=== PATIENT | female | born 1950 | race American Indian/Alaskan Native ===

== ENCOUNTER 2018-05-10 20:07 | Emergency (ER) | payer MEDICARE, OTHER ==
[2018-05-10 20:12] VITALS: BMI 19.8
[2018-05-10 20:28] VITALS: BP 157/81; RESP 18; TEMP 98.3
--- NOTE | 2018-05-10 20:48 | ED PDOC ---
Arrival/HPI - General Time Seen by Provider: 05/10/18 20:36 Historian: Patient - History of Present Illness Narrative History of Present Illness (Text): 05/10/18 20:38 68 year old female, whose past medical history includes COPD, presents to the emergency department with lower back and right hip pain. Patient states she's a regular at [facility] [place], but since they couldn't do anything for her pain, she came here. Patient states the pain in worsened when she tries to lift her leg. Patient informs of having an X-ray recently at [facility] [place] that showed nothing wrong. Patient denies any fevers, chills, headache, dizziness, chest pain, shortness of breath, cough, abdominal pain, nausea, vomiting, diarrhea, urinary/bowel changes, or any other complaint. Time/Duration: Prior to Arrival Symptom Onset: Gradual Symptom Course: Unchanged Quality: Aching Past Medical History - Provider Review Nursing Documentation Reviewed: Yes Family/Social History - Physician Review Nursing Documentation Reviewed: Yes Family/Social History: No Known Family HX Allergies/Home Meds Allergies/Adverse Reactions: Allergies No Known Allergies Allergy (Verified 05/10/18 20:12) Home Medications: Home Meds Medication Instructions Recorded Confirmed Albuterol HFA [Ventolin HFA 90 1 inh INH PRN PRN 05/10/18 05/10/18 mcg/actuation (8 g)] Gabapentin [Neurontin] 400 mg PO BID 05/10/18 05/10/18 amLODIPine [Norvasc] 5 mg PO DAILY 05/10/18 05/10/18 Review of Systems - Physician Review All systems were reviewed & negative as marked: Yes - Review of Systems Constitutional: absent: Fevers, Night Sweats Respiratory: absent: SOB, Cough Cardiovascular: absent: Chest Pain Gastrointestinal: absent: Abdominal Pain, Diarrhea, Nausea, Vomiting Genitourinary Female: absent: Urine Output Changes Neurological: absent: Headache, Dizziness Physical Exam - Physical Exam Narrative Physical Exam (Text): 05/10/18 20:49 Gen: VS reviewed, alert, well developed, well nourished, nontoxic, mild distress. ENT: normal pharynx. Eye: EOMI, PERRL. Neck: no JVD, supple, no adenopathy. CV: regular rate, regular rhythm, no rubs, no murmur, no gallops, S1, S2, pulses equal and strong. Pulm: no distress, clear to auscultation, no wheeze, no rhonchi, breath sounds equal, no rales. Abd: soft, nontender, no guarding, no rebound, no rigidity, normal bowel sounds. Ext: no edema. Skin: good color, no rash, no cyanosis. Psych: responds appropriately to questions, normal affect. Neuro: oriented x 3, CN2-12 intact grossly, motor intact, sensation intact. Vital Signs Reviewed: Yes Vital Signs Temp Pulse Resp BP Pulse Ox 05/10/18 20:20 98.3 F 88 18 157/81 H 99 Temperature: Afebrile Blood Pressure: Normal Pulse: Regular Respiratory Rate: Normal Appearance: Positive for: Well-Appearing, Non-Toxic, Comfortable Pain Distress: None Mental Status: Positive for: Alert and Oriented X 3 Medical Decision Making ED Course and Treatment: 05/10/18 20:45 Impression: 68 year old female presents to the emergency department with lower back and right hip pain. Plan: -- Reassess and disposition Prior Visits: Notes and results from previous visits were reviewed. Progress Notes: 05/10/18 20:48 Discussed case with PMD, Dr. Samuel, who knows the patient very well. He states patient "bounces from ER to ER looking for pain meds. All her issues are chronic." 05/10/18 20:54 patient is yelling profanities, being disruptive, rambling continuously, and being frankly,disrespectful. - Scribe Statement The provider has reviewed the documentation as recorded by the Yolande Mari Provider Scribe Attestation: All medical record entries made by the Scribisidra were at my direction and personally dictated by me. I have reviewed the chart and agree that the record accurately reflects my personal performance of the history, physical exam, medical decision making, and the department course for this patient. I have also personally directed, reviewed, and agree with the discharge instructions and disposition. Disposition/Present on Arrival - Present on Arrival Any Indicators Present on Arrival: No - Disposition Have Diagnosis and Disposition been Completed?: Yes Diagnosis: Chronic pain Disposition: HOME/ ROUTINE Disposition Time: 20:55 Patient Plan: Discharge Patient Problems: Current Active Problems Problem Status Onset Chronic pain Acute Condition: STABLE Discharge Instructions (ExitCare): Chronic Pain (DC) Additional Instructions: You must follow up with your orthopedic surgeon. Follow up with your primary care doctor for pain control. See your primary care doctor for better control of your high blood pressure. TREVON FOSS, thank you for letting us take care of you today. Your provider was Dr. Chapo Jim and you were treated for chronic pain. The emergency medical care you received today was directed at your acute symptoms. If you were prescribed any medication, please fill it and take as directed. It may take several days for your symptoms to resolve. Return to the Emergency Department if your symptoms worsen, do not improve, or if you have any other problems. Please contact your doctor or call one of the physicians/clinics you have been referred to that are listed on the Patient Visit Information form that is included in your discharge packet. Bring any paperwork you were given at discharge with you along with any medications you are taking to your follow up visit. Our treatment cannot replace ongoing medical care by a primary care provider outside of the emergency department. Thank you for allowing the [facility] team to be part of your care today. If you had an X-Ray or CT scan: A Radiologist will review the ED reading if any change in treatment is needed we will contact you. If you had a blood, urine, or wound culture: It will take several days for the results, if any change in treatment is needed we will contact you. If you had an STI test: It will take 48 hours for the results. Please call after 1 week if you have not heard back. Referrals: [facility] [Outside] - Follow up with primary Hernan Coyne III, MD [Medical Doctor] - Follow up with primary
[2018-05-10 21:03] VITALS: PULSE 79; O2SAT 98
== END 2018-05-10 21:03 | disposition home or self-care (01) ==
LOC: ED 20:07 → MERGE 20:07 → ED 21:02
DX: G89.29 Other chronic pain (principal)

== ENCOUNTER 2018-06-24 18:02 | Emergency (ER) | payer MEDICARE, OTHER ==
[2018-06-24 18:02] VITALS: BMI 19.8
[2018-06-24 18:32] VITALS: RESP 18; TEMP 98.3
[2018-06-24] MEDS ORDERED: Albuterol-Ipratrop 3 mg / 0.5 (3 ml) UD IH STA (18:52)
--- NOTE | 2018-06-24 18:56 | ED PDOC ---
Arrival/HPI - General Chief Complaint: Pain, Chronic Time Seen by Provider: 06/24/18 18:10 Historian: Patient - History of Present Illness Narrative History of Present Illness (Text): 06/24/18 18:53 68 year old female whose past medical history includes COPD and osteoarthritis, presents to the emergency department complaining of chronic, bilateral lower extremity pain, worsened in the past 24hrs. Patient states that her right leg feels heavy and there is a sharp pain in her upper left leg which radiates to her left hip and left lower back. She notes she has pain with ambulation and while sitting to the side her pain worsens. She reports associated shortness of breath and chest tightness. Patient denies any recent falls or traumas to the area, fevers, chills, headache, dizziness, abdominal pain, nausea, vomiting, diarrhea, neck pain, or any other complaint. Time/Duration: 24 hours Symptom Course: Worsening Activities at Onset: Light Context: Home Past Medical History - Provider Review Nursing Documentation Reviewed: Yes - Infectious Disease Hx of Infectious Diseases: None - Cardiac Hx Cardiac Disorders: Yes Hx Hypertension: Yes - Pulmonary Hx Respiratory Disorders: Yes Hx Chronic Obstructive Pulmonary Disease (COPD): Yes - Neurological Hx Neurological Disorder: No - HEENT Hx HEENT Disorder: No - Renal Hx Renal Disorder: No - Endocrine/Metabolic Hx Endocrine Disorders: Yes Hx Diabetes Mellitus Type 2: Yes - Hematological/Oncological Hx Blood Disorders: Yes Hx Hepatitis C: Yes - Integumentary Hx Dermatological Disorder: No - Musculoskeletal/Rheumatological Hx Musculoskeletal Disorders: Yes Hx Arthritis: Yes (B/L HIP) - Gastrointestinal Hx Gastrointestinal Disorders: No - Genitourinary/Gynecological Hx Genitourinary Disorders: Yes - Psychiatric Hx Psychophysiologic Disorder: Yes Hx Substance Use: No - Surgical History Hx Tonsillectomy: Yes - Anesthesia Hx Anesthesia: Yes Family/Social History - Physician Review Nursing Documentation Reviewed: Yes Family/Social History: No Known Family HX Smoking Status: Light Smoker < 10 Cigarettes Daily Hx Alcohol Use: Yes Hx Substance Use: No Substance used: completed methadone program Allergies/Home Meds Allergies/Adverse Reactions: Allergies No Known Allergies Allergy (Verified 06/24/18 18:28) Home Medications: Home Meds Medication Instructions Recorded Confirmed Gabapentin [Neurontin] 400 mg PO BID 05/10/18 06/24/18 Review of Systems - Physician Review All systems were reviewed & negative as marked: Yes - Review of Systems Constitutional: absent: Fevers Eyes: absent: Vision Changes Respiratory: SOB Cardiovascular: Chest Pain (tight chest), Edema (left leg swelling) Gastrointestinal: absent: Abdominal Pain, Diarrhea, Nausea, Vomiting Musculoskeletal: Back Pain (lower back pain), Other (bilateral lower extremity pain). absent: Neck Pain Skin: absent: Rash Neurological: absent: Headache, Dizziness Physical Exam Vital Signs Reviewed: Yes Vital Signs Temp Pulse Resp BP Pulse Ox 06/24/18 18:23 98.3 F 99 H 18 143/97 H 99 Temperature: Afebrile Blood Pressure: Hypertensive Pulse: Tachycardic Respiratory Rate: Normal Appearance: Positive for: Well-Appearing, Non-Toxic, Comfortable Pain Distress: None Mental Status: Positive for: Alert and Oriented X 3 - Systems Exam Head: Present: Atraumatic, Normocephalic Pupils: Present: PERRL Extroacular Muscles: Present: EOMI Conjunctiva: Present: Normal Mouth: Present: Moist Mucous Membranes Neck: Present: Normal Range of Motion Respiratory/Chest: Present: Clear to Auscultation, Good Air Exchange. No: Respiratory Distress, Accessory Muscle Use Cardiovascular: Present: Regular Rate and Rhythm, Normal S1, S2. No: Murmurs Abdomen: No: Tenderness, Distention, Peritoneal Signs Back: Present: Normal Inspection Upper Extremity: Present: Normal Inspection. No: Cyanosis, Edema Lower Extremity: Present: Edema (notable left leg swelling to thigh), NORMAL PULSES (distal pulses intact bilaterally), Other (positive straight leg test right). No: CALF TENDERNESS (no pain with calf squeeze) Neurological: Present: GCS=15, CN II-XII Intact, Speech Normal Skin: Present: Warm, Dry, Normal Color. No: Rashes Psychiatric: Present: Alert, Oriented x 3, Normal Insight, Normal Concentration Medical Decision Making ED Course and Treatment: 06/24/18 18:53 Impression: 68 year old female who presents to the emergency department with bilateral lower extremity pain. Differential Diagnosis included but are not limited to: Peripheral Neropathy DVT Sciatica Plan: -- Labs -- EKG -- Duoneb -- Urinalysis -- US of lower extremities -- Reassess and disposition Prior Visits: Notes and results from previous visits were reviewed. Progress Notes: 06/24/18 20:26 US negative for DVT in bilateral extremities. Labs reviewed with no outstanding findings. Patient reassessed and feels better. She is advised to continue supportive therapy at home. She is stable for discharge. - Lab Interpretations I have reviewed the lab results: Yes - RAD Interpretation Narrative RAD Interpretations (Text): 06/24/18 19:56 US of Lower Extremity: DVT negative Radiology Orders: 06/24/18 18:33 CHEST PORTABLE [RAD] Stat 06/24/18 18:52 DUPLEX LOWER EXTRM VEIN BILAT [US] Stat Social Service Liaison: Radiologist - Scribe Statement The provider has reviewed the documentation as recorded by the Scribe Ailyn Ferrerradhabud Provider Scribe Attestation: All medical record entries made by the Scribe were at my direction and personally dictated by me. I have reviewed the chart and agree that the record accurately reflects my personal performance of the history, physical exam, medical decision making, and the department course for this patient. I have also personally directed, reviewed, and agree with the discharge instructions and disposition. Disposition/Present on Arrival - Present on Arrival Any Indicators Present on Arrival: No History of DVT/PE: No History of Uncontrolled Diabetes: No Urinary Catheter: No History of Decub. Ulcer: No History Surgical Site Infection Following: None - Disposition Have Diagnosis and Disposition been Completed?: Yes Diagnosis: Myalgia Disposition: HOME/ ROUTINE Disposition Time: 20:33 Patient Plan: Discharge Condition: IMPROVED Discharge Instructions (ExitCare): Muscle and Bone Pain (DC) Print Language: AUSTRALIAN Additional Instructions: All medical record entries made by the Scribe were at my direction and personally dictated by me. I have reviewed the chart and agree that the record accurately reflects my personal performance of the history, physical exam, medical decision making, and the department course for this patient. I have also personally directed, reviewed, and agree with the discharge instructions and disposition. Referrals: Michelle Venegas MD [Medical Doctor] - Follow up with primary [facility] at [facility] [Outside] - Follow up with primary Forms: [employer] (Spanish)
[2018-06-24] MEDS ORDERED: Lidocaine 5% Patch TD STA (19:01)
[2018-06-24 19:38] LABS: BASO # 0.03 K/mm3 (0.0-2.0); BASO % 0.4 % (0.0-3.0); EOS # 0.1 (0.0-0.7); EOS % 1.3 % (1.5-5.0); GRAN # 3.92 (1.4-6.5); HEMOGLOBIN 12.1 g/dL (12.0-16.0); LYMPH # 2.8 (1.2-3.4); LYMPH % 38.7 % (22.0-35.0); MEAN CELL VOLUME 90.4 fl (80.0-105.0); MEAN CORPUSCULAR HEMOGLOBIN 29.7 pg (25.0-35.0); MEAN CORPUSCULAR HGB CONC 32.9 g/dl (31.0-37.0); MEAN PLATELET VOLUME 11.5 fl (7.0-11.0); MONO # 0.3 (0.1-0.6); MONO % 4.6 % (1.0-6.0); RBC 4.07 10^6/uL (3.5-6.1); RED CELL DISTRIBUTION WIDTH 14.5 % (11.5-14.5); WHITE BLOOD COUNT 7.1 10^3/uL (4.5-11.0)
[2018-06-24 19:42] LABS: ALT/SGPT 43 U/L (7-56); AST/SGOT 60 U/L (14-36); BLOOD UREA NITROGEN 15 mg/dL (7-21); CALCIUM 8.9 mg/dL (8.4-10.5); GFR NON-AFRICAN AMERICAN > 60
[2018-06-24 19:53] LABS: B-TYPE NATRIURETIC PEPTIDE 70.6 pg/mL (0-450); TROPONIN I < 0.01 ng/mL
[2018-06-24] MEDS ORDERED: Oxycodone/Acetaminophen 5/325 mg Tab PO STA (20:29)
[2018-06-24 23:13] VITALS: BP 144/79; PULSE 88; O2SAT 97
--- NOTE | 2018-06-25 18:32 | US ---
HISTORY: Leg pain and swelling. Evaluate for DVT PHYSICIAN(S): Eulogio Madrid MD. TECHNIQUE: Duplex sonography and color-flow Doppler with graded compression were used to evaluate the deep venous systems of both lower extremities. FINDINGS: The visualized deep venous systems of both lower extremities are sonographically normal and compressible. Normal wave forms and augmentation are seen. There is no sonographic evidence for deep venous thrombosis in the visualized segments of both lower extremities. IMPRESSION: No sonographic evidence for deep venous thrombosis in the visualized segments of both lower extremities.
== END 2018-06-24 23:13 | disposition home or self-care (01) ==
LOC: ED 18:02
DX: M79.10 Myalgia, unspecified site (principal); I10 Essential (primary) hypertension; J44.9 Chronic obstructive pulmonary disease, unspecified; M16.0 Bilateral primary osteoarthritis of hip; F17.210 Nicotine dependence, cigarettes, uncomplicated
CPT/HCPCS: 80053; 82948; 83880; 84484; 85025; 93970; 96372; 99284; J1885

== ENCOUNTER 2018-06-27 15:46 | Emergency (ER) | payer MEDICARE ==
[2018-06-27 15:47] VITALS: BMI 19.8
[2018-06-27 16:02] VITALS: O2SAT 100
--- NOTE | 2018-06-27 16:08 | ED PDOC ---
Arrival/HPI - History of Present Illness Narrative History of Present Illness (Text): 68 y/o female with PMH of HTN, COPD, Hepatitis C, Osteoarthritis presents to the ED c/o left hip and thigh pain s/p fall this afternoon. Patient was getting off the toilet when she slipped and landed on her left side. Denies head strike or LOC. States that she has chronic pain in her hips and legs but this pain is worse. Has not taken any medication for pain. Patient is able to move both hips and bear weight, although it causes her pain. Denies back pain, incontinence, numbness, paresthesias, chest pain, SOB, headache, dizziness, N/V. Past Medical History - Provider Review Nursing Documentation Reviewed: Yes - Infectious Disease Hx of Infectious Diseases: None - Cardiac Hx Cardiac Disorders: Yes Hx Hypertension: Yes - Pulmonary Hx Respiratory Disorders: Yes Hx Chronic Obstructive Pulmonary Disease (COPD): Yes - Neurological Hx Neurological Disorder: No - HEENT Hx HEENT Disorder: No - Renal Hx Renal Disorder: No - Endocrine/Metabolic Hx Endocrine Disorders: No - Hematological/Oncological Hx Blood Disorders: Yes Hx Hepatitis C: Yes - Integumentary Hx Dermatological Disorder: No - Musculoskeletal/Rheumatological Hx Musculoskeletal Disorders: Yes Hx Arthritis: Yes (B/L HIP) - Gastrointestinal Hx Gastrointestinal Disorders: No - Genitourinary/Gynecological Hx Genitourinary Disorders: Yes - Psychiatric Hx Psychophysiologic Disorder: Yes Hx Substance Use: No - Surgical History Hx Tonsillectomy: Yes - Anesthesia Hx Anesthesia: Yes Family/Social History - Physician Review Nursing Documentation Reviewed: Yes Family/Social History: No Known Family HX Smoking Status: Light Smoker < 10 Cigarettes Daily Hx Alcohol Use: Yes Hx Substance Use: No Substance used: completed methadone program Allergies/Home Meds Allergies/Adverse Reactions: Allergies No Known Allergies Allergy (Verified 06/28/18 12:57) Home Medications: Home Meds Medication Instructions Recorded Confirmed Gabapentin [Neurontin] 400 mg PO BID 05/10/18 06/24/18 Folic Acid 1 mg PO DAILY 06/27/18 06/27/18 Glyburide PO 06/27/18 Review of Systems - Physician Review All systems were reviewed & negative as marked: Yes - Review of Systems Constitutional: Normal Eyes: Normal. absent: Vision Changes ENT: Normal Respiratory: Normal. absent: SOB Cardiovascular: Normal. absent: Chest Pain Gastrointestinal: Normal Genitourinary Female: Normal Musculoskeletal: Arthralgias (left hip, anterior thigh). absent: Back Pain, Neck Pain, Joint Swelling Skin: Normal. absent: Other (bruising) Neurological: Normal. absent: Headache, Dizziness Endocrine: Normal Hemo/Lymphatic: Normal Psychiatric: Normal Physical Exam Vital Signs Reviewed: Yes Vital Signs Temp Pulse Resp BP Pulse Ox 06/27/18 16:01 98.0 F 100 H 18 141/86 100 Temperature: Afebrile Blood Pressure: Normal Pulse: Regular Respiratory Rate: Normal Appearance: Positive for: Well-Appearing, Non-Toxic, Comfortable Pain Distress: None Mental Status: Positive for: Alert and Oriented X 3 - Systems Exam Head: Present: Atraumatic, Normocephalic Pupils: Present: PERRL Extroacular Muscles: Present: EOMI Conjunctiva: Present: Normal Mouth: Present: Moist Mucous Membranes Neck: Present: Normal Range of Motion. No: MIDLINE TENDERNESS Respiratory/Chest: Present: Clear to Auscultation, Good Air Exchange. No: Respiratory Distress, Accessory Muscle Use, Decreased Breath Sounds, Retracting, Rhonchi Cardiovascular: Present: Regular Rate and Rhythm, Normal S1, S2, Peripheal Pulses Present. No: Murmurs Abdomen: No: Tenderness, Distention, Peritoneal Signs, Rebound, Guarding Back: Present: Normal Inspection. No: Midline Tenderness, Paraspinal Tenderness Upper Extremity: Present: Normal Inspection, Normal ROM, NORMAL PULSES, Neurovascularly Intact, Capillary Refill < 2s. No: Cyanosis, Edema, Tenderness, Deformity Lower Extremity: Present: Normal Inspection, NORMAL PULSES, Normal ROM, Tenderness (left anterior thigh and lateral hip ), Neurovascularly Intact, Capillary Refill < 2 s. No: Edema, Swelling, Erythema, Deformity, Temperature Abnormalties Neurological: Present: GCS=15, CN II-XII Intact, Speech Normal Skin: Present: Warm, Dry, Normal Color. No: Rashes Psychiatric: Present: Alert, Oriented x 3, Normal Insight, Normal Concentration, Normal Affect, Normal Mood Medical Decision Making ED Course and Treatment: 06/27/18 16:05 Initial Plan: * XR left hip * XR left femur * Toradol Patient reports decreased pain after medication. 18:00 XR left hip and femur read by Dr. Johnston as negative for acute fracture or di slocation. Plan of care discussed with patient, and strict instructions given regarding prescriptions, importance of follow up, and signs to return to Emergency Department, to include worsening pain, numbness, paresthesias, or any other new/worsening symptoms. Patient verbalizes understanding of discussion. Patient A&Ox3, ambulating with steady gait, stable for discharge home. Impression: Left hip pain Muscle strain 18:45 Attempting to arrange transport for patient 19:30 Patient will wait for logistic care to pick her up from the ED and take her home. Estimated wait time 4 hours. - RAD Interpretation Radiology Orders: 06/27/18 15:59 FEMUR MIN 2 VIEWS LT [RAD] Stat Hip Left [HIP MIN 4V W/ PELVIS LT] [RAD] Stat - Medication Orders Current Medication Orders: Discontinued Medications Ketorolac Tromethamine (Toradol) 60 mg IM STAT STA Stop: 06/27/18 16:02 Disposition/Present on Arrival - Present on Arrival Any Indicators Present on Arrival: No History of DVT/PE: No History of Uncontrolled Diabetes: No Urinary Catheter: No History Surgical Site Infection Following: None - Disposition Have Diagnosis and Disposition been Completed?: Yes Diagnosis: Fall, Hip pain, Muscle strain Disposition: HOME/ ROUTINE Disposition Time: 18:00 Condition: IMPROVED Discharge Instructions (ExitCare): Preventing Falls, Hip Pain Additional Instructions: Rest, no strenuous activity Heating pads over painful areas Tylenol for pain Followup with primary doctor within 2 days Followup with orthopedic doctor for persistent pain Return to ER for new/worsening symptoms Referrals: Yelitza Samuel MD [Primary Care Provider] - Follow up with primary Constantino Rodriguez MD [Staff Provider] - Follow up with primary Forms: [place] (Latvian)
[2018-06-27 16:21] VITALS: TEMP 98.9
[2018-06-27] MEDS ORDERED: Oxycodone/Acetaminophen 5/325 mg Tab PO STA (22:00)
[2018-06-27] MEDS ORDERED: Oxycodone/Acetaminophen 5/325 mg Tab ONE (22:07)
[2018-06-28 02:56] VITALS: BP 135/78; PULSE 85; RESP 16
--- NOTE | 2018-06-28 12:13 | RAD ---
Date of service: 06/27/2018 Indication: Trauma, rule out fracture Left femur radiographs Comparison: None available Findings: Severe degenerative changes of the left hip with high-riding femoral head and joint space narrowing. Subchondral sclerosis. Marked degenerative changes of the limited visualized knee. No acute displaced fracture. Soft tissues appear unremarkable. No evidence of radiopaque foreign body. Impression: Severe degenerative changes of the left hip as above. No acute displaced fracture identified. If symptoms persist or if there is continued clinical concern, x-ray follow-up in 7-10 days should be considered.
--- NOTE | 2018-06-28 12:53 | RAD ---
Date of service: 06/27/2018 PROCEDURE: Left hip with pelvis radiographs HISTORY: trauma, r/o fracture COMPARISON: None available FINDINGS: Severe degenerative changes bilateral hip joints. Subchondral sclerosis and joint space narrowing. Deformity of the proximal right femur may be related to remote injury. Correlate clinically. Osseous demineralization. Degenerative changes of the included lower lumbar spine. No acute displaced fracture appreciated. IMPRESSION: Severe degenerative changes bilaterally. Osseous demineralization. Deformity of the proximal right femur may be related to remote injury. Correlate clinically. No acute displaced fracture appreciated. If clinical suspicion is high, recommend cross-sectional imaging for further evaluation.
== END 2018-06-28 01:55 | disposition home or self-care (01) ==
LOC: ED 15:46
DX: S76.012A Strain of muscle, fascia and tendon of left hip, initial encounter (principal); W18.11XA Fall from or off toilet without subsequent striking against object, initial encounter; I10 Essential (primary) hypertension; F17.210 Nicotine dependence, cigarettes, uncomplicated; J44.9 Chronic obstructive pulmonary disease, unspecified
CPT/HCPCS: 73503; 73552; 96372; 99284; J1885

== ENCOUNTER 2018-06-28 12:32 | Emergency (ER) | payer MEDICARE ==
[2018-06-28 12:33] VITALS: BMI 19.8
[2018-06-28 12:57] VITALS: TEMP 98
--- NOTE | 2018-06-28 13:37 | ED PDOC ---
Arrival/HPI - General Chief Complaint: Female Genitourinary Time Seen by Provider: 06/28/18 12:40 Historian: Patient - History of Present Illness Narrative History of Present Illness (Text): 06/28/18 12:57 A 68 year old female, whose past medical history includes COPD, HTN, diabetes(does not take insulin as she's been told she doesn't need it, takes pills instead), presents to the emergency department complaining of frequent ur ination for the past 2 hours starting today. Patient reports she urinated on herself as a result of this issue. Notes she was diagnosed with a UTI 2 weeks ago and has been taking antibiotic pills twice a day (states she currently has two pills remaining). Patient denies any fever, dysuria, or any other complaints at this time. No PMD Past Medical History - Provider Review Nursing Documentation Reviewed: Yes - Infectious Disease Hx of Infectious Diseases: None - Reproductive Menopause: Yes - Cardiac Hx Cardiac Disorders: Yes Hx Hypertension: Yes - Pulmonary Hx Respiratory Disorders: Yes Hx Chronic Obstructive Pulmonary Disease (COPD): Yes - Neurological Hx Neurological Disorder: No - HEENT Hx HEENT Disorder: No - Renal Hx Renal Disorder: No - Endocrine/Metabolic Hx Endocrine Disorders: No - Hematological/Oncological Hx Blood Disorders: Yes Hx Hepatitis C: Yes - Integumentary Hx Dermatological Disorder: No - Musculoskeletal/Rheumatological Hx Musculoskeletal Disorders: Yes Hx Arthritis: Yes (B/L HIP) - Gastrointestinal Hx Gastrointestinal Disorders: No - Genitourinary/Gynecological Hx Genitourinary Disorders: Yes - Psychiatric Hx Psychophysiologic Disorder: Yes Hx Substance Use: No - Surgical History Hx Tonsillectomy: Yes - Anesthesia Hx Anesthesia: Yes Family/Social History - Physician Review Nursing Documentation Reviewed: Yes Family/Social History: No Known Family HX Smoking Status: Light Smoker < 10 Cigarettes Daily Hx Alcohol Use: Yes Hx Substance Use: No Substance used: completed methadone program Allergies/Home Meds Allergies/Adverse Reactions: Allergies No Known Allergies Allergy (Verified 06/28/18 12:57) Home Medications: Home Meds Medication Instructions Recorded Confirmed Gabapentin [Neurontin] 400 mg PO BID 05/10/18 06/24/18 Folic Acid 1 mg PO DAILY 06/27/18 06/27/18 Glyburide PO 06/27/18 Review of Systems - Physician Review All systems were reviewed & negative as marked: Yes - Review of Systems Constitutional: absent: Fevers Genitourinary Female: Frequency. absent: Dysuria Physical Exam - Physical Exam Narrative Physical Exam (Text): Gen: VS reviewed, alert, well developed, well nourished, nontoxic, mild distress Eye: EOMI, PERRL Neck: no JVD, supple, no adenopathy CV: regular rate, regular rhythm, no rubs,no murmur, S1, S2 Pulm: no distress, clear to auscultation, no wheeze, no rhonchi, breath sounds equal, no rales Abd: soft, nontender, no guarding, no rebound, no rigidity Ext: no edema Skin: good color, no rash, no cyanosis Psych: responds appropriately to questions, normal affect Neuro: oriented x3, CN2-12 intact grossly, motor intact, sensation intact Vital Signs Reviewed: Yes Vital Signs Temp Pulse Resp BP Pulse Ox 06/28/18 12:52 98 F 90 20 101/68 97 Temperature: Afebrile Blood Pressure: Normal Pulse: Regular Respiratory Rate: Normal Appearance: Positive for: Well-Appearing, Non-Toxic, Comfortable Pain Distress: None Mental Status: Positive for: Alert and Oriented X 3 Medical Decision Making ED Course and Treatment: 06/28/18 13:00 Impression: 68 year old female with frequent urination. No acute findings on physical exam. Plan: -- Reassess and disposition Progress Notes: 06/28/18 16:07 patient seen for urinary incontinence, there are no associated acute neuro deficits such as lower extremity weakness or numbness, no saddle anesthesia. patient does report a hx of low back pain but recent escalation of low back pain. there is no fever or hx ivda to suggest possible spinal epidural abscess. patient understands findings and plan to follow up with pcp. patient agreeable to referral to urologist for possible urodynamic testing. - Scribe Statement The provider has reviewed the documentation as recorded by the Yolande Bartlett Provider Scribe Attestation: All medical record entries made by the Yolande were at my direction and personally dictated by me. I have reviewed the chart and agree that the record accurately reflects my personal performance of the history, physical exam, medical decision making, and the department course for this patient. I have also personally directed, reviewed, and agree with the discharge instructions and disposition. Disposition/Present on Arrival - Present on Arrival Any Indicators Present on Arrival: No History of DVT/PE: No History of Uncontrolled Diabetes: No Urinary Catheter: No History of Decub. Ulcer: No History Surgical Site Infection Following: None - Disposition Have Diagnosis and Disposition been Completed?: Yes Diagnosis: Urinary incontinence in female Disposition: HOME/ ROUTINE Disposition Time: 16:09 Patient Plan: Discharge Condition: STABLE Discharge Instructions (ExitCare): Urinary Incontinence, Female (DC) Additional Instructions: Return for any new or worsening symptoms especially fever greater than 100.4, acute numbness or weakness in the legs, unable to feel sensation in the groin area, sever worsening low back pain. TREVON FOSS, thank you for letting us take care of you today. Your provider was Dr. Chapo Jim and you were treated for urinary incontinence. The emergency medical care you received today was directed at your acute symptoms. If you were prescribed any medication, please fill it and take as directed. It may take several days for your symptoms to resolve. Return to the Emergency Department if your symptoms worsen, do not improve, or if you have any other problems. Please contact your doctor or call one of the physicians/clinics you have been referred to that are listed on the Patient Visit Information form that is included in your discharge packet. Bring any paperwork you were given at discharge with you along with any medications you are taking to your follow up visit. Our treatment cannot replace ongoing medical care by a primary care provider outside of the emergency department. Thank you for allowing the [facility] team to be part of your care today. If you had an X-Ray or CT scan: A Radiologist will review the ED reading if any change in treatment is needed we will contact you. If you had a blood, urine, or wound culture: It will take several days for the results, if any change in treatment is needed we will contact you. If you had an STI test: It will take 48 hours for the results. Please call after 1 week if you have not heard back. Referrals: Sukh Laguna MD [Staff Provider] - Follow up with primary Forms: [employer] (Portuguese)
[2018-06-28 14:59] LABS: PH,URINE 6.5 (4.7-8.0); URINE BILIRUBIN NEGATIVE (NEGATIVE); URINE BLOOD NEGATIVE (NEGATIVE); URINE GLUCOSE (UA) NEGATIVE (NEGATIVE); URINE LEUKOCYTE ESTERASE SMALL Leu/uL (NEGATIVE); URINE PROTEIN NEGATIVE mg/dL (<30 mg/dL)
[2018-06-28 15:04] LABS: URINE APPEARANCE CLEAR (CLEAR); URINE COLOR YELLOW (YELLOW)
[2018-06-28 15:11] LABS: URINE BACTERIA NEG (NEG); URINE RBC 0 - 2 /hpf (0-2)
[2018-06-28 15:34] LABS: BASO # 0.01 K/mm3 (0.0-2.0); BASO % 0.1 % (0.0-3.0); EOS % 0.6 % (1.5-5.0); GRAN # 3.51 (1.4-6.5); GRAN % 52.1 % (50.0-68.0); HEMOGLOBIN 12.2 g/dL (12.0-16.0); LYMPH # 2.8 (1.2-3.4); LYMPH % 41.6 % (22.0-35.0); MEAN CELL VOLUME 89.7 fl (80.0-105.0); MEAN CORPUSCULAR HEMOGLOBIN 29.3 pg (25.0-35.0); MEAN CORPUSCULAR HGB CONC 32.7 g/dl (31.0-37.0); MEAN PLATELET VOLUME 11.8 fl (7.0-11.0); MONO # 0.4 (0.1-0.6); MONO % 5.6 % (1.0-6.0); RBC 4.16 10^6/uL (3.5-6.1); RED CELL DISTRIBUTION WIDTH 14.5 % (11.5-14.5); WHITE BLOOD COUNT 6.8 10^3/uL (4.5-11.0)
[2018-06-28 16:17] VITALS: RESP 18; O2SAT 98
[2018-06-28 21:11] VITALS: BP 136/78; PULSE 70
== END 2018-06-28 21:27 | disposition home or self-care (01) ==
LOC: ED 12:32
DX: R32 Unspecified urinary incontinence (principal); I10 Essential (primary) hypertension; E11.9 Type 2 diabetes mellitus without complications; J44.9 Chronic obstructive pulmonary disease, unspecified; F17.210 Nicotine dependence, cigarettes, uncomplicated

== ENCOUNTER 2018-07-02 13:31 | Emergency (ER) | payer MEDICARE, OTHER ==
[2018-07-02 13:32] VITALS: BMI 19.8
[2018-07-02 13:41] VITALS: RESP 18; TEMP 98.2
[2018-07-02] MEDS ORDERED: Lidocaine 5% Patch TD STA (14:11)
--- NOTE | 2018-07-02 14:37 | ED PDOC ---
Arrival/HPI - General Chief Complaint: Back Pain Time Seen by Provider: 07/02/18 13:40 Historian: Patient - History of Present Illness Narrative History of Present Illness (Text): 07/02/18 15:02 A 68 year old female, whose past medical history includes chronic back/hip pain, presents to the emergency department complaining of lower back pain s/p fall 1 hour [employer]ENT[employer]. Patient reports she was ambulating on the stairs when she slipped, fell down one stair, and landed on her back. After the fall, she stood up, changed her clothes, and called EMS. 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 Pt is well-known to the ED, last seen two days ago at [facility], and 4 days ago here. Pt ambulates with a walker at baseline. Patient denies any head trauma, LOC, dizziness, vision changes, leg numbness/paresthesias, hip pain, neck pain, incontinence, or any other complaints at this time. PMD: Dr. Layne Time/Duration: 1 hour Past Medical History - Provider Review Nursing Documentation Reviewed: Yes - Infectious Disease Hx of Infectious Diseases: None - Cardiac Hx Hypertension: Yes - Pulmonary Hx Chronic Obstructive Pulmonary Disease (COPD): Yes - Neurological Hx Neurological Disorder: No - HEENT Hx HEENT Disorder: No - Renal Hx Renal Disorder: No - Endocrine/Metabolic Hx Endocrine Disorders: No - Hematological/Oncological Hx Blood Disorders: Yes Hx Hepatitis C: Yes - Integumentary Hx Dermatological Disorder: No - Musculoskeletal/Rheumatological Hx Arthritis: Yes (B/L HIP) - Gastrointestinal Hx Gastrointestinal Disorders: No - Genitourinary/Gynecological Hx Genitourinary Disorders: Yes - Psychiatric Hx Psychophysiologic Disorder: Yes Hx Substance Use: No - Surgical History Hx Tonsillectomy: Yes - Anesthesia Hx Anesthesia: Yes Hx Anesthesia Reactions: No Hx Malignant Hyperthermia: No Family/Social History - Physician Review Nursing Documentation Reviewed: Yes Family/Social History: No Known Family HX Smoking Status: Heavy Smoker > 10 Cigarettes Daily Hx Alcohol Use: Yes Hx Substance Use: No Substance used: completed methadone program Allergies/Home Meds Allergies/Adverse Reactions: Allergies No Known Allergies Allergy (Verified 06/30/18 15:26) Home Medications: Home Meds Medication Instructions Recorded Confirmed Gabapentin [Neurontin] 400 mg PO BID 05/10/18 06/24/18 Folic Acid 1 mg PO DAILY 06/27/18 06/27/18 Glyburide PO 06/27/18 Review of Systems - Physician Review All systems were reviewed & negative as marked: Yes - Review of Systems Constitutional: absent: Other (no head trauma) Eyes: Normal. absent: Vision Changes ENT: Normal Respiratory: Normal. absent: SOB Cardiovascular: Normal. absent: Chest Pain Gastrointestinal: Normal. absent: Abdominal Pain, Nausea, Vomiting Musculoskeletal: Back Pain (lower region s/p fall). absent: Neck Pain, Other (no hip pain) Skin: Normal. absent: Skin Lesions, Laceration Neurological: Normal. absent: Headache, Dizziness, Focal Weakness, Gait Changes, Other (no LOC, no leg numbness/weakness/paresthesias) Physical Exam Vital Signs Reviewed: Yes Vital Signs Temp Pulse Resp BP Pulse Ox 07/02/18 13:41 98.2 F 76 18 146/92 H 98 Temperature: Afebrile Blood Pressure: Normal Pulse: Regular Respiratory Rate: Normal Appearance: Positive for: Well-Appearing, Non-Toxic, Comfortable Pain Distress: None Mental Status: Positive for: Alert and Oriented X 3 - Systems Exam Head: Present: Atraumatic, Normocephalic Pupils: Present: PERRL Extroacular Muscles: Present: EOMI Conjunctiva: Present: Normal Ears: Present: Normal Mouth: Present: Moist Mucous Membranes Pharnyx: Present: Normal Nose (External): Present: Atraumatic Neck: Present: Normal Range of Motion. No: MIDLINE TENDERNESS, Paraspinal Tenderness Respiratory/Chest: Present: Clear to Auscultation, Good Air Exchange. No: Respiratory Distress, Accessory Muscle Use Cardiovascular: Present: Regular Rate and Rhythm, Normal S1, S2. No: Murmurs Abdomen: No: Tenderness, Distention, Peritoneal Signs Back: Present: Normal Inspection, Paraspinal Tenderness (mild lumbar paraspinal muscle tenderness bilaterally). No: Midline Tenderness Upper Extremity: Present: Normal Inspection, Normal ROM, NORMAL PULSES, Neurovascularly Intact, Capillary Refill < 2s. No: Cyanosis, Edema, Tenderness, Swelling, Erythema, Deformity Lower Extremity: Present: Normal Inspection, NORMAL PULSES, Normal ROM (patient is able to ambulate at a steady gait), Tenderness, Neurovascularly Intact, Capillary Refill < 2 s. No: Edema, Swelling, Erythema, Deformity, Temperature Abnormalties Neurological: Present: GCS=15, CN II-XII Intact, Speech Normal, Motor Func Grossly Intact, Normal Sensory Function, Gait Normal (patient able to ambulate per baseline with walker), Memory Normal Skin: Present: Warm, Dry, Normal Color. No: Rashes, Laceration, Abrasion, Other (bruising) Psychiatric: Present: Alert, Oriented x 3, Normal Insight, Normal Concentration, Normal Affect, Normal Mood Medical Decision Making ED Course and Treatment: 07/02/18 15:06 Impression: 68 year old female with lower back pain s/p fall. Physical exam shows mild lumbar paraspinal muscle tenderness bilaterally. Plan: -- Lidoderm Patch -- Sacrum and Coccyx X-Ray -- Lumbar Spinal X-Ray -- Reassess and disposition Patient in no acute distress. Asking for a sandwich and TV remote. Denies any pain without movement. Prior Visits: Notes and results from previous visits were reviewed. Patient was last seen in the [facility] Emergency Department emergency department on 06/30/2018 for multiple complaints of chest pain, shortness of breath, chronic back pain, and vomiting. Patient was discharged home. Lumbar Spine XR shows compression fracture of L3 that appears chronic. On review of prior imaging, compression fracture noted in Lumbar Xrays from 06/20, 05/07, and pelvic CT from 04/03 Patient reports decreased pain after medications, resting comfortably in stretcher. Plan of care discussed with patient, and strict instructions given regarding prescriptions, importance of follow up, and signs to return to Emergency Department, to include incontinence, worsening pain, weakness, numbness, paresthesias, syncope, chest pain, or any other new/worsening symptoms. Patient verbalizes understanding of discussion. Patient A&Ox3, ambulating with steady gait with walker, stable for discharge home. Transport will be arranged for patient via [employer]. Impression: Chronic Low Back Pain Muscle Strain Fall - RAD Interpretation Narrative RAD Interpretations (Text): 07/02/2018 14:57 Lumbar Spinal X-Ray IMPRESSION: Compression deformity age indeterminate but likely chronic L3 vertebral body. Dictator: Anton Jenkins MD 07/02/2018 14:58 Sacrum and Coccyx X-Ray IMPRESSION: No acute findings related to/accounting for the clinical presentation. Dictator: Anton Jenkins MD Radiology Orders: 07/02/18 14:09 LS SPINE WITH OBL > 18 YRS OLD [RAD] Stat SACRUM &/or COCCYX (MIN 2VW) [RAD] Stat - Medication Orders Current Medication Orders: Discontinued Medications Lidocaine (Lidoderm) 1 ea TD STAT STA Stop: 07/02/18 14:12 - Scribe Statement The provider has reviewed the documentation as recorded by the Yolande Bartlett Provider Scribe Attestation: All medical record entries made by the Scribe were at my direction and personally dictated by me. I have reviewed the chart and agree that the record accurately reflects my personal performance of the history, physical exam, medical decision making, and the department course for this patient. I have also personally directed, reviewed, and agree with the discharge instructions and disposition. Disposition/Present on Arrival - Present on Arrival Any Indicators Present on Arrival: No History of DVT/PE: No History of Uncontrolled Diabetes: No Urinary Catheter: No History of Decub. Ulcer: No History Surgical Site Infection Following: None - Disposition Have Diagnosis and Disposition been Completed?: Yes Diagnosis: Fall, Back pain Disposition: HOME/ ROUTINE Disposition Time: 15:00 Condition: IMPROVED Discharge Instructions (ExitCare): Preventing Falls in the Older Adult Additional Instructions: Ibuprofen/tylenol for pain Followup with orthopedics within 2 days Followup with primary doctor within 2 days Return to ER for any new/worsening symptoms Referrals: Yelitza Samuel MD [Primary Care Provider] - Follow up with primary Constantino Rodriguez MD [Staff Provider] - Follow up with primary Forms: [employer] (Korean)
--- NOTE | 2018-07-02 15:01 | RAD ---
Date of service: 07/02/2018 PROCEDURE: Radiographs of the Lumbar Spine. HISTORY: fall r/o fracture COMPARISON: No prior. FINDINGS: BONES: Loss of height L3 vertebral body. Age indeterminate although likely old fracture. DISC SPACES: Multilevel degenerative changes throughout visualized thoracolumbar spine OTHER FINDINGS: None. IMPRESSION: Compression deformity age indeterminate but likely chronic L3 vertebral body.
--- NOTE | 2018-07-02 15:02 | RAD ---
Date of service: 07/02/2018 PROCEDURE: Radiographs of the Sacrum and Coccyx HISTORY: fall r/o fracture COMPARISON: None available. TECHNIQUE: Frontal and lateral views of the sacrum and coccyx FINDINGS: BONES: Sacrum and coccyx unremarkable. No fracture or focal lesion. SACROILIAC JOINTS: Unremarkable. OTHER FINDINGS: Severe degenerative changes both hips including profound joint space narrowing which is approximately symmetrical, subchondral cyst formation and sclerosis. IMPRESSION: No acute findings related to/accounting for the clinical presentation.
[2018-07-02 16:46] VITALS: BP 138/76; PULSE 71; O2SAT 100
== END 2018-07-02 17:32 | disposition home or self-care (01) ==
LOC: ED 13:31
DX: M54.5 Low back pain (principal); W10.9XXA Fall (on) (from) unspecified stairs and steps, initial encounter; Y92.9 Unspecified place or not applicable

== ENCOUNTER 2018-07-03 16:24 | Emergency (ER) | payer MEDICAID, MEDICARE, OTHER ==
[2018-07-03 16:24] VITALS: BMI 19.8
[2018-07-03] MEDS ORDERED: Albuterol-Ipratrop 3 mg / 0.5 (3 ml) UD IH STA (16:37)
[2018-07-03 16:55] VITALS: RESP 18; TEMP 98
--- NOTE | 2018-07-03 17:02 | ED PDOC ---
Arrival/HPI - General Chief Complaint: GI Problem Time Seen by Provider: 07/03/18 16:26 Historian: Patient - History of Present Illness Narrative History of Present Illness (Text): 07/03/18 16:55 68 year old female, whose past medical history includes COPD, presents to the emergency department with persistent nausea and vomiting, worsening over the past day. Patient states she has had these symptoms for a week. Patient states she also has reproducible chest pain from retching. She denies any blood streaks in sputum or vomit. Patient reports intermittent shortness of breath which she states albuterol does not ease. Patient was recently seen multiple times at [facility], as well [facility] for similar complaint. She admits to being given an antiemetic at [facility] which did not alleviate symptoms. Patient denies any fevers, chills, abd ominal pain, diarrhea, chest pain, cough, headache, dizziness, or any other complaints. Time/Duration: 24 hours (worsening in past 24 hours), 1 week Symptom Course: Unchanged Severity Level: Moderate Activities at Onset: Rest Context: Home Past Medical History - Provider Review Nursing Documentation Reviewed: Yes - Travel History Have you recently traveled outside [place] w/in the past 3 mons?: No - Infectious Disease Hx of Infectious Diseases: None - Cardiac Hx Hypertension: Yes - Pulmonary Hx Chronic Obstructive Pulmonary Disease (COPD): Yes - Neurological Hx Neurological Disorder: No - HEENT Hx HEENT Disorder: No - Renal Hx Renal Disorder: No - Endocrine/Metabolic Hx Endocrine Disorders: No - Hematological/Oncological Hx Blood Disorders: Yes Hx Hepatitis C: Yes - Integumentary Hx Dermatological Disorder: No - Musculoskeletal/Rheumatological Hx Arthritis: Yes (B/L HIP) - Gastrointestinal Hx Gastrointestinal Disorders: No - Genitourinary/Gynecological Hx Genitourinary Disorders: Yes - Psychiatric Hx Psychophysiologic Disorder: Yes Hx Substance Use: No - Surgical History Hx Tonsillectomy: Yes - Anesthesia Hx Anesthesia: Yes Hx Anesthesia Reactions: No Hx Malignant Hyperthermia: No Family/Social History - Physician Review Nursing Documentation Reviewed: Yes Family/Social History: No Known Family HX Smoking Status: Heavy Smoker > 10 Cigarettes Daily Hx Alcohol Use: Yes Hx Substance Use: No Substance used: completed methadone program Allergies/Home Meds Allergies/Adverse Reactions: Allergies No Known Allergies Allergy (Verified 07/05/18 16:02) Home Medications: Home Meds Medication Instructions Recorded Confirmed Gabapentin [Neurontin] 400 mg PO BID 05/10/18 07/05/18 Folic Acid 1 mg PO DAILY 06/27/18 07/05/18 RX: metFORMIN [glucOPHAGE] 1 tab PO BID 07/05/18 07/05/18 Review of Systems - Physician Review All systems were reviewed & negative as marked: Yes - Review of Systems Constitutional: absent: Fevers, Night Sweats Respiratory: absent: Cough Cardiovascular: absent: Chest Pain Gastrointestinal: Nausea, Vomiting. absent: Abdominal Pain, Diarrhea, Hematemesis Neurological: absent: Headache, Dizziness Physical Exam Vital Signs Reviewed: No Temperature: Afebrile Blood Pressure: Normal Pulse: Regular Respiratory Rate: Normal Appearance: Positive for: Well-Appearing, Non-Toxic, Comfortable Mental Status: Positive for: Alert and Oriented X 3 - Systems Exam Head: Present: Atraumatic, Normocephalic Pupils: Present: PERRL Extroacular Muscles: Present: EOMI Conjunctiva: Present: Normal Mouth: Present: Moist Mucous Membranes Neck: Present: Normal Range of Motion Respiratory/Chest: Present: Wheezes (mild wheezes noted to anterior lung garza), Other (reproduceable anterior chest wall pain). No: Rales, Rhonchi Cardiovascular: Present: Regular Rate and Rhythm, Normal S1, S2. No: Murmurs Abdomen: No: Tenderness, Distention, Peritoneal Signs Back: Present: Normal Inspection Upper Extremity: Present: Normal Inspection. No: Cyanosis, Edema Lower Extremity: Present: Normal Inspection. No: Edema Neurological: Present: GCS=15, CN II-XII Intact, Speech Normal Skin: Present: Warm, Dry, Normal Color. No: Rashes Psychiatric: Present: Alert, Oriented x 3, Normal Insight, Normal Concentration Medical Decision Making ED Course and Treatment: 07/03/18 17:06 Impression: 68 year old female presents with nausea and vomiting. Plan: -- EKG -- Toradol -- Zofran -- Prednisone -- Duonebs -- Reassess and disposition Prior Visits: Notes and results from previous visits were reviewed. Progress Notes: 07/03/18 17:51 EKG reviewed with no acute changes worrisome for ischemia. Patient noted to not be in bed. 07/03/18 18:15 Patient noted to be comfortably resting in bed. She eports improvement in pain. [facility] ambulatory services contacted and will come to hospital to transport patient home. - EKG Interpretation EKG Interpretation (Text): 07/03/18 17:08 EKG: Ordered, reviewed, and independently interpreted the EKG. Rate : 100 BPM Rhythm : NSR Interpretation : T-wave vlattening in V4 through V6, No QT prolongation, No ST elevation or depression Interpreted by ED Physician: Yes Type: 12 lead EKG - Medication Orders Current Medication Orders: Discontinued Medications Albuterol/Ipratropium (Duoneb 3 Mg/0.5 Mg (3 Ml) Ud) 3 ml IH STAT STA Stop: 07/03/18 16:38 Ketorolac Tromethamine (Toradol) 60 mg IM STAT STA Stop: 07/03/18 16:37 Ondansetron HCl (Zofran Odt) 4 mg PO STAT STA Stop: 07/03/18 16:37 Prednisone (Prednisone Tab) 60 mg PO STAT ONE Stop: 07/03/18 16:38 - Scribe Statement The provider has reviewed the documentation as recorded by the Yolande Mari Provider Scribe Attestation: All medical record entries made by the Scribe were at my direction and personally dictated by me. I have reviewed the chart and agree that the record accurately reflects my personal performance of the history, physical exam, medical decision making, and the department course for this patient. I have also personally directed, reviewed, and agree with the discharge instructions and disposition. Disposition/Present on Arrival - Present on Arrival Any Indicators Present on Arrival: No History of DVT/PE: No History of Uncontrolled Diabetes: No Urinary Catheter: No History of Decub. Ulcer: No History Surgical Site Infection Following: None - Disposition Have Diagnosis and Disposition been Completed?: Yes Diagnosis: Nausea & vomiting Disposition: HOME/ ROUTINE Disposition Time: 17:52 Patient Plan: Discharge Condition: IMPROVED Discharge Instructions (ExitCare): Nausea and Vomiting, Adult (DC) Print Language: ICELANDIC Additional Instructions: All medical record entries made by the Scribe were at my direction and personally dictated by me. I have reviewed the chart and agree that the record accurately reflects my personal performance of the history, physical exam, medical decision making, and the department course for this patient. I have also personally directed, reviewed, and agree with the discharge instructions and d isposition. Prescriptions: Ondansetron ODT [Zofran ODT] 4 mg PO Q6H #6 odt Referrals: Jean Claude Mo [Primary Care Provider] - Follow up with primary Shannan Swan [Registered Nurse] - Follow up with primary Carolina Urbano MD [Medical Doctor] - Follow up with primary Forms: [employer] (Bulgarian)
[2018-07-03 19:45] VITALS: BP 142/85; PULSE 88; O2SAT 98
--- NOTE | 2018-07-04 09:31 | CARD ---
APPROVED REPORT Date of service: 07/03/2018 EKG Measurement Heart [id number] <Conclusion> Normal sinus rhythm Possible Left atrial enlargement LVH NSSTW changes
== END 2018-07-03 19:47 | disposition home or self-care (01) ==
LOC: ED 16:24
DX: R11.2 Nausea with vomiting, unspecified (principal); I10 Essential (primary) hypertension; J44.9 Chronic obstructive pulmonary disease, unspecified; B19.20 Unspecified viral hepatitis C without hepatic coma; F17.210 Nicotine dependence, cigarettes, uncomplicated
CPT/HCPCS: 93005; 94640; 96372; 99284; J1885

== ENCOUNTER 2018-07-08 20:05 | Observation (INO) | payer OTHER, MEDICAID ==
[2018-07-08 20:05] VITALS: BMI 19.8
--- NOTE | 2018-07-08 20:59 | ED PDOC ---
Arrival/HPI - General Historian: Patient - History of Present Illness Narrative History of Present Illness (Text): 07/08/18 20:56 68 y o female, Past medical history hypertension, hyperlipidemia, COPD, DM2, b/l hip arthritis, chronic pain, Hep C (never treated), presents with chest pain that started this am. Pt states she was seated at home when the pain started, denies any inciting factors. States the pain was present for several minutes, went away on own, and then returned, now constant. Localized pain to L side of chest w/o radiation to axilla or carotids. Rates pain 8/10 currently. Did not take ASA or pain meds at home for symptoms. States chest pain is reproduced when she coughs, notes she has a chronic dry cough that is unchanged from baseline. Denies headache, lightheadedness/dizziness, fever, chills, sob, dyspnea on exertion, nausea, vomiting, d/c, abd pain, urinary complaints, or other symptoms. States she does not know how to check her fingersticks at home for her diabetes. States her bp was elevated at 170s systolic in the ambulance on the way to the Emergency department. Past medical history: hypertension, hyperlipidemia, COPD, DM2, b/l hip a rthritis, chronic pain, Hep C (never treated) PSurgHx: denies Allergies: NKDA Meds: Metformin bid, Albuterol inhaler, Spiriva 2.5 mcg 2 puffs daily, Gabapentin 350 mg tid, Tramadol, Tylenol Fam hx: denies Soc hx: smokes 3 cigarettes/day (reports 30+ pack yr hx), drinks 2 mini shot bottles of liquor/day; denies current illicit drug use. Pt states she was formerly on Methadone from 2006 to October 2017. PMD: Dr. Samuel <Tone Lambert - Last Filed: 07/08/18 23:07> - History of Present Illness Symptom Onset: Sudden Symptom Course: Unchanged Quality: Pressure, Tightness Severity Level: 8 <Beto Ellison - Last Filed: 07/08/18 23:11> - General Chief Complaint: Chest Pain Past Medical History - Infectious Disease Hx of Infectious Diseases: None - Cardiac Hx Cardiac Disorders: Yes Hx Hypertension: Yes - Pulmonary Hx Respiratory Disorders: Yes Hx Chronic Obstructive Pulmonary Disease (COPD): Yes - Neurological Hx Headaches: Yes - HEENT Hx HEENT Disorder: No - Renal Hx Renal Disorder: No - Endocrine/Metabolic Hx Endocrine Disorders: Yes Hx Diabetes Mellitus Type 2: Yes - Hematological/Oncological Hx Blood Disorders: Yes Hx Hepatitis C: Yes - Integumentary Hx Dermatological Disorder: No - Musculoskeletal/Rheumatological Hx Arthritis: Yes (B/L HIP) - Gastrointestinal Hx Gastrointestinal Disorders: No - Genitourinary/Gynecological Hx Genitourinary Disorders: Yes - Psychiatric Hx Psychophysiologic Disorder: Yes Hx Substance Use: No - Surgical History Hx Tonsillectomy: Yes - Anesthesia Hx Anesthesia: Yes Hx Anesthesia Reactions: No Hx Malignant Hyperthermia: No <Tone Lambert - Last Filed: 07/08/18 23:07> - Provider Review Nursing Documentation Reviewed: Yes <Beto Ellison - Last Filed: 07/08/18 23:11> Family/Social History Smoking Status: Heavy Smoker > 10 Cigarettes Daily Hx Alcohol Use: Yes Hx Substance Use: No Substance used: completed methadone program <Tone Lambert - Last Filed: 07/08/18 23:07> - Physician Review Nursing Documentation Reviewed: Yes Family/Social History: No Known Family HX <Beto Ellison - Last Filed: 07/08/18 23:11> Allergies/Home Meds <Tone Lambert - Last Filed: 07/08/18 23:07> <Beto Ellison - Last Filed: 07/08/18 23:11> Allergies/Adverse Reactions: Allergies No Known Allergies Allergy (Verified 07/05/18 16:02) Home Medications: Home Meds Medication Instructions Recorded Confirmed Gabapentin [Neurontin] 400 mg PO BID 05/10/18 07/05/18 Folic Acid 1 mg PO DAILY 06/27/18 07/05/18 metFORMIN [glucOPHAGE] 1 tab PO BID 07/05/18 07/05/18 Review of Systems - Review of Systems Constitutional: absent: Fatigue, Weight Change, Fevers, Night Sweats Eyes: absent: Vision Changes, Photophobia, Eye Pain ENT: absent: Hearing Changes, Tinnitus, Sore Throat Respiratory: Cough. absent: SOB, Wheezing Cardiovascular: Chest Pain. absent: Palpitations, Edema, Calf Pain, Orthopnea, Syncope Gastrointestinal: absent: Abdominal Pain, Stool Changes, Constipation, Diarrhea, Nausea, Vomiting Neurological: absent: Headache, Dizziness, Focal Weakness, Gait Changes Endocrine: absent: Polyuria, Polydipsia <Tone Lambert - Last Filed: 07/08/18 23:07> - Physician Review All systems were reviewed & negative as marked: Yes <Beto Ellison - Last Filed: 07/08/18 23:11> Physical Exam Temperature: Afebrile Blood Pressure: Hypertensive Pulse: Tachycardic Respiratory Rate: Normal Appearance: Positive for: Well-Appearing, Non-Toxic, Comfortable Mental Status: Positive for: Alert and Oriented X 3 - Systems Exam Head: Present: Atraumatic, Normocephalic Pupils: Present: PERRL Extroacular Muscles: Present: EOMI Conjunctiva: Present: Normal Mouth: Present: Moist Mucous Membranes Neck: Present: Normal Range of Motion. No: JVD Respiratory/Chest: Present: Wheezes (Minimal wheezing auscultated in all garza). No: Respiratory Distress, Accessory Muscle Use, Rales, Rhonchi Cardiovascular: Present: Normal S1, S2, Tachycardic. No: Murmurs, Rub, Gallop Abdomen: Present: Normal Bowel Sounds. No: Tenderness, Distention, Rebound, Mass/Organomegaly Upper Extremity: Present: Normal Inspection, NORMAL PULSES, Neurovascularly Intact, Capillary Refill < 2s. No: Cyanosis, Edema Lower Extremity: Present: Normal Inspection, NORMAL PULSES, Normal ROM. No: Edema, Cyanosis, Tenderness, Swelling Neurological: Present: GCS=15, CN II-XII Intact, Speech Normal, Motor Func Grossly Intact, Normal Sensory Function Skin: Present: Warm, Dry, Normal Color Psychiatric: Present: Alert, Oriented x 3, Normal Insight, Normal Concentration <Tone Lambert - Last Filed: 07/08/18 23:07> Vital Signs Reviewed: Yes Vital Signs Temp Pulse Resp BP Pulse Ox 07/08/18 20:34 98.0 F 111 H 18 148/103 H 99 <Beto Ellison - Last Filed: 07/08/18 23:11> Medical Decision Making ED Course and Treatment: 07/08/18 21:09 R/o ACS as etiology. Reviewed EKG: tachycardic at 111 bpm, otherwise unchanged from prior study. Pending CBC, CMP, troponin, Mg, P, POC glucose. Chest X-ray pending. 07/08/18 21:31 ASA and Nitro paste ordered. Cont to monitor. 07/08/18 23:07 Discussed case with hospitalist, Dr. Venegas and medical records coordinator. Plan to admit for chest pain. - RAD Interpretation Radiology Orders: 07/08/18 20:54 X-RAY [CHEST PORTABLE] [RAD] Stat <Tone Lambert - Last Filed: 07/08/18 23:07> ED Course and Treatment: Patient Seen with Provider In agreement with resident note which contains more details about the patient. Patient seen and evaluated with resident. Came up with plan and treatment together. 68 year old female presents complaining left-sided chest pain that began this morning associated with chronic dry cough. Plan: -- Labs -- CXR -- Aspirin, Magnesium Oxide, Nitro-Bid 2% -- Reassess and disposition - Lab Interpretations Lab Results: 07/08/18 21:15 07/08/18 21:15 Lab Results 07/08/18 21:15: Sodium 142, Potassium 3.8, Chloride 106, Carbon Dioxide 26, Anion Gap 14, BUN 18, Creatinine 0.6 L, Est GFR ( Amer) > 60, Est GFR (Non-Af Amer) > 60, Random Glucose 199 H, Calcium 9.4, Phosphorus 3.7, Magnesium 1.5 L, Total Bilirubin 0.4, AST 56 H, ALT 45, Alkaline Phosphatase 136 H D, Troponin I < 0.01, Total Protein 8.0, Albumin 4.0, Globulin 3.9, Albumin/Globulin Ratio 1.0 L 07/08/18 21:15: WBC 7.8, RBC 4.30, Hgb 12.9, Hct 38.7, MCV 90.0, MCH 30.0, MCHC 33.3, RDW 14.1, Plt Count 186, MPV 10.5, Gran % 57.5, Lymph % (Auto) 37.5 H, [place] % (Auto) 4.0, Eos % (Auto) 0.9 L, Baso % (Auto) 0.1, Gran # 4.50, Lymph # (Auto) 2.9, [place] # (Auto) 0.3, Eos # (Auto) 0.1, Baso # (Auto) 0.01 - RAD Interpretation Radiology Orders: 07/08/18 20:54 X-RAY [CHEST PORTABLE] [RAD] Stat - Medication Orders Current Medication Orders: Discontinued Medications Aspirin (Aspirin Chewable) 324 mg PO STAT STA Stop: 07/08/18 21:00 Last Admin: 07/08/18 21:22 Dose: 324 mg Magnesium Oxide (Mag-Ox) 400 mg PO STAT STA Stop: 07/08/18 21:46 Last Admin: 07/08/18 22:07 Dose: 400 mg Nitroglycerin (Nitro-Bid 2% Oint) 1 ea TOP STAT STA Stop: 07/08/18 21:29 Last Admin: 07/08/18 21:38 Dose: 1 ea <Beto Ellison - Last Filed: 07/08/18 23:11> - PA / MAINTENANCE WORKER / Resident Statement / has reviewed & agrees with the documentation as recorded. MD/ has examined the patient and agrees with the treatment plan. - Scribe Statement The provider has reviewed the documentation as recorded by the Yolande Joaquin Provider Scribe Attestation: All medical record entries made by the Antonioibisidra were at my direction and personally dictated by me. I have reviewed the chart and agree that the record accurately reflects my personal performance of the history, physical exam, medical decision making, and the department course for this patient. I have also personally directed, reviewed, and agree with the discharge instructions and disposition. <Beto Ellison - Last Filed: 07/08/18 23:11> Disposition/Present on Arrival - Present on Arrival Any Indicators Present on Arrival: No History of DVT/PE: No History of Uncontrolled Diabetes: No Urinary Catheter: No History of Decub. Ulcer: No History Surgical Site Infection Following: None - Disposition Have Diagnosis and Disposition been Completed?: Yes Disposition Time: 23:09 Patient Plan: Admission <Tone Lambert - Last Filed: 07/08/18 23:07> <Beto Ellison - Last Filed: 07/08/18 23:11> - Disposition Diagnosis: Chest pain Discharge Instructions (ExitCare): Chest Pain (ED) Referrals: Jean Claude Samuel [Primary Care Provider] - Follow up with primary Forms: [employer] (Setswana)
[2018-07-08 21:28] LABS: BASO # 0.01 K/mm3 (0.0-2.0); BASO % 0.1 % (0.0-3.0); EOS # 0.1 (0.0-0.7); EOS % 0.9 % (1.5-5.0); GRAN # 4.5 (1.4-6.5); GRAN % 57.5 % (50.0-68.0); HEMOGLOBIN 12.9 g/dL (12.0-16.0); LYMPH # 2.9 (1.2-3.4); LYMPH % 37.5 % (22.0-35.0); MEAN CORPUSCULAR HGB CONC 33.3 g/dl (31.0-37.0); MEAN PLATELET VOLUME 10.5 fl (7.0-11.0); MONO # 0.3 (0.1-0.6); RBC 4.3 10^6/uL (3.5-6.1); RED CELL DISTRIBUTION WIDTH 14.1 % (11.5-14.5); WHITE BLOOD COUNT 7.8 10^3/uL (4.5-11.0)
[2018-07-08] MEDS ORDERED: Nitroglycerin 2% Ointment Foilpak UD TOP STA (21:28)
[2018-07-08 21:42] LABS: ALT/SGPT 45 U/L (7-56); AST/SGOT 56 U/L (14-36); BLOOD UREA NITROGEN 18 mg/dL (7-21); CALCIUM 9.4 mg/dL (8.4-10.5); GFR NON-AFRICAN AMERICAN > 60
[2018-07-08] MEDS ORDERED: Magnesium Oxide 400 mg Tab UD PO STA (21:45)
[2018-07-08 21:53] LABS: TROPONIN I < 0.01 ng/mL
--- NOTE | 2018-07-08 23:18 | CP.PCM.HP ---
<Kati Hector - Last Filed: 07/09/18 00:47> History of Present Illness - History of Present Illness History of Present Illness: Kati Hector PGY1 H&P for Dr. Venegas Pt is a 68F with PMH HTN, DM2, COPD, R hip arthritis, untreated HepC, alcoholic neuropathy, substance abuse who presents to ED with chest tightness and shortness of breath. She reports the shortness of breath began last month, and has been intermittent since. She reports the chest tightness began yesterday, resolved, and returned today. She describes the tightness in the center of the chest, which is exacerbated by breathing and coughing. She rates the tightness a 7/10. She reports an associated dry cough and palpitations. She denies radiation of any chest pain, sweating, nausea, or vomiting. She ambulates at home with a walker, but has had more difficulty ambulating recently due to shortness of breath. Pt denies fever, chills, abdominal pain, diarrhea, constipation, dysuria. 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 Allergies: NKDA Meds: spiriva 2 puffs/daily, tramadol 50mg q8h PRN, metformin 1 tab BID, neurontin 350mg TID, folic acid 1 tab daily, norvasc 10mg daily PMD: [place] Present on Admission - Present on Admission Any Indicators Present on Admission: No Review of Systems - Review of Systems Review of Systems: as per HPI Past Patient History - Infectious Disease Hx of Infectious Diseases: None - Past Medical History & Family History Past Medical History?: Yes - Past Social History Smoking Status: Heavy Smoker > 10 Cigarettes Daily - CARDIAC Hx Cardiac Disorders: Yes Hx Hypertension: Yes - PULMONARY Hx Respiratory Disorders: Yes Hx Chronic Obstructive Pulmonary Disease (COPD): Yes - NEUROLOGICAL Hx Neurological Disorder: No - HEENT Hx HEENT Problems: No - RENAL Hx Chronic Kidney Disease: No - ENDOCRINE/METABOLIC Hx Endocrine Disorders: Yes Hx Diabetes Mellitus Type 2: Yes - HEMATOLOGICAL/ONCOLOGICAL Hx Blood Disorders: Yes Hx Hepatitis C: Yes - INTEGUMENTARY Hx Dermatological Problems: No - MUSCULOSKELETAL/RHEUMATOLOGICAL Hx Arthritis: Yes (B/L HIP) - GASTROINTESTINAL Hx Gastrointestinal Disorders: No - GENITOURINARY/GYNECOLOGICAL Hx Genitourinary Disorders: Yes - PSYCHIATRIC Hx Psychophysiologic Disorder: Yes Hx Substance Use: No - SURGICAL HISTORY Hx Tonsillectomy: Yes - ANESTHESIA Hx Anesthesia: Yes Hx Anesthesia Reactions: No Hx Malignant Hyperthermia: No Meds Allergies/Adverse Reactions: Allergies Allergy/AdvReac Type Severity Reaction Status Date / Time No Known Allergies Allergy Verified 07/05/18 16:02 Physical Exam - Constitutional Appears: Well, No Acute Distress - Head Exam Head Exam: ATRAUMATIC, NORMOCEPHALIC - Eye Exam Eye Exam: EOMI, Normal appearance, PERRL Pupil Exam: NORMAL ACCOMODATION - ENT Exam ENT Exam: Mucous Membranes Dry Additional comments: dental carries, poor dentition - Neck Exam Neck exam: Positive for: Full Rom, Normal Inspection. Negative for: Lymp hadenopathy - Respiratory Exam Respiratory Exam: Clear to Auscultation Bilateral, NORMAL BREATHING PATTERN. absent: Rales, Rhonchi, Wheezes, Respiratory Distress - Cardiovascular Exam Cardiovascular Exam: Tachycardia, REGULAR RHYTHM, +S1, +S2. absent: Gallop, Rubs, Systolic Murmur - GI/Abdominal Exam GI & Abdominal Exam: Normal Bowel Sounds, Soft. absent: Distended, Firm, Tende rness - Extremities Exam Additional comments: trace edema in RLE b/l LE: xerosis, dystrophic nail changes - Back Exam Back exam: paraspinal tenderness Additional comments: paraspinal tenderness T4-T7 b/l - Neurological Exam Neurological exam: Alert, CN II-XII Intact, Oriented x3 - Expanded Neurological Exam Expanded Neuro motor strength exam: Left Upper Extremity: 5, Right Upper Extremity: 5, Le ft Lower Extremity: 5, Right Lower Extremity: 4 (due to pain) - Psychiatric Exam Psychiatric exam: Normal Affect, Normal Mood - Skin Skin Exam: Dry - Additional Findings Additional findings: tenderness to palpation of L costochondral area Results - Vital Signs Recent Vital Signs: Last Vital Signs Temp 98.0 F 07/08/18 20:34 Pulse 111 H 07/08/18 20:34 Resp 18 07/08/18 20:34 BP 148/103 H 07/08/18 20:34 Pulse Ox 99 07/08/18 20:34 - Labs Result Diagrams: 07/08/18 21:15 07/08/18 21:15 Labs: Laboratory Results - last 24 hr 07/08/18 07/08/18 21:15 21:15 WBC 7.8 RBC 4.30 Hgb 12.9 Hct 38.7 MCV 90.0 MCH 30.0 MCHC 33.3 RDW 14.1 Plt Count 186 MPV 10.5 Gran % 57.5 Lymph % (Auto) 37.5 H [place] % (Auto) 4.0 Eos % (Auto) 0.9 L Baso % (Auto) 0.1 Gran # 4.50 Lymph # (Auto) 2.9 [place] # (Auto) 0.3 Eos # (Auto) 0.1 Baso # (Auto) 0.01 Sodium 142 Potassium 3.8 Chloride 106 Carbon Dioxide 26 Anion Gap 14 BUN 18 Creatinine 0.6 L Est GFR ( Amer) > 60 Est GFR (Non-Af Amer) > 60 Random Glucose 199 H Calcium 9.4 Phosphorus 3.7 Magnesium 1.5 L Total Bilirubin 0.4 AST 56 H ALT 45 Alkaline Phosphatase 136 H D Troponin I < 0.01 Total Protein 8.0 Albumin 4.0 Globulin 3.9 Albumin/Globulin Ratio 1.0 L Assessment & Plan - Assessment and Plan (Free Text) Assessment: 68F with PMH HTN, DM2, COPD, R hip arthritis, untreated HepC, substance abuse who presents to ED with chest tightness and shortness of breath admitted for ACS r/o. Plan: ACS r/o - reproducible chest pain upon examination, likely costochondritis - troponins negative x1, f/u remaining trops - EKG: tachycardia, NSR, possible inferolateral ischemia - CXR: no infiltrates, effusions - f/u repeat EKG - f/u TSH - f/u lipid panel - ECHO ordered - ASA 81mg po daily - lopressor 12.5mg po BID - motrin 600mg po q6h PRN - Cardiology consulted, Dr. Obrien HTN - pt reported systolic BP of 171 prior to ED - BP 148/103 - norvasc 10mg po daily - lopressor 12.5mg po BID COPD - duonebs 3ml INH q2h PRN - smoking cessation counseling Hypomagnesemia - Mg 1.5 - repleted in ED with MagOx 400mg DM - medium dose sliding scale - accuchecks ACHS - f/u HbA1c - diabetic education Alcoholic Neuropathy - neurontin 400mg TID - folic acid 1mg PO daily - fall precautions H/o Substance abuse - f/u UDS PPX GI: Pepcid 40mg PO HS DVT: SCDs HHD Pt seen and case reviewed with Dr. Venegas <Michelle Venegas - Last Filed: 07/09/18 01:10> Results - Vital Signs Recent Vital Signs: Last Vital Signs Temp 98.0 F 07/08/18 20:34 Pulse 93 H 07/09/18 00:48 Resp 14 07/09/18 00:48 BP 140/62 07/09/18 00:48 Pulse Ox 97 07/09/18 00:48 - Labs Result Diagrams: 07/08/18 21:15 07/08/18 21:15 Labs: Laboratory Results - last 24 hr 07/08/18 07/08/18 07/08/18 21:15 21:15 21:15 WBC 7.8 RBC 4.30 Hgb 12.9 Hct 38.7 MCV 90.0 MCH 30.0 MCHC 33.3 RDW 14.1 Plt Count 186 MPV 10.5 Gran % 57.5 Lymph % (Auto) 37.5 H [place] % (Auto) 4.0 Eos % (Auto) 0.9 L Baso % (Auto) 0.1 Gran # 4.50 Lymph # (Auto) 2.9 [place] # (Auto) 0.3 Eos # (Auto) 0.1 Baso # (Auto) 0.01 Sodium 142 Potassium 3.8 Chloride 106 Carbon Dioxide 26 Anion Gap 14 BUN 18 Creatinine 0.6 L Est GFR ( Amer) > 60 Est GFR (Non-Af Amer) > 60 Random Glucose 199 H Calcium 9.4 Phosphorus 3.7 Magnesium 1.5 L Total Bilirubin 0.4 AST 56 H ALT 45 Alkaline Phosphatase 136 H D Troponin I < 0.01 Total Protein 8.0 Albumin 4.0 Globulin 3.9 Albumin/Globulin Ratio 1.0 L TSH 3rd Generation 1.16 Attending/Attestation - Attestation I have personally seen and examined this patient.: Yes I have fully participated in the care of the patient.: Yes I have reviewed all pertinent clinical information: Yes Notes (Text): 07/09/18 01:08 Pt seen with the resident by the bedside Case discussed in detail Agree with documentation,assessment and plan of treatment.
[2018-07-09 03:42] LABS: ALB/GLOB RATIO 0.9 (1.1-1.8); ALBUMIN 3.4 g/dL (3.0-4.8); ALT/SGPT 43 U/L (7-56); AST/SGOT 64 U/L (14-36); BLOOD UREA NITROGEN 19 mg/dL (7-21); GFR NON-AFRICAN AMERICAN > 60; HDL CHOLESTEROL 89 mg/dL (29-60); HEMOGLOBIN 11.3 g/dL (12.0-16.0); MEAN CELL VOLUME 89.5 fl (80.0-105.0); MEAN CORPUSCULAR HEMOGLOBIN 28.8 pg (25.0-35.0); MEAN CORPUSCULAR HGB CONC 32.2 g/dl (31.0-37.0); MEAN PLATELET VOLUME 10.6 fl (7.0-11.0); RBC 3.92 10^6/uL (3.5-6.1); WHITE BLOOD COUNT 6.4 10^3/uL (4.5-11.0)
[2018-07-09 03:56] LABS: LDL CHOLESTEROL 62 mg/dL (0-129)
--- NOTE | 2018-07-09 07:29 | CP.PCM.PN ---
<Kolby Bird - Last Filed: 07/09/18 14:56> Subjective - Date & Time of Evaluation Date of Evaluation: 07/09/18 Time of Evaluation: 07:29 - Subjective Subjective: PGY1 Medicine Progress Note for Dr. Tamez Patient was seen at bedside this morning. Patient complains of chest tightness that is constant, radiating to her back, and which she quantifies as 7/10. Patient reports she was recently diagnosed with COPD, and admits to smoking 3 cigarettes per day. Patient admits to bilateral chronic hip pain, but ROS is otherwise unremarkable for shortness of breath, fever, chills, rash, headache, cough, diarrhea, constipation, dysuria, and/or abdominal pain. Objective - Vital Signs/Intake and Output Vital Signs (last 24 hours): Temp Pulse Resp BP Pulse Ox 98.0 F 88 20 140/62 97 07/08/18 20:34 07/09/18 06:00 07/09/18 01:00 07/09/18 00:48 07/09/18 00:48 Intake and Output: 07/09/18 07/09/18 06:59 18:59 Intake Total 480 Output Total 0 Balance 480 - Medications Medications: Current Medications Albuterol/Ipratropium (Duoneb 3 Mg/0.5 Mg (3 Ml) Ud) 3 ml IH Q2H PRN PRN Reason: Shortness of Breath Amlodipine Besylate (Norvasc) 10 mg PO DAILY [facility] Aspirin (Aspirin Chewable) 81 mg PO DAILY [facility] Famotidine (Pepcid) 40 mg PO HS [facility] Folic Acid (Folic Acid) 1 mg PO DAILY [facility] Gabapentin (Neurontin) 400 mg PO TID [facility]; Protocol Ibuprofen (Motrin Tab) 600 mg PO Q6H PRN PRN Reason: Pain, Mild (1-3) Insulin Human Lispro (Humalog Med) 0 units SC ACHS [facility]; Protocol Metoprolol Tartrate (Lopressor) 12.5 mg PO BRKDIN [facility] Last Admin: 07/09/18 00:05 Dose: 12.5 mg - Labs Labs: 07/09/18 03:15 07/09/18 03:15 - Additional Findings Additional findings: - Constitutional Appears: Well, No Acute Distress - Head Exam Head Exam: ATRAUMATIC, NORMOCEPHALIC - Eye Exam Eye Exam: EOMI, Normal appearance, PERRL Pupil Exam: NORMAL ACCOMODATION - ENT Exam ENT Exam: Mucous Membranes Dry Additional comments: dental carries, poor dentition - Neck Exam Neck exam: Positive for: Full Rom, Normal Inspection. Negative for: Lymphadenopathy - Respiratory Exam Respiratory Exam: Clear to Auscultation Bilateral, NORMAL BREATHING PATTERN. absent: Rales, Rhonchi, Wheezes, Respiratory Distress - Cardiovascular Exam Cardiovascular Exam: Tachycardia, REGULAR RHYTHM, +S1, +S2. absent: Gallop, Rubs, Systolic Murmur - GI/Abdominal Exam GI & Abdominal Exam: Normal Bowel Sounds, Soft. absent: Distended, Firm, Tenderness - Extremities Exam Additional comments: Bilateral LE: xerosis, dystrophic nail changes - Back Exam Back exam: paraspinal tenderness Additional comments: paraspinal tenderness T4-T7 b/l - Neurological Exam Neurological exam: Alert, CN II-XII Intact, Oriented x3 - Expanded Neurological Exam Expanded Neuro motor strength exam: Left Upper Extremity: 5, Right Upper Extremity: 5, Left Lower Extremity: 5, Right Lower Extremity: 4 (due to pain) - Psychiatric Exam Psychiatric exam: Normal Affect, Normal Mood - Skin Skin Exam: Dry Assessment and Plan - Assessment and Plan (Free Text) Assessment: 68F with PMH HTN, DM2, COPD, R hip arthritis, untreated HepC, substance abuse who presents to ED with chest tightness and shortness of breath admitted for ACS r/o. Plan: ACS ruled-out - Reproducible chest pain upon examination, likely costochondritis - Troponins negative x3, f/u remaining trops - EKG on admission: tachycardia, NSR, possible inferolateral ischemia - CXR: no infiltrates, effusions - TSH wnl - Lipid panel unremarkable - ECHO Pending official report - ASA 81mg po daily - motrin 600mg po q6h PRN - Cardiology consulted, Dr. Obrien Trichamoniasis - U/A with microscopy + - Treated with Flagyl 2000mg PO STAT - Recommended to patient that all sexual partners must be treated regardless of symptoms, as it can be asymptomatic HTN, Improved - BP 117/88 - Norvasc 10mg po daily COPD - Continue duonebs 3ml INH q2h PRN - Complete smoking cessation was recommended to patient Hypomagnesemia, resolved - Repleted in ED with MagOx 400mg - Replete as needed Type 2 Diabetes Mellitus, uncontrolled - Medium dose sliding scale - Sccuchecks ACHS - HgbA1C 6.6 - Diabetic education - Hypoglycemia protocol Alcoholic Neuropathy - Neurontin 400mg TID - Folic acid 1mg PO daily - Fall precautions History of Substance abuse - UDS positive for barbiturates PPX GI: Pepcid 40mg PO HS DVT: SCDs HHD Patient seen and case discussed in detail with Dr. Joi Bird PGY1 <David Tamez - Last Filed: 07/10/18 16:24> Objective - Vital Signs/Intake and Output Vital Signs (last 24 hours): Temp Pulse Resp BP Pulse Ox 97.7 F 88 18 113/79 98 07/10/18 08:31 07/10/18 10:00 07/10/18 06:00 07/10/18 09:47 07/10/18 06:00 Intake and Output: 07/10/18 07/10/18 06:59 18:59 Intake Total 880 Balance 880 - Labs Labs: 07/10/18 05:45 07/10/18 05:45 Attending/Attestation - Attestation I have personally seen and examined this patient.: Yes I have fully participated in the care of the patient.: Yes I have reviewed all pertinent clinical information, including history, physical exam and plan: Yes Notes (Text): 07/10/18 16:21 Attending note; Patient seen and examined with resident. Patient is a 68 year old female with PMH HTN, DM2, COPD, R hip arthritis, untreated HepC, substance abuse who presents to ED with chest tightness and shortness of breath. 1. chest pain; mostly secondary to COPD. Cardiac enzymes negative. EKG no acute changes. Echocardiogram ordered. Cardiology evaluation requested. 2.COPD exacerbation; continue DuoNeb treatment oxygen when necessary. Continue IV solumedrol. 3. Diabetes and alcohol neuropathy; continue Neurontin. 4. Active smoking; smoking cessation is strongly recommended. Alcohol abuse cessation is strongly recommended. 5. Trichomonas infection. Treated with Flagyl. Upon discharge the patient will follow-up with PMD Dr. Samuel.
[2018-07-09] MEDS: Albuterol-Ipratrop 3 mg / 0.5 (3 ml) UD IH PRN (07:54)
[2018-07-09 08:38] LABS: BARBITURATES, UR POSITIVE (NEGATIVE); BENZODIAZEPINES, UR NEGATIVE (NEGATIVE); OPIATES, UR NEGATIVE (NEGATIVE); PHENCYCLIDINE, UR NEGATIVE (NEGATIVE)
[2018-07-09] MEDS: Insulin Lispro (humaLOG) MEDIUM Coverage SC SCH ×4 (08:43→21:39)
[2018-07-09 09:12] LABS: PH,URINE 7.5 (4.7-8.0); URINE APPEARANCE SL CLOUDY (CLEAR); URINE BILIRUBIN NEGATIVE (NEGATIVE); URINE BLOOD NEGATIVE (NEGATIVE); URINE COLOR YELLOW (YELLOW); URINE GLUCOSE (UA) NEGATIVE (NEGATIVE); URINE LEUKOCYTE ESTERASE SMALL Leu/uL (NEGATIVE); URINE PROTEIN NEGATIVE mg/dL (<30 mg/dL)
[2018-07-09 09:21] LABS: URINE BACTERIA FEW (NEG)
--- NOTE | 2018-07-09 09:22 | RAD ---
Date of service: 07/08/2018 HISTORY: Chest pain COMPARISON: No prior. FINDINGS: LUNGS: No active pulmonary disease. PLEURA: No significant pleural effusion identified, no pneumothorax apparent. CARDIOVASCULAR: No aortic atherosclerotic calcification present. Normal cardiac size. No pulmonary vascular congestion. OSSEOUS STRUCTURES: No significant abnormalities. VISUALIZED UPPER ABDOMEN: Normal. OTHER FINDINGS: None. IMPRESSION: No active disease.
--- NOTE | 2018-07-09 10:47 | CARD ---
APPROVED REPORT Date of service: 07/08/2018 EKG Measurement Heart [id number] <Conclusion> Sinus tachycardia Possible Left atrial enlargement ST & T wave abnormality, consider lateral wall ischemia Abnormal ECG
[2018-07-09 14:31] LABS: ALBUMIN 3.5 g/dL (3.0-4.8); ALT/SGPT 41 U/L (7-56); AST/SGOT 52 U/L (14-36); BLOOD UREA NITROGEN 17 mg/dL (7-21); GFR NON-AFRICAN AMERICAN > 60
[2018-07-09 14:42] LABS: TROPONIN I < 0.01 ng/mL
--- NOTE | 2018-07-09 16:25 | CON ---
DATE: 07/09/2018 REQUESTING PHYSICIAN: Dr. Collazo. REASON FOR CONSULTATION: Chest pain. HISTORY: This is a 68-year-old woman with a history of hypertension, diabetes, tobacco, and substance abuse, who presents to emergency room complaining of chest discomfort and dyspnea. She has had multiple admissions to all the local hospitals multiple times over the past several years with a variety of complaints including chest pain. She reportedly underwent a stress test 2 months ago at [facility] and was told that this was unremarkable. She describes her pain as a tightness in the side of her chest. She has also had dry cough and palpitations. Initial electrocardiogram reportedly showed no evidence of significant abnormalities. PAST MEDICAL HISTORY: Her past history is notable for problems mentioned above. She has a history of peripheral neuropathy, chronic substance abuse, COPD, right hip arthritis, hepatitis C. MEDICATIONS: Her current medications include aspirin, DuoNeb inhaler, insulin coverage, metoprolol 12.5 mg b.i.d., Neurontin, Norvasc and Pepcid. ALLERGIES: NONE. SOCIAL HISTORY: She is a smoker of half pack per day for many years. She also drinks alcohol on a daily basis. 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 ALLERGIES: None. FAMILY HISTORY: Mother from a ruptured aneurysm. Father's health history is unknown. REVIEW OF SYSTEMS: A 10-point review of systems was unremarkable. PHYSICAL EXAMINATION: GENERAL: She is a middle-aged woman, who appears comfortable at rest. VITAL SIGNS: Blood pressure is 116/86 with a pulse of 86, respirations are 14. She is afebrile. HEENT: Normocephalic, atraumatic. NECK: Supple. No JVD noted. CHEST: Bilateral scattered rhonchi heard. HEART: PMI normal position. No pathological murmurs or gallops noted. ABDOMEN: Soft, nontender, normoactive bowel sounds. EXTREMITIES: No edema. SKIN: Warm and dry. PSYCHIATRIC: Normal mood and affect. NEUROLOGICAL: Alert and oriented x3. No gross motor or sensory is noted. DIAGNOSTIC DATA: Potassium 3.7, BUN and creatinine are 19 and 0.7. Two sets of troponins are negative. Hemoglobin and hematocrit are 11.3 and 35.1 with a white count of 6.4, platelet count 170,000. Chest x-ray reveals normal cardiac silhouette with clear lung garza. Electrocardiogram reveals sinus tachycardia with left atrial abnormality and borderline criteria for LVH. IMPRESSION: 1. Recurrent chest pain with recent negative stress test, doubt significant ischemic heart disease at this time. 2. No cardiac risk factors given hypertension, diabetes and tobacco abuse. 3. History of substance abuse. 4. Rest of problems as noted. RECOMMENDATIONS: At this time, continue medical therapy and conservative care appears most reasonable. If a final set of cardiac enzymes is negative, we will discharge her home with outpatient followup with her primary care physician as advised. Smoking abstinence was encouraged. We will be happy to follow along as needed. Norris Pang MD
[2018-07-09] MEDS: MethylPREDNISolone 40 mg Vial IVP SCH ×2 (18:06→21:39)
[2018-07-10 06:19] LABS: HEMOGLOBIN 11.4 g/dL (12.0-16.0); MEAN CELL VOLUME 88.5 fl (80.0-105.0); MEAN CORPUSCULAR HEMOGLOBIN 28.5 pg (25.0-35.0); MEAN CORPUSCULAR HGB CONC 32.2 g/dl (31.0-37.0); MEAN PLATELET VOLUME 11.1 fl (7.0-11.0); RED CELL DISTRIBUTION WIDTH 13.7 % (11.5-14.5); WHITE BLOOD COUNT 4.9 10^3/uL (4.5-11.0)
[2018-07-10 06:48] LABS: ALBUMIN 3.5 g/dL (3.0-4.8); ALT/SGPT 40 U/L (7-56); AST/SGOT 41 U/L (14-36); BLOOD UREA NITROGEN 15 mg/dL (7-21); CALCIUM 9.5 mg/dL (8.4-10.5); GFR NON-AFRICAN AMERICAN > 60
[2018-07-10] MEDS ORDERED: Magnesium Sulfate 2 GM in Sodium Chloride 0.9% 100 ML IVPB ONE (06:54)
[2018-07-10] MEDS: Albuterol-Ipratrop 3 mg / 0.5 (3 ml) UD IH PRN (07:43)
[2018-07-10 08:16] VITALS: BP 113/79; RESP 18; TEMP 97.7; O2SAT 98
[2018-07-10] MEDS: Insulin Lispro (humaLOG) MEDIUM Coverage SC SCH ×2 (08:21→12:33)
--- NOTE | 2018-07-10 08:23 | CARD ---
APPROVED REPORT Date of service: 07/09/2018 EXAM: Two-dimensional and M-mode echocardiogram with Doppler and color Doppler. Other Information Quality : AverageRhythm : INDICATION Chest Pain 2D DIMENSIONS Left Atrium (2D)3.5 (1.6-4.0cm)IVSd0.8 (0.7-1.1cm) LVDd3.7 (3.9-5.9cm)PWd1.0 (0.7-1.1cm) LVDs2.3 (2.5-4.0cm)FS (%) 38.5 % LVEF (%)69.0 (>50%) M-Mode DIMENSIONS Aortic Root3.10 (2.2-3.7cm)Aortic Cusp Exc.1.60 (1.5-2.0cm) Aortic Valve AoV Peak Xbxevvrc907.0cm/Mary Peak GR.12mmHg Mitral Valve MV E Kruyqedl69.9cm/sMV A Ptguekzo06.7cm/sE/A ratio0.8 TDI Lateral E' Peak V10.00cm/sMedial E' Peak V8.29cm/sE/Lateral E'6.8 E/Medial E'8.2 Pulmonary Valve PV Peak Mlvmyhbq29.5cm/sPV Peak Grad.3mmHg Tricuspid Valve TR Peak Ooukybmr660qj/sRAP OOXRZYLB74wqXbHF Peak Gr.32mmHg [id number] LEFT VENTRICLE The left ventricle is normal size. There is normal left ventricular wall thickness. The left ventricular function is normal. The left ventricular ejection fraction is within the normal range. There is normal LV segmental wall motion. RIGHT VENTRICLE The right ventricle is normal size. ATRIA The left atrium size is normal. The right atrium size is normal. The interatrial septum is intact with no evidence for an atrial septal defect. AORTIC VALVE The aortic valve is normal in structure. MITRAL VALVE The mitral valve is normal in structure. Mitral regurgitation is trace. TRICUSPID VALVE The tricuspid valve is normal in structure. There is mild to moderate tricuspid regurgitation. PULMONIC VALVE The pulmonary valve is normal in structure. PERICARDIAL EFFUSION There is no pericardial effusion. <Conclusion> The left ventricle is normal size. There is normal left ventricular wall thickness. The left ventricular function is normal. Mitral regurgitation is trace. There is mild to moderate tricuspid regurgitation.
[2018-07-10] MEDS ORDERED: MethylPREDNISolone 40 mg Vial IVP SCH (10:00)
[2018-07-10 14:18] VITALS: PULSE 88
--- NOTE | 2018-07-10 16:16 | CP.PCM.DIS ---
<Farshad Lawrence - Last Filed: 07/10/18 16:14> Provider - Provider Date of Admission: 07/08/18 23:05 Attending physician: Renato Collazo MD Primary care physician: Jean Claude Samuel MD Consults: 07/08/18 22:56 Cardiology Consult Routine Comment: Consulting Provider: Derick Obrien Consulting Physician: Derick Obrien Reason for Consult: chest pain Time Spent in preparation of Discharge (in minutes): 47 Diagnosis - Discharge Diagnosis (1) Trichomoniasis Status: Acute (2) COPD (chronic obstructive pulmonary disease) Status: Chronic (3) Chest pain Status: Acute Hospital Course - Lab Results Lab Results: Most Recent Lab Values WBC 4.9 10^3/uL (4.5-11.0) D 07/10/18 05:45 RBC 4.00 10^6/uL (3.5-6.1) 07/10/18 05:45 Hgb 11.4 g/dL (12.0-16.0) L 07/10/18 05:45 Hct 35.4 % (36.0-48.0) L 07/10/18 05:45 MCV 88.5 fl (80.0-105.0) 07/10/18 05:45 MCH 28.5 pg (25.0-35.0) 07/10/18 05:45 MCHC 32.2 g/dl (31.0-37.0) 07/10/18 05:45 RDW 13.7 % (11.5-14.5) 07/10/18 05:45 Plt Count 171 10^3/uL (120.0-450.0) 07/10/18 05:45 MPV 11.1 fl (7.0-11.0) H 07/10/18 05:45 Gran % 57.5 % (50.0-68.0) 07/08/18 21:15 Lymph % (Auto) 37.5 % (22.0-35.0) H 07/08/18 21:15 [place] % (Auto) 4.0 % (1.0-6.0) 07/08/18 21:15 Eos % (Auto) 0.9 % (1.5-5.0) L 07/08/18 21:15 Baso % (Auto) 0.1 % (0.0-3.0) 07/08/18 21:15 Gran # 4.50 (1.4-6.5) 07/08/18 21:15 Lymph # (Auto) 2.9 (1.2-3.4) 07/08/18 21:15 [place] # (Auto) 0.3 (0.1-0.6) 07/08/18 21:15 Eos # (Auto) 0.1 (0.0-0.7) 07/08/18 21:15 Baso # (Auto) 0.01 K/mm3 (0.0-2.0) 07/08/18 21:15 Sodium 135 mmol/L (132-148) 07/10/18 05:45 Potassium 4.3 mmol/L (3.6-5.0) 07/10/18 05:45 Chloride 104 mmol/L (98-107) 07/10/18 05:45 Carbon Dioxide 27 mmol/L (21-33) 07/10/18 05:45 Anion Gap 9 (10-20) L 07/10/18 05:45 BUN 15 mg/dL (7-21) 07/10/18 05:45 Creatinine 0.6 mg/dl (0.7-1.2) L 07/10/18 05:45 Est GFR ( Amer) > 60 07/10/18 05:45 Est GFR (Non-Af Amer) > 60 07/10/18 05:45 POC Glucose (mg/dL) 218 mg/dL (65-110) H 07/10/18 11:39 Random Glucose 274 mg/dL (70-110) H 07/10/18 05:45 Hemoglobin A1c 6.6 % (4.2-6.5) H 07/08/18 21:15 Calcium 9.5 mg/dL (8.4-10.5) 07/10/18 05:45 Phosphorus 3.8 mg/dL (2.5-4.5) 07/10/18 05:45 Magnesium 1.6 mg/dL (1.7-2.2) L 07/10/18 05:45 Total Bilirubin 0.3 mg/dL (0.2-1.3) 07/10/18 05:45 AST 41 U/L (14-36) H D 07/10/18 05:45 ALT 40 U/L (7-56) 07/10/18 05:45 Alkaline Phosphatase 105 U/L (38-126) 07/10/18 05:45 Troponin I < 0.01 ng/mL 07/09/18 14:00 Total Protein 7.2 g/dL (5.8-8.3) 07/10/18 05:45 Albumin 3.5 g/dL (3.0-4.8) 07/10/18 05:45 Globulin 3.6 gm/dL 07/10/18 05:45 Albumin/Globulin Ratio 1.0 (1.1-1.8) L 07/10/18 05:45 Triglycerides 70 mg/dL (35-160) 07/09/18 03:15 Cholesterol 151 mg/dL (130-200) 07/09/18 03:15 LDL Cholesterol Direct 62 mg/dL (0-129) 07/09/18 03:15 HDL Cholesterol 89 mg/dL (29-60) H 07/09/18 03:15 TSH 3rd Generation 1.16 mIU/mL (0.46-4.68) 07/08/18 21:15 Urine Color Yellow (YELLOW) 07/09/18 08:55 Urine Appearance Sl cloudy (CLEAR) 07/09/18 08:55 Urine pH 7.5 (4.7-8.0) 07/09/18 08:55 Ur Specific [place] 1.020 (1.005-1.035) 07/09/18 08:55 Urine Protein Negative mg/dL (<30 mg/dL) 07/09/18 08:55 Urine Glucose (UA) Negative mg/dL (NEGATIVE) 07/09/18 08:55 Urine Ketones Negative mg/dL (NEGATIVE) 07/09/18 08:55 Urine Blood Negative (NEGATIVE) 07/09/18 08:55 Urine Nitrate Negative (NEGATIVE) 07/09/18 08:55 Urine Bilirubin Negative (NEGATIVE) 07/09/18 08:55 Urine Urobilinogen 1.0 E.U./dL (<1 E.U./dL) H 07/09/18 08:55 Ur Leukocyte Esterase Small Supriya/uL (NEGATIVE) H 07/09/18 08:55 Urine RBC 2 - 5 /hpf (0-2) 07/09/18 08:55 Urine WBC 10 - 15 /hpf (0-6) 07/09/18 08:55 Ur Epithelial Cells 10 - 12 /hpf (0-5) 07/09/18 08:55 Urine Bacteria Few (NEG) 07/09/18 08:55 Urine Other Trichomonas 07/09/18 08:55 Urine Opiates Screen Negative (NEGATIVE) 07/09/18 07:30 Urine Methadone Screen Negative (NEGATIVE) 07/09/18 07:30 Ur Barbiturates Screen Positive (NEGATIVE) H 07/09/18 07:30 Ur Phencyclidine Scrn Negative (NEGATIVE) 07/09/18 07:30 Ur Amphetamines Screen Negative (NEGATIVE) 07/09/18 07:30 U Benzodiazepines Scrn Negative (NEGATIVE) 07/09/18 07:30 U Oth Cocaine Metabols Negative (NEGATIVE) 07/09/18 07:30 U Cannabinoids Screen Negative (NEGATIVE) 07/09/18 07:30 - Hospital Course Hospital Course: Upon Admission Ms. Jesusita Pascual is a 68 year old female, with a past medical history of hypertension, hyperlipidemia, COPD, Diabetes Mellidus type 2, bilateral hip arthritis, Hep C (never treated), and substance abuse (on methadone since 2006). She presented to the [facility]'s Emergency Department on 07/08/2018 for progressive chest pain. Patient rated the pain a 8/10. She denied any radiation to the axilla or carotids. Patient stated the pain was reproducible when she coughed. EKG showed sinus tachycardia with possible left atrial enlargement, and ST and T abnormality. Chest X-ray showed no active disease. Patient was admitted to rule out an acute coronary syndrome. Hospital Course During her stay, patient tested positive for barbiturates. She was put on fall precautions. Cardiology team was consulted. Patient was monitored on telemetry for 2 days.. Troponin levels were <0.1 times 3. Echocardiogram showed mild to moderate tricuspid regurgitation. Her chest pain was reproducible upon examination. Chest pain is likely secondary to costochondritis and not ACS. Patient was treated for trichamoniasis with Flagyl and instructed to have prev ious and current sexual partners treated as well. Patient's hypertension was well controlled on Norvasc. Patient's magnesium levels were low at a 1.6. Hypomagnesemia resolved with MagOx. Patient's COPD was treated with duonebs and was also counseled on smoking cessation. Patient was placed on an insulin sliding scale for DM2 and was well controlled. Upon Discharge Patient's vitals are stable. Patient's acute complaints resolved. Patient was discharged home. Patient was given a prescription for prednisone for 5 days. She is instructed to follow up with her primary care doctor and return to the hospital for any worsening symptoms. - Date & Time of H&P Date of H&P: 07/10/18 Time of H&P: 16:15 Discharge Exam - Head Exam Head Exam: ATRAUMATIC, NORMOCEPHALIC - Eye Exam Eye Exam: EOMI, Normal appearance, PERRL Pupil Exam: NORMAL ACCOMODATION - ENT Exam ENT Exam: Normal Exam - Neck Exam Neck exam: Full Rom, Normal Inspection - Respiratory Exam Respiratory Exam: Clear to PA & Lateral, NORMAL BREATHING PATTERN, UNREMARKABLE - Cardiovascular Exam Cardiovascular Exam: REGULAR RHYTHM - GI/Abdominal Exam GI & Abdominal Exam: Normal Bowel Sounds, Unremarkable - Extremities Exam Extremities exam: normal inspection - Neurological Exam Neurological exam: Alert, Normal Gait, Oriented x3 - Psychiatric Exam Psychiatric exam: Normal Affect, Normal Mood - Skin Skin Exam: Dry, Intact, Normal Color, Warm Discharge Plan - Discharge Medications Prescriptions: Albuterol HFA [Ventolin HFA 90 mcg/actuation (8 g)] 1 puff IH QID PRN #1 puff PRN Reason: Shortness Of Breath Gabapentin [Neurontin] 300 mg PO TID #15 cap predniSONE [predniSONE Tab] 10 mg PO DAILY #3 tab - Follow Up Plan Condition: FAIR Disposition: HOME/ ROUTINE Instructions: Carbohydrate Counting Diet, Chest Pain (DC), Trichomoniasis (DC), Diabetes and Diet Additional Instructions: Please follow-up with PMD (Dr. Samuel) within 3-5 days of discharge. Please continue to take your home meds as prescribed by your PMD. You were diagnosed with Trichomoniasis that was found on routine Urinalysis with microscopy. You were treated for this while hospitalized. Current recommendations are that any of your recent sexual partners should be treated as soon as possible regardless of symptoms, as it is contagious and can be asymptomatic. Should your symptoms return, please seek emergent medical attention at your nearest emergency department immediately. Referrals: Jean Claude Samuel [Primary Care Provider] - <David Tamez - Last Filed: 07/10/18 16:25> Provider - Provider Date of Admission: 07/08/18 23:05 Attending physician: Renato Collazo MD Primary care physician: Jean Claude Samuel MD Consults: 07/08/18 22:56 Cardiology Consult Routine Comment: Consulting Provider: Derick Obrien Consulting Physician: Derick Obrien Reason for Consult: chest pain Hospital Course - Lab Results Lab Results: Most Recent Lab Values WBC 4.9 10^3/uL (4.5-11.0) D 07/10/18 05:45 RBC 4.00 10^6/uL (3.5-6.1) 07/10/18 05:45 Hgb 11.4 g/dL (12.0-16.0) L 07/10/18 05:45 Hct 35.4 % (36.0-48.0) L 07/10/18 05:45 MCV 88.5 fl (80.0-105.0) 07/10/18 05:45 MCH 28.5 pg (25.0-35.0) 07/10/18 05:45 MCHC 32.2 g/dl (31.0-37.0) 07/10/18 05:45 RDW 13.7 % (11.5-14.5) 07/10/18 05:45 Plt Count 171 10^3/uL (120.0-450.0) 07/10/18 05:45 MPV 11.1 fl (7.0-11.0) H 07/10/18 05:45 Gran % 57.5 % (50.0-68.0) 07/08/18 21:15 Lymph % (Auto) 37.5 % (22.0-35.0) H 07/08/18 21:15 [place] % (Auto) 4.0 % (1.0-6.0) 07/08/18 21:15 Eos % (Auto) 0.9 % (1.5-5.0) L 07/08/18 21:15 Baso % (Auto) 0.1 % (0.0-3.0) 07/08/18 21:15 Gran # 4.50 (1.4-6.5) 07/08/18 21:15 Lymph # (Auto) 2.9 (1.2-3.4) 07/08/18 21:15 [place] # (Auto) 0.3 (0.1-0.6) 07/08/18 21:15 Eos # (Auto) 0.1 (0.0-0.7) 07/08/18 21:15 Baso # (Auto) 0.01 K/mm3 (0.0-2.0) 07/08/18 21:15 Sodium 135 mmol/L (132-148) 07/10/18 05:45 Potassium 4.3 mmol/L (3.6-5.0) 07/10/18 05:45 Chloride 104 mmol/L (98-107) 07/10/18 05:45 Carbon Dioxide 27 mmol/L (21-33) 07/10/18 05:45 Anion Gap 9 (10-20) L 07/10/18 05:45 BUN 15 mg/dL (7-21) 07/10/18 05:45 Creatinine 0.6 mg/dl (0.7-1.2) L 07/10/18 05:45 Est GFR ( Amer) > 60 07/10/18 05:45 Est GFR (Non-Af Amer) > 60 07/10/18 05:45 POC Glucose (mg/dL) 218 mg/dL (65-110) H 07/10/18 11:39 Random Glucose 274 mg/dL (70-110) H 07/10/18 05:45 Hemoglobin A1c 6.6 % (4.2-6.5) H 07/08/18 21:15 Calcium 9.5 mg/dL (8.4-10.5) 07/10/18 05:45 Phosphorus 3.8 mg/dL (2.5-4.5) 07/10/18 05:45 Magnesium 1.6 mg/dL (1.7-2.2) L 07/10/18 05:45 Total Bilirubin 0.3 mg/dL (0.2-1.3) 07/10/18 05:45 AST 41 U/L (14-36) H D 07/10/18 05:45 ALT 40 U/L (7-56) 07/10/18 05:45 Alkaline Phosphatase 105 U/L (38-126) 07/10/18 05:45 Troponin I < 0.01 ng/mL 07/09/18 14:00 Total Protein 7.2 g/dL (5.8-8.3) 07/10/18 05:45 Albumin 3.5 g/dL (3.0-4.8) 07/10/18 05:45 Globulin 3.6 gm/dL 07/10/18 05:45 Albumin/Globulin Ratio 1.0 (1.1-1.8) L 07/10/18 05:45 Triglycerides 70 mg/dL (35-160) 07/09/18 03:15 Cholesterol 151 mg/dL (130-200) 07/09/18 03:15 LDL Cholesterol Direct 62 mg/dL (0-129) 07/09/18 03:15 HDL Cholesterol 89 mg/dL (29-60) H 07/09/18 03:15 TSH 3rd Generation 1.16 mIU/mL (0.46-4.68) 07/08/18 21:15 Urine Color Yellow (YELLOW) 07/09/18 08:55 Urine Appearance Sl cloudy (CLEAR) 07/09/18 08:55 Urine pH 7.5 (4.7-8.0) 07/09/18 08:55 Ur Specific [place] 1.020 (1.005-1.035) 07/09/18 08:55 Urine Protein Negative mg/dL (<30 mg/dL) 07/09/18 08:55 Urine Glucose (UA) Negative mg/dL (NEGATIVE) 07/09/18 08:55 Urine Ketones Negative mg/dL (NEGATIVE) 07/09/18 08:55 Urine Blood Negative (NEGATIVE) 07/09/18 08:55 Urine Nitrate Negative (NEGATIVE) 07/09/18 08:55 Urine Bilirubin Negative (NEGATIVE) 07/09/18 08:55 Urine Urobilinogen 1.0 E.U./dL (<1 E.U./dL) H 07/09/18 08:55 Ur Leukocyte Esterase Small Supriya/uL (NEGATIVE) H 07/09/18 08:55 Urine RBC 2 - 5 /hpf (0-2) 07/09/18 08:55 Urine WBC 10 - 15 /hpf (0-6) 07/09/18 08:55 Ur Epithelial Cells 10 - 12 /hpf (0-5) 11/28/18 08:55 Urine Bacteria Few (NEG) 07/09/18 08:55 Urine Other Trichomonas 07/09/18 08:55 Urine Opiates Screen Negative (NEGATIVE) 07/09/18 07:30 Urine Methadone Screen Negative (NEGATIVE) 07/09/18 07:30 Ur Barbiturates Screen Positive (NEGATIVE) H 07/09/18 07:30 Ur Phencyclidine Scrn Negative (NEGATIVE) 07/09/18 07:30 Ur Amphetamines Screen Negative (NEGATIVE) 07/09/18 07:30 U Benzodiazepines Scrn Negative (NEGATIVE) 07/09/18 07:30 U Oth Cocaine Metabols Negative (NEGATIVE) 07/09/18 07:30 U Cannabinoids Screen Negative (NEGATIVE) 07/09/18 07:30 Attending/Attestation - Attestation I have personally seen and examined this patient.: Yes I have fully participated in the care of the patient.: Yes I have reviewed all pertinent clinical information, including history, physical exam and plan: Yes Notes (Text): 07/10/18 16:24 Attending note; Patient seen and examined with resident. Patient is a 68 year old female with PMH HTN, DM2, COPD, R hip arthritis, untreated HepC, substance abuse who presents to ED with chest tightness and andree rtness of breath. 1. chest pain; mostly secondary to COPD. Cardiac enzymes negative. EKG no acute changes. Echocardiogram showed ejection fraction of 69%. Recent stress test is negative as per patient. Cardiology evaluation appreciated. 2.COPD exacerbation; continue DuoNeb . Continue IV solumedrol. 3. Diabetes and alcohol neuropathy; continue Neurontin. 4. Active smoking; smoking cessation is strongly recommended. Alcohol abuse cessation is strongly recommended. 5. Trichomonas infection. Treated with Flagyl. Discharge home today. Upon discharge the patient will follow-up with PMD Dr. Samuel. 07/10/18 16:25
== END 2018-07-10 14:25 | disposition home health service (06) ==
LOC: ED 20:05 → ERH 23:05 → 3RNO 07-09 01:00
PROVIDERS: ADMIT Internal Medicine; ATTEND Internal Medicine
DX: M94.0 Chondrocostal junction syndrome [Tietze] (principal); E11.65 Type 2 diabetes mellitus with hyperglycemia; J44.1 Chronic obstructive pulmonary disease with (acute) exacerbation; A59.9 Trichomoniasis, unspecified; I10 Essential (primary) hypertension; G62.1 Alcoholic polyneuropathy; B19.20 Unspecified viral hepatitis C without hepatic coma; E78.5 Hyperlipidemia, unspecified; E83.42 Hypomagnesemia; M16.0 Bilateral primary osteoarthritis of hip; F17.210 Nicotine dependence, cigarettes, uncomplicated; Z79.84 Long term (current) use of oral hypoglycemic drugs
CPT/HCPCS: 36415; 71045; 80053; 80061; 80324; 80345; 80346; 80349; 80353; 80358; 80361; 81001; 82948; 83036; 83735; 83992; 84100; 84443; 84484; 85025; 85027; 87086; 93005; 93306; 94640; 96374; 96375; 96376; 97161; 97530; 99285; G0378; G8978; G8979; G8980; J2920; J3475

== ENCOUNTER 2018-07-13 14:29 | Emergency (ER) | payer MEDICARE, MEDICAID ==
[2018-07-13 14:30] VITALS: BMI 19.8
--- NOTE | 2018-07-13 14:48 | ED PDOC ---
Arrival/HPI - General Chief Complaint: High Blood Sugar Time Seen by Provider: 07/13/18 14:36 Historian: Patient, EMS - History of Present Illness Time/Duration: Prior to Arrival Symptom Course: Unchanged Associated Symptoms (Text): 07/13/18 14:46 Patient is complaining of elevated blood sugar. [facility] her blood sugar was greater than 200 and she was discharged. She is frequently seen and well-known to the emergency Department staff here. She was discharged from the hospital here 3 days ago after admission for chest pain. She is denying chest pain at this time. She reports she has been taking her metformin. Past Medical History - Infectious Disease Hx of Infectious Diseases: None - Cardiac Hx Hypertension: Yes - Pulmonary Hx Chronic Obstructive Pulmonary Disease (COPD): Yes - Neurological Hx Neurological Disorder: No - HEENT Hx HEENT Disorder: No - Renal Hx Renal Disorder: No - Endocrine/Metabolic Hx Endocrine Disorders: No - Hematological/Oncological Hx Blood Disorders: Yes Hx Hepatitis C: Yes - Integumentary Hx Dermatological Disorder: No - Musculoskeletal/Rheumatological Hx Arthritis: Yes (B/L HIP) - Gastrointestinal Hx Gastrointestinal Disorders: No - Genitourinary/Gynecological Hx Genitourinary Disorders: Yes - Psychiatric Hx Psychophysiologic Disorder: No Hx Substance Use: Yes (former heroin; finished methadone tx) - Surgical History Hx Tonsillectomy: Yes - Anesthesia Hx Anesthesia: Yes Hx Anesthesia Reactions: No Hx Malignant Hyperthermia: No Family/Social History - Physician Review Nursing Documentation Reviewed: Yes Family/Social History: Unknown Family HX Smoking Status: Light Smoker < 10 Cigarettes Daily Hx Alcohol Use: Yes (2 mini shots daily) Hx Substance Use: Yes (former heroin; finished methadone tx) Substance used: completed methadone program Allergies/Home Meds Allergies/Adverse Reactions: Allergies No Known Allergies Allergy (Verified 07/13/18 14:39) Home Medications: Home Meds Medication Instructions Recorded Confirmed metFORMIN [glucOPHAGE] 500 mg PO BID 07/05/18 07/10/18 Review of Systems - Physician Review All systems were reviewed & negative as marked: Yes - Review of Systems Respiratory: absent: SOB Cardiovascular: absent: Chest Pain Gastrointestinal: absent: Abdominal Pain, Vomiting Neurological: absent: Headache, Dizziness Physical Exam Vital Signs Temp Pulse Resp BP Pulse Ox 07/13/18 14:43 98.1 F 107 H 18 110/72 97 Temperature: Afebrile Blood Pressure: Normal Pulse: Tachycardic Respiratory Rate: Normal Appearance: Positive for: Well-Appearing, Non-Toxic, Comfortable Pain Distress: None Mental Status: Positive for: Alert and Oriented X 3 Finger Stick Blood Glucose: 197 - Systems Exam Head: Present: Atraumatic, Normocephalic Pupils: Present: PERRL Extroacular Muscles: Present: EOMI Conjunctiva: Present: Normal Mouth: Present: Moist Mucous Membranes Pharnyx: No: ERYTHEMA, EXUDATE, TONSILS ENLARGED Respiratory/Chest: Present: Clear to Auscultation, Good Air Exchange, Decreased Breath Sounds. No: Respiratory Distress, Accessory Muscle Use Cardiovascular: Present: Regular Rate and Rhythm, Normal S1, S2. No: Murmurs Abdomen: No: Tenderness, Distention, Peritoneal Signs, Rebound, Guarding Upper Extremity: Present: Normal Inspection. No: Cyanosis, Edema Lower Extremity: Present: Normal Inspection. No: Edema Neurological: Present: GCS=15, CN II-XII Intact, Speech Normal, Motor Func Grossly Intact Skin: Present: Warm, Dry, Normal Color. No: Rashes Medical Decision Making ED Course and Treatment: 07/13/18 14:59 Patient reports she has been taking her metformin. Her blood sugar is slightly elevated, but does not warrant hospital admission or change in current therapy. She will be discharged home. - Lab Interpretations Lab Results: Lab Results 07/13/18 14:38: POC Glucose (mg/dL) 197 H Disposition/Present on Arrival - Present on Arrival Any Indicators Present on Arrival: No History of DVT/PE: No History of Uncontrolled Diabetes: No Urinary Catheter: No History of Decub. Ulcer: No History Surgical Site Infection Following: None - Disposition Have Diagnosis and Disposition been Completed?: Yes Diagnosis: Hyperglycemia Disposition Time: 15:00 Patient Plan: Discharge Condition: FAIR Discharge Instructions (ExitCare): Hyperglycemia, Adult Forms: [employer] (Iranian)
[2018-07-13 15:28] VITALS: BP 124/83; PULSE 97; RESP 19; TEMP 98; O2SAT 100
== END 2018-07-13 15:25 | disposition home or self-care (01) ==
LOC: ED 14:29
DX: R73.9 Hyperglycemia, unspecified (principal); I10 Essential (primary) hypertension; F17.210 Nicotine dependence, cigarettes, uncomplicated

== ENCOUNTER 2018-07-16 14:08 | Emergency (ER) | payer MEDICARE, OTHER ==
[2018-07-16 14:10] VITALS: BMI 19.8
[2018-07-16 14:40] VITALS: RESP 14; TEMP 98; O2SAT 98
--- NOTE | 2018-07-16 14:52 | ED PDOC ---
Arrival/HPI - General Chief Complaint: Abnormal Labs Time Seen by Provider: 07/16/18 14:15 - History of Present Illness Narrative History of Present Illness (Text): 07/16/18 14:41 68 yr old F w/ hx of DM2, malingering, well known to this ED presents with high glucose. Pt notes that she had high glucose yesterday, was given 10U of insulin at [facility] and d/c home. She notes that she checked her glucose today and noted it was elevated prompting her visit to the emergency department. She notes it was 250 at that time but denies any chest pain, shortness of breath, abdominal pain, constipation, diarrhea, dysuria, urgency, frequency, nausea, vomiting, dark or bloody stool, cough, fever, chills or night sweats. No fall or trauma. No other complaints. Past Medical History - Provider Review Nursing Documentation Reviewed: Yes - Infectious Disease Hx of Infectious Diseases: None - Cardiac Hx Hypertension: Yes - Pulmonary Hx Chronic Obstructive Pulmonary Disease (COPD): Yes - Neurological Hx Neurological Disorder: No - HEENT Hx HEENT Disorder: No - Renal Hx Renal Disorder: No - Endocrine/Metabolic Hx Endocrine Disorders: No Hx Diabetes Mellitus Type 2: Yes - Hematological/Oncological Hx Blood Disorders: Yes Hx Hepatitis C: Yes - Integumentary Hx Dermatological Disorder: No - Musculoskeletal/Rheumatological Hx Arthritis: Yes (B/L HIP) - Gastrointestinal Hx Gastrointestinal Disorders: No - Genitourinary/Gynecological Hx Genitourinary Disorders: Yes - Psychiatric Hx Substance Use: Yes (former heroin; finished methadone tx) - Surgical History Hx Tonsillectomy: Yes - Anesthesia Hx Anesthesia: Yes Hx Anesthesia Reactions: No Hx Malignant Hyperthermia: No Family/Social History - Physician Review Nursing Documentation Reviewed: Yes Family/Social History: Unknown Family HX Smoking Status: Light Smoker < 10 Cigarettes Daily Hx Alcohol Use: Yes (2 mini shots daily) Hx Substance Use: Yes (former heroin; finished methadone tx) Substance used: completed methadone program Allergies/Home Meds Allergies/Adverse Reactions: Allergies No Known Allergies Allergy (Verified 07/13/18 19:42) Home Medications: Home Meds Medication Instructions Recorded Confirmed metFORMIN [glucOPHAGE] 500 mg PO BID 07/05/18 07/10/18 Review of Systems - Review of Systems Constitutional: absent: Fatigue, Weight Change, Fevers, Night Sweats Eyes: absent: Vision Changes, Photophobia, Eye Pain ENT: absent: Hearing Changes, Tinnitus, TMJ Pain Respiratory: absent: SOB, Cough, Sputum Cardiovascular: absent: Chest Pain, Palpitations, Edema, Calf Pain, Syncope Gastrointestinal: absent: Abdominal Pain, Stool Changes, Constipation, Diarrhea, Nausea, Vomiting, Appetite Changes, Hematochezia, Hematemesis Genitourinary Female: absent: Dysuria, Frequency, Hematuria, Vaginal Bleeding, Vaginal Discharge Musculoskeletal: absent: Arthralgias, Back Pain, Neck Pain Skin: absent: Rash, Pruritis, Skin Lesions, Laceration Neurological: absent: Headache, Dizziness, Focal Weakness, Gait Changes, Speech Changes, Facial Droop Endocrine: absent: Diaphoresis, Polyuria, Polydipsia Hemo/Lymphatic: absent: Adenopathy, Easy Bleeding Psychiatric: absent: Anxiety, Depression, Suicidal Ideation Physical Exam Vital Signs Reviewed: Yes Temperature: Afebrile Blood Pressure: Normal Pulse: Regular Respiratory Rate: Normal Appearance: Positive for: Well-Appearing Pain Distress: None Mental Status: Positive for: Alert and Oriented X 3 - Systems Exam Head: Present: Atraumatic, Normocephalic. No: Tenderness, Contusion Pupils: Present: PERRL Extroacular Muscles: Present: EOMI Conjunctiva: Present: Normal Ears: Present: Normal, NORMAL TM Mouth: Present: Moist Mucous Membranes Pharnyx: Present: Normal Nose (External): Present: Atraumatic Nose (Internal): Present: Normal Inspection Neck: Present: Normal Range of Motion. No: Meningeal Signs, MIDLINE TENDERNESS Respiratory/Chest: Present: Clear to Auscultation, Good Air Exchange Cardiovascular: Present: Regular Rate and Rhythm, Normal S1, S2 Abdomen: Present: Normal Bowel Sounds. No: Tenderness, Distention, Peritoneal Signs Back: Present: Normal Inspection. No: CVA Tenderness Upper Extremity: Present: Normal Inspection, NORMAL PULSES, Capillary Refill < 2s. No: Cyanosis, Edema Lower Extremity: Present: Normal Inspection, NORMAL PULSES, Capillary Refill < 2 s. No: Edema, CALF TENDERNESS Neurological: Present: GCS=15, CN II-XII Intact, Speech Normal Skin: Present: Warm, Dry Psychiatric: Present: Alert, Oriented x 3 Medical Decision Making ED Course and Treatment: 07/16/18 14:54 68 yr old female p/w high blood sugar. Well appearing on exam w/ moist mucous membranes, in NAD. Well known to this ED for recurrent visits of similiar here and at [facility] ED. Pt recently seen 07/13 at [facility] ED for similiar labs and complaint. Seen yesterday for same complaint at [facility] and d/c after insulin. No indication of DKA clinically. No polyuria, kussumual breathing, acetone breath, sickly appearing. Glucose not elevated enough for Hyperosmolar. She likely requires fine turning of her metformin dosage to change her basal glucose level. Endorsed to patient importance of followup and she is agreeable to plan. Disposition/Present on Arrival - Present on Arrival Any Indicators Present on Arrival: No History of DVT/PE: No History of Uncontrolled Diabetes: No Urinary Catheter: No History Surgical Site Infection Following: None - Disposition Have Diagnosis and Disposition been Completed?: Yes Diagnosis: Elevated glucose Disposition: HOME/ ROUTINE Disposition Time: 16:05 Condition: GOOD Discharge Instructions (ExitCare): Type 2 Diabetes, Hyperglycemia, Adult, Blood Glucose Monitoring Additional Instructions: SEE YOUR PRIMARY CARE DOCTOR TO ADJUST YOUR METFORMIN DOSAGE. TREVON FOSS, thank you for letting us take care of you today. Your provider was Randall Arguello and you were treated for HIGH BLOOD SUGAR. The emergency medical care you received today was directed at your acute symptoms. If you were prescribed any medication, please fill it and take as directed. It may take several days for your symptoms to resolve. Return to the Emergency Department if your symptoms worsen, do not improve, or if you have any other problems. Please contact your doctor or call one of the physicians/clinics you have been referred to that are listed on the Patient Visit Information form that is included in your discharge packet. Bring any paperwork you were given at discharge with you along with any medications you are taking to your follow up visit. Our treatment cannot replace ongoing medical care by a primary care provider outside of the emergency department. Thank you for allowing the [facility] team to be part of your care today. If you had an X-Ray or CT scan: A Radiologist will review the ED reading if any change in treatment is needed we will contact you. If you had a blood, urine, or wound culture: It will take several days for the results, if any change in treatment is needed we will contact you. If you had an STI test: It will take 48 hours for the results. Please call after 1 week if you have not heard back. Referrals: Yelitza Samuel MD [Staff Provider] - Follow up with primary Forms: [employer] (Macedonian)
[2018-07-16 17:00] VITALS: BP 130/62; PULSE 83
== END 2018-07-16 17:00 | disposition home or self-care (01) ==
LOC: ED 14:08
DX: E11.65 Type 2 diabetes mellitus with hyperglycemia (principal)

== ENCOUNTER 2018-07-27 15:47 | Emergency (ER) | payer OTHER, MEDICAID ==
--- NOTE | 2018-07-27 20:21 | ED PDOC ---
Arrival/HPI - General Chief Complaint: Back Pain Time Seen by Provider: 07/27/18 16:11 - History of Present Illness Narrative History of Present Illness (Text): 07/27/18 20:17 68 year old F w/ h/o kidney stones presenting to the Emergency Room with compla int of left sided flank pain. Patient reports being seen at [facility] on 07/18/18 where she was diagnosed with left kidney stones. She reports worsening of her pain today and requests analgesics. Of note, the patient is noted to present multiple times to multiple ERs for various complaints and was seen at [facility] earlier today and was discharged. She denies fevers, chills, abdominal pain, chest pain, syncopal episodes, back pain, hematuria, dysuria, or nausea/emesis at this time. Time/Duration: Prior to Arrival Symptom Onset: Sudden Symptom Course: Unchanged Quality: Aching Activities at Onset: Rest Context: Home Past Medical History - Provider Review Nursing Documentation Reviewed: Yes - Travel History Have you recently traveled outside [place] w/in the past 3 mons?: No - Infectious Disease Hx of Infectious Diseases: None - Reproductive Menopause: Yes - Cardiac Hx Hypertension: Yes - Pulmonary Hx Chronic Obstructive Pulmonary Disease (COPD): Yes - Neurological Hx Neurological Disorder: No - HEENT Hx HEENT Disorder: No - Renal Hx Renal Disorder: No - Endocrine/Metabolic Hx Endocrine Disorders: No Hx Diabetes Mellitus Type 2: Yes - Hematological/Oncological Hx Blood Disorders: Yes Hx Hepatitis C: Yes - Integumentary Hx Dermatological Disorder: No - Musculoskeletal/Rheumatological Hx Arthritis: Yes - Gastrointestinal Hx Gastrointestinal Disorders: No - Genitourinary/Gynecological Hx Genitourinary Disorders: Yes - Psychiatric Hx Psychophysiologic Disorder: No Hx Substance Use: Yes (former heroin; finished methadone tx) - Surgical History Hx Tonsillectomy: Yes - Anesthesia Hx Anesthesia: Yes Hx Anesthesia Reactions: No Hx Malignant Hyperthermia: No Family/Social History - Physician Review Nursing Documentation Reviewed: Yes Family/Social History: Unknown Family HX Smoking Status: Current Some Days Smoker Hx Alcohol Use: Yes (2 mini shots daily) Hx Substance Use: Yes (former heroin; finished methadone tx) Substance used: completed methadone program Allergies/Home Meds Allergies/Adverse Reactions: Allergies No Known Allergies Allergy (Verified 07/25/18 13:14) Review of Systems - Physician Review All systems were reviewed & negative as marked: Yes - Review of Systems Gastrointestinal: Other (L flank pain). absent: Abdominal Pain Genitourinary Female: absent: Dysuria, Frequency, Hematuria Physical Exam Vital Signs Reviewed: Yes Vital Signs Temp Pulse Resp BP Pulse Ox 07/27/18 15:48 98.2 F 111 H 22 119/77 96 Temperature: Afebrile Blood Pressure: Normal Pulse: Tachycardic Respiratory Rate: Normal Appearance: Positive for: Well-Appearing Pain Distress: None Mental Status: Positive for: Alert and Oriented X 3 Finger Stick Blood Glucose: 104 - Systems Exam Head: Present: Atraumatic, Normocephalic Pupils: Present: PERRL Extroacular Muscles: Present: EOMI Conjunctiva: Present: Normal Mouth: Present: Moist Mucous Membranes Respiratory/Chest: Present: Clear to Auscultation, Good Air Exchange. No: Respiratory Distress Cardiovascular: Present: Regular Rate and Rhythm, Tachycardic Abdomen: Present: Normal Bowel Sounds. No: Tenderness, Distention, Peritoneal Signs Back: Present: CVA Tenderness (no appreciative L sided flank pain) Upper Extremity: Present: Normal Inspection. No: Cyanosis, Edema Neurological: Present: GCS=15, CN II-XII Intact, Speech Normal Skin: Present: Warm, Dry, Normal Color. No: Rashes Psychiatric: Present: Alert, Oriented x 3, Normal Insight, Normal Concentration Medical Decision Making ED Course and Treatment: 07/27/18 20:22 Impression 68 year old F w/ L sided flank pain Differential Diagnoses Include But Are Not Limited To: --Renal Colic --Pylonephritis Plan --Labs --NSS --CT a/p --Urinalysis --Urine Culture --Toradol Progress Notes 07/27/18 20:[address] Zuniga who will resume the patient's care. - Medication Orders Current Medication Orders: Discontinued Medications Ketorolac Tromethamine (Toradol) 60 mg IM STAT STA Stop: 07/27/18 19:31 Disposition/Present on Arrival - Present on Arrival Any Indicators Present on Arrival: No History of DVT/PE: No History of Uncontrolled Diabetes: No Urinary Catheter: No History of Decub. Ulcer: No History Surgical Site Infection Following: None - Disposition Have Diagnosis and Disposition been Completed?: Yes Diagnosis: Back pain, Muscle strain Disposition: HOME/ ROUTINE Disposition Time: 21:00 Patient Plan: Discharge Condition: GOOD Additional Instructions: Continue your current medication/follow up with your doctor this week Referrals: Yelitza Samuel MD [Primary Care Provider] - Follow up with primary Forms: [employer] (Citizen Of [place])
[2018-07-27] MEDS ORDERED: Sodium Chloride 0.9% 1,000 ML IV STA (20:26)
[2018-07-27 20:39] LABS: URINE APPEARANCE CLEAR (CLEAR); URINE BILIRUBIN NEGATIVE (NEGATIVE); URINE BLOOD NEGATIVE (NEGATIVE); URINE COLOR YELLOW (YELLOW); URINE GLUCOSE (UA) NEGATIVE (NEGATIVE); URINE LEUKOCYTE ESTERASE NEGATIVE Leu/uL (NEGATIVE); URINE PROTEIN NEGATIVE mg/dL (<30 mg/dL); URINE UROBILINOGEN 0.2 E.U./dL (<1 E.U./dL)
--- NOTE | 2018-07-27 20:41 | ED PDOC ---
Physical Exam Vital Signs Reviewed: Yes Vital Signs Temp Pulse Resp BP Pulse Ox 07/27/18 20:38 74 18 134/76 99 07/27/18 15:48 98.2 F 111 H 22 119/77 96 Temperature: Afebrile Blood Pressure: Normal Pulse: Tachycardic Respiratory Rate: Normal Finger Stick Blood Glucose: 104 Medical Decision Making ED Course and Treatment: Progress notes: 07/27/18 20:27 Case endorsed to me from Dr. Celestin. Pt with apparent left-sided flank pain secondary to kidney stone pt was diagnosed with a week prior at [facility]. pt apparently has been to the Emergency department on different occasions for similar complaints. Recently seen at [facility] for the same complaint today and discharged. Evaluation currently in progress. 07/28/18 00:28 CT Abdomen and Pelvis reviewed, shows: The visualized lung bases are unremarkable. Normal unenhanced liver. Normal gallbladder and extrahepatic biliary system. Normal unenhanced spleen. Normal pancreas. Normal bilateral adrenal glands. Normal size of the right kidney. There is no right renal mass. There are no right renal calculi. There is no right hydronephrosis. Normal visualized right ureter. Normal size of the left kidney. There is no left renal mass. There are no left renal calculi. There is no left hydronephrosis. Normal visualized left ureter. Small sliding hiatal hernia of the stomach. Normal small intestine. Uncomplicated diverticulosis with moderate amount of fecal residue in the colon. The appendix is visualized and appears normal. There is no demonstrated peritoneal fluid. Normal abdominal aorta. Normal inferior vena cava. Normal retroperitoneum. Normal urinary bladder. There is no pelvic mass lesion or lymphadenopathy. There is no pelvic fluid. Normal abdominal wall. Moderate osteopenia. Mild chronic compression deformities of L3 and T12 vertebral bodies. Grade 1 anterolisthesis of L4 on L5. Grade 1 anterolisthesis of L3 on L4 IMPRESSION: No evidence of nephrolithiasis or hydronephrosis. Constipation. Electronically signed on Jul 28, 2018 12:20:53 AM EST by: Kt Iqbal M.D., Certified by GINA, MSK, Neuroradiology - Lab Interpretations Lab Results: Lab Results 07/27/18 20:00: Urine Color Yellow, Urine Appearance Clear, Urine pH 6.0, Ur Specific [place] >= 1.030, Urine Protein Negative, Urine Glucose (UA) Negative, Urine Ketones Negative, Urine Blood Negative, Urine Nitrate Negative, Urine Bilirubin Negative, Urine Urobilinogen 0.2, Ur Leukocyte Esterase Negative - RAD Interpretation Radiology Orders: 07/27/18 20:26 ABDOMEN & PELVIS [ABD & PELVIS W/O PO OR IV CONT] [CT] Stat Joint Supervisor: Radiologist - Medication Orders Current Medication Orders: Sodium Chloride (Sodium Chloride 0.9%) 1,000 mls @ 999 mls/hr IV .Q1H1M STA Stop: 07/27/18 21:26 Discontinued Medications Ketorolac Tromethamine (Toradol) 60 mg IM STAT STA Stop: 07/27/18 19:31 Last Admin: 07/27/18 20:17 Dose: 60 mg MAR Pain Assessment Document 07/27/18 20:17 KV (Rec: 07/27/18 20:18 [id number]) Pain Reassessment Is this a pain reassessment? No Sleep Is patient sleeping during reassessment? No Presence of Pain Presence of Pain Yes Location Left, Right or Bilateral Left Pain Location Body Site Back Description Description Constant Intensity of Pain at present 6 IM Administration Charges Document 07/27/18 20:17 KV (Rec: 07/27/18 20:18 [id number]) Injection Site MAR Injection Site Left Gluteus Medius Charges for Administration # of IM Administrations 1 - Scribe Statement The provider has reviewed the documentation as recorded by the Scribe Jimena Song All medical record entries made by the Scribe were at my direction and personally dictated by me. I have reviewed the chart and agree that the record accurately reflects my personal performance of the history, physical exam, medical decision making, and the department course for this patient. I have also personally directed, reviewed, and agree with the discharge instructions and disposition. Disposition/Present on Arrival - Present on Arrival Any Indicators Present on Arrival: No History of DVT/PE: No History of Uncontrolled Diabetes: No Urinary Catheter: No History of Decub. Ulcer: No History Surgical Site Infection Following: None - Disposition Have Diagnosis and Disposition been Completed?: Yes Diagnosis: Back pain, Muscle strain Disposition: HOME/ ROUTINE Disposition Time: 01:14 Patient Plan: Discharge Condition: GOOD Additional Instructions: Continue your current medication/follow up with your doctor this week Referrals: Yelitza Samuel MD [Primary Care Provider] - Follow up with primary Forms: [employer] (Albanian)
[2018-07-27 22:55] LABS: BASO # 0.02 K/mm3 (0.0-2.0); BASO % 0.3 % (0.0-3.0); EOS # 0.1 (0.0-0.7); EOS % 0.8 % (1.5-5.0); GRAN # 3.98 (1.4-6.5); GRAN % 50.3 % (50.0-68.0); HEMOGLOBIN 13.7 g/dL (12.0-16.0); LYMPH # 3.4 (1.2-3.4); LYMPH % 43.5 % (22.0-35.0); MEAN CELL VOLUME 88.9 fl (80.0-105.0); MEAN CORPUSCULAR HEMOGLOBIN 29.2 pg (25.0-35.0); MEAN CORPUSCULAR HGB CONC 32.9 g/dl (31.0-37.0); MEAN PLATELET VOLUME 11.7 fl (7.0-11.0); MONO # 0.4 (0.1-0.6); MONO % 5.1 % (1.0-6.0); RBC 4.69 10^6/uL (3.5-6.1); WHITE BLOOD COUNT 7.9 10^3/uL (4.5-11.0)
[2018-07-27 22:59] LABS: ALBUMIN 4.5 g/dL (3.0-4.8); ALT/SGPT 38 U/L (7-56); AST/SGOT 59 U/L (14-36); BLOOD UREA NITROGEN 23 mg/dL (7-21); CALCIUM 9.3 mg/dL (8.4-10.5); GFR NON-AFRICAN AMERICAN > 60
[2018-07-28 01:26] VITALS: TEMP 98
[2018-07-28 01:27] VITALS: BP 135/81; PULSE 80; RESP 18; O2SAT 98
--- NOTE | 2018-07-28 11:34 | CT ---
Date of service: 07/27/2018 PROCEDURE: CT Abdomen and Pelvis without intravenous contrast HISTORY: kidney stone COMPARISON: None. TECHNIQUE: Helical CT of the abdomen and pelvis was performed without oral or intravenous contrast as per referring physician request. Coronal and sagittal reformats were generated. Contrast dose: None Radiation dose: Total exam DLP = 213.47 mGy-cm. This CT exam was performed using one or more of the following dose reduction techniques: Automated exposure control, adjustment of the mA and/or kV according to patient size, and/or use of iterative reconstruction technique. FINDINGS: LOWER THORAX: Unremarkable. LIVER: Unremarkable. No gross lesion or ductal dilatation. GALLBLADDER AND BILE DUCTS: Unremarkable. PANCREAS: Unremarkable. No gross lesion or ductal dilatation. SPLEEN: Unremarkable. ADRENALS: Unremarkable. No mass. KIDNEYS AND URETERS: No definite obstructive uropathy bilaterally, although punctate solitary intrarenal calculi are questioned at the bilateral lower pole kidneys and at the midpole left kidney. Ureters appear normal in caliber throughout. A punctate calcification left urinary bladder wall added distal left uterus with junction is not excluded but is not favored either. Multiple phleboliths seen in the local inferior pelvic soft tissues bilaterally. No perinephric reaction bilaterally. Follow-up contrast CT can be utilized for added characterization. There is a questionable partially calcified urachal remnant at the anterior urinary bladder wall. VASCULATURE: Nonaneurysmal abdominal aortic calcific atherosclerotic changes are identified. BOWEL: Prominent fecal loading seen throughout the majority of large bowel which may indicate an element of constipation. No bowel obstruction or pericolic/perienteric reactive change. Evaluation of the gastrointestinal tract is limited due to the lack of oral contrast administration. APPENDIX: Not identified. No CT evidence of appendicitis. PERITONEUM: Unremarkable. No free fluid. No free air. LYMPH NODES: No significant lymphadenopathy identified. BLADDER: Urinary bladder is largely decompressed. Questionable partially calcified urachal remnant anteriorly at the midline. REPRODUCTIVE: Prior hysterectomy suggested. Clinically correlate further. BONES: Late stage osteoarthritis bilateral hip joints. Anterior wedge compression fractures are identified at T12 and L3 and are mild in severity but indeterminate in age. Is also grade 1 spondylolisthesis L3-4 with L3 anterior to L4, degenerative. No spondylolysis identified. OTHER FINDINGS: None. IMPRESSION: 1. No definite obstructive uropathy appreciable bilaterally. No perinephric reaction either. Punctate nonobstructing intrarenal calculi identified at the left greater than right kidney. Questionable urachal remnant at the midline anterior urinary bladder. 2. Potential constipation. 3. Prior hysterectomy. 4. Mild anterior wedge compression fractures L3 and T12 incidentally noted (age indeterminate) with grade 1 spondylolisthesis L3-4. Advanced osteoarthritis bilateral hip joints. Preliminary report provided by Nia, 07/28/2018 12:20 a.m..
== END 2018-07-28 01:43 | disposition home or self-care (01) ==
LOC: ED 15:47
DX: M54.9 Dorsalgia, unspecified (principal); T14.8XXA Other injury of unspecified body region, initial encounter; X58.XXXA Exposure to other specified factors, initial encounter; E11.9 Type 2 diabetes mellitus without complications; I10 Essential (primary) hypertension
CPT/HCPCS: 74176; 80053; 81003; 85025; 87086; 96372; 99283; J1885; J7030

== ENCOUNTER 2018-07-31 21:09 | Emergency (ER) | payer MEDICARE, MEDICAID ==
[2018-07-31 21:14] VITALS: BMI 19.8
[2018-07-31 23:19] LABS: URINE BILIRUBIN NEGATIVE (NEGATIVE); URINE BLOOD NEGATIVE (NEGATIVE); URINE GLUCOSE (UA) 100 mg/dL (NEGATIVE); URINE LEUKOCYTE ESTERASE NEGATIVE Leu/uL (NEGATIVE); URINE PROTEIN NEGATIVE mg/dL (<30 mg/dL)
--- NOTE | 2018-07-31 23:23 | ED PDOC ---
Arrival/HPI - General Chief Complaint: Abdominal Pain Historian: Patient - History of Present Illness Narrative History of Present Illness (Text): 07/31/18 23:19 68 year old female, whose past medical history includes kidney stones, presents to the Emergency department with left sided flank pain and blood in urine, for 2 weeks. Patient informs evaluation at another hospital, where renal US showed kidney stones. Patient was advised to hydrate and was discharged. Patient informs of worsening of left flank pain today and and hematuria this morning. Of note, the patient is noted to present multiple times to multiple ERs for various complaints. Patient denies any fevers, chills, headache, dizziness, chest pain, shortness of breath, cough, nausea, vomiting, diarrhea, neck pain, or any other complaint. Time/Duration: > week (2 weeks) Past Medical History - Provider Review Nursing Documentation Reviewed: Yes - Infectious Disease Hx of Infectious Diseases: None - Cardiac Hx Hypertension: Yes - Pulmonary Hx Chronic Obstructive Pulmonary Disease (COPD): Yes - Neurological Hx Neurological Disorder: No - HEENT Hx HEENT Disorder: No - Renal Hx Renal Disorder: No - Endocrine/Metabolic Hx Endocrine Disorders: No Hx Diabetes Mellitus Type 2: Yes - Hematological/Oncological Hx Blood Disorders: Yes Hx Hepatitis C: Yes - Integumentary Hx Dermatological Disorder: No - Musculoskeletal/Rheumatological Hx Arthritis: Yes - Gastrointestinal Hx Gastrointestinal Disorders: No - Genitourinary/Gynecological Hx Genitourinary Disorders: Yes - Psychiatric Hx Psychophysiologic Disorder: No Hx Substance Use: Yes (former heroin; finished methadone tx) - Surgical History Hx Tonsillectomy: Yes - Anesthesia Hx Anesthesia: Yes Hx Anesthesia Reactions: No Hx Malignant Hyperthermia: No Family/Social History - Physician Review Nursing Documentation Reviewed: Yes Family/Social History: No Known Family HX Smoking Status: Current Some Days Smoker Hx Alcohol Use: Yes (2 mini shots daily) Hx Substance Use: Yes (former heroin; finished methadone tx) Substance used: completed methadone program Allergies/Home Meds Allergies/Adverse Reactions: Allergies No Known Allergies Allergy (Verified 08/03/18 22:00) Review of Systems - Physician Review All systems were reviewed & negative as marked: Yes - Review of Systems Constitutional: absent: Fevers, Night Sweats Respiratory: absent: SOB, Cough Cardiovascular: absent: Chest Pain Gastrointestinal: Abdominal Pain (Left flank ). absent: Diarrhea, Nausea, Vomiting Genitourinary Female: Hematuria Musculoskeletal: absent: Neck Pain Neurological: absent: Headache, Dizziness Physical Exam Vital Signs Reviewed: Yes Vital Signs Temp Pulse Resp BP Pulse Ox 07/31/18 22:05 98.1 F 97 H 16 137/90 97 Temperature: Afebrile Blood Pressure: Normal Pulse: Tachycardic Respiratory Rate: Normal Appearance: Positive for: Well-Appearing, Non-Toxic, Comfortable Pain Distress: None Mental Status: Positive for: Alert and Oriented X 3 - Systems Exam Head: Present: Atraumatic, Normocephalic Pupils: Present: PERRL Extroacular Muscles: Present: EOMI Conjunctiva: Present: Normal Mouth: Present: Moist Mucous Membranes Neck: Present: Normal Range of Motion Respiratory/Chest: Present: Clear to Auscultation, Good Air Exchange. No: Respiratory Distress, Accessory Muscle Use Cardiovascular: Present: Regular Rate and Rhythm, Normal S1, S2. No: Murmurs Abdomen: No: Tenderness, Distention, Peritoneal Signs Back: Present: CVA Tenderness (mild left sided CVA tenderness) Upper Extremity: Present: Normal Inspection. No: Cyanosis, Edema Lower Extremity: Present: Normal Inspection. No: Edema Neurological: Present: GCS=15, CN II-XII Intact, Speech Normal Skin: Present: Warm, Dry, Normal Color. No: Rashes Psychiatric: Present: Alert, Oriented x 3, Normal Insight, Normal Concentration Medical Decision Making ED Course and Treatment: 07/31/18 23:25 Impression: 68 year old female presents with left flank pain and hematuria Plan: -- Toradol -- Urinalysis -- Reassess and disposition Prior Visits: Notes and results from previous visits were reviewed. Patient was last seen in the emergency department on 07/29/19 at [facility], for same chronic left flank pain. Patient was informed to follow up with her PMD. - Lab Interpretations Lab Results: Lab Results 07/31/18 22:50: Urine Color Yellow, Urine Appearance Clear, Urine pH 6.0, Ur Specific [place] >= 1.030, Urine Protein Negative, Urine Glucose (UA) 100 H, Urine Ketones Negative, Urine Blood Negative, Urine Nitrate Negative, Urine Bilirubin Negative, Urine Urobilinogen 1.0 H, Ur Leukocyte Esterase Negative I have reviewed the lab results: Yes - Medication Orders Current Medication Orders: Discontinued Medications Ketorolac Tromethamine (Toradol) 60 mg IM STAT STA Stop: 07/31/18 22:35 Last Admin: 07/31/18 23:09 Dose: 60 mg MAR Pain Assessment Document 07/31/18 23:09 IT (Rec: 07/31/18 23:09 IT [id number]) Pain Reassessment Is this a pain reassessment? No Sleep Is patient sleeping during reassessment? No Presence of Pain Presence of Pain Yes IM Administration Charges Document 07/31/18 23:09 IT (Rec: 07/31/18 23:09 IT [facility] [id number]) Injection Site MAR Injection Site Left Deltoid Charges for Administration # of IM Administrations 1 - Scribe Statement The provider has reviewed the documentation as recorded by the Scribe Eulogio Mari Provider Scribe Attestation: All medical record entries made by the Scribe were at my direction and personally dictated by me. I have reviewed the chart and agree that the record accurately reflects my personal performance of the history, physical exam, medical decision making, and the department course for this patient. I have also personally directed, reviewed, and agree with the discharge instructions and disposition. Disposition/Present on Arrival - Present on Arrival Any Indicators Present on Arrival: No History of DVT/PE: No History of Uncontrolled Diabetes: No Urinary Catheter: No History of Decub. Ulcer: No History Surgical Site Infection Following: None - Disposition Have Diagnosis and Disposition been Completed?: Yes Diagnosis: Flank pain Disposition: HOME/ ROUTINE Disposition Time: 23:31 Patient Plan: Discharge Condition: STABLE Discharge Instructions (ExitCare): Flank Pain (DC) Print Language: [place] IS[place] Additional Instructions: All medical record entries made by the Scribe were at my direction and personally dictated by me. I have reviewed the chart and agree that the record accurately reflects my personal performance of the history, physical exam, medical decision making, and the department course for this patient. I have also personally directed, reviewed, and agree with the discharge instructions and disposition. Referrals: Michelle Venegas MD [Medical Doctor] - Follow up with primary [facility] at [facility] [Outside] - Follow up with primary Forms: [employer] (Khmer)
[2018-07-31 23:28] LABS: URINE APPEARANCE CLEAR (CLEAR); URINE COLOR YELLOW (YELLOW)
[2018-08-01 01:48] VITALS: BP 142/78; PULSE 89; RESP 18; TEMP 98.2; O2SAT 98
== END 2018-08-01 00:10 | disposition home or self-care (01) ==
LOC: ED 21:09
DX: R10.9 Unspecified abdominal pain (principal)
CPT/HCPCS: 81003; 96372; 99283; J1885

== ENCOUNTER 2018-08-07 13:16 | Emergency (ER) | payer MEDICARE, MEDICAID ==
[2018-08-07 13:16] VITALS: BMI 19.8
[2018-08-07 13:35] VITALS: RESP 16
--- NOTE | 2018-08-07 14:22 | ED PDOC ---
Arrival/HPI - General Chief Complaint: Lower Extremity Problem/Injury Time Seen by Provider: 08/07/18 13:20 Historian: Patient - History of Present Illness Narrative History of Present Illness (Text): 08/07/18 14:19 68yo female with pmhx of Diabetes, LE edema, present with complaint of leg pain and edema x weeks. states she stopped taking her antidiuretics because it makes her urinate on her self. States taking Ibuprofen and Tylenol at home for her pain without relieve. Denies calf tenderness, redness, trauma, chest pain, SOB, diaphoresis, fever,chills, any other complaint. Past Medical History - Provider Review Nursing Documentation Reviewed: Yes - Infectious Disease Hx of Infectious Diseases: None - Reproductive Menopause: Yes - Cardiac Hx Hypertension: Yes - Pulmonary Hx Chronic Obstructive Pulmonary Disease (COPD): Yes - Neurological Hx Neurological Disorder: No - HEENT Hx HEENT Disorder: No - Renal Hx Renal Disorder: No - Endocrine/Metabolic Hx Endocrine Disorders: No Hx Diabetes Mellitus Type 2: Yes - Hematological/Oncological Hx Blood Disorders: Yes Hx Hepatitis C: Yes - Integumentary Hx Dermatological Disorder: No - Musculoskeletal/Rheumatological Hx Arthritis: Yes - Gastrointestinal Hx Gastrointestinal Disorders: No - Genitourinary/Gynecological Hx Genitourinary Disorders: Yes - Psychiatric Hx Psychophysiologic Disorder: No Hx Substance Use: Yes (former heroin; finished methadone tx) - Surgical History Hx Tonsillectomy: Yes - Anesthesia Hx Anesthesia: Yes Hx Anesthesia Reactions: No Hx Malignant Hyperthermia: No Family/Social History - Physician Review Nursing Documentation Reviewed: Yes Family/Social History: Unknown Family HX Smoking Status: Current Some Days Smoker Hx Alcohol Use: Yes (2 mini shots daily) Hx Substance Use: Yes (former heroin; finished methadone tx) Substance used: completed methadone program Allergies/Home Meds Allergies/Adverse Reactions: Allergies No Known Allergies Allergy (Verified 08/07/18 13:48) Home Medications: Home Meds Medication Instructions Recorded Confirmed amLODIPine [Norvasc] 10 mg PO DAILY 08/07/18 08/07/18 Review of Systems - Physician Review All systems were reviewed & negative as marked: Yes - Review of Systems Constitutional: Normal Eyes: Normal ENT: Normal Respiratory: Normal Cardiovascular: Normal Gastrointestinal: Normal Genitourinary Female: Normal Musculoskeletal: Arthralgias (B/L leg pain) Skin: Normal Neurological: Normal Endocrine: Normal Hemo/Lymphatic: Normal Psychiatric: Normal Physical Exam Vital Signs Reviewed: Yes Vital Signs Temp Pulse Resp BP Pulse Ox 08/07/18 13:34 98.2 F 108 H 16 130/86 98 Temperature: Afebrile Blood Pressure: Normal Pulse: Regular Respiratory Rate: Normal Appearance: Positive for: Well-Appearing, Non-Toxic, Comfortable Pain Distress: None Mental Status: Positive for: Alert and Oriented X 3 - Systems Exam Head: Present: Atraumatic, Normocephalic Pupils: Present: PERRL Extroacular Muscles: Present: EOMI Conjunctiva: Present: Normal Mouth: Present: Moist Mucous Membranes Neck: Present: Normal Range of Motion Respiratory/Chest: Present: Clear to Auscultation, Good Air Exchange. No: Respiratory Distress, Accessory Muscle Use Cardiovascular: Present: Regular Rate and Rhythm, Normal S1, S2. No: Murmurs Abdomen: No: Tenderness, Distention, Peritoneal Signs Back: Present: Normal Inspection Upper Extremity: Present: Normal Inspection. No: Cyanosis, Edema Lower Extremity: Present: Normal Inspection, Edema (2+ pitting edema b/l), NORMAL PULSES, Normal ROM, Neurovascularly Intact. No: CALF TENDERNESS, Osmar's Sign, Tenderness, Temperature Abnormalties Neurological: Present: GCS=15, CN II-XII Intact, Speech Normal Skin: Present: Warm, Dry, Normal Color. No: Rashes Psychiatric: Present: Alert, Oriented x 3, Normal Insight, Normal Concentration Medical Decision Making ED Course and Treatment: 08/07/18 19:19 Pt presnt to ED for chronic LE edema and leg pain. Pt was already placed on Gabapentin and Lasix. she is not complaint with her lasix. Doppler US preliminary reading was negative for DVT PT was treated and with Toradol and DC with Ibuprofen - RAD Interpretation Radiology Orders: 08/07/18 13:51 DUPLEX LOWER EXTRM VEIN BILAT [US] Stat - Medication Orders Current Medication Orders: Discontinued Medications Ketorolac Tromethamine (Toradol) 60 mg IM STAT STA Stop: 08/07/18 14:12 Disposition/Present on Arrival - Present on Arrival Any Indicators Present on Arrival: No History of DVT/PE: No History of Uncontrolled Diabetes: No Urinary Catheter: No History of Decub. Ulcer: No History Surgical Site Infection Following: None - Disposition Have Diagnosis and Disposition been Completed?: Yes Diagnosis: Leg pain Disposition: HOME/ ROUTINE Disposition Time: 16:00 Patient Plan: Discharge Condition: STABLE Discharge Instructions (ExitCare): Muscle and Bone Pain (DC) Additional Instructions: Follow up with your doctor Return to ED for any new symptoms Prescriptions: RX: Ibuprofen [Motrin Tab] 600 mg PO Q6 #15 tab Referrals: Michelle Venegas MD [Medical Doctor] - Follow up with primary Forms: [employer] (Icelandic)
[2018-08-07 16:22] VITALS: BP 136/98; PULSE 92; TEMP 97.9; O2SAT 99
== END 2018-08-07 16:40 | disposition home or self-care (01) ==
LOC: ED 13:16
DX: M79.605 Pain in left leg (principal); M79.604 Pain in right leg; E11.9 Type 2 diabetes mellitus without complications; I10 Essential (primary) hypertension; J44.9 Chronic obstructive pulmonary disease, unspecified
CPT/HCPCS: 82948; 93970; 96372; 99283; J1885

== ENCOUNTER 2018-08-13 20:41 | Emergency (ER) | payer MEDICARE, MEDICAID ==
[2018-08-13 20:41] VITALS: BMI 19.8
[2018-08-13 22:11] VITALS: RESP 18; TEMP 97.8; O2SAT 100
[2018-08-14 03:26] VITALS: BP 131/84; PULSE 84
--- NOTE | 2018-08-14 23:24 | ED PDOC ---
Arrival/HPI - General Chief Complaint: Lower Extremity Problem/Injury Time Seen by Provider: 08/13/18 20:58 Historian: Patient - History of Present Illness Narrative History of Present Illness (Text): 08/13/18 23:20 68yo female with past medical history of diabetes, Neuropathy and Le edema bib EMS for complaint leg pain and swelling x weeks. Patient was seen here in emergency department last week for same complaint and was DC home after a negative Doppler. Pt states she saw her PMD, but came to emergency department because she wants to know why her she have edema. States her PMD changes her diuretics and she was placed on Lasix. She denies calf pain, trauma redness, chest pain, SOB, diaphoresis, any other complaint. Past Medical History - Provider Review Nursing Documentation Reviewed: Yes - Infectious Disease Hx of Infectious Diseases: None - Cardiac Hx Hypertension: Yes - Pulmonary Hx Chronic Obstructive Pulmonary Disease (COPD): Yes - Neurological Hx Neurological Disorder: No - HEENT Hx HEENT Disorder: No - Renal Hx Renal Disorder: No - Endocrine/Metabolic Hx Endocrine Disorders: No Hx Diabetes Mellitus Type 2: Yes - Hematological/Oncological Hx Blood Disorders: Yes Hx Hepatitis C: Yes - Integumentary Hx Dermatological Disorder: No - Musculoskeletal/Rheumatological Hx Arthritis: Yes - Gastrointestinal Hx Gastrointestinal Disorders: No - Genitourinary/Gynecological Hx Genitourinary Disorders: Yes - Psychiatric Hx Psychophysiologic Disorder: No Hx Substance Use: Yes (former heroin; finished methadone tx) - Surgical History Hx Tonsillectomy: Yes - Anesthesia Hx Anesthesia: Yes Hx Anesthesia Reactions: No Hx Malignant Hyperthermia: No Family/Social History - Physician Review Nursing Documentation Reviewed: Yes Family/Social History: Unknown Family HX Smoking Status: Current Some Days Smoker Hx Alcohol Use: Yes (2 mini shots daily) Hx Substance Use: Yes (former heroin; finished methadone tx) Substance used: completed methadone program Allergies/Home Meds Allergies/Adverse Reactions: Allergies No Known Allergies Allergy (Verified 08/10/18 19:03) Home Medications: Home Meds Medication Instructions Recorded Confirmed amLODIPine [Norvasc] 10 mg PO DAILY 08/07/18 08/07/18 Review of Systems - Physician Review All systems were reviewed & negative as marked: Yes - Review of Systems Constitutional: Normal Eyes: Normal ENT: Normal Respiratory: Normal Cardiovascular: Edema. absent: Chest Pain, Palpitations Gastrointestinal: Normal Genitourinary Female: Normal Musculoskeletal: Normal Skin: Normal Neurological: Normal Endocrine: Normal Hemo/Lymphatic: Normal Psychiatric: Normal Physical Exam Vital Signs Reviewed: Yes Vital Signs Temp Pulse Resp BP Pulse Ox 08/14/18 03:15 84 18 131/84 100 08/13/18 21:09 97.8 F 99 H 18 136/98 H 100 Temperature: Afebrile Blood Pressure: Normal Pulse: Regular Respiratory Rate: Normal Appearance: Positive for: Well-Appearing, Non-Toxic, Comfortable Pain Distress: None Mental Status: Positive for: Alert and Oriented X 3 - Systems Exam Head: Present: Atraumatic, Normocephalic Pupils: Present: PERRL Extroacular Muscles: Present: EOMI Conjunctiva: Present: Normal Mouth: Present: Moist Mucous Membranes Neck: Present: Normal Range of Motion Respiratory/Chest: Present: Clear to Auscultation, Good Air Exchange. No: Respiratory Distress, Accessory Muscle Use Cardiovascular: Present: Regular Rate and Rhythm, Normal S1, S2. No: Murmurs Abdomen: No: Tenderness, Distention, Peritoneal Signs Back: Present: Normal Inspection Upper Extremity: Present: Normal Inspection. No: Cyanosis, Edema Lower Extremity: Present: Normal Inspection, Edema (2+ pitting edema b/l), NORMAL PULSES, Normal ROM, Neurovascularly Intact. No: CALF TENDERNESS, Osmar's Sign, Tenderness, Erythema Neurological: Present: GCS=15, CN II-XII Intact, Speech Normal Skin: Present: Warm, Dry, Normal Color. No: Rashes Psychiatric: Present: Alert, Oriented x 3, Normal Insight, Normal Concentration Medical Decision Making ED Course and Treatment: 08/14/18 23:23 PT was seen in emergency department last week for same complaint. She was advised to use compression stocking, elevate her legs, take her diuretic and follow up with her PMD. - Lab Interpretations Lab Results: Lab Results 08/13/18 22:11: POC Glucose (mg/dL) 100 - Medication Orders Current Medication Orders: Discontinued Medications Ketorolac Tromethamine (Toradol) 30 mg IM STAT STA Stop: 08/14/18 01:32 Last Admin: 08/14/18 01:48 Dose: 30 mg GENEVIEVE Pain Assessment Document 08/14/18 01:48 AD (Rec: 08/14/18 03:27 [place] [id number] Pain Reassessment Is this a pain reassessment? No Presence of Pain Presence of Pain Yes Description Intensity of Pain at present 5 Pain Behavior Facial Grimacing IM Administration Charges Document 08/14/18 01:48 AD (Rec: 08/14/18 03:27 AD [facility] [id number] Injection Site MAR Injection Site Right Deltoid Charges for Administration # of IM Administrations 1 Disposition/Present on Arrival - Present on Arrival Any Indicators Present on Arrival: No History of DVT/PE: No History of Uncontrolled Diabetes: No Urinary Catheter: No History of Decub. Ulcer: No History Surgical Site Infection Following: None - Disposition Have Diagnosis and Disposition been Completed?: Yes Diagnosis: Chronic pain disorder, Edema Disposition: HOME/ ROUTINE Disposition Time: 01:10 Patient Plan: Discharge Condition: STABLE Discharge Instructions (ExitCare): Dependent Edema (DC) Referrals: Yelitza Samuel MD [Primary Care Provider] - Follow up with primary Forms: [employer] (Persian)
== END 2018-08-14 03:15 | disposition home or self-care (01) ==
LOC: ED 20:41
DX: G89.29 Other chronic pain (principal); R60.0 Localized edema; E11.40 Type 2 diabetes mellitus with diabetic neuropathy, unspecified; I10 Essential (primary) hypertension; J44.9 Chronic obstructive pulmonary disease, unspecified
CPT/HCPCS: 82948; 96372; 99284; J1885

== ENCOUNTER 2018-09-03 23:55 | Emergency (ER) | payer MEDICARE, MEDICAID ==
[2018-09-03 23:55] VITALS: BMI 19.8
[2018-09-04 00:19] VITALS: TEMP 98.7
--- NOTE | 2018-09-04 00:55 | ED PDOC ---
Arrival/HPI - General Chief Complaint: Lower Extremity Problem/Injury Time Seen by Provider: 09/04/18 00:06 Historian: Patient - History of Present Illness Narrative History of Present Illness (Text): Patient reports week long history of bilateral lower extremity pain and swelling. She has multiple visits for the same complaint, this is her 6th visit this month. She denies dyspnea or chest pain. She states that she takes her l asix as prescribed, and has seen her PMD but "they are not doing anything". She underwent venous duplex less than a month ago which was negative for DVT. Past Medical History - Provider Review Nursing Documentation Reviewed: Yes SILVINO Report Viewed: Yes - Travel History Have you recently traveled outside [place] w/in the past 3 mons?: No - Infectious Disease Hx of Infectious Diseases: None - Cardiac Hx Cardiac Disorders: Yes Hx Hypertension: Yes - Pulmonary Hx Respiratory Disorders: Yes Hx Chronic Obstructive Pulmonary Disease (COPD): Yes - Neurological Hx Neurological Disorder: No - HEENT Hx HEENT Disorder: No - Renal Hx Renal Disorder: No - Endocrine/Metabolic Hx Endocrine Disorders: Yes Hx Diabetes Mellitus Type 2: Yes - Hematological/Oncological Hx Blood Disorders: Yes Hx Hepatitis C: Yes - Integumentary Hx Dermatological Disorder: No - Musculoskeletal/Rheumatological Hx Musculoskeletal Disorders: Yes Hx Arthritis: Yes - Gastrointestinal Hx Gastrointestinal Disorders: No - Genitourinary/Gynecological Hx Genitourinary Disorders: Yes - Psychiatric Hx Psychophysiologic Disorder: No Hx Substance Use: Yes (former heroin; finished methadone tx) - Surgical History Hx Tonsillectomy: Yes - Anesthesia Hx Anesthesia: Yes Hx Anesthesia Reactions: No Hx Malignant Hyperthermia: No Family/Social History Family/Social History: Unknown Family HX Smoking Status: Heavy Smoker > 10 Cigarettes Daily Hx Alcohol Use: Yes (2 mini shots daily) Hx Substance Use: Yes (former heroin; finished methadone tx) Substance used: completed methadone program Allergies/Home Meds Allergies/Adverse Reactions: Allergies No Known Allergies Allergy (Verified 08/30/18 13:57) Home Medications: Home Meds Medication Instructions Recorded Confirmed amLODIPine [Norvasc] 10 mg PO DAILY 08/07/18 08/30/18 Review of Systems - Physician Review All systems were reviewed & negative as marked: Yes - Review of Systems Constitutional: Normal ENT: Normal Respiratory: absent: SOB, Cough Cardiovascular: absent: Chest Pain Gastrointestinal: absent: Abdominal Pain Skin: absent: Rash Neurological: absent: Headache Physical Exam Vital Signs Reviewed: Yes Vital Signs Temp Pulse Resp BP Pulse Ox 09/04/18 00:17 98.7 F 98 H 19 139/108 H 99 Temperature: Afebrile Blood Pressure: Normal Pulse: Regular Respiratory Rate: Normal Appearance: Positive for: Well-Appearing Mental Status: Positive for: Alert and Oriented X 3 - Systems Exam Head: Present: Atraumatic Extroacular Muscles: Present: EOMI Mouth: Present: Moist Mucous Membranes Respiratory/Chest: Present: Clear to Auscultation Cardiovascular: Present: Regular Rate and Rhythm Abdomen: No: Tenderness Upper Extremity: Present: Normal Inspection Lower Extremity: Present: Edema (2+), Neurovascularly Intact, Other (dry skin) Skin: Present: Warm, Dry Psychiatric: Present: Alert, Oriented x 3 Medical Decision Making ED Course and Treatment: Patient advised to follow up as outpatient and continue taking lasix at home, elevating legs when sleeping, and wearing compression stockings. She has had multiple visits for the same complaint. Disposition/Present on Arrival - Present on Arrival Any Indicators Present on Arrival: No History of DVT/PE: No History of Uncontrolled Diabetes: No Urinary Catheter: No History of Decub. Ulcer: No History Surgical Site Infection Following: None - Disposition Have Diagnosis and Disposition been Completed?: Yes Diagnosis: Leg edema Disposition: HOME/ ROUTINE Disposition Time: 00:51 Condition: STABLE Discharge Instructions (ExitCare): Dependent Edema (DC) Additional Instructions: TREVON FOSS, thank you for letting us take care of you today. Your provider was Love Small MD and you were treated for LEG PAIN. The emergency medical care you received today was directed at your acute symptoms. If you were prescribed any medication, please fill it and take as directed. It may take several days for your symptoms to resolve. Return to the Emergency Department if your symptoms worsen, do not improve, or if you have any other problems. Please contact your doctor or call one of the physicians/clinics you have been referred to that are listed on the Patient Visit Information form that is included in your discharge packet. Bring any paperwork you were given at discharge with you along with any medications you are taking to your follow up visit. Our treatment cannot replace ongoing medical care by a primary care provider outside of the emergency department. Thank you for allowing the [facility] team to be part of your care today. If you had an X-Ray or CT scan: A Radiologist will review the ED reading if any change in treatment is needed we will contact you. If you had a blood, urine, or wound culture: It will take several days for the results, if any change in treatment is needed we will contact you. If you had an STI test: It will take 48 hours for the results. Please call after 1 week if you have not heard back. Referrals: Yelitza Samuel MD [Primary Care Provider] - Follow up with primary Forms: [employer] (Tajik)
[2018-09-04 02:52] VITALS: BP 145/90; PULSE 90; RESP 15; O2SAT 100
== END 2018-09-04 02:50 | disposition home or self-care (01) ==
LOC: ED 23:55
DX: R60.9 Edema, unspecified (principal); I10 Essential (primary) hypertension; E11.9 Type 2 diabetes mellitus without complications; F17.210 Nicotine dependence, cigarettes, uncomplicated

== ENCOUNTER 2018-09-28 18:28 | Inpatient (IN) | payer MEDICARE, MEDICAID ==
[2018-09-28 18:29] VITALS: BMI 19.8
[2018-09-28] MEDS ORDERED: Oxycodone/Acetaminophen 5/325 mg Tab PO STA (19:01)
--- NOTE | 2018-09-28 19:01 | ED PDOC ---
Arrival/HPI - General Chief Complaint: Back Pain Historian: Patient - History of Present Illness Narrative History of Present Illness (Text): 09/28/18 18:57 68 y/o female, pmh including htn/asthma/chronic L3 compression fracture, nkda, c/o lower back pain and rt. shoulder pain x 2 weeks s/p slipped and fall. Aching pain, stated that due to her low back pain that she's been falling a lot, tried to take tylenol and motrin at home with limited relief, uses the walker but lives alone, aggravated by movement, no numbness or tingling, not on any antiplatete or anticoagulant, no chest pain or shortness of breath, no urinary or bowel incontinence/retention, no rash, no night sweat, no dizziness, no change in vision, no other medical or psychological complaints. Past Medical History - Provider Review Nursing Documentation Reviewed: Yes - Infectious Disease Hx of Infectious Diseases: None - Reproductive Menopause: Yes - Cardiac Hx Hypertension: Yes - Pulmonary Hx Chronic Obstructive Pulmonary Disease (COPD): Yes - Neurological Hx Neurological Disorder: No - HEENT Hx HEENT Disorder: No - Renal Hx Renal Disorder: No - Endocrine/Metabolic Hx Endocrine Disorders: Yes Hx Diabetes Mellitus Type 2: Yes - Hematological/Oncological Hx Blood Disorders: Yes Hx Hepatitis C: Yes - Integumentary Hx Dermatological Disorder: No - Musculoskeletal/Rheumatological Hx Arthritis: Yes - Gastrointestinal Hx Gastrointestinal Disorders: No - Genitourinary/Gynecological Hx Genitourinary Disorders: Yes - Psychiatric Hx Psychophysiologic Disorder: No Hx Substance Use: Yes (former heroin; finished methadone tx) - Surgical History Hx Tonsillectomy: Yes - Anesthesia Hx Anesthesia: Yes Hx Anesthesia Reactions: No Hx Malignant Hyperthermia: No Family/Social History - Physician Review Nursing Documentation Reviewed: Yes Family/Social History: Unknown Family HX Smoking Status: Current Some Days Smoker Hx Alcohol Use: Yes (2 mini shots daily) Frequency of alcohol use: Daily Hx Substance Use: Yes (former heroin; finished methadone tx) Substance used: completed methadone program Allergies/Home Meds Allergies/Adverse Reactions: Allergies No Known Allergies Allergy (Verified 09/28/18 18:42) Home Medications: Home Meds Medication Instructions Recorded Confirmed amLODIPine [Norvasc] 10 mg PO DAILY 08/07/18 09/07/18 Furosemide [Lasix] 40 mg PO BID 09/07/18 09/07/18 Review of Systems - Review of Systems Constitutional: absent: Fatigue, Fevers Eyes: absent: Vision Changes ENT: absent: Hearing Changes Respiratory: absent: SOB, Cough Cardiovascular: absent: Chest Pain Gastrointestinal: absent: Abdominal Pain, Nausea, Vomiting Musculoskeletal: Arthralgias, Back Pain. absent: Neck Pain, Joint Swelling, Myalgias Skin: absent: Rash, Pruritis, Skin Lesions Neurological: absent: Headache, Dizziness Psychiatric: absent: Anxiety, Depression, Suicidal Ideation Physical Exam Vital Signs Reviewed: Yes Vital Signs Temp Pulse Resp BP Pulse Ox 09/28/18 18:33 98.1 F 110 H 18 157/91 H 100 Temperature: Afebrile Blood Pressure: Hypertensive Pulse: Tachycardic Respiratory Rate: Normal Appearance: Positive for: Well-Appearing, Non-Toxic, Comfortable Pain Distress: Moderate Mental Status: Positive for: Alert and Oriented X 3 - Systems Exam Head: Present: Atraumatic, Normocephalic, Other (no facial bony tenderness). No: Tenderness, Contusion, Swelling, Ecchymosis, Abrasion, Laceration Pupils: Present: PERRL Extroacular Muscles: Present: EOMI Conjunctiva: Present: Normal Ears: Present: NORMAL TM, Normal Canal Mouth: Present: Moist Mucous Membranes Pharnyx: No: ERYTHEMA, EXUDATE, TONSILS ENLARGED Nose (External): Present: Atraumatic. No: Abrasion, Contusion, Laceration, Lesions Nose (Internal): Present: Normal Inspection, No Active Bleeding. No: Rhin orrhea, Septal Hematoma, Epistaxis Neck: Present: Normal Range of Motion, Trachea Midline. No: Meningeal Signs, MIDLINE TENDERNESS, Paraspinal Tenderness, Lymphadenopathy Respiratory/Chest: Present: Clear to Auscultation, Good Air Exchange. No: Respiratory Distress, Accessory Muscle Use, Wheezes, Decreased Breath Sounds, Rales, Retracting, Rhonchi, Tachypneic, Tender to Palpation Cardiovascular: Present: Regular Rate and Rhythm, Normal S1, S2. No: Murmurs Abdomen: No: Tenderness, Distention, Peritoneal Signs, Rebound, Guarding Back: Present: Normal Inspection, Other (Thoracic to LS spine: no midline tenderness or step off, FROM without limitations, sensation intact, motor 5/5, no saddling gait. ). No: CVA Tenderness, Midline Tenderness, Paraspinal Tenderness, Pain with Leg Raise, Decubitus Ulcer Upper Extremity: Present: Normal Inspection, Normal ROM, NORMAL PULSES, Neurovascularly Intact, Capillary Refill < 2s, Other (Rt. shoulder: no tenderness or swelling, no deformity, FROM without limitation, sensation intact, motor 5/5, +radial pulse, capillary refill< 2 seconds, neurovascular intact. ). No: Cyanosis, Edema, Tenderness, Swelling, Deformity Lower Extremity: Present: Normal Inspection, NORMAL PULSES, Normal ROM, Capillary Refill < 2 s. No: Edema, Deformity Neurological: Present: GCS=15, CN II-XII Intact, Speech Normal, Motor Func Grossly Intact, Gait Normal, Memory Normal Skin: Present: Warm, Dry, Normal Color. No: Rashes Psychiatric: Present: Alert, Oriented x 3, Normal Insight, Normal Concentration Medical Decision Making ED Course and Treatment: 09/28/18 19:06 -Xrays -Percocet -observe and reassess 09/28/18 22:13 -Rt. shoulder xray fracture or dislocation. Degenerative changes as above. -LS spine xray: ER wet read: chronic L3 compression deformity but there is new T12 compression deformity, no subluxation -Pt. has pain walking and standing, intractable, lives alone, will need physical therapy with gait training and analgesic. -Labs -EKG: ST @ 103 BPM, non specific ST changes, no T wave inversion. -Chest xray show no active disease -I spoke to Dr. Montanez, discussed about the case/lab/radiology result, agreed to admit to her service with dr. Shearer and dr. huntley for routine consult which I ordered. - RAD Interpretation Radiology Orders: -Rt. shoulder xray CLINICALHISTORY: Shoulder pain. COMMENTS: Mild to moderate degenerative changes are present at the acromioclavicular and glenohumeral joints. No evidence for acute fracture or dislocation. No evidence for osteolytic or osteoblastic change. The soft tissues are unremarkable. IMPRESSION: 1. No fracture or dislocation. 2. Degenerative changes as above. Thank you for your kind referral of this patient. Electronically signed on Sep 28, 2018 9:18:05 PM EST by: Ran Villeda M.D., YARELY Certified By ABR & CBC[employer] Fellowship Trained MRI and CT Specialist -------- -LS spine xray EXAM: CR Lumbar Spine, 4 View. CLINICAL HISTORY: FALL/PAIN COMPARISON: None provided. FINDINGS: BONES: Some wedge compression fracture deformity is seen to involve the anterior superior endplate of T12 andL3. Estimated loss of vertebral body height is approximately 15-25% and 25-35% respectively. No aggressive appearing osseous lesion. Marginal osteophytic spurring is noted throughout the lumbar vertebrae. ALIGNMENT: Bony alignment is normal. DISCS / DEGENERATIVE CHANGES: There is disc interspace narrowing at L4-5 and L5-S1 compatible with degenerative disc disease. The remaining disc spaces are preserved. Oblique views demonstrate bilateral apophyseal facet arthropathy at the L3-4, L4-5, L5- S1 levels. No spondylolysis or spondylolisthesis is detected. SOFT TISSUES: The soft tissues are unremarkable. IMPRESSION: 1. Wedge compression deformities of the T12 and L3 vertebrae as described above. 2. Evidence of degenerative disc disease at L4-5 and L5-S1. 3. Bilateral apophyseal facet arthropathy at L3-4, L4-5, L5-S1. Electronically signed on Sep 28, 2018 9:26:59 PM EST by: Ran Villeda M.D., MBA Certified By ABR & CBC[employer] Fellowship Trained MRI and CT Specialist Chest xray: no active disease [place]imer: Radiologist - EKG Interpretation EKG Interpretation (Text): 09/28/18 23:19 -EKG: ST @ 103 BPM, non specific ST changes, no T wave inversion. Interpreted by ED Physician: Yes Type: 12 lead EKG - PA / BAR TACKER / Resident Statement MD/DO has reviewed & agrees with the documentation as recorded. Disposition/Present on Arrival - Present on Arrival Any Indicators Present on Arrival: No History of DVT/PE: No History of Uncontrolled Diabetes: No Urinary Catheter: No History of Decub. Ulcer: No History Surgical Site Infection Following: None - Disposition Have Diagnosis and Disposition been Completed?: Yes Diagnosis: Compression deformity of vertebra, Fall, Failure of outpatient treatment, Intractable back pain Disposition: HOSPITALIZED Disposition Time: 22:13 Patient Plan: Observation Patient Problems: Current Active Problems Problem Status Onset Fall Acute Compression deformity of vertebra Acute Failure of outpatient treatment Acute Intractable back pain Acute Condition: GUARDED
[2018-09-28] MEDS ORDERED: Sodium Chloride 0.9% 1,000 ML IV STA (21:53)
[2018-09-28] MEDS ORDERED: Morphine 4 mg/ml ISec IVP STA (21:53)
[2018-09-28 23:18] LABS: BASO # 0.02 K/mm3 (0.0-2.0); BASO % 0.2 % (0.0-3.0); EOS # 0.1 (0.0-0.7); HEMOGLOBIN 12.4 g/dL (12.0-16.0); LYMPH # 3.5 (1.2-3.4); LYMPH % 43.3 % (22.0-35.0); MEAN CELL VOLUME 88.1 fl (80.0-105.0); MEAN CORPUSCULAR HEMOGLOBIN 28.4 pg (25.0-35.0); MEAN CORPUSCULAR HGB CONC 32.2 g/dl (31.0-37.0); MONO # 0.5 (0.1-0.6); MONO % 5.6 % (1.0-6.0); RBC 4.37 10^6/uL (3.5-6.1); RED CELL DISTRIBUTION WIDTH 15.6 % (11.5-14.5); WHITE BLOOD COUNT 8.1 10^3/uL (4.5-11.0)
[2018-09-28 23:22] LABS: ALB/GLOB RATIO 0.9 (1.1-1.8); ALBUMIN 4.2 g/dL (3.0-4.8); ALT/SGPT 30 U/L (7-56); AST/SGOT 61 U/L (14-36); BLOOD UREA NITROGEN 16 mg/dL (7-21); CALCIUM 9.5 mg/dL (8.4-10.5); GFR NON-AFRICAN AMERICAN > 60
[2018-09-29] MEDS ORDERED: Morphine 2 mg/ml ISec IVP ONE (04:16)
--- NOTE | 2018-09-29 05:58 | CP.PCM.PN ---
Subjective - Date & Time of Evaluation Date of Evaluation: 09/29/18 Time of Evaluation: 05:57 - Subjective Subjective: TBD co-sign morphine order. pt seen has low back pain. ?L3 compression Fx. VSS Objective - Vital Signs/Intake and Output Vital Signs (last 24 hours): Temp Pulse Resp BP Pulse Ox 97.7 F 98 H 18 152/89 H 100 09/29/18 00:21 09/29/18 00:21 09/29/18 02:30 09/29/18 00:21 09/29/18 00:21 - Labs Labs: 09/28/18 22:57 09/28/18 22:57
--- NOTE | 2018-09-29 09:21 | CARD ---
APPROVED REPORT Date of service: 09/28/2018 EKG Measurement Heart [id number] IA [id number] <Conclusion> Sinus tachycardia Possible Left atrial enlargement ST & T wave abnormality, consider inferolateral ischemia Abnormal ECG
--- NOTE | 2018-09-29 10:02 | RAD ---
Date of service: 09/28/2018 HISTORY: medical clearance COMPARISON: 07/08/2018 FINDINGS: LUNGS: No active pulmonary disease. PLEURA: No significant pleural effusion identified, no pneumothorax apparent. CARDIOVASCULAR: No aortic atherosclerotic calcification present. Normal cardiac size. No pulmonary vascular congestion. OSSEOUS STRUCTURES: No significant abnormalities. VISUALIZED UPPER ABDOMEN: Normal. OTHER FINDINGS: None. IMPRESSION: No active disease.
[2018-09-29] MEDS: Potassium Chloride 10 mEq ER Tab PO SCH (11:32)
[2018-09-29] MEDS: Tiotropium 18 mcg Cap For Inhalation IH SCH (11:32)
[2018-09-29] MEDS: Insulin Reg-LOW-Coverage SC SCH ×2 (11:33→22:29)
--- NOTE | 2018-09-29 14:42 | RAD ---
Date of service: 09/28/2018 PROCEDURE: Radiographs of the Right Shoulder HISTORY: fall 2 weeks ago, pain COMPARISON: No prior. FINDINGS: BONES: Normal. No fracture. JOINTS: Normal. Glenohumeral and acromioclavicular joints preserved. No osteoarthritis. SOFT TISSUES: Normal. OTHER FINDINGS: None. IMPRESSION: Normal radiographs of the right shoulder.
--- NOTE | 2018-09-29 14:44 | RAD ---
Date of service: 09/28/2018 PROCEDURE: Radiographs of the Lumbar Spine. HISTORY: fall, pain, chronic L3 compression fx COMPARISON: No prior. FINDINGS: BONES: There is a moderate compression fracture of T12 and L3. Age uncertain DISC SPACES: Unremarkable. OTHER FINDINGS: Facet arthropathy at multiple levels. IMPRESSION: Compression fractures of T12 and L3. Age uncertain.
--- NOTE | 2018-09-29 15:06 | CARD ---
APPROVED REPORT Date of service: 09/29/2018 EXAM: Two-dimensional and M-mode echocardiogram with Doppler and color Doppler. INDICATION Congestive Heart Failure 2D DIMENSIONS Left Atrium (2D)3.8 (1.6-4.0cm)IVSd1.1 (0.7-1.1cm) LVDd3.5 (3.9-5.9cm)PWd1.2 (0.7-1.1cm) LVDs2.2 (2.5-4.0cm)FS (%) 36.4 % LVEF (%)67.1 (>50%) M-Mode DIMENSIONS Aortic Root2.60 (2.2-3.7cm)Aortic Cusp Exc.1.50 (1.5-2.0cm) Aortic Valve AoV Peak Dhxhkzgh880.0cm/Mary Peak GR.10mmHg Mitral Valve MV E Hiykcxit68.8cm/sMV A Fkvfiptg00.8cm/sE/A ratio0.9 TDI E/Lateral E'0.0E/Medial E'0.0 Tricuspid Valve TR Peak Qrpotthn039fs/sRAP [id number] Peak Gr.23mmHg [id number] LEFT VENTRICLE The left ventricle is normal size. There is normal left ventricular wall thickness. The left ventricular function is normal. The left ventricular ejection fraction is within the normal range. There is normal LV segmental wall motion. Transmitral Doppler flow pattern is Grade I-abnormal relaxation pattern. RIGHT VENTRICLE The right ventricle is normal size. There is normal right ventricular wall thickness. The right ventricular systolic function is normal. ATRIA The left atrium size is normal. The right atrium size is normal. AORTIC VALVE The aortic valve is mildly thickened. No aortic regurgitation is present. There is no aortic valvular stenosis. MITRAL VALVE The mitral valve is mildly thickened. There is no mitral valve regurgitation noted. There is no mitral valve stenosis. TRICUSPID VALVE The tricuspid valve is normal in structure. There is mild tricuspid regurgitation. PULMONIC VALVE The pulmonary valve is normal in structure. There is no pulmonic valvular regurgitation. GREAT VESSELS The aortic root is normal in size. The IVC is normal in size and collapses >50% with inspiration. PERICARDIAL EFFUSION There is no pericardial effusion. <Conclusion> There is normal left ventricular wall thickness. The left ventricular function is normal. The left ventricular ejection fraction is within the normal range. There is normal LV segmental wall motion. Transmitral Doppler flow pattern is Grade I-abnormal relaxation pattern. There is mild tricuspid regurgitation.
--- NOTE | 2018-09-29 18:33 | CT ---
Date of service: 09/29/2018 PROCEDURE: CT Chest without contrast HISTORY: COPD COMPARISON: Comparison made with prior chest radiograph 09/28/2017. comparison also made with CT scan abdomen pelvis dated 07/27/2018 which imaged both lung bases. TECHNIQUE: Contiguous axial images were obtained through the chest without intravenous contrast enhancement. Sagittal and coronal reconstructions were performed. Radiation dose: Total exam DLP = 185.46 mGy-cm. This CT exam was performed using one or more of the following dose reduction techniques: Automated exposure control, adjustment of the mA and/or kV according to patient size, and/or use of iterative reconstruction technique. FINDINGS: LUNGS: Moderate lobular appearing right apical pleural thickening with associated peripheral cystic changes.. Minor ground-glass somewhat translucent opacity seen along the inferior margin of the aforementioned chronic lobular colonic pleural thickening focus which could represent localized pneumonia. Opacity note that the findings may be postinflammatory however the possibility of a neoplasm in this location cannot be excluded. Follow-up biopsy could be performed if carcinoma suspected clinically. Alternatively, PET-CT scan could be obtained.. Minor posterior pleural thickening in the left upper lung field/apex junction also associated with peripheral cystic changes. Minor passive/dependent type atelectasis both posterior lower lung garza MEDIASTINUM: Unremarkable thoracic aorta. No aneurysm. Normal sized heart. Main pulmonary artery unremarkable. No vascular congestion. No lymphadenopathy. Minor aortic atherosclerotic calcification. PLEURA: No pleural fluid. No pneumothorax. BONES: Redemonstrated is mild chronic endplate deformity superior L1 vertebral body segment. Minimal localized retropulsion of the right posterior superior cortex. Mild multilevel degenerative spondylosis. UPPER ABDOMEN: Grossly unremarkable. OTHER FINDINGS: None. IMPRESSION: Moderate lobular appearing right apical pleural thickening with associated peripheral cystic changes.. Minor ground-glass somewhat translucent opacity seen along the inferior margin of the aforementioned chronic lobular colonic pleural thickening focus which could represent localized pneumonia. Opacity note that the findings may be postinflammatory however the possibility of a neoplasm in this location cannot be excluded. Follow-up biopsy could be performed if carcinoma suspected clinically. Alternatively, PET-CT scan could be obtained.. Minor posterior pleural thickening in the left upper lung field/apex junction also associated with peripheral cystic changes. Minor passive/dependent type atelectasis both posterior lower lung garza
[2018-09-29] MEDS: Budesonide 0.5 mg/2 ml Inhal Susp UD IH SCH (20:11)
[2018-09-29] MEDS: Arformoterol 15 mcg/2 ml Inh Sol IH SCH (20:11)
--- NOTE | 2018-09-29 20:14 | CON ---
PULMONARY CONSULTATION DATE OF CONSULTATION: 09/28/2018 REFERRING PHYSICIAN: Gino Song MD REASON FOR CONSULTATION: Chronic obstructive lung disease. HISTORY OF PRESENT ILLNESS: This is a 68-year-old female known to have a chronic obstructive lung disease, active smoker, hypertension, history of L3 compression fracture, multiple joint pains, history of falls, lately has lower extremity swelling requiring diuretics, also has tenderness, has some cough, shortness of breath. No hemoptysis, no hematemesis, no hematuria, no diarrhea reported. PAST MEDICAL HISTORY: Hypertension, chronic obstructive lung disease, chronic L3 compression fracture, diabetes, history of hepatitis C, degenerative joint disease, history of substance abuse in the past and use of methadone, which she finished the treatment. FAMILY HISTORY: No significant cardiopulmonary disease reported. SOCIAL HISTORY: Active smoker, history of heroin use, been on methadone at one point, still uses alcohol 2 shots a day. MEDICATIONS: She is on Brovana inhaled twice a day, DuoNeb every 6 hours p.r.n., metformin 500 mg twice a day, insulin coverage, potassium 10 mEq daily, Lasix 40 mg IV daily, Motrin p.r.n. basis, Neurontin 300 mg three times a day, Norvasc 10 mg daily, budesonide inhaled twice a day, Spiriva inhaled daily. ALLERGIES: NONE KNOWN. REVIEW OF SYSTEMS: No headache, no rhinitis. Has a cough, sputum production, shortness of breath. No chest pain, no nausea, no vomiting, no diarrhea. Has chronic back pain. Also has leg discomfort and swelling. PHYSICAL EXAMINATION: GENERAL: Mild distress secondary to cough and shortness of breath. VITAL SINGS: Temperature is 98, heart rate is 88, respiratory rate is 18, blood pressure 133/89, pulse of 97% on room air. HEENT: Moist mucous membranes. Crowded airway. NECK: Supple. No JVD. LUNGS: Has a prolonged expiratory phase with wheezing and rhonchi. HEART: S1 and S2. ABDOMEN: Soft, nontender. No organomegaly. EXTREMITIES: Does have edema and tenderness of the lower extremities. NEUROLOGIC: Awake and alert. Follows simple commands. LABORATORY DATA: Hemoglobin 12.4, hematocrit 38.5, WBC 8.1, platelet count is 185,000. Sodium 140, potassium 3.8, chloride 107, bicarbonate 27, BUN 16, creatinine 0.6, glucose 141, calcium 9.5. Total bili 0.4, AST 61, ALT 30, alk phos is 136. Troponin less than 0.01. Albumin is 4.2. EKG done yesterday in ER shows sinus tachycardia, possible left atrial enlargement. Chest x-ray done yesterday showed no active pulmonary disease reported. She has a CAT scan of the abdomen and pelvis done in 2018, which shows no definite obstructive uropathy appreciated bilaterally. Punctate nonobstructive intrarenal calculi identified at the left atrium of the right kidney. There is a wedge fracture of the L3 and T12, also spondylolisthesis. This CAT scan of the chest done last year 05/2018, which is unremarkable for PE. IMPRESSION AND PLAN: Chronic obstructive lung disease, lumbar radiculopathy, hypertension, chronic obstructive lung disease, history of alcohol abuse, history of substance abuse in the past, has a lower extremity swelling and edema. We will get venous Doppler. Continue deep vein thrombosis prophylaxis. Also get echocardiogram to assess LV and LV function and rule out pulmonary hypertension. Gastric prophylaxis, IV and inhaled bronchodilator, antibiotics. We will get CT scan of the chest without contrast to evaluate the lung parenchyma. The patient is urged to stop smoking. We will place her on Nicoderm patch. We will recommend PFT as outpatient, sleep study as outpatient. Thank you and we will follow with you. Renato Epperson MD
[2018-09-29] MEDS: MethylPREDNISolone 40 mg Vial IVP SCH (22:29)
[2018-09-30 07:02] LABS: IRON 54 ug/dL (45-180)
[2018-09-30 07:12] LABS: % IRON SATURATION 15 % (20-55); TOTAL IRON BINDING CAPACITY 370 ug/dL (265-497)
[2018-09-30] MEDS: Arformoterol 15 mcg/2 ml Inh Sol IH SCH ×2 (08:00→19:27)
[2018-09-30] MEDS: Budesonide 0.5 mg/2 ml Inhal Susp UD IH SCH ×2 (08:00→19:27)
[2018-09-30] MEDS: Albuterol-Ipratrop 3 mg / 0.5 (3 ml) UD IH PRN (08:00)
[2018-09-30] MEDS: Insulin Reg-LOW-Coverage SC SCH ×4 (08:28→22:25)
[2018-09-30] MEDS: Potassium Chloride 10 mEq ER Tab PO SCH (08:29)
[2018-09-30] MEDS: Tiotropium 18 mcg Cap For Inhalation IH SCH (11:21)
[2018-09-30] MEDS: MethylPREDNISolone 40 mg Vial IVP SCH ×2 (11:23→21:56)
--- NOTE | 2018-09-30 13:04 | MRI ---
Date of service: 09/30/2018 PROCEDURE: MR LUMBAR SPINE WITHOUT CONTRAST HISTORY: R/O fracture COMPARISON: None available. TECHNIQUE: Multiecho multiplanar sequences were performed through the lumbar spine without the use of intravenous contrast. FINDINGS: Normal lumbar lordosis. Moderate chronic compression fractures are seen at T12 and L3. There is no marrow edema to suggest acute fracture. Marrow signal unremarkable. Conus medullaris unremarkable at the level of Paraspinal soft tissues are unremarkable. T12-L1: No disc herniation, spinal canal stenosis or neural foraminal narrowing. L1-2: No disc herniation, spinal canal stenosis or neural foraminal narrowing. L2-3: Disc bulge and severe facet arthropathy with ligamentum flavum hypertrophy. Severe stenosis L3-4: Severe facet arthropathy. No stenosis L4-5: Disc degeneration with loss of disc height and asymmetric disc bulge to the right. Mild foraminal stenosis on the right. L5-S1: Right paracentral disc protrusion which indents the thecal sac. OTHER FINDINGS: None. IMPRESSION: Moderate chronic compression fractures are seen at T12 and L3. There is no marrow edema to suggest acute fracture. Multilevel disc degeneration. Severe spinal stenosis at L2-3. See comments for details
--- NOTE | 2018-09-30 13:15 | PN ---
DATE: 09/30/2018 PULMONARY PROGRESS NOTE REFERRING PHYSICIAN: Denice Montanez MD SUBJECTIVE: The patient is lying in bed, reports that she still has dry cough, complaining of bilateral lower extremity pain. No headache, rhinitis, shortness of breath, chest pain, abdominal pain, nausea, vomiting or diarrhea reported. OBJECTIVE: GENERAL: No acute distress. VITAL SIGNS: Blood pressure 121/78, pulse 82, temperature 98.2 and oxygen saturation 99% room air. HEENT: Moist mucous membranes. Crowded airway. NECK: Supple. No JVD. LUNGS: Scattered rhonchi bilaterally. CARDIOVASCULAR: S1 and S2. ABDOMEN: Soft and tender. No distention. No organomegaly. EXTREMITIES: Bilateral lower extremity edema. Tenderness to bilateral lower extremity. Also discoloration to bilateral lower extremities. NEUROLOGIC: Awake, alert, and follows commands. MEDICATIONS: Reviewed. DuoNeb 3 mL inhalation every 6 hours p.r.n., Norvasc 10 mg daily, Brovana 15 mcg every 12 hours, Pulmicort 1 mg every 12 hours, doxycycline 100 mg every 12 hours, Lasix 40 mg IV push daily, Neurontin 300 mg three times a day, Motrin 600 mg every 6 hours p.r.n., Humulin R sliding scale a.c. and at bedtime, metformin 500 mg twice a day, Solu-Medrol 40 mg every 12 hours, nicotine patch transdermally daily, potassium chloride 10 mEq at breakfast, and Spiriva 18 mcg inhalation daily. LABORATORY DATA: Reviewed. POC glucose 196, iron 54, TIBC 370, percent saturation 15. Triglyceride 37, cholesterol 180, LDL cholesterol 61, HDL cholesterol 107. Echocardiogram shows left ventricular ejection fraction within normal range, mild tricuspid regurgitation, RVSP 33. Chest CT shows moderate lobular appearing right apical pleural thickening with associated peripheral cystic changes, minor ground glass somewhat translucent opacities seen along the inferior margin of the aforementioned chronic lobular colonic pleural thickening focus, which could represent look like pneumonia. note the findings maybe post inflammatory, minor posterior pleural thickening in the left upper lobe field/apex junction also associated with peripheral cystic changes. Minor passes/dependent type atelectasis both posterior and lower lung field. Extremity ultra sound shows no evidence of DVT in both lower extremities. IMPRESSION AND PLAN: Chronic obstructive lung disease, lumbar radiculopathy, hypertension, chronic obstructive lung disease, history of alcohol abuse, history of substance abuse in the past. The patient has lower extremity pain and edema. Venous Doppler negative. We will get arterial Doppler to rule out peripheral vascular disease. We will get procalcitonin levels. CT scan shows chronic changes. Urge the patient to stop smoking. The patient verbalized understanding. We will need followup CT scan in 3 months. Gastric prophylaxis. Continue inhaled and IV bronchodilators and antibiotic therapy. We will recommend full pulmonary function test and sleep study as outpatient. This patient was seen and examined with Dr. Epperson. Discussed assessment and plan as described above. This patient was seen and examined with Zach Weathers, nurse practitioner. Discussed assessment and plan as described above. Thank you for this consult. We will follow with you. Zach Weathers APN Renato Epperson MD JENNIFER
[2018-09-30 13:57] LABS: FOLATE 11.1 ng/mL
--- NOTE | 2018-09-30 14:07 | HP ---
DATE OF EXAM: 09/29/2018 The patient was seen and examined at the bedside on 09/29/2018.this noters are for 09/29/18 CHIEF COMPLAINT: Back pain, shortness of breath, and coughing. HISTORY OF PRESENT ILLNESS: Ms. Jesusita Pascual is a 68-year-old female with past medical history of hypertension, asthma, chronic; L3 compression fracture, came with lower back pain, right shoulder pain, as she slipped and had fall, has shortness of breath with coughing, aching pain started that due to lower back pain that she has been falling a lot, tried to take Tylenol and Motrin at home with limited relief. She uses walker, but lives alone, aggravated by movements. No numbness or tingling. Not anticipating on anticoagulation. Sometime coughing and shortness of breath. She also has a history of asthma. We admitted the patient. X-ray and CAT scan done. MRI ordered. Consult called with Dr. Eulogio Madrid, may be need kyphoplasty. 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 FAMILY HISTORY: Father and mother, noncontributory. HABITS: Smoking currently, yes. Alcohol 2 mini shot daily. Substance abuse, former heroin abuse, and completed methadone program. ALLERGIES: PATIENT IS NOT ALLERGIC WITH ANY MEDICATIONS. HOME MEDICATIONS: Amlodipine and furosemide. REVIEW OF SYSTEMS: The patient was seen and examined at the bedside in her room, complaining about back pain, both thoracic and lumbar region, coughing, and shortness of breath. No vision changes. No hearing problem. No abdominal pain, nausea, or vomiting. Complaining about back pain, joint pain or myalgia. Skin, no rash. No lesions. No headache or dizziness. No depression or anxiety. PHYSICAL EXAMINATION: VITAL SIGNS: Temperature 98.1, pulse 110, respiratory rate 18, blood pressure 157/90, and pulse oximetry 100. HEENT: Head is normocephalic and atraumatic. Eyes; PERRLA. Extraocular muscles intact. Conjunctivae clear. Nose patent. NECK: Supple. No carotid bruit, JVD, or thyromegaly. CHEST: Bilaterally symmetrical. HEART: S1 and S2 positive. LUNGS: Clear to auscultation. ABDOMEN: Soft. Bowel sounds positive. No organomegaly. EXTREMITIES: No edema. No cyanosis. NEUROLOGIC: The patient is awake, alert, and moving all four extremities. No focal deficit. LABORATORY DATA: White blood cell 8.1, hemoglobin 12.4, hematocrit 38.5, and platelets 185,000. Sodium 140, potassium 3.8, BUN 15, creatinine 0.6. Glucose 141. AST 61 and ALT 136. ASSESSMENT AND PLAN: Ms. Jesusita Pascual is a 68-year-old female with hyperglycemia, abnormal liver function test, came with intractable back pain, history of hypertension, chronic obstructive lung disease, chronic L3 compression fracture, diabetes mellitus, history of hepatitis C, degenerative joint disease, history of substance abuse in the past and use of methadone, which she finished the treatment, still active smoker, has lumbosacral radiculopathy, history of alcohol abuse, swelling of the lower extremities. We will get venous Doppler. Continue deep vein thrombosis prophylaxis. We will get echocardiogram to assess the left ventricular function, rule out pulmonary hypertension. Gastric prophylaxis, getting IV inhaled bronchodilators, and antibiotics. Dr. Epperson ordered CT scan of the chest. Urged to quit smoking. Dr. Epperson gave nicotine patch. Ultrasound is done read by Dr. Eulogio Madrid. According to him, no sonographic evidence of deep vein thrombosis in the visible segment of both lower extremities. CAT scan of the chest done, with noted lobular appearing right apical pleural thickening with associated peripheral cystic changes. radiologist can get PET/CT scan could be obtained. Seen by Dr. Hartman. X-ray of the shoulder was done reviewed by me. Lumbosacral spine x-ray done. According to that, compression fracture T12 and L1, age uncertain. Waiting for Dr. Eulogio Madrid's input. Repeat labs. We will follow up. Denice Montanez MD MTDKam
--- NOTE | 2018-09-30 16:14 | US ---
PROCEDURE: Lower extremity EZEQUIEL exam HISTORY: Peripheral vascular disease with pain and claudication. Diabetes. Smoker P PHYSICIAN(S): Eulogio Madrid MD. FINDINGS: The resting EZEQUIEL's are normal: right, 1.07and left, 1.08. The brachial systolic pressures are symmetric. The high thigh pressures and waveforms are relatively normal. The calf PVR waveforms augment normally. No significant gradients are noted across the thighs. The ankle and metatarsal waveforms are relatively normal and symmetric. No significant pressure gradients are noted across the lower legs. IMPRESSION: 1. Normal EZEQUIEL and PVR examination at rest.
--- NOTE | 2018-10-01 01:49 | PN ---
DATE: 09/30/2018 SUBJECTIVE: The patient is 68-year-old female. Patient was seen and examined on the bedside on 09/30/2018, looking comfortable. Still complaining about pain in the left back pain. Cough is better. Shortness of breath is better. No abdominal pain. No nausea or vomiting. No diarrhea. No hematuria. No hematochezia. PHYSICAL EXAMINATION: VITAL SIGNS: Blood pressure 120/70, pulse 62, temperature 98.2, oxygen saturation 99% on room air. HEENT: Head is normocephalic, atraumatic. Eyes PERRLA. Extraocular muscles intact. Conjunctivae clear. Nose patent. Mucous membranes moist. NECK: Supple. No carotid bruit. No JVD or thyromegaly. CHEST: Bilateral symmetrical. HEART: S1 and S2 positive. LUNGS: Scattered rhonchi bilaterally. ABDOMEN: Soft, nontender. No organomegaly. EXTREMITIES: Bilateral trace edema, tenderness to touch bilaterally. Also discoloration to bilateral lower extremities. NEUROLOGIC: Awake and alert. Follows simple commands. MEDICATIONS: DuoNeb, Norvasc, Brovana, Pulmicort, doxycycline, Neurontin, Humulin, metformin, Solu-Medrol, Spiriva. LABORATORY DATA: Glucose 196, iron 54, iron saturation 15, triglycerides noted , cholesterol 180, LDL 61, cholesterol 107. ASSESSMENT AND PLAN: Mrs. Jesusita Pascual is a 68-year-old lady with chronic obstructive pulmonary disease, lumbosacral radiculopathy, hypertension, history of alcohol abuse, history of substance abuse in the past, lower extremity pain and edema, osteoarthritis. Venous Doppler is negative. Need arterial Doppler to rule out peripheral vascular disease. CT scan shows chronic changes. Education done to quit smoking. According to manager [employer], we will followup CT scan in 3 months. Gastrointestinal and deep venous thrombosis prophylaxis. I reviewed the ultrasound. Reviewed lumbar spine MRI, showed moderate chronic compression fracture seen at T12 and L1. There is no marrow edema to suggest the acute fracture, multilevel disk djd , severe spinal stenosis. We will try to get physical therapy. CT of chest is reviewed. Shoulder x-ray, lumbar spine x-ray, and chest x-ray reviewed. We will followup. Denice Montanez MD [facility] # [id number] MTDD
[2018-10-01 06:12] LABS: HEMOGLOBIN 11.2 g/dL (12.0-16.0); MEAN CELL VOLUME 87.7 fl (80.0-105.0); MEAN CORPUSCULAR HEMOGLOBIN 28.2 pg (25.0-35.0); MEAN CORPUSCULAR HGB CONC 32.2 g/dl (31.0-37.0); MEAN PLATELET VOLUME 11.2 fl (7.0-11.0); RBC 3.97 10^6/uL (3.5-6.1); RED CELL DISTRIBUTION WIDTH 15.2 % (11.5-14.5); WHITE BLOOD COUNT 8.9 10^3/uL (4.5-11.0)
[2018-10-01 06:32] LABS: BLOOD UREA NITROGEN 18 mg/dL (7-21); CALCIUM 9.2 mg/dL (8.4-10.5); GFR NON-AFRICAN AMERICAN > 60
[2018-10-01] MEDS: Arformoterol 15 mcg/2 ml Inh Sol IH SCH ×2 (07:48→19:22)
[2018-10-01] MEDS: Budesonide 0.5 mg/2 ml Inhal Susp UD IH SCH ×2 (07:48→19:22)
[2018-10-01] MEDS: Insulin Reg-LOW-Coverage SC SCH ×4 (08:00→22:05)
[2018-10-01] MEDS: Tiotropium 18 mcg Cap For Inhalation IH SCH (11:30)
[2018-10-01] MEDS: MethylPREDNISolone 40 mg Vial IVP SCH ×2 (12:06→22:04)
[2018-10-01] MEDS: Ammonium Lactate 12% Lotion (225 g) EXT SCH (12:07)
[2018-10-01] MEDS: Potassium Chloride 10 mEq ER Tab PO SCH (12:07)
--- NOTE | 2018-10-01 16:55 | PN ---
DATE: 10/01/2018 PULMONARY PROGRESS NOTE REFERRING PHYSICIAN: Denice Montanez MD SUBJECTIVE: The patient is lying in bed, no acute distress, and no overnight events reported. No headache, rhinitis, cough, shortness of breath, chest pain, abdominal pain, leg pain or leg swelling reported. The patient does report having some nausea and vomiting onetime after breakfast. PHYSICAL EXAMINATION: GENERAL: No acute distress. VITAL SIGNS: Blood pressure 137/91, pulse 85, temperature 98.2 and oxygen saturation 100% room air. HEENT: Moist mucous membranes. Crowded airway. NECK: Supple. No JVD. LUNGS: Scattered rhonchi bilaterally. CARDIOVASCULAR: S1 and S2. ABDOMEN: Soft and nontender. No distention. No organomegaly. EXTREMITIES: Trace bilateral lower extremity edema. NEUROLOGIC: Awake, alert, verbal, and follows commands. MEDICATIONS: Reviewed. DuoNeb 3 mL inhalation every 6 hours p.r.n., Norvasc 10 mg daily, Brovana 15 mcg every 12 hours, Pulmicort 1 mg every 12 hours, doxycycline 100 mg every 12 hours, Lasix 40 mg IV push daily, Neurontin 300 mg two times a day, Motrin 600 mg every 6 hours p.r.n., Humulin R sliding scale a.c. and at bedtime, Lac-Hydrin daily to extremities, metformin 500 mg twice a day, Solu-Medrol 40 mg every 12 hours, nicotine patch transdermally daily, Zofran 4 mg IV push every 6 hours p.r.n, potassium chloride 10 mEq at breakfast, and Spiriva 18 mcg inhalation daily. LABORATORY DATA: WBC 8.9, RBC 3.97, hemoglobin 11. 2, hematocrit 32.8, and platelets 156. Sodium 138, potassium 4.2, chloride 102, carbon dioxide 30, anion gap 11, BUN 18, creatinine 0.7, GFR greater than 60, POC glucose 209, and random glucose 281. Calcium 9.2, ____ 0.14 and TSH 0.22. Lumbar spine MRI showed [id number] compression fracture in T12 and L3. No marrow edema to suspect acute fracture. Multilevel disc degeneration, severe spinal stenosis. Extremity arterial bilateral lower extremity ultrasound shows normal EZEQUIEL and PVR. Examination at rest. IMPRESSION AND PLAN: Chronic obstructive lung disease, lumbar radiculopathy, chronic compression fractures thoracic 12, lumbar 3, spinal stenosis lumbar 2 to lumbar 3, hypertension, history of alcohol abuse, history of substance abuse in the past, procalcitonin level negative. Continue to urge smoking cessation. Continue inhaled bronchodilators and antibiotic therapy. We will place the patient on Protonix for gastric prophylaxis. We will place the patient on Lovenox for deep vinous thrombosis prophylaxis. We will decrease Solu-Medrol today. We recommend full pulmonary function test and sleep study as outpatient. This patient was seen and examined with Dr. Epperson. Discussed assessment and plan as described above. This patient was seen and examined by Sarahy Serrano, nurse practitioner. Discussed assessment and plan as described above. Thank you for this consult. We will follow with you. Zach Weathers APN Renato Epperson MD
--- NOTE | 2018-10-01 19:22 | PN ---
DATE: 10/01/2018 SUBJECTIVE: The patient is a 68-year-old female. The patient was seen early in the morning on her bed, complaining about nauseousness. No fever. No chills. No hematuria. No hematochezia. No headache or dizziness. No chest pain. No palpitation. Legs are very dry, I ordered Lac-Hydrin lotion and discussion done with the patient's nurse, Christine and dose of Zofran given. PHYSICAL EXAMINATION: VITAL SIGNS: Temperature 98.2, pulse 85, blood pressure 137/91, and respiratory rate 20. HEENT: Head is normocephalic and atraumatic. Eyes; PERRLA. Extraocular muscles are intact. Conjunctivae clear. Nose patent. Mucous membranes are moist. NECK: Supple. No carotid bruit. No JVD or thyromegaly. CHEST: Bilaterally symmetrical. HEART: S1 and S2 positive. LUNGS: Clear to auscultation. ABDOMEN: Soft. Bowel sounds present. No organomegaly. EXTREMITIES: No edema. No cyanosis. NEUROLOGIC: The patient is awake, alert, and moving all four extremities. No focal deficits. MEDICATIONS: Brovana, doxycycline, DuoNeb, Glucophage, insulin, potassium, Lac-Hydrin lotion started today, Lasix, Lovenox, Motrin, Neurontin, Nicoderm patch, Norvasc, Protonix, Pulmicort, Solu-Medrol, Spiriva, and Zofran. LABORATORY DATA: White blood cell 8.5, hemoglobin 11.2, hematocrit 34.8, and platelets 156. Sodium 138, potassium 4.2, BUN 18, creatinine 0.7, and glucose 176. TSH 0.22. ASSESSMENT AND PLAN: Ms. Carlos Pascual is a 68-year-old lady with anemia, diabetes mellitus, hyperthyroidism, has chronic obstructive lung disease, lumbar radiculopathy, hypertension, history of ethanol abuse, history of substance abuse in the past, and came with lower extremity pain and edema, now edema is better. Venous Doppler negative, Arterial Doppler ordered. Urged to quit smoking. Need followup CT scan in three months. Gastrointestinal and deep vein thrombosis prophylaxis. Continue inhaled bronchodilators. The patient was nauseous, gave dose of Zofran. We will repeat labs. We will get physical therapy, chronic back pain. We will follow up. Denice Montanez MD
[2018-10-01] MEDS: Pantoprazole 40 mg EC Tab PO SCH (22:04)
[2018-10-02] MEDS: Arformoterol 15 mcg/2 ml Inh Sol IH SCH ×2 (07:18→19:11)
[2018-10-02] MEDS: Budesonide 0.5 mg/2 ml Inhal Susp UD IH SCH ×2 (07:19→19:11)
[2018-10-02 07:41] LABS: MEAN CELL VOLUME 87.4 fl (80.0-105.0); MEAN CORPUSCULAR HEMOGLOBIN 28.7 pg (25.0-35.0); MEAN CORPUSCULAR HGB CONC 32.8 g/dl (31.0-37.0); MEAN PLATELET VOLUME 11.7 fl (7.0-11.0); RBC 4.78 10^6/uL (3.5-6.1); RED CELL DISTRIBUTION WIDTH 15.6 % (11.5-14.5); WHITE BLOOD COUNT 9.5 10^3/uL (4.5-11.0)
[2018-10-02 07:42] LABS: BLOOD UREA NITROGEN 16 mg/dL (7-21); CALCIUM 9.1 mg/dL (8.4-10.5); GFR NON-AFRICAN AMERICAN > 60; HEMOGLOBIN 13.7 g/dL (12.0-16.0)
[2018-10-02] MEDS: MethylPREDNISolone 40 mg Vial IVP SCH ×2 (09:55→21:49)
[2018-10-02] MEDS: Insulin Reg-LOW-Coverage SC SCH ×4 (09:57→22:00)
[2018-10-02] MEDS: Potassium Chloride 10 mEq ER Tab PO SCH (09:57)
[2018-10-02] MEDS ORDERED: Enoxaparin 40 mg Syringe SC SCH (10:00)
[2018-10-02] MEDS: Tiotropium 18 mcg Cap For Inhalation IH SCH (10:18)
--- NOTE | 2018-10-02 12:37 | CP.PCM.CON ---
<Yan Jacobo - Last Filed: 10/02/18 12:43> History of Present Illness - History of Present Illness History of Present Illness: PGY5 GI Initial Consult Note Jesusita Pascual is a 68F w/ hx of htn/asthma/chronic L3 compression fracture, nkda, c/o lower back pain and rt. shoulder pain. GI was consulted for intractable nausea and vomiting. Pt states that the onset was yesterday. Pt has not been able to take PO intake since arriving to [facility]. she notes her symptoms of nausea and vomiting started after consuming breakfast in the hospital. Denies any abd pain, nausea or vomiting. Pt has not had an additional since overnight. Denies any blood in the emesis PMH: COPD, +Hep C, chronic back pain PSH: glaucoma Social hx: smoker, +daily ETOH use Family hx: denies nay GI ca ROS: 12 point ROS conducted neg other than above Past Patient History - Infectious Disease Hx of Infectious Diseases: None - Past Medical History & Family History Past Medical History?: Yes - Past Social History Smoking Status: Current Some Days Smoker - CARDIAC Hx Hypertension: Yes - PULMONARY Hx Chronic Obstructive Pulmonary Disease (COPD): Yes - NEUROLOGICAL Hx Neurological Disorder: No - HEENT Hx HEENT Problems: No - RENAL Hx Chronic Kidney Disease: No - ENDOCRINE/METABOLIC Hx Endocrine Disorders: Yes Hx Diabetes Mellitus Type 2: Yes - HEMATOLOGICAL/ONCOLOGICAL Hx Blood Disorders: Yes Hx Hepatitis C: Yes - INTEGUMENTARY Hx Dermatological Problems: No - MUSCULOSKELETAL/RHEUMATOLOGICAL Hx Arthritis: Yes - GASTROINTESTINAL Hx Gastrointestinal Disorders: No - GENITOURINARY/GYNECOLOGICAL Hx Genitourinary Disorders: Yes - PSYCHIATRIC Hx Psychophysiologic Disorder: No Hx Substance Use: Yes (former heroin; finished methadone tx) - SURGICAL HISTORY Hx Tonsillectomy: Yes - ANESTHESIA Hx Anesthesia: Yes Hx Anesthesia Reactions: No Hx Malignant Hyperthermia: No Meds Allergies/Adverse Reactions: Allergies Allergy/AdvReac Type Severity Reaction Status Date / Time No Known Allergies Allergy Verified 09/28/18 18:42 - Medications Medications: Current Medications Albuterol/Ipratropium (Duoneb 3 Mg/0.5 Mg (3 Ml) Ud) 3 ml IH [id number] PRN PRN Reason: Shortness of Breath Last Admin: 09/30/18 08:00 Dose: 3 ml Amlodipine Besylate (Norvasc) 10 mg PO DAILY [facility] Last Admin: 10/02/18 09:56 Dose: 10 mg Arformoterol Tartrate (Brovana) 15 mcg IH [id number] [facility] Last Admin: 10/02/18 07:18 Dose: 15 mcg Budesonide (Pulmicort Respules) 1 mg IH [id number] [facility] Last Admin: 10/02/18 07:19 Dose: 1 mg Doxycycline Hyclate (Doryx) 100 mg PO Q12 [facility]; Protocol Last Admin: 10/02/18 09:54 Dose: 100 mg Furosemide (Lasix) 40 mg IVP DAILY [facility] Last Admin: 10/02/18 09:55 Dose: 40 mg Gabapentin (Neurontin) 300 mg PO TID [facility]; Protocol Last Admin: 10/02/18 09:56 Dose: 300 mg Ibuprofen (Motrin Tab) 600 mg PO Q6H PRN PRN Reason: Pain, moderate (4-7) Last Admin: 10/02/18 09:54 Dose: 600 mg Insulin Human Regular (Humulin R Low) 0 units SC ACHS [facility]; Protocol Last Admin: 10/02/18 09:57 Dose: Not Given Lactic Acid (Lac-Hydrin 12% Lotion (225 G)) 0 gm EXT DAILY [facility] Last Admin: 10/01/18 12:07 Dose: 1 applic Metformin HCl (Glucophage) 500 mg PO BID [facility] Last Admin: 10/02/18 09:56 Dose: 500 mg Methylprednisolone (Solu-Medrol) 20 mg IVP Q12 [facility] Last Admin: 10/02/18 09:55 Dose: 20 mg Nicotine (Nicoderm Cq) 1 patch TD DAILY [facility] Last Admin: 10/02/18 09:55 Dose: 1 patch Ondansetron HCl (Zofran Inj) 4 mg IVP Q6H PRN PRN Reason: Nausea/Vomiting Last Admin: 10/01/18 18:01 Dose: 4 mg Pantoprazole Sodium (Protonix Ec Tab) 40 mg PO HS [facility] Last Admin: 10/01/18 22:04 Dose: 40 mg Potassium Chloride (Klor-Con 10) 10 meq PO BRK [facility] Last Admin: 10/02/18 09:57 Dose: 10 meq Tiotropium [place] (Spiriva) 18 mcg IH DAILY [facility] Last Admin: 10/02/18 10:18 Dose: 18 mcg Physical Exam - Constitutional Appears: No Acute Distress - Head Exam Head Exam: ATRAUMATIC, NORMOCEPHALIC - Eye Exam Eye Exam: Normal appearance - ENT Exam ENT Exam: Mucous Membranes Moist, Normal Exam Additional comments: missing molars on the mandible and maxillae - Neck Exam Neck exam: Positive for: Normal Inspection - Respiratory Exam Respiratory Exam: Clear to Auscultation Bilateral, NORMAL BREATHING PATTERN. absent: Rales, Rhonchi, Wheezes, Respiratory Distress - Cardiovascular Exam Cardiovascular Exam: REGULAR RHYTHM, +S1, +S2 - GI/Abdominal Exam GI & Abdominal Exam: Normal Bowel Sounds, Soft. absent: Diminished Bowel Sounds, Distended, Guarding, Hernia, Organomegaly, Rebound - Extremities Exam Extremities exam: Negative for: joint swelling, pedal edema - Neurological Exam Neurological exam: Alert, Oriented x3 - Psychiatric Exam Psychiatric exam: Normal Affect, Normal Mood - Skin Skin Exam: Dry, Intact, Normal Color, Warm Results - Vital Signs Recent Vital Signs: Last Vital Signs Temp 98.3 F 10/02/18 06:00 Pulse 92 H 10/02/18 06:00 Resp 18 10/02/18 06:00 BP 123/73 10/02/18 09:56 Pulse Ox 97 10/02/18 06:00 - Labs Result Diagrams: 10/02/18 07:00 10/02/18 07:00 Labs: Laboratory Results - last 24 hr 10/01/18 10/01/18 10/01/18 05:45 16:14 20:58 WBC RBC Hgb Hct MCV MCH MCHC RDW Plt Count MPV Sodium Potassium Chloride Carbon Dioxide Anion Gap BUN Creatinine Est GFR ( Amer) Est GFR (Non-Af Amer) POC Glucose (mg/dL) 176 H 117 H Random Glucose Calcium Procalcitonin 0.14 L 10/02/18 10/02/18 10/02/18 07:00 07:00 07:05 WBC 9.5 RBC 4.78 Hgb 13.7 D Hct 41.8 MCV 87.4 MCH 28.7 MCHC 32.8 RDW 15.6 H Plt Count 181 MPV 11.7 H Sodium 136 Potassium 4.3 Chloride 102 Carbon Dioxide 26 Anion Gap 13 BUN 16 Creatinine 0.7 Est GFR ( Amer) > 60 Est GFR (Non-Af Amer) > 60 POC Glucose (mg/dL) 172 H Random Glucose 201 H Calcium 9.1 Procalcitonin 10/02/18 11:01 WBC RBC Hgb Hct MCV MCH MCHC RDW Plt Count MPV Sodium Potassium Chloride Carbon Dioxide Anion Gap BUN Creatinine Est GFR ( Amer) Est GFR (Non-Af Amer) POC Glucose (mg/dL) 136 H Random Glucose Calcium Procalcitonin Assessment & Plan - Assessment and Plan (Free Text) Assessment: Jesusita Pascual is a 68F w/ hx of Hep C?, L3 compression who presents to the ER for back pain and shoulder pain post fall Intractable nausea and vomiting (resolved) Chronic Hep C? chronic back pain Plan: -continue zofran PRn -advised to chew slowly and have smaller meals -will send for LFts , INR -will also send for hep viral profile, and Hep C quant D/w Dr. urbano <Carolina Urbano V - Last Filed: 10/02/18 23:40> Meds - Medications Medications: Current Medications Albuterol/Ipratropium (Duoneb 3 Mg/0.5 Mg (3 Ml) Ud) 3 ml IH [id number] PRN PRN Reason: Shortness of Breath Last Admin: 10/02/18 19:11 Dose: 3 ml Amlodipine Besylate (Norvasc) 10 mg PO DAILY [facility] Last Admin: 10/02/18 09:56 Dose: 10 mg Arformoterol Tartrate (Brovana) 15 mcg IH [id number] [facility] Last Admin: 10/02/18 19:11 Dose: 15 mcg Budesonide (Pulmicort Respules) 1 mg IH [id number] [facility] Last Admin: 10/02/18 19:11 Dose: 1 mg Doxycycline Hyclate (Doryx) 100 mg PO Q12 [facility]; Protocol Last Admin: 10/02/18 21:50 Dose: 100 mg Furosemide (Lasix) 40 mg IVP DAILY [facility] Last Admin: 10/02/18 09:55 Dose: 40 mg Gabapentin (Neurontin) 300 mg PO TID [facility]; Protocol Last Admin: 10/02/18 17:38 Dose: 300 mg Ibuprofen (Motrin Tab) 600 mg PO Q6H PRN PRN Reason: Pain, moderate (4-7) Last Admin: 10/02/18 09:54 Dose: 600 mg Insulin Human Regular (Humulin R Low) 0 units SC ACHS [facility]; Protocol Last Admin: 10/02/18 22:00 Dose: Not Given Lactic Acid (Lac-Hydrin 12% Lotion (225 G)) 0 gm EXT DAILY [facility] Last Admin: 10/02/18 16:34 Dose: 1 applic Lidocaine (Lidoderm) 1 ea TD DAILY [facility] Metformin HCl (Glucophage) 500 mg PO BID [facility] Last Admin: 10/02/18 17:38 Dose: 500 mg Methylprednisolone (Solu-Medrol) 20 mg IVP Q12 [facility] Last Admin: 10/02/18 21:49 Dose: 20 mg Nicotine (Nicoderm Cq) 1 patch TD DAILY [facility] Last Admin: 10/02/18 09:55 Dose: 1 patch Ondansetron HCl (Zofran Inj) 4 mg IVP Q6H PRN PRN Reason: Nausea/Vomiting Last Admin: 10/01/18 18:01 Dose: 4 mg Pantoprazole Sodium (Protonix Ec Tab) 40 mg PO HS [facility] Last Admin: 10/02/18 21:50 Dose: 40 mg Potassium Chloride (Klor-Con 10) 10 meq PO BRK [facility] Last Admin: 10/02/18 09:57 Dose: 10 meq Tiotropium [place] (Spiriva) 18 mcg IH DAILY [facility] Last Admin: 10/02/18 10:18 Dose: 18 mcg Results - Vital Signs Recent Vital Signs: Last Vital Signs Temp 98.8 F 10/02/18 21:46 Pulse 86 10/02/18 21:46 Resp 18 10/02/18 21:46 BP 107/72 10/02/18 21:46 Pulse Ox 98 10/02/18 21:46 - Labs Result Diagrams: 10/02/18 07:00 10/02/18 07:00 Labs: Laboratory Results - last 24 hr 10/02/18 10/02/18 10/02/18 07:00 07:00 07:05 WBC 9.5 RBC 4.78 Hgb 13.7 D Hct 41.8 MCV 87.4 MCH 28.7 MCHC 32.8 RDW 15.6 H Plt Count 181 MPV 11.7 H PT INR Sodium 136 Potassium 4.3 Chloride 102 Carbon Dioxide 26 Anion Gap 13 BUN 16 Creatinine 0.7 Est GFR ( Amer) > 60 Est GFR (Non-Af Amer) > 60 POC Glucose (mg/dL) 172 H Random Glucose 201 H Calcium 9.1 Total Bilirubin Direct Bilirubin AST ALT Alkaline Phosphatase Total Protein Albumin Globulin Albumin/Globulin Ratio Hepatitis A IgM Ab Hepatitis A Ab Total Hep Bs Antigen Hep B Core IgM Ab Hepatitis C Antibody 10/02/18 10/02/18 10/02/18 11:01 13:55 13:55 WBC RBC Hgb Hct MCV MCH MCHC RDW Plt Count MPV PT INR Sodium Potassium Chloride Carbon Dioxide Anion Gap BUN Creatinine Est GFR ( Amer) Est GFR (Non-Af Amer) POC Glucose (mg/dL) 136 H Random Glucose Calcium Total Bilirubin 0.4 Direct Bilirubin 0.2 AST 41 H D ALT 18 Alkaline Phosphatase 116 Total Protein 8.4 H Albumin 4.1 Globulin 4.3 Albumin/Globulin Ratio 1.0 L Hepatitis A IgM Ab Negative Hepatitis A Ab Total Antibody pos Hep Bs Antigen Negative Hep B Core IgM Ab Negative Hepatitis C Antibody Reactive 10/02/18 10/02/18 10/02/18 13:55 15:49 21:51 WBC RBC Hgb Hct MCV MCH MCHC RDW Plt Count MPV PT 12.0 INR 1.06 Sodium Potassium Chloride Carbon Dioxide Anion Gap BUN Creatinine Est GFR ( Amer) Est GFR (Non-Af Amer) POC Glucose (mg/dL) 292 H 146 H Random Glucose Calcium Total Bilirubin Direct Bilirubin AST ALT Alkaline Phosphatase Total Protein Albumin Globulin Albumin/Globulin Ratio Hepatitis A IgM Ab Hepatitis A Ab Total Hep Bs Antigen Hep B Core IgM Ab Hepatitis C Antibody Attending/Attestation - Attestation I have personally seen and examined this patient.: Yes I have fully participated in the care of the patient.: Yes I have reviewed all pertinent clinical information: Yes Notes (Text): This is an addendum to GI progress report dictated by the GI Fellow. The patient was seen and examined earlier. Medical records, lab studies, imagings were reviewed. Last 24 hours events reviewed. Agreed with the above treatment plan as outlined in GI Fellow 's notes with the addition of the following 10/02/18 23:39
--- NOTE | 2018-10-02 13:51 | PN ---
DATE: 10/02/2018 PULMONARY PROGRESS NOTE REFERRING PHYSICIAN: Denice Montanez MD SUBJECTIVE: The patient is sitting up at the bedside, reports feeling better this morning. No nausea or vomiting. Today, the patient ate breakfast this morning. He is complaining of some back pain today. No headache, rhinitis, cough, shortness of breath, chest pain, abdominal pain, nausea, vomiting, diarrhea, leg pain or leg swelling reported. OBJECTIVE: GENERAL: No acute distress. VITAL SIGNS: Blood pressure 123/84, pulse 92, temperature 98.3 and oxygen saturation 97% on room air. HEENT: Moist mucous membranes. Crowded airway. NECK: Supple. No JVD. LUNGS: Few scattered rhonchi bilaterally. CARDIOVASCULAR: S1 and S2. ABDOMEN: Soft, and nontender. No distention. No organomegaly. EXTREMITIES: No bilateral lower extremity edema. NEUROLOGIC: Awake, alert, verbal, and follows commands. MEDICATIONS: Reviewed. DuoNeb 3 mL inhalation every 6 hours p.r.n,, Norvasc 10 mg daily, Brovana 15 mg every 12 hours, Pulmicort 1 mg every 12 hours, doxycycline 100 mg every 12 hours, Lasix 40 mg IV push daily, Neurontin 300 mg three times a day, Motrin 600 mg every 6 hours p.r.n., Humalog sliding scale a.c. and at bedtime, Lac-Hydrin bilaterally to extremities daily, metformin 500 mg twice a day, Solu-Medrol 20 every 12 hours, nicotine patch transdermally daily, Zofran 4 mg IV push every 6 hours p.r.n., Protonix 40 mg at bedtime, potassium chloride 10 mEq at breakfast and Spiriva 18 mcg inhalation daily. LABORATORY DATA: Reviewed. WBC 9.5, RBC 4.78, hemoglobin 13.7, hematocrit 41.8 and platelets 181. Sodium 136, potassium 4.3, chloride 102, carbon dioxide 26, anion gap 13, BUN 16, creatinine 0.7, GFR greater than 60, POC glucose 172, random glucose 201 and calcium 9.1. IMPRESSION AND PLAN: Chronic obstructive lung disease, lumbar radiculopathy, chronic compression fractures T12-L3, spinal stenosis L2-L3, hypertension, history of alcohol abuse, history of substance abuse in the past. Pulmonary point of view, continue inhaled bronchodilators, antibiotic therapy, continue smoking cessation, gastri prophylaxis, deep venous thrombosis prophylaxis. We will add lidocaine patch to the patient's back for complain of pain. Recommend physical therapy. We will also order TRCU evaluation. We recommend this patient has full pulmonary function test and sleep study as outpatient. This patient was seen and examined with Dr. Epperson. Discussed assessment and plan as described above. This patient was seen and examined with Zach Weathers, nurse practitioner. Discussed assessment and plan as described above. Thank you for this consult. We will follow with you. Zach Weathers APN Renato Epperson MD
[2018-10-02 14:11] LABS: INR 1.06
[2018-10-02 14:18] LABS: ALBUMIN 4.1 g/dL (3.0-4.8); ALT/SGPT 18 U/L (7-56); AST/SGOT 41 U/L (14-36); BILIRUBIN,DIRECT 0.2 mg/dL (0.0-0.4)
[2018-10-02] MEDS: Ammonium Lactate 12% Lotion (225 g) EXT SCH (16:34)
[2018-10-02] MEDS: Albuterol-Ipratrop 3 mg / 0.5 (3 ml) UD IH PRN (19:11)
[2018-10-02 20:48] LABS: HEPATITIS B SURFACE AG Negative (NEGATIVE)
[2018-10-02 20:53] LABS: HEPATITIS A IGM NEGATIVE (NEGATIVE)
[2018-10-02 21:37] LABS: HEPATITIS B CORE AB NEGATIVE (NEGATIVE)
[2018-10-02 21:49] LABS: HEPATITIS C ANTIBODY REACTIVE (NEGATIVE)
[2018-10-02] MEDS: Pantoprazole 40 mg EC Tab PO SCH (21:50)
[2018-10-03] MEDS: Arformoterol 15 mcg/2 ml Inh Sol IH SCH ×2 (07:21→20:27)
[2018-10-03] MEDS: Budesonide 0.5 mg/2 ml Inhal Susp UD IH SCH ×2 (07:21→20:28)
--- NOTE | 2018-10-03 09:02 | CP.PCM.PN ---
<Ran Grigsby - Last Filed: 10/03/18 09:04> Subjective - Date & Time of Evaluation Date of Evaluation: 10/03/18 Time of Evaluation: 09:00 - Subjective Subjective: GI: Dr. Urbano Pt seen and examined. Back pain persists. N/V significantly improved. Tolerating diet. Objective - Vital Signs/Intake and Output Vital Signs (last 24 hours): Temp Pulse Resp BP Pulse Ox 98.4 F 98 H 18 126/87 96 10/03/18 06:00 10/03/18 06:00 10/03/18 06:00 10/03/18 06:00 10/03/18 06:00 Intake and Output: 10/03/18 10/03/18 06:59 18:59 Intake Total 540 Balance 540 - Medications Medications: Current Medications Albuterol/Ipratropium (Duoneb 3 Mg/0.5 Mg (3 Ml) Ud) 3 ml IH [id number] PRN PRN Reason: Shortness of Breath Last Admin: 10/02/18 19:11 Dose: 3 ml Amlodipine Besylate (Norvasc) 10 mg PO DAILY [facility] Last Admin: 10/02/18 09:56 Dose: 10 mg Arformoterol Tartrate (Brovana) 15 mcg IH [id number] [facility] Last Admin: 10/03/18 07:21 Dose: 15 mcg Budesonide (Pulmicort Respules) 1 mg IH [id number] [facility] Last Admin: 10/03/18 07:21 Dose: 0.5 mg Doxycycline Hyclate (Doryx) 100 mg PO Q12 [facility]; Protocol Last Admin: 10/02/18 21:50 Dose: 100 mg Furosemide (Lasix) 40 mg IVP DAILY [facility] Last Admin: 10/02/18 09:55 Dose: 40 mg Gabapentin (Neurontin) 300 mg PO TID [facility]; Protocol Last Admin: 10/02/18 17:38 Dose: 300 mg Ibuprofen (Motrin Tab) 600 mg PO Q6H PRN PRN Reason: Pain, moderate (4-7) Last Admin: 10/02/18 09:54 Dose: 600 mg Insulin Human Regular (Humulin R Low) 0 units SC ACHS [facility]; Protocol Last Admin: 10/02/18 22:00 Dose: Not Given Lactic Acid (Lac-Hydrin 12% Lotion (225 G)) 0 gm EXT DAILY [facility] Last Admin: 10/02/18 16:34 Dose: 1 applic Lidocaine (Lidoderm) 1 ea TD DAILY [facility] Metformin HCl (Glucophage) 500 mg PO BID [facility] Last Admin: 10/02/18 17:38 Dose: 500 mg Methylprednisolone (Solu-Medrol) 20 mg IVP Q12 [facility] Last Admin: 10/02/18 21:49 Dose: 20 mg Nicotine (Nicoderm Cq) 1 patch TD DAILY [facility] Last Admin: 10/02/18 09:55 Dose: 1 patch Ondansetron HCl (Zofran Inj) 4 mg IVP Q6H PRN PRN Reason: Nausea/Vomiting Last Admin: 10/01/18 18:01 Dose: 4 mg Pantoprazole Sodium (Protonix Ec Tab) 40 mg PO HS [facility] Last Admin: 10/02/18 21:50 Dose: 40 mg Potassium Chloride (Klor-Con 10) 10 meq PO BRK [facility] Last Admin: 10/02/18 09:57 Dose: 10 meq Tiotropium [place] (Spiriva) 18 mcg IH DAILY [facility] Last Admin: 10/02/18 10:18 Dose: 18 mcg - Labs Labs: 10/02/18 07:00 10/02/18 07:00 PT 12.0 SECONDS (9.4-12.5) 10/02/18 13:55 INR 1.06 10/02/18 13:55 - Constitutional Appears: Non-toxic, No Acute Distress - Head Exam Head Exam: ATRAUMATIC, NORMOCEPHALIC - Eye Exam Eye Exam: EOMI - ENT Exam ENT Exam: Mucous Membranes Moist - Neck Exam Neck Exam: Full ROM - Respiratory Exam Respiratory Exam: NORMAL BREATHING PATTERN. absent: Accessory Muscle Use, Respiratory Distress - GI/Abdominal Exam GI & Abdominal Exam: Soft. absent: Distended, Firm, Guarding, Rigid, Tenderness, Rebound - Extremities Exam Extremities Exam: absent: Calf Tenderness, Pedal Edema - Neurological Exam Neurological Exam: Alert, Awake, Oriented x3 Assessment and Plan - Assessment and Plan (Free Text) Assessment: 68F w. hx of hep C, GI consulted for intractable N/V, now resolved -c/w zofran -diet as tolerated -c/w small portion meals, chew slowly -will follow -d/w attending Palitis PGY4 <Carolina Urbano V - Last Filed: 10/03/18 23:50> Objective - Vital Signs/Intake and Output Vital Signs (last 24 hours): Temp Pulse Resp BP Pulse Ox 98.6 F 80 18 115/78 100 10/03/18 22:00 10/03/18 22:00 10/03/18 22:00 10/03/18 22:00 10/03/18 22:00 Intake and Output: 10/03/18 10/04/18 18:59 06:59 Intake Total 300 520 Balance 300 520 - Medications Medications: Current Medications Albuterol/Ipratropium (Duoneb 3 Mg/0.5 Mg (3 Ml) Ud) 3 ml IH [id number] PRN PRN Reason: Shortness of Breath Last Admin: 10/02/18 19:11 Dose: 3 ml Amlodipine Besylate (Norvasc) 10 mg PO DAILY [facility] Last Admin: 10/03/18 09:22 Dose: 10 mg Arformoterol Tartrate (Brovana) 15 mcg IH [id number] [facility] Last Admin: 10/03/18 20:27 Dose: 15 mcg Budesonide (Pulmicort Respules) 1 mg IH [id number] [facility] Last Admin: 10/03/18 20:28 Dose: 1 mg Doxycycline Hyclate (Doryx) 100 mg PO Q12 [facility]; Protocol Last Admin: 10/03/18 21:12 Dose: 100 mg Furosemide (Lasix) 40 mg IVP DAILY [facility] Last Admin: 10/03/18 09:19 Dose: 40 mg Gabapentin (Neurontin) 300 mg PO TID [facility]; Protocol Last Admin: 10/03/18 18:50 Dose: 300 mg Ibuprofen (Motrin Tab) 600 mg PO Q6H PRN PRN Reason: Pain, moderate (4-7) Last Admin: 10/03/18 09:18 Dose: 600 mg Insulin Human Regular (Humulin R Low) 0 units SC ACHS [facility]; Protocol Last Admin: 10/03/18 17:16 Dose: 3 unit Lactic Acid (Lac-Hydrin 12% Lotion (225 G)) 0 gm EXT DAILY [facility] Last Admin: 10/03/18 15:15 Dose: 1 applic Lidocaine (Lidoderm) 1 ea TD DAILY [facility] Last Admin: 10/03/18 09:19 Dose: 1 ea Metformin HCl (Glucophage) 500 mg PO BID [facility] Last Admin: 10/03/18 17:16 Dose: 500 mg Methylprednisolone (Solu-Medrol) 20 mg IVP Q12 [facility] Last Admin: 10/03/18 21:12 Dose: 20 mg Nicotine (Nicoderm Cq) 1 patch TD DAILY [facility] Last Admin: 10/03/18 09:18 Dose: 1 patch Ondansetron HCl (Zofran Inj) 4 mg IVP Q6H PRN PRN Reason: Nausea/Vomiting Last Admin: 10/01/18 18:01 Dose: 4 mg Pantoprazole Sodium (Protonix Ec Tab) 40 mg PO HS [facility] Last Admin: 10/03/18 21:12 Dose: 40 mg Potassium Chloride (Klor-Con 10) 10 meq PO BRK [facility] Last Admin: 10/03/18 09:18 Dose: 10 meq Tiotropium [place] (Spiriva) 18 mcg IH DAILY [facility] Last Admin: 10/03/18 09:20 Dose: 18 mcg - Labs Labs: 10/02/18 07:00 10/02/18 07:00 PT 12.0 SECONDS (9.4-12.5) 10/02/18 13:55 INR 1.06 10/02/18 13:55 Attending/Attestation - Attestation I have personally seen and examined this patient.: Yes I have fully participated in the care of the patient.: Yes I have reviewed all pertinent clinical information, including history, physical exam and plan: Yes Notes (Text): This is an addendum to GI progress report dictated by the GI Fellow. The patient was seen and examined earlier. Medical records, lab studies, imagings were reviewed. Last 24 hours events reviewed. Agreed with the above treatment plan as outlined in GI Fellow 's notes with the addition of the following 10/03/18 23:50
[2018-10-03] MEDS: MethylPREDNISolone 40 mg Vial IVP SCH ×2 (09:17→21:12)
[2018-10-03] MEDS: Potassium Chloride 10 mEq ER Tab PO SCH (09:18)
[2018-10-03] MEDS: Insulin Reg-LOW-Coverage SC SCH ×4 (09:19→22:05)
[2018-10-03] MEDS: Ammonium Lactate 12% Lotion (225 g) EXT SCH ×2 (09:19→15:15)
[2018-10-03] MEDS: Lidocaine 5% Patch TD SCH (09:19)
[2018-10-03] MEDS: Tiotropium 18 mcg Cap For Inhalation IH SCH (09:20)
--- NOTE | 2018-10-03 13:27 | PN ---
DATE: 10/03/2018 PULMONARY PROGRESS NOTE REFERRING PHYSICIAN: Dr. Denice Montanez. SUBJECTIVE: The patient is seen sitting up in bed, reports having some back pain this morning. No headache, rhinitis, cough, shortness of breath, chest pain, abdominal pain, nausea, vomiting, diarrhea, leg pain, or leg swelling reported. The patient reports having bowel movements. The patient did not get pain medication yet this morning. Nursing staff aware and will medicate the patient. OBJECTIVE: GENERAL: No acute distress. VITAL SIGNS: Blood pressure 126/87, pulse 98, temperature 98.4, and oxygen saturation 96% on room air. HEENT: Moist mucous membranes. Crowded airway. NECK: Supple. No JVD. LUNGS: Fair airflow bilaterally. CARDIOVASCULAR: S1 and S2. ABDOMEN: Soft and nontender. No distention. No organomegaly. EXTREMITIES: No bilateral lower extremity edema. NEUROLOGIC: Awake, alert, and verbal. Follows commands. MEDICATIONS: Reviewed. DuoNeb 3 mL inhalation every 6 hours p.r.n,, Norvasc 10 mg daily, Brovana 15 mcg every 12 hours, Pulmicort 1 mg every 12 hours, doxycycline 100 mg every 12 hours, Lasix 40 mg daily, Neurontin 300 mg three times a day, Motrin 600 mg every 6 hours p.r.n., Humalog R sliding scale before meals and at bedtime, Lac-Hydrin bilaterally to lower extremities, lidocaine patch transdermally daily, metformin 500 mg twice a day, Solu-Medrol 20 mg every 12 hours, nicotine patch transdermally daily, Zofran 4 mg every 6 hours p.r.n., Protonix 40 mg at bedtime, potassium chloride 10 mEq at breakfast, and Spiriva 18 mcg daily. LABORATORY DATA: Reviewed. POC glucose 169. IMPRESSION AND PLAN: Chronic obstructive lung disease, lumbar radiculopathy, chronic compression fractures T12-L3, spinal stenosis L2-L3, hypertension, history of alcohol abuse, and history of substance abuse in the past. From pulmonary point of view, continue inhaled bronchodilators, antibiotic therapy, smoking cessation, gastri prophylaxis, deep venous thrombosis prophylaxis and pain management. Recommend physical therapy. We recommend this patient to have full pulmonary function test and sleep study as outpatient. This patient was seen and examined with Dr. Epperson. Discussed assessment and plan as described above. This patient was seen and examined with Zach Weathers, nurse practitioner. Discussed assessment and plan as described above. Thank you for this consult. We will follow with you. Zach Weathers APN Renato Epperson MD
[2018-10-03] MEDS: Pantoprazole 40 mg EC Tab PO SCH (21:12)
--- NOTE | 2018-10-04 03:17 | PN ---
DATE: 10/03/2018 SUBJECTIVE: The patient is a 68-year-old female. The patient was seen and examined at the bedside on 10/03/2018. Still complaining about coughing, shortness of breath, but better. No headache or dizziness. No chest pain. No palpitation. PHYSICAL EXAMINATION: VITAL SIGNS: Blood pressure 127/87, pulse 98, temperature 99.4, and oxygen saturation 96% on room air. HEENT: Head, normocephalic and atraumatic. Eyes; PERRLA, extraocular muscles intact, conjunctivae clear. Nose patent. Mucous membrane moist. NECK: Supple. No carotid bruit. No JVD or thyromegaly. CHEST: Bilaterally symmetrical. HEART: S1 and S2 positive. LUNGS: Clear to auscultation. ABDOMEN: Soft. Bowel sounds present. No organomegaly. EXTREMITIES: No edema. No cyanosis. NEUROLOGIC: The patient is awake, alert. Moving all four extremities. No focal deficit. MEDICATIONS: DuoNeb, Norvasc, Brovana, doxycycline, Motrin, insulin, Lac-Hydrin, Lidoderm, metformin, Solu-Medrol, nicotine, and Protonix. LABORATORY DATA: We do not have recent labs today, but I reviewed old labs. ASSESSMENT AND PLAN: Ms. Jesusita Pascual is a 68-year-old lady with multiple medical problems, chronic obstructive lung disease, back pain, lumbosacral radiculopathy, chronic compression fractures at T12 and L3, spinal stenosis L2-L3, hypertension, history of ethanol abuse, history of substance abuse. Getting physical therapy. Urged to quit smoking. Gastrointestinal and deep veins thrombosis prophylaxes. Repeat laboratories. Discussion done with social media marketing analyst. Tried to transfer the patient to subacute rehab. , but according to Physical Therapy, the patient is okay to go home with home service. We will take care of that. We will follow up. Denice Montanez MD MTDD
[2018-10-04] MEDS: Insulin Reg-LOW-Coverage SC SCH ×4 (08:15→16:34)
[2018-10-04] MEDS: Potassium Chloride 10 mEq ER Tab PO SCH (08:15)
[2018-10-04] MEDS: Arformoterol 15 mcg/2 ml Inh Sol IH SCH (08:24)
[2018-10-04] MEDS: Budesonide 0.5 mg/2 ml Inhal Susp UD IH SCH (08:25)
[2018-10-04] MEDS: Lidocaine 5% Patch TD SCH (09:37)
[2018-10-04] MEDS: Ammonium Lactate 12% Lotion (225 g) EXT SCH (09:37)
[2018-10-04] MEDS: MethylPREDNISolone 40 mg Vial IVP SCH (09:39)
[2018-10-04] MEDS: Tiotropium 18 mcg Cap For Inhalation IH SCH (09:40)
--- NOTE | 2018-10-04 10:30 | PN ---
DATE: 10/04/2018 PULMONARY PROGRESS NOTE REFERRING PHYSICIAN: Denice Montanez MD SUBJECTIVE: The patient is seen sitting up at bedside, reports having episode of nausea in the middle of the night. This morning feeling better. No headache, rhinitis, cough, shortness of breath, chest pain, abdominal pain, nausea, vomiting, diarrhea, leg pain, or leg swelling reported. OBJECTIVE: VITAL SIGNS: Blood pressure 138/92, pulse 88, temperature 97.6 and oxygen saturation 99% on room air. GENERAL: No acute distress. HEENT: Moist mucous membranes. Crowded airway. NECK: Supple. No JVD. LUNGS: Fair airflow bilaterally. CARDIOVASCULAR: S1 and S2. ABDOMEN: Soft and nontender. No distention. No organomegaly. EXTREMITIES: No bilateral lower extremity edema. NEUROLOGIC: Awake, alert, and verbal. Follows commands. MEDICATIONS: Reviewed. DuoNeb 3 mL inhalation every 6 hours p.r.n,, Norvasc 10 mg daily, Brovana 15 mcg every 12 hours, Pulmicort 1 mg every 12 hours, doxycycline 100 mg every 12 hours, Lasix 40 mg daily, Neurontin 300 mg three times a day, Motrin 600 mg every 6 hours p.r.n., Humulin R sliding scale before meals and at bedtime, Lac-Hydrin bilaterally to lower extremities daily, lidocaine patch transdermal daily, metformin 500 mg twice a day, Solu-Medrol 20 mg every 12 hours, nicotine patch transdermal daily, Zofran 4 mg every 6 hours p.r.n., Protonix 40 mg at bedtime, potassium chloride 10 mEq at breakfast, and Spiriva 18 mcg inhalation daily. LABORATORY DATA: Reviewed. POC glucose 189. IMPRESSION AND PLAN: Chronic obstructive lung disease, lumbar radiculopathy, chronic compression fractures T12-L3, spinal stenosis L2-L3, hypertension, history of alcohol abuse, and history of substance abuse in the past. From pulmonary point of view, continue inhaled bronchodilators, smoking cessation, gastric prophylaxis, deep venous thrombosis prophylaxis and pain management. We will discontinue doxycycline at this time. We will order followup labs for the morning. The patient will need to be discharged on tapering dose of steroids. We recommend this patient to have full pulmonary function test and sleep study as outpatient. This patient was seen and examined with Dr. Epperson. Discussed assessment and plan as described above. This patient was seen and examined with Zachjim Taylore, nurse practitioner. Discussed assessment and plan as described above. Thank you for this consult. We will follow with you. Zach Weathers APN Renato Epperson MD
[2018-10-04 14:26] VITALS: BP 110/71; PULSE 84; RESP 19; TEMP 98.7; O2SAT 96
== END 2018-10-04 18:48 | disposition home health service (06) | DRG 544 ==
LOC: ED 18:28 → ERH 23:41 → 5RNO 09-29 01:11 → OBSVTOIN 09-29 18:00 → 5RNO 09-30 20:46
PROVIDERS: ADMIT Internal Medicine; ATTEND Internal Medicine
DX: M48.55XA Collapsed vertebra, not elsewhere classified, thoracolumbar region, initial encounter for fracture (principal); M51.36 Other intervertebral disc degeneration, lumbar region; M48.061 Spinal stenosis, lumbar region without neurogenic claudication; M54.16 Radiculopathy, lumbar region; M46.96 Unspecified inflammatory spondylopathy, lumbar region; J44.9 Chronic obstructive pulmonary disease, unspecified; I10 Essential (primary) hypertension; B19.20 Unspecified viral hepatitis C without hepatic coma; E11.65 Type 2 diabetes mellitus with hyperglycemia; F17.200 Nicotine dependence, unspecified, uncomplicated; F11.10 Opioid abuse, uncomplicated; M25.511 Pain in right shoulder; Z79.84 Long term (current) use of oral hypoglycemic drugs; Z91.81 History of falling

== ENCOUNTER 2018-10-12 16:03 | Emergency (ER) | payer MEDICAID, MEDICARE ==
[2018-10-12 16:10] VITALS: BMI 21.1
[2018-10-12] MEDS ORDERED: Albuterol-Ipratrop 3 mg / 0.5 (3 ml) UD IH STA (16:20)
--- NOTE | 2018-10-12 16:22 | ED PDOC ---
Arrival/HPI - General Chief Complaint: Cough, Cold, Congestion Time Seen by Provider: 10/12/18 16:06 Historian: Patient - History of Present Illness Time/Duration: Other (two days) Symptom Onset: Gradual Symptom Course: Unchanged Severity Level: Moderate Activities at Onset: Rest Associated Symptoms (Text): 10/12/18 16:21 Patient complains of a 2-day history of a dry nonproductive cough. No dyspnea. She continues to smoke. No chest pain. No fever or chills. No injury or trauma. Patient was recently discharged from the hospital after admission for generalized weakness and physical therapy. There is no sputum production. Past Medical History - Infectious Disease Hx of Infectious Diseases: None - Cardiac Hx Hypertension: Yes - Pulmonary Hx Chronic Obstructive Pulmonary Disease (COPD): Yes - Neurological Hx Neurological Disorder: No - HEENT Hx HEENT Disorder: No - Renal Hx Renal Disorder: No - Endocrine/Metabolic Hx Endocrine Disorders: Yes Hx Diabetes Mellitus Type 2: Yes - Hematological/Oncological Hx Blood Disorders: Yes Hx Hepatitis C: Yes - Integumentary Hx Dermatological Disorder: No - Musculoskeletal/Rheumatological Hx Arthritis: Yes - Gastrointestinal Hx Gastrointestinal Disorders: No - Genitourinary/Gynecological Hx Genitourinary Disorders: Yes - Psychiatric Hx Psychophysiologic Disorder: No Hx Substance Use: Yes (former heroin; finished methadone tx) - Surgical History Hx Tonsillectomy: Yes - Anesthesia Hx Anesthesia: Yes Hx Anesthesia Reactions: No Hx Malignant Hyperthermia: No Family/Social History - Physician Review Nursing Documentation Reviewed: Yes Family/Social History: Unknown Family HX Smoking Status: Light Smoker < 10 Cigarettes Daily Hx Alcohol Use: Yes (2 mini shots daily) Hx Substance Use: Yes (former heroin; finished methadone tx) Substance used: completed methadone program Allergies/Home Meds Allergies/Adverse Reactions: Allergies No Known Allergies Allergy (Verified 10/12/18 16:10) Home Medications: Home Meds Medication Instructions Recorded Confirmed amLODIPine [Norvasc] 10 mg PO DAILY 08/07/18 10/03/18 Furosemide [Lasix] 40 mg PO BID 09/07/18 10/03/18 Review of Systems - Physician Review All systems were reviewed & negative as marked: Yes - Review of Systems Constitutional: absent: Fatigue, Fevers Respiratory: SOB, Cough. absent: Sputum, Wheezing Cardiovascular: absent: Chest Pain, Palpitations, Syncope Gastrointestinal: absent: Abdominal Pain, Nausea, Vomiting Neurological: absent: Headache, Dizziness, Focal Weakness Physical Exam Temperature: Afebrile Blood Pressure: Normal Pulse: Regular Respiratory Rate: Normal Appearance: Positive for: Well-Appearing, Non-Toxic, Comfortable Pain Distress: None Mental Status: Positive for: Alert and Oriented X 3 - Systems Exam Head: Present: Atraumatic, Normocephalic Pupils: Present: PERRL Extroacular Muscles: Present: EOMI Conjunctiva: Present: Normal Ears: Present: NORMAL TM, Normal Canal. No: Erythema, TM Bulging Mouth: Present: Moist Mucous Membranes Pharnyx: No: ERYTHEMA, EXUDATE, TONSILS ENLARGED Neck: Present: Normal Range of Motion Respiratory/Chest: Present: Decreased Breath Sounds. No: Respiratory Distress, Accessory Muscle Use, Wheezes, Rales, Retracting, Rhonchi, Tachypneic, Tender to Palpation Cardiovascular: Present: Regular Rate and Rhythm, Normal S1, S2. No: Murmurs Abdomen: No: Tenderness, Distention, Peritoneal Signs Upper Extremity: Present: Normal Inspection. No: Cyanosis, Edema Lower Extremity: Present: Normal Inspection. No: Edema Neurological: Present: GCS=15, CN II-XII Intact, Speech Normal, Motor Func Grossly Intact Skin: Present: Warm, Dry, Normal Color. No: Rashes Psychiatric: Present: Alert, Oriented x 3, Normal Insight, Normal Concentration Medical Decision Making ED Course and Treatment: 10/12/18 17:46 Influenza is negative. Chest x-ray shows no acute findings. Patient will be discharged home with albuterol and Tessalon to follow-up with PMD. Follow-up in ER as needed. - RAD Interpretation Radiology Orders: 10/12/18 16:20 CHEST TWO VIEWS (PA/LAT) [RAD] Stat Chest 2 view shows no infiltrate effusion or cardiomegaly. Taxation Accountant: ED Physician Disposition/Present on Arrival - Present on Arrival Any Indicators Present on Arrival: No History of DVT/PE: No History of Uncontrolled Diabetes: No Urinary Catheter: No History of Decub. Ulcer: No History Surgical Site Infection Following: None - Disposition Have Diagnosis and Disposition been Completed?: Yes Diagnosis: COPD (chronic obstructive pulmonary disease), Cough Disposition: HOME/ ROUTINE Disposition Time: 17:47 Patient Plan: Discharge Condition: GOOD Discharge Instructions (ExitCare): Chronic Obstructive Pulmonary Disease (COPD), Including Emphysema, Cough in Adults Additional Instructions: Symptomatic treatment. Follow-up with PMD. Follow-up in ER as needed. Prescriptions: Benzonatate [Tessalon Perles] 100 mg PO Q8 #30 sgl Albuterol HFA [Ventolin HFA 90 mcg/actuation (8 g)] 2 puff IH [id number] #1 puff Forms: [employer] (Chinese)
[2018-10-12] MEDS ORDERED: Albuterol-Ipratrop 3 mg / 0.5 (3 ml) UD ONE (16:26)
[2018-10-12 16:32] VITALS: BP 135/70; PULSE 100; RESP 20; TEMP 98.8; O2SAT 96
--- NOTE | 2018-10-12 17:37 | RAD ---
HISTORY: cough COMPARISON: Chest x-ray performed 09/28/18, CT chest without IV contrast performed 09/29/18 TECHNIQUE: Chest PA and lateral FINDINGS: LUNGS: Re-identified right apical pleural parenchymal opacity with associated cystic changes. Please note that chest x-ray has limited sensitivity for the detection of pulmonary masses. PLEURA: No significant pleural effusion identified. No definite pneumothorax . CARDIOVASCULAR: Heart size appears within normal limits. Ectatic aorta. OSSEOUS STRUCTURES: Degenerative changes. VISUALIZED UPPER ABDOMEN: Unremarkable. OTHER FINDINGS: None. IMPRESSION: Re-identified right apical pleural parenchymal opacity with associated cystic changes. Recommend clinical correlation and close interval follow-up as indicated.
== END 2018-10-12 19:04 | disposition home or self-care (01) ==
LOC: ED 16:03
DX: J44.9 Chronic obstructive pulmonary disease, unspecified (principal); F17.210 Nicotine dependence, cigarettes, uncomplicated

== ENCOUNTER 2018-10-21 20:59 | Inpatient (IN) | payer MEDICAID, MEDICARE, OTHER ==
--- NOTE | 2018-10-21 21:21 | ED PDOC ---
Arrival/HPI - General Chief Complaint: Cough, Cold, Congestion Historian: Patient - History of Present Illness Narrative History of Present Illness (Text): 10/21/18 21:21 Jesusita Pascual is a 68 year old female, whose past medical history includes hypertension, COPD, diabetes, hepatitis C, and substance abuse, who presents to the Emergency department complaining of cough. Patient states she has been experiencing a persistent cough since she was last admitted to the hospital on 09/29/2018. Patient reports associated chest pain after coughing. Patient states she was placed on antibiotics and oral steroids but denies any significant relief. Patient denies any fever, chills, nausea, vomiting, diarrhea, urinary symptoms, back pain, neck pain, headache, dizziness, or any other complaints. Symptom Onset: Gradual Symptom Course: Unchanged Activities at Onset: Light Context: Home Past Medical History - Provider Review Nursing Documentation Reviewed: Yes - Infectious Disease Hx of Infectious Diseases: None - Cardiac Hx Hypertension: Yes - Pulmonary Hx Chronic Obstructive Pulmonary Disease (COPD): Yes - Neurological Hx Neurological Disorder: No - HEENT Hx HEENT Disorder: No - Renal Hx Renal Disorder: No - Endocrine/Metabolic Hx Endocrine Disorders: Yes Hx Diabetes Mellitus Type 2: Yes - Hematological/Oncological Hx Blood Disorders: Yes Hx Hepatitis C: Yes - Integumentary Hx Dermatological Disorder: No - Musculoskeletal/Rheumatological Hx Arthritis: Yes - Gastrointestinal Hx Gastrointestinal Disorders: No - Genitourinary/Gynecological Hx Genitourinary Disorders: Yes - Psychiatric Hx Psychophysiologic Disorder: No Hx Substance Use: Yes (former heroin; finished methadone tx) - Surgical History Hx Tonsillectomy: Yes - Anesthesia Hx Anesthesia: Yes Hx Anesthesia Reactions: No Hx Malignant Hyperthermia: No Family/Social History - Physician Review Nursing Documentation Reviewed: Yes Family/Social History: Unknown Family HX Smoking Status: Light Smoker < 10 Cigarettes Daily Hx Alcohol Use: Yes (2 mini shots daily) Hx Substance Use: Yes (former heroin; finished methadone tx) Substance used: completed methadone program Allergies/Home Meds Allergies/Adverse Reactions: Allergies No Known Allergies Allergy (Verified 10/15/18 14:53) Home Medications: Home Meds Medication Instructions Recorded Confirmed amLODIPine [Norvasc] 10 mg PO DAILY 08/07/18 10/22/18 Albuterol HFA [Ventolin HFA 90 2 puff IH QID PRN 10/22/18 10/22/18 mcg/actuation (8 g)] Review of Systems - Physician Review All systems were reviewed & negative as marked: Yes - Review of Systems Constitutional: Normal. absent: Fevers Eyes: Normal ENT: Normal Respiratory: Cough Cardiovascular: Chest Pain Gastrointestinal: Normal. absent: Abdominal Pain, Diarrhea, Nausea, Vomiting Genitourinary Female: Normal Musculoskeletal: Normal Skin: Normal Neurological: Normal Endocrine: Normal Hemo/Lymphatic: Normal Psychiatric: Normal Physical Exam Vital Signs Reviewed: Yes Vital Signs Temp Pulse Resp BP Pulse Ox 10/21/18 21:17 99.2 F 91 H 18 148/88 100 Temperature: Afebrile Blood Pressure: Normal Pulse: Regular Respiratory Rate: Normal Appearance: Positive for: Well-Appearing, Non-Toxic, Comfortable Pain Distress: None Mental Status: Positive for: Alert and Oriented X 3 - Systems Exam Head: Present: Atraumatic, Normocephalic Pupils: Present: PERRL Extroacular Muscles: Present: EOMI Conjunctiva: Present: Normal Mouth: Present: Moist Mucous Membranes Neck: Present: Normal Range of Motion Respiratory/Chest: Present: Decreased Breath Sounds (Poor air entry bilaterally). No: Respiratory Distress, Accessory Muscle Use Cardiovascular: Present: Regular Rate and Rhythm, Normal S1, S2. No: Murmurs Abdomen: No: Tenderness, Distention, Peritoneal Signs Back: Present: Normal Inspection Upper Extremity: Present: Normal Inspection. No: Cyanosis, Edema Lower Extremity: Present: Normal Inspection. No: Edema Neurological: Present: GCS=15, CN II-XII Intact, Speech Normal Skin: Present: Warm, Dry, Normal Color. No: Rashes Psychiatric: Present: Alert, Oriented x 3, Normal Insight, Normal Concentration Medical Decision Making ED Course and Treatment: 10/21/18 21:21 Impression: 68 year old female complaining of persistent cough and chest pain after coughing. Plan: -- EKG -- Chest X-Ray -- Labs, cardiac enzymes, BNP, blood cultures -- Duoneb -- Solu-medrol -- Reassess and disposition Prior Visits: Notes and results from previous visits were reviewed. Progress Notes: Reviewed EKG, NSR at 95 bpm. Prolonged QT. Non-specific ST/T wave changes. 10/21/18 23:05 CXR reviewed, shows no acute processes. 10/21/18 23:[address] waddell , who is aware and agrees with plan. admit for copd 10/22/18 05:08 - Lab Interpretations I have reviewed the lab results: Yes - RAD Interpretation Signals Intelligence Superintendent: ED Physician - EKG Interpretation Interpreted by ED Physician: Yes Type: 12 lead EKG - Scribe Statement The provider has reviewed the documentation as recorded by the Scribe Bernadette Saldana Provider Scribe Attestation: All medical record entries made by the Scribe were at my direction and personally dictated by me. I have reviewed the chart and agree that the record accurately reflects my personal performance of the history, physical exam, medical decision making, and the department course for this patient. I have also personally directed, reviewed, and agree with the discharge instructions and disposition. Disposition/Present on Arrival - Present on Arrival Any Indicators Present on Arrival: No History of DVT/PE: No History of Uncontrolled Diabetes: No Urinary Catheter: No History of Decub. Ulcer: No History Surgical Site Infection Following: None - Disposition Have Diagnosis and Disposition been Completed?: Yes Diagnosis: Chronic obstructive lung disease Disposition: HOSPITALIZED Disposition Time: 23:45 Condition: FAIR
[2018-10-21] MEDS: Albuterol-Ipratrop 3 mg / 0.5 (3 ml) UD IH SCH ×2 (23:00→23:11)
[2018-10-21 23:06] LABS: BASO # 0.01 K/mm3 (0.0-2.0); BASO % 0.1 % (0.0-3.0); EOS # 0.1 (0.0-0.7); EOS % 0.8 % (1.5-5.0); HEMOGLOBIN 11.5 g/dL (12.0-16.0); LYMPH % 32.9 % (22.0-35.0); MEAN CELL VOLUME 86.8 fl (80.0-105.0); MEAN CORPUSCULAR HEMOGLOBIN 27.6 pg (25.0-35.0); MEAN CORPUSCULAR HGB CONC 31.9 g/dl (31.0-37.0); MEAN PLATELET VOLUME 11.7 fl (7.0-11.0); MONO # 0.5 (0.1-0.6); MONO % 5.3 % (1.0-6.0); RBC 4.16 10^6/uL (3.5-6.1); RED CELL DISTRIBUTION WIDTH 15.7 % (11.5-14.5); WHITE BLOOD COUNT 9.1 10^3/uL (4.5-11.0)
[2018-10-22] MEDS ORDERED: cefTRIAXone 1 gm 1 GM/100 ML BAG IVPB STA (01:27)
[2018-10-22] MEDS ORDERED: Albuterol-Ipratrop 3 mg / 0.5 (3 ml) UD IH PRN (01:31)
[2018-10-22 01:33] LABS: ALB/GLOB RATIO 0.9 (1.1-1.8); ALBUMIN 3.2 g/dL (3.0-4.8); ALT/SGPT 24 U/L (7-56); AST/SGOT 26 U/L (14-36); BLOOD UREA NITROGEN 9 mg/dL (7-21); CALCIUM 8.8 mg/dL (8.4-10.5); GFR NON-AFRICAN AMERICAN > 60
[2018-10-22] MEDS ORDERED: Potassium Chloride 20 mEq ER Tab PO STA (01:34)
[2018-10-22 01:35] LABS: B-TYPE NATRIURETIC PEPTIDE 102 pg/mL (0-450); TROPONIN I < 0.01 ng/mL
[2018-10-22] MEDS ORDERED: Magnesium Oxide 400 mg Tab UD PO ONE (02:20)
[2018-10-22 03:16] VITALS: BMI 21.2
[2018-10-22] MEDS ORDERED: Albuterol HFA 90 mcg/actuation (8 g) IH PRN (06:48)
[2018-10-22] MEDS: Albuterol-Ipratrop 3 mg / 0.5 (3 ml) UD IH SCH ×3 (08:07→19:50)
--- NOTE | 2018-10-22 09:29 | CARD ---
APPROVED REPORT Date of service: 10/21/2018 EKG Measurement Heart [id number] <Conclusion> Normal sinus rhythm Possible Left atrial enlargement Prolonged QT Abnormal ECG
--- NOTE | 2018-10-22 10:41 | RAD ---
Date of service: 10/21/2018 HISTORY: Shortness of breath. COMPARISON: 07/08/2018 and 10/12/2018. FINDINGS: LUNGS: Stable fibronodular changes right apex. PLEURA: No significant pleural effusion identified, no pneumothorax apparent. CARDIOVASCULAR: No atherosclerotic calcification present Normal. OSSEOUS STRUCTURES: No significant abnormalities. VISUALIZED UPPER ABDOMEN: Normal. OTHER FINDINGS: None. IMPRESSION: No active disease. No significant interval change compared to the prior examination(s).
[2018-10-22] MEDS: Insulin Reg-LOW-Coverage SC SCH ×3 (11:19→21:22)
[2018-10-22] MEDS: MethylPREDNISolone 40 mg Vial IVP SCH ×2 (11:19→21:03)
[2018-10-22] MEDS: Tiotropium 18 mcg Cap For Inhalation IH SCH (11:21)
--- NOTE | 2018-10-22 17:47 | CON ---
DATE: 10/22/2018 PULMONARY CONSULT NOTE REFERRING PHYSICIAN: Denice Montanez MD. REASON FOR CONSULT: Cough and chronic lung disease. HISTORY OF PRESENT ILLNESS: This is a 68-year-old female with past medical history significant for chronic obstructive lung disease, active smoker, hypertension, history of L3 compression fracture, joint pain, history of fall, diabetes mellitus, hepatitis C and substance abuse. The patient presented to the emergency room complaining of cough. States that she has been experiencing persistent dry cough, also reported that she had associated chest pain after coughing. The patient reported completing antibiotics and oral steroid as outpatient, but found no relief. PAST MEDICAL HISTORY: As per history of present illness. FAMILY HISTORY: No significant cardiopulmonary disease reported. SOCIAL HISTORY: Active smoker, history of heroin use in the past, was on methadone at one point completed treatment. Previously about 3 shots of alcohol a day. MEDICATIONS: Reviewed. Tylenol 650 every 4 hours p.r.n., Tylenol 650 every 4 hours p.r.n. for pain and fever, DuoNeb 3 mL inhalation every 2 hours p.r.n., DuoNeb 3 mL inhalation every 6 hours, Norvasc 10 mg daily, Tessalon-Perles 100 mg three times a day p.r.n., Pepcid 40 mg at bedtime, gabapentin 300 mg three times a day, Humulin R sliding scale a.c. and at bedtime, Claritin 10 mg daily, Glucophage 500 mg twice a day, Solu-Medrol 40 mg every 12 hours, Singulair 10 mg at bedtime and Spiriva 18 mcg inhalation daily. ALLERGIES: NO KNOWN ALLERGIES. REVIEW OF SYSTEMS: No headache, chest pain, abdominal pain, nausea, vomiting, diarrhea, leg pain and leg swelling reported. The patient reported she does have some nasal congestion and does have dry cough. PHYSICAL EXAMINATION: GENERAL: No acute distress. VITAL SIGNS: Blood pressure 153/97, pulse 83, temperature 97.7 and oxygen saturation 97% on room air. HEENT: Moist mucous membranes. Crowded airway. Tender bilateral sinuses. NECK: Supple. No JVD. LUNGS: Fair airflow bilaterally. CARDIOVASCULAR: S1 and S2. ABDOMEN: Soft and nontender. No distention. No organomegaly. EXTREMITIES: No bilateral lower extremity edema. NEUROLOGIC: Awake, alert and verbal. Following commands. LABORATORY DATA: Reviewed. WBC 9.1, RBC 4.16, hemoglobin 11.5, hematocrit 36.1 and platelets 196. Sodium 138, potassium 3.3, chloride 106, carbon dioxide 29, anion gap 6, BUN 9, creatinine 0.5, GFR is greater than 60, random glucose 129, calcium 8.8, magnesium 1.5, total bilirubin 0.6, AST 26, ALT 24, alkaline phosphatase 112, lactate dehydrogenase 624, creatine kinase 59, troponin less than 0.01, proBNP 102, total protein 6.9, albumin 3.2, globulin 3.7 and albumin-globulin ratio 0.9. Chest x-ray shows no active release. EKG showed normal sinus rhythm. ASSESSMENT: Chronic obstructive lung disease, exacerbation; degenerative joint disease, hypertension, lumbar radiculopathy, diabetes mellitus. Continue present treatment. Continue inhaled bronchodilators. Gastric prophylaxis and antihistamine. Continue IV steroids. We will start the patient on doxycycline for sinusitis. We will place the patient on Lovenox for deep venous thrombosis prophylaxis. We will add Nicoderm patch. Discussed with the patient smoking cessation. The patient states that she is wanting to quit smoking and would like to continue to Nicotine patch as outpatient. We will recommend this patient to have full pulmonary function test and sleep study as outpatient. This patient was seen and examined with Dr. Epperson. Discussed assessment and plan as described above. This patient was seen and examined with Zach Weathers, nurse practitioner. Discussed assessment and plan as described above. Thank you for this consult. We will follow with you. Zach Weathers APN Renato Epperson MD JENNIFER
--- NOTE | 2018-10-22 23:22 | HP ---
DATE OF EXAM: 10/22/2018 The patient was seen and examined at the bedside, 10/22/2018. CHIEF COMPLAINT: Coughing and shortness of breath. HISTORY OF PRESENT ILLNESS: Ms. Jesusita Pascual is a 68-year-old female with past medical history of hypertension, COPD, diabetes mellitus, hepatitis C, substance abuse, and came to the emergency department complaining of coughing. The patient states that she has been experiencing persistent cough since she was last admitted to the hospital on 09/29/2018. The patient reports associated chest pain after coughing. The patient states that she was placed on antibiotic and steroids, but denies any significant relief. The patient denies any fever or chills. No hematuria. No hematochezia. No headache. No dizziness. PAST MEDICAL HISTORY: Hypertension, COPD, diabetes mellitus, hepatitis C, arthritis, former heroin abuse finished methadone treatment, and history of tonsillectomy. FAMILY HISTORY: Father and mother noncontributory. HABITS: Smoking less than 10 cigarettes a day. Alcohol; 2 mini shots daily. SUBSTANCE ABUSE: Former heroin, finished methadone treatment, now not actually using any substance. ALLERGIES: THE PATIENT IS NOT ALLERGIC WITH ANY MEDICATIONS. HOME MEDICATIONS: Amlodipine and albuterol. REVIEW OF SYSTEMS: The patient was seen and examined at the bedside, looking comfortable. Still coughing and shortness of breath and chest pain with coughing. No fever. No chills. No hematuria. No hematochezia. No headache. No dizziness. PHYSICAL EXAMINATION: VITAL SIGNS: Temperature 99.2, pulse 91, respiratory rate 18, blood pressure 148/88, and pulse oximetry 100. HEENT: Head is normocephalic and atraumatic. Eyes; PERRLA. Extraocular muscles intact. Conjunctivae clear. Nose patent. Mucous membranes moist. NECK: Supple. No carotid bruits, JVD,or thyromegaly. CHEST: Bilaterally symmetrical. HEART: S1 and S2 positive. LUNGS: Positive wheezing bilaterally. ABDOMEN: Soft. Bowel sounds present. No organomegaly. EXTREMITIES: No edema. No cyanosis. NEUROLOGIC: The patient is awake and alert. Moving all four extremities. No focal deficits. MEDICATIONS: Tylenol, DuoNeb, Norvasc, Tessalon Perles, Pepcid, gabapentin, insulin, Claritin, Glucophage, Solu-Medrol, Singulair, and Spiriva. ASSESSMENT AND PLAN: Ms. Carlos Pascual is a 68-year-old lady with history of smoking, substance abuse, chronic obstructive pulmonary disease, came with exacerbation of chronic obstructive pulmonary disease, hypertension, lumbar radiculopathy, and diabetes mellitus. The patient admitted and steroids given. Pulmonary consult called. Continue inhaled bronchodilators. Gastric and deep venous thrombosis prophylaxes. Continue steroids and doxycycline for sinusitis. Lovenox for deep venous thrombosis prophylaxis. Dr. Epperson's nurse practitioner ordered Nicoderm patch for smoking, urged to quit smoking. Discussion done. We will follow up. Denice Montanez MD MTDD
[2018-10-23] MEDS: Albuterol-Ipratrop 3 mg / 0.5 (3 ml) UD IH SCH ×4 (01:41→20:27)
[2018-10-23 07:17] LABS: HEMOGLOBIN 11.8 g/dL (12.0-16.0); MEAN CELL VOLUME 85.7 fl (80.0-105.0); MEAN CORPUSCULAR HEMOGLOBIN 27.3 pg (25.0-35.0); MEAN CORPUSCULAR HGB CONC 31.8 g/dl (31.0-37.0); RBC 4.33 10^6/uL (3.5-6.1); RED CELL DISTRIBUTION WIDTH 15.2 % (11.5-14.5)
[2018-10-23 07:32] LABS: IRON 38 ug/dL (45-180)
[2018-10-23 07:35] LABS: BLOOD UREA NITROGEN 12 mg/dL (7-21); CALCIUM 8.9 mg/dL (8.4-10.5); GFR NON-AFRICAN AMERICAN > 60; HDL CHOLESTEROL 64 mg/dL (29-60)
[2018-10-23 07:40] LABS: LDL CHOLESTEROL 55 mg/dL (0-129)
[2018-10-23 07:41] LABS: % IRON SATURATION 10 % (20-55); TOTAL IRON BINDING CAPACITY 385 ug/dL (265-497)
[2018-10-23] MEDS: Insulin Reg-LOW-Coverage SC SCH ×4 (08:41→21:28)
[2018-10-23] MEDS: MethylPREDNISolone 40 mg Vial IVP SCH ×2 (09:32→21:32)
[2018-10-23] MEDS: Tiotropium 18 mcg Cap For Inhalation IH SCH (09:33)
[2018-10-23] MEDS: Enoxaparin 40 mg Syringe SC SCH (09:34)
--- NOTE | 2018-10-23 11:31 | PN ---
DATE: 10/23/2018 PULMONARY PROGRESS NOTE REFERRING PHYSICIAN: Denice Montanez MD SUBJECTIVE: The patient is seen, sitting up in bed. No acute distress. No overnight events reported. The patient reports that she feels better this morning. Still having coughing. Reports shortness of breath is better. No headache, rhinitis, chest pain, abdominal pain, nausea, vomiting, diarrhea, leg pain or leg swelling reported. OBJECTIVE: GENERAL: No acute distress. VITAL SIGNS: Blood pressure 125/87, pulse 80, temperature 98.2 and oxygen saturation 99% on room air. HEENT: Moist mucous membranes. Crowded airway. NECK: Supple. No JVD. LUNGS: Fair airflow bilaterally. CARDIOVASCULAR: S1 and S2. ABDOMEN: Soft and nontender. No distention. No organomegaly. EXTREMITIES: No bilateral lower extremity edema. NEUROLOGIC: Awake, alert and verbal. Following commands. MEDICATIONS: Reviewed. Tylenol 650 mg every 4 hours p.r.n. for mild pain, Tylenol 650 mg every 4 hours p.r.n. for fever, DuoNeb 3 mL inhalation every 4 hours p.r.n., DuoNeb 3 mL inhalation every 6 hours, Norvasc 10 mg daily, Tessalon-Perles 100 mg 3 times a day p.r.n., doxycycline 100 mg every 12 hours, Lovenox 40 mg daily, Pepcid 40 mg at bedtime, Neurontin 300 mg 3 times a day, Humulin R sliding scale a.c. and at bedtime, Claritin 10 mg p.o. daily, metformin 500 mg twice a day, Solu-Medrol 40 mg every 12 hours, Singulair 10 mg at bedtime, nicotine patch transdermal daily and Spiriva 18 mcg inhalation daily. LABORATORY DATA: Reviewed. WBC 11, RBC 4.33, hemoglobin 11.8, hematocrit 37.1 and platelets 189. Sodium 138, potassium 4.0, chloride 105, carbon dioxide 26, anion gap 11, BUN 12, creatinine 0.6, GFR is greater than 60, random glucose 299 and calcium 8.9. Iron 38, TIBC 385 and percent saturation 10. Triglyceride 47, cholesterol 158, LDL cholesterol direct 55 and HDL cholesterol 64. TSH 0.21. Blood cultures preliminary no growth up to 24-hours. IMPRESSION AND PLAN: Chronic obstructive lung disease exacerbation, degenerative joint disease, hypertension, lumbar radiculopathy, diabetes mellitus, history of smoking and substance abuse. Continue inhaled bronchodilators, gastric prophylaxis, deep venous thrombosis prophylaxis and smoking cessation. Continue current dosing of steroids, we will reevaluate in the morning. Fall precaution. Continue antibiotic therapy, sinusitis. We recommend this patient have full pulmonary function test and sleep study as outpatient. This patient was seen and examined with Dr. Epperson. Discussed assessment and plan as described above. This patient was seen and examined with Zach Weathers, nurse practitioner. Discussed assessment and plan as described above. Thank you for this consult and we will follow with you. Zach Weathers APN Renato Epperson MD
[2018-10-23 14:17] LABS: FOLATE 8.4 ng/mL
--- NOTE | 2018-10-23 20:16 | PN ---
DATE: 10/23/2018 SUBJECTIVE: The patient was seen and examined in her room. The patient looking comfortable. No fever. No chills. Still coughing, having shortness of breath. No hematuria or hematochezia. No headache or dizziness. No chest pain. No palpitations. Asking cough medication. Control Specialist is on the case. PHYSICAL EXAMINATION: VITAL SIGNS: Temperature 99.1, pulse 88, blood pressure 135/85, respiratory rate 20. HEENT: Head is normocephalic and atraumatic. Eyes; PERRLA. Extraocular muscles are intact. Conjunctivae clear. Nose patent. Mucous membranes are moist. NECK: Supple. No carotid bruit. No JVD or thyromegaly. CHEST: Bilaterally symmetrical. HEART: S1 and S2 positive. LUNGS: Positive wheezing bilaterally. ABDOMEN: Soft. Bowel sounds positive. No organomegaly. EXTREMITIES: No edema. No cyanosis. NEUROLOGIC: The patient is awake, alert. Follows simple commands. MEDICATIONS: Claritin, doxycycline, albuterol, DuoNeb, Glucophage, insulin on sliding scale with new algorithm and Lovenox for DVT prophylaxis, Neurontin, Nicoderm patch, Norvasc, Pepcid, Singulair, tapering dose of steroids, Spiriva, Tessalon Perles, Tylenol. LABORATORY DATA: White blood cell is 11, hemoglobin 11.8, hematocrit 37.1, platelets 189. Sodium 138, potassium 4, BUN 12, creatinine 0.2, glucose 299, hemoglobin A1c 7.7, magnesium 1.4, iron 38. ASSESSMENT AND PLAN: Ms. Jesusita Pascual is a 68-year-old lady with anemia, history of hypokalemia replaced, hyperglycemia, uncontrolled diabetes mellitus, hemoglobin A1c 7.7, hypomagnesemia, iron deficiency, rule out hyperthyroidism. Came with exacerbation of chronic obstructive pulmonary disease and asthma, getting tapering dose of steroids, degenerative joint disease, hypertension, lumbar radiculopathy, history of smoking, urging to quit, put on Nicoderm patch, history of substance abuse. We will continue inhaled bronchodilators. Gastrointestinal and deep venous thrombosis prophylaxis given. Control Specialist is on the case. Fall precautions. Promised we will give her some cough medication. We will repeat labs. We will follow up. Denice Montanez MD [facility] # [id number]
[2018-10-24] MEDS: Albuterol-Ipratrop 3 mg / 0.5 (3 ml) UD IH SCH ×4 (04:28→19:23)
[2018-10-24] MEDS: Insulin Reg-LOW-Coverage SC SCH ×5 (08:05→23:31)
[2018-10-24] MEDS: Enoxaparin 40 mg Syringe SC SCH (10:13)
[2018-10-24] MEDS: MethylPREDNISolone 40 mg Vial IVP SCH ×2 (10:14→21:03)
[2018-10-24] MEDS: Tiotropium 18 mcg Cap For Inhalation IH SCH (10:14)
--- NOTE | 2018-10-24 12:43 | PN ---
DATE: 10/24/2018 PULMONARY PROGRESS NOTE REFERRING PHYSICIAN: Denice Montanez MD SUBJECTIVE: The patient is seen sitting up at bedside. No acute distress. No overnight events reported. The patient reports that shortness of breath is better. She is still has nonproductive cough, but that has improved as well. No headache, rhinitis, chest pain, abdominal pain, nausea, vomiting, diarrhea, leg pain, or leg swelling reported. OBJECTIVE: GENERAL: No acute distress. VITAL SIGNS: Blood pressure 129/80, pulse 87, temperature 98.3, and oxygen saturation 98% on nasal cannula. HEENT: Moist mucous membranes. Crowded airway. NECK: Supple. No JVD. LUNGS: Fair airflow bilaterally. Few rhonchi. CARDIOVASCULAR: S1 and S2. ABDOMEN: Soft and nontender. No distention. No organomegaly. EXTREMITIES: No bilateral lower extremity edema. NEUROLOGIC: Awake, alert, and verbal. Follows commands. MEDICATIONS: Reviewed. Tylenol 650 mg every 4 hours p.r.n. for mild pain, Tylenol 650 mg every 4 hours p.r.n., DuoNeb 3 mL inhalation every 4 hours p.r.n., DuoNeb 3 mL inhalation every 6 hours, Norvasc 10 mg daily, Tessalon-Perles 100 mg 3 times a day p.r.n., doxycycline 100 mg every 12 hours, Lovenox 40 mg subcutaneously daily, Pepcid 40 mg at bedtime, Neurontin 300 mg 3 times a day, Humulin R sliding scale a.c. and at bedtime, Claritin 10 mg daily, metformin 500 mg twice a day, Solu-Medrol 40 mg every 12 hours, Singulair 10 mg at bedtime, nicotine patch transdermal daily and Spiriva 18 mcg inhalation daily. LABORATORY DATA: Reviewed. Iron 38, TIBC 385 and percent saturation 10. Vitamin B12 of 627 and folate 8.4. Blood cultures preliminary no growth after 48-hours. IMPRESSION AND PLAN: Chronic obstructive lung disease exacerbation, degenerative joint disease, hypertension, lumbar radiculopathy, diabetes mellitus, history of smoking and substance abuse. Continue inhaled bronchodilators, gastric prophylaxis, deep venous thrombosis prophylaxis, continue smoking cessation. We will decrease Solu-Medrol to 20 mg every 12 hours, if the patient is discharged home she may go home on Medrol dosepak. The patient should continue 3 more days of doxycycline antibiotics. We will order ferritin levels to be done in the morning. Fall precautions. We recommended the patient has full pulmonary function test and sleep study as outpatient. We will change Tessalon Perles from as needed to routine for cough. This patient was seen and examined with Dr. Epperosn. Discussed assessment and plan as described above. This patient was seen and examined with Zach Weathers, nurse practitioner. Discussed assessment and plan as described above. Thank you for this consult and we will follow with you. Zach Weathers APN Renato Epperson MD JENNIFER
--- NOTE | 2018-10-25 01:09 | PN ---
DATE: 10/24/2018 SUBJECTIVE: The patient was seen and examined at the bedside on 10/24/2018. The patient was seen in her room, looking comfortable. No fever. No chills. No hematuria or hematochezia. No headache. No dizziness. No chest pain. No palpitation. No rhinitis. No swelling of the leg. Still coughing. PHYSICAL EXAMINATION: VITAL SIGNS: Blood pressure 129/80, pulse 87, temperature 98.3, oxygen saturation 98% on nasal cannula. HEENT: Head; normocephalic and atraumatic. Eyes; PERRLA. Extraocular muscles are intact. Conjunctivae are clear. Nose patent. Mucous membranes moist. NECK: Supple. No carotid bruits. No JVD or thyromegaly. LUNGS: Fair airflow bilaterally. Few rhonchi. HEART: S1, S2 positive. ABDOMEN: Soft. Bowel sounds present. No organomegaly. EXTREMITIES: No edema. No cyanosis. NEUROLOGIC: The patient is awake and alert. Moving all four extremities. No focal deficit. MEDICATIONS: Tylenol, DuoNeb, Tessalon Perles, doxycycline, Lovenox, Pepcid, Neurontin, insulin, Claritin, metformin, Solu-Medrol, nicotine patch transdermal, Spiriva. LABORATORY DATA: Iron 38, TIBC 385, saturation of iron 10%, B12 of 627. Blood culture, preliminary, no growth. ASSESSMENT AND PLAN: Ms. Jesusita Pascual is a 68-year-old lady with chronic obstructive lung disease, came with chronic obstructive pulmonary disease exacerbation, degenerative joint disease, hypertension, lumbar radiculopathy, obstructive sleep apnea, insomnia, diabetes mellitus, history of smoking and substance abuse. Continue inhaled bronchodilators. Gastric prophylaxis. Deep venous thrombosis prophylaxis. Urged to quit smoking. Getting Solu-Medrol tapering dose. Continue three more days of doxycycline. Gastrointestinal and deep venous thrombosis prophylaxis. Repeat labs. We will follow up. Denice Montanez MD
[2018-10-25] MEDS: Albuterol-Ipratrop 3 mg / 0.5 (3 ml) UD IH SCH ×4 (01:22→21:00)
[2018-10-25] MEDS: Insulin Reg-LOW-Coverage SC SCH ×4 (08:01→21:44)
[2018-10-25] MEDS: Tiotropium 18 mcg Cap For Inhalation IH SCH (10:23)
[2018-10-25] MEDS: Enoxaparin 40 mg Syringe SC SCH (10:24)
[2018-10-25] MEDS: MethylPREDNISolone 40 mg Vial IVP SCH ×2 (10:29→21:01)
--- NOTE | 2018-10-25 11:13 | PN ---
DATE: 10/25/2018 The patient was seen and examined at the bedside on 10/25/2018. SUBJECTIVE: Still coughing, having shortness of breath, but little bit better, looks like fatigue and tired. I want to do some physical therapy. I put TCU evaluation. No fever. No chills. No hematuria. No hematochezia. No headache or dizziness. PHYSICAL EXAMINATION: VITAL SIGNS: Temperature 97.8, pulse 91, blood pressure 149/91, and respiratory rate 19. HEENT: Head is normocephalic and atraumatic. Eyes; PERRLA. Extraocular muscles are intact. Conjunctivae clear. Nose patent. Mucous membranes are moist. NECK: Supple. No carotid bruit. No JVD or thyromegaly. CHEST: Bilaterally symmetrical. HEART: S1 and S2 positive. LUNGS: Clear to auscultation. ABDOMEN: Soft. Bowel sounds present. No organomegaly. EXTREMITIES: No edema. No cyanosis. NEUROLOGIC: The patient is awake, alert, and moving all four extremities. No focal deficits. MEDICATIONS: Claritin, doxycycline, DuoNeb, metformin, insulin, Lovenox, Neurontin, Nicoderm patch, Norvasc, Pepcid, Singulair, Solu-Medrol, Spiriva, Tessalon Perles, and Tylenol. LABORATORY DATA: White blood cells 11.0, hemoglobin 11.8, hematocrit 37.1, and platelets 189. Sodium 138, potassium 4.0, BUN 12, creatinine 0.6, glucose 212, and hemoglobin A1c 7.7. ASSESSMENT AND PLAN: Ms. Jesusita Pascual is 68-year-old lady with history of hypokalemia, improved; hyperglycemia; uncontrolled diabetes mellitus; hemoglobin A1c 7.7; hypomagnesemia, replaced; iron deficiency; anemia; came with exacerbation of chronic obstructive pulmonary disease; asthma; deconditioned, got Solu-Medrol tapering dose; degenerative joint disease; hypertension; lumbar radiculopathy; obstructive sleep apnea syndrome; insomnia; history of smoking and substance abuse, urged to quit smoking. Continue bronchodilators, gastric and deep venous thrombosis prophylaxis, getting tapering dose of Solu-Medrol, waiting for TCU evaluation. Repeat labs. We will follow up. Denice Montanez MD [facility] # [id number]
[2018-10-25] MEDS ORDERED: Iron Sucrose 100 mg/5 ml Inj IVP SCH (16:00)
--- NOTE | 2018-10-25 20:04 | PN ---
DATE: 10/25/2018 PULMONARY PROGRESS NOTE REFERRING PHYSICIAN: Denice Montanez MD SUBJECTIVE: She is lying in the bed, sleepy, arousable. Night was unremarkable. Feels better, still has a cough, shortness of breath, sputum production. No nausea, no diarrhea, leg pain or leg swelling. PHYSICAL EXAMINATION: GENERAL: No acute distress. VITAL SIGNS: Temperature is 98, heart rate is 94, respiratory rate is 18, blood pressure 125/85, pulse ox 99% room air. HEENT: Moist mucous membrane. No ulcer or thrush. NECK: Supple. No JVD. LUNGS: Have a prolonged expiratory phase with few rhonchi and wheezing. HEART: S1 and S2. ABDOMEN: Soft, nontender. No organomegaly. EXTREMITIES: No edema. NEUROLOGIC: Awake, alert, follows simple command. LABORATORY DATA: Shows ferritin level being 21. Iron was 38. Microbiology, blood culture is negative. MEDICATIONS: She is on Claritin 10 mg daily, doxycycline 100 mg twice a day, DuoNeb every 4 hours p.r.n., also getting metformin 500 mg twice a day, insulin coverage, Lovenox 40 mg daily, gabapentin 300 mg three times a day, Nicoderm patch daily, Norvasc 10 mg daily, Pepcid 40 mg daily, Singulair 10 mg daily, Solu-Medrol 20 mg every 12 hours, Spiriva inhaler twice a day, Tessalon Perles 100 mg three times a day, Tylenol p.r.n. basis. IMPRESSION AND PLAN: Chronic obstructive lung disease, hypertension, lumbar radiculopathy, diabetes, history of smoking, degenerative joint disease, iron-deficiency anemia. We will send stool for clot blood. The patient was asked to stop smoking. Will need GI workup as outpatient upon discharge. We will give her one or two doses of intravenous iron for now, outpatient PFT. Thank you and we will follow with you. Renato Epperson MD
[2018-10-26] MEDS: Albuterol-Ipratrop 3 mg / 0.5 (3 ml) UD IH SCH ×4 (02:50→19:26)
[2018-10-26] MEDS: Insulin Reg-LOW-Coverage SC SCH ×4 (08:23→22:04)
--- NOTE | 2018-10-26 08:23 | PN ---
DATE: 10/26/2018 PULMONARY PROGRESS NOTE REFERRING PHYSICIAN: Denice Montanez MD SUBJECTIVE: The patient is seen sitting up at bedside. No acute distress. No overnight events reported. Still has some coughing. No shortness of breath. No headache, rhinitis, chest pain, abdominal pain, nausea, vomiting, diarrhea, leg pain, or leg swelling reported. OBJECTIVE: VITAL SIGNS: Blood pressure 137/89, pulse 100, temperature 97.6, and oxygen saturation 98% on room air. GENERAL: No acute distress. HEENT: Moist mucous membranes. NECK: Supple. No JVD. LUNGS: Few scattered rhonchi. CARDIOVASCULAR: S1 and S2. ABDOMEN: Soft and nontender. No distention. No organomegaly. EXTREMITIES: No bilateral lower extremity edema. NEUROLOGIC: Awake, alert, and verbal. Follows commands. MEDICATIONS: Reviewed. Tylenol 650 mg every 4 hours p.r.n. for mild pain, Tylenol 650 mg every 4 hours p.r.n. fever, DuoNeb 3 mL every 4 hours p.r.n., DuoNeb 3 mL inhalation every 6 hours, Norvasc 10 mg daily, Tessalon-Perles 100 mg 3 times a day, doxycycline 100 mg every 12 hours, Lovenox 40 mg subcutaneously daily, Pepcid 40 mg at bedtime, Neurontin 300 mg 3 times a day, Humulin R sliding scale before meals and at bedtime, iron sucrose 200 mg daily, Claritin 10 mg daily, metformin 500 mg twice a day, Solu-Medrol 20 mg IV push every 12 hours, Singulair 10 mg at bedtime, nicotine patch transdermal daily, and Spiriva 18 mcg daily. LABORATORY DATA: Reviewed. Ferritin 21.4. Blood cultures, no growth after 4 days. IMPRESSION AND PLAN: Chronic obstructive lung disease, hypertension, lumbar radiculopathy, history of smoking, diabetes mellitus, degenerative joint disease, iron deficiency anemia. Stool for occult blood still pending to be collected. Smoking cessation. We will need gastrointestinal workup as outpatient upon discharge. Continue inhaled bronchodilators, gastric prophylaxis, deep venous thrombosis prophylaxis. We recommend the patient have full pulmonary function test as outpatient. Fall precautions. This patient was seen and examined with Dr. Epperson. Discussed assessment and plan as described above. This patient was seen and examined with Zach Weathers APN, nurse practitioner. Discussed assessment and plan as described above. Thank you for this consult, and we will follow with you. Zach Weathers APN Renato Epperson MD
[2018-10-26] MEDS: MethylPREDNISolone 40 mg Vial IVP SCH ×2 (10:43→22:04)
[2018-10-26] MEDS: Tiotropium 18 mcg Cap For Inhalation IH SCH (10:43)
[2018-10-26] MEDS: Enoxaparin 40 mg Syringe SC SCH (10:45)
[2018-10-27] MEDS: Albuterol-Ipratrop 3 mg / 0.5 (3 ml) UD IH SCH ×4 (01:41→19:07)
[2018-10-27 06:22] VITALS: O2SAT 95
[2018-10-27] MEDS: Insulin Reg-LOW-Coverage SC SCH ×3 (07:57→17:29)
[2018-10-27] MEDS: Tiotropium 18 mcg Cap For Inhalation IH SCH (09:23)
[2018-10-27] MEDS: Enoxaparin 40 mg Syringe SC SCH (09:24)
[2018-10-27] MEDS: MethylPREDNISolone 40 mg Vial IVP SCH (09:25)
--- NOTE | 2018-10-27 09:32 | PN ---
DATE: 10/26/2018 SUBJECTIVE: The patient is seen and examined at the bedside on 10/26/2018. Still coughing, but is better. Shortness of breath is better. As per her, her glucose is going up. No fever, no chills, no hematuria, no hematochezia, no headache or dizziness, no chest pain or palpitations. PHYSICAL EXAMINATION: VITAL SIGNS: Blood pressure 137/89, pulse 100, temperature 97.7, oxygen saturation 98%. HEENT: Head: Normocephalic, atraumatic. Eyes: PERRLA. Extraocular muscles intact. Conjunctivae clear. Nose patent. NECK: Supple. No carotid bruit. No JVD or thyromegaly. CHEST: Bilaterally symmetrical. HEART: S1 and S2, positive. LUNGS: Clear to auscultation. ABDOMEN: Soft. Bowel sounds present. No organomegaly. EXTREMITIES: No edema. No cyanosis. NEUROLOGICAL: The patient is awake and alert, moving all four extremities. No focal deficits. MEDICATIONS: Tylenol, DuoNeb, Norvasc, Tessalon Perles, doxycycline, Lovenox, Pepcid, Neurontin, insulin, Claritin, metformin, Solu-Medrol, Singulair, nicotine patch. LABORATORY DATA: We do not have recent labs today but I reviewed old labs. ASSESSMENT AND PLAN: The patient is a 58-year-old lady with history of chronic obstructive pulmonary disease, hypertension, lumbar radiculopathy, history of smoking, diabetes mellitus, degenerative joint disease, iron deficiency anemia, came in with exacerbation of chronic obstructive pulmonary disease. Urged her to quit smoking. Continue bronchodilators. Carton Wrapper is on the case. Gastrointestinal and deep venous thrombosis prophylaxis, out of bed, physical therapy, getting a tapering dose of steroids. Will follow up. Denice Montanez MD MTDD
--- NOTE | 2018-10-27 14:48 | PN ---
DATE: 10/27/2018 PULMONARY PROGRESS NOTE REFERRING PHYSICIAN: Denice Montanez MD SUBJECTIVE: The patient is seen sitting up in bed. No acute distress. No overnight events reported. Reports that cough and shortness of breath are better. No headache, rhinitis, chest pain, abdominal pain, nausea, vomiting, diarrhea, leg pain or leg swelling reported. OBJECTIVE: VITAL SIGNS: Blood pressure 132/88, pulse 103, temperature 97.7 and oxygen saturation 95% on room air. GENERAL: No acute distress. HEENT: Moist mucous membranes. Crowded airway. Mallampati score of 4. NECK: Supple. No JVD. LUNGS: Fair airflow bilaterally. CARDIOVASCULAR: S1 and S2. ABDOMEN: Soft and nontender. No distention. No organomegaly. EXTREMITIES: No bilateral lower extremity edema. NEUROLOGIC: Awake, alert and verbal. Follows commands. MEDICATIONS: Reviewed. Tylenol 650 mg every 4 hours p.r.n., Tylenol 650 mg every 4 hours p.r.n. fever, DuoNeb 3 mL inhalation every 4 hours p.r.n., DuoNeb 3 mL inhalation every 6 hours, Norvasc 10 mg daily, Tessalon-Perles 100 mg 3 times a day, Lovenox 40 mg subcutaneous daily, Pepcid 40 mg at bedtime, Neurontin 300 mg 3 times a day, Humulin R sliding scale a.c. and at bedtime, iron sucrose 200 mg daily, IV Claritin 10 mg daily, metformin 500 mg twice a day, Solu-Medrol 20 mg every 12 hours, Singulair 10 mg at bedtime, nicotine patch transdermal daily and Spiriva 18 mcg inhalation daily. LABORATORY DATA: Reviewed. Blood cultures, final no growth after 5 days. IMPRESSION AND PLAN: Chronic obstructive lung disease, hypertension, lumbar radiculopathy, history of smoking, diabetes mellitus, degenerative joint disease and iron deficiency anemia. We recommend gastrointestinal workup as outpatient. Recommend continue smoking cessation. Discussed with patient. We will discontinue doxycycline. We recommend the patient go home on Medrol Dosepak. We recommend this patient have full pulmonary function test and sleep study as outpatient. Fall precautions. This patient was seen and examined with Dr. Epperson. Discussed assessment and plan as described above. This patient was seen and examined with Zach Weathers, nurse practitioner. Discussed assessment and plan as described above. Thank you for this consult, and we will follow with you. Zach Weathers APN Renato Epperson MD
[2018-10-27 19:08] VITALS: BP 137/94; PULSE 101; RESP 18; TEMP 98.8
--- NOTE | 2018-10-27 21:58 | DS ---
The patient was seen and examined at bedside on 10/27/2018. CHIEF COMPLAINT: Coughing with shortness of breath. HISTORY OF PRESENT ILLNESS: Ms. Jesusita Pascual is a 68-year-old female with past medical history of COPD, asthma, came with hypertension, COPD, diabetes mellitus, hepatitis C, substance abuse, came to the emergency department complaining of coughing. The patient states that she has been persistent cough. She has last admission couple of days ago, now we admitted the patient. Chest x-ray done, seen by safety engineer critical care, tapering dose of steroid given, antibiotics given, and the patient improved. Discharged home 10/27/2018. Meds provided at the bedside. We will follow up with safety engineer and primary care physician. PAST MEDICAL HISTORY: Hypertension, COPD, diabetes mellitus, hepatitis C, arthritis, former heroin abuse, finished methadone treatment, and history of tonsillectomy. FAMILY HISTORY: Father and mother noncontributory. HABITS: Smoking less than 10 cigarettes per day. Alcohol, 2 mini shots daily. Substance abuse, refusing now. ALLERGIES: THE PATIENT IS NOT ALLERGIC WITH ANY MEDICATIONS. HOME MEDICATIONS: Reviewed by me. REVIEW OF SYSTEMS: The patient was seen and examined at the bedside, looking comfortable. No fever. No chills. No hematuria. No hematochezia. No headache. No dizziness. No chest pain. No palpitations. PHYSICAL EXAMINATION: VITAL SIGNS: Blood pressure 130/88, pulse 103, temperature 97.7, and oxygen saturation 95% on room air. HEENT: Head is normocephalic and atraumatic. Eyes; PERRLA. Extraocular muscles intact. Conjunctivae clear. Nose patent. Mucous membranes moist. NECK: Supple. No carotid bruits. No JVD. No thyromegaly. CHEST: Bilaterally symmetrical. HEART: S1 and S2 positive. LUNGS: Clear to auscultation. ABDOMEN: Soft and nontender. No organomegaly. EXTREMITIES: No edema. No cyanosis. NEUROLOGIC: The patient is awake, alert, and follow simple commands. MEDICATIONS: Tylenol, Norvasc, Tessalon Perles, Pepcid, Neurontin, iron, Claritin, metformin she was taking 500 twice a day, Medrol Dosepak, and Singulair. LABORATORY DATA: We do not have recent labs today, but I reviewed old labs. ASSESSMENT AND PLAN: Ms. Jesusita Pascual is a 68-year-old lady with chronic obstructive lung disease, hypertension, lumbar radiculopathy, history of smoking, diabetes mellitus, substance abuse, now quit, degenerative joint disease, and iron deficiency anemia. Responded to gastrointestinal workup as outpatient. Urged to quit smoking. Urged to quit drinking. Discussion done with the patient. Meds provided on the bedside. The patient discharged home with follow primary care physician and safety engineer. Denice Montanez MD MTDD
== END 2018-10-27 20:00 | disposition home health service (06) | DRG 88 ==
LOC: ED 20:59 → ERH 23:47 → 2RNO 10-22 02:14 → OBSVTOIN 10-23 12:31 → 2RNO 10-24 13:11
PROVIDERS: ADMIT Internal Medicine; ATTEND Internal Medicine
DX: J44.1 Chronic obstructive pulmonary disease with (acute) exacerbation (principal); J45.901 Unspecified asthma with (acute) exacerbation; E11.65 Type 2 diabetes mellitus with hyperglycemia; E87.6 Hypokalemia; E83.42 Hypomagnesemia; D50.9 Iron deficiency anemia, unspecified; I10 Essential (primary) hypertension; F17.210 Nicotine dependence, cigarettes, uncomplicated; M54.16 Radiculopathy, lumbar region; G47.33 Obstructive sleep apnea (adult) (pediatric); M19.90 Unspecified osteoarthritis, unspecified site; G47.00 Insomnia, unspecified; Z79.84 Long term (current) use of oral hypoglycemic drugs; Z86.19 Personal history of other infectious and parasitic diseases

== ENCOUNTER 2018-11-07 15:51 | Inpatient (IN) | payer MEDICARE, OTHER ==
[2018-11-07 15:52] VITALS: BMI 21.2
--- NOTE | 2018-11-07 16:39 | ED PDOC ---
Arrival/HPI - General Chief Complaint: GI Problem Time Seen by Provider: 11/07/18 15:56 Historian: Patient - History of Present Illness Narrative History of Present Illness (Text): 11/07/18 16:25 68 y/o female, pmh including htn/dm/copd/chf/compression fracture of T12L3/avascular necrosis on bilateral hip, nkda, c/o chronic lower back pain and nausea/vomiting x 3 days. Pt. stated that she has chronic lower back pain for months, been having nausea/vomiting x 3 days, no abdominal pain, no night sweat, no rash, no night sweat, no chest pain or palpitation, no night sweat, no dizziness, no change in vision, no flank pain, no other medical or psychological complaints. Past Medical History - Provider Review Nursing Documentation Reviewed: Yes - Infectious Disease Hx of Infectious Diseases: None - Cardiac Hx Cardiac Disorders: Yes Hx Hypertension: Yes - Pulmonary Hx Chronic Obstructive Pulmonary Disease (COPD): Yes - Neurological Hx Neurological Disorder: No - HEENT Hx HEENT Disorder: No - Renal Hx Renal Disorder: No - Endocrine/Metabolic Hx Diabetes Mellitus Type 2: Yes - Hematological/Oncological Hx Blood Disorders: Yes Hx Hepatitis C: Yes - Integumentary Hx Dermatological Disorder: No - Musculoskeletal/Rheumatological Hx Arthritis: Yes - Gastrointestinal Hx Gastrointestinal Disorders: No - Genitourinary/Gynecological Hx Genitourinary Disorders: Yes - Psychiatric Hx Psychophysiologic Disorder: No Hx Substance Use: Yes (former heroin; finished methadone tx) - Surgical History Hx Tonsillectomy: Yes - Anesthesia Hx Anesthesia: Yes Hx Anesthesia Reactions: No Hx Malignant Hyperthermia: No Family/Social History - Physician Review Nursing Documentation Reviewed: Yes Family/Social History: Unknown Family HX Smoking Status: Light Smoker < 10 Cigarettes Daily Hx Alcohol Use: Yes (2 mini shots daily) Hx Substance Use: Yes (former heroin; finished methadone tx) Substance used: completed methadone program Allergies/Home Meds Allergies/Adverse Reactions: Allergies No Known Allergies Allergy (Verified 10/15/18 14:53) Home Medications: Home Meds Medication Instructions Recorded Confirmed amLODIPine [Norvasc] 10 mg PO DAILY 08/07/18 10/22/18 Albuterol HFA [Ventolin HFA 90 2 puff IH QID PRN 10/22/18 10/22/18 mcg/actuation (8 g)] Review of Systems - Review of Systems Constitutional: absent: Fatigue, Fevers Eyes: absent: Vision Changes ENT: absent: Hearing Changes Respiratory: absent: SOB, Cough Cardiovascular: absent: Chest Pain Gastrointestinal: Nausea, Vomiting. absent: Abdominal Pain, Diarrhea Genitourinary Female: absent: Dysuria Musculoskeletal: Back Pain. absent: Arthralgias, Neck Pain, Joint Swelling, Myalgias Skin: absent: Rash, Pruritis Neurological: absent: Headache, Dizziness Psychiatric: absent: Anxiety, Depression, Suicidal Ideation Physical Exam Vital Signs Reviewed: Yes Vital Signs Temp Pulse Resp BP Pulse Ox 11/07/18 16:06 98.5 F 105 H 18 120/70 100 Temperature: Afebrile Blood Pressure: Normal Pulse: Tachycardic Respiratory Rate: Normal Appearance: Positive for: Well-Appearing, Non-Toxic, Comfortable Pain Distress: Moderate Mental Status: Positive for: Alert and Oriented X 3 - Systems Exam Head: Present: Atraumatic, Normocephalic Pupils: Present: PERRL Extroacular Muscles: Present: EOMI Conjunctiva: Present: Normal Mouth: Present: Moist Mucous Membranes Nose (External): Present: Atraumatic. No: Abrasion, Contusion, Laceration Nose (Internal): Present: Normal Inspection, No Active Bleeding. No: Rhinorrhea, Septal Hematoma, Epistaxis Neck: Present: Normal Range of Motion, Trachea Midline. No: Meningeal Signs, MIDLINE TENDERNESS, Paraspinal Tenderness, Lymphadenopathy Respiratory/Chest: Present: Clear to Auscultation, Good Air Exchange. No: Respiratory Distress, Accessory Muscle Use Cardiovascular: Present: Regular Rate and Rhythm, Normal S1, S2. No: Murmurs Abdomen: No: Tenderness, Distention, Peritoneal Signs, Rebound, Guarding Back: Present: Normal Inspection. No: CVA Tenderness, Midline Tenderness, Paraspinal Tenderness, Pain with Leg Raise, Decubitus Ulcer Upper Extremity: Present: Normal Inspection, Normal ROM, NORMAL PULSES, Neurovascularly Intact, Capillary Refill < 2s. No: Cyanosis, Edema, Deformity Lower Extremity: Present: Normal Inspection, NORMAL PULSES, Normal ROM, Neurovascularly Intact, Capillary Refill < 2 s. No: Edema, Deformity Neurological: Present: GCS=15, CN II-XII Intact, Speech Normal, Motor Func Grossly Intact, Normal Cerebellar Funct, Gait Normal, Memory Normal Skin: Present: Warm, Dry, Normal Color. No: Rashes Psychiatric: Present: Alert, Oriented x 3, Normal Insight, Normal Concentration Medical Decision Making ED Course and Treatment: 11/07/18 16:44 -Labs -CT abdomen and pelvis -Chest xray -IV morphine/zofran -Observe and reassess 11/07/18 19:28 -Chest xray ER wet read: no active disease -CT abdomen and pelvis No acute abnormality. Severe osteoarthritis of both hips with small bilateral joint effusions. Mild dilatation of common bile duct without associated intrahepatic biliary dilatation. Additional minor findings as above -Labs are nonsignificant except K+ 3.5 (mildly low, potassium chloride 20meq po ordered), Mg 1.5 (MgSul 2gm IV ordered) -Trop is negative -UA show mild ketone, fluid ordered, no UTI -Pt. still having nausea/vomiting, stated that she doesn't feel well to go home, ativan and zofran ordered for her. I discussed the case with dr. waddell, discussed about the case/labs/radiology result, agreed to observe the patient over night. 11/07/18 19:46 Sinus Tachycardia @ 103 BPM, no St elevation or depression, no T wave inversion. - RAD Interpretation Radiology Orders: Chest xray: Date of service: 11/07/2018 HISTORY: nausea/vomiting COMPARISON: 10/21/2018 TECHNIQUE: 1 view obtained. FINDINGS: LUNGS: No active pulmonary disease. PLEURA: No significant pleural effusion identified, no pneumothorax apparent. CARDIOVASCULAR: Aortic calcification Normal cardiac size. No pulmonary vascular congestion. OSSEOUS STRUCTURES: No significant abnormalities. VISUALIZED UPPER ABDOMEN: Normal. OTHER FINDINGS: None. IMPRESSION: No active disease. CT abdomen and pelvis: Date of service: 11/07/2018 PROCEDURE: CT Abdomen and Pelvis with contrast HISTORY: nausea/vomiting COMPARISON: 07/27/2018 TECHNIQUE: Contrast dose: 100 mL Omnipaque 350 Radiation dose: Total exam DLP = 343.88 mGy-cm. This CT exam was performed using one or more of the following dose reduction techniques: Automated exposure control, adjustment of the mA and/or kV according to patient size, and/or use of iterative reconstruction technique. FINDINGS: LOWER THORAX: Unremarkable. LIVER: Normal size, contour and attenuation. No mass. No biliary ductal dilatation. GALLBLADDER AND BILE DUCTS: No calcified stones. No mural thickening or pericholecystic fluid mild dilatation of the common bile duct to a diameter of approximately 8 mm. In the absence of associated intrahepatic biliary ductal dilatation, this is unlikely to represent biliary obstruction PANCREAS: Unremarkable. No gross lesion or ductal dilatation. SPLEEN: Unremarkable. ADRENALS: Unremarkable. No mass. KIDNEYS AND URETERS: 7 mm low-density left lower pole renal mass. Not appreciable on prior noncontrast CT. Too small to characterize. No calculus or hydronephrosis peer. VASCULATURE: Unremarkable. No aortic aneurysm. There is atherosclerotic calcification of the abdominal aorta. BOWEL: No bowel obstruction. No abnormal bowel loops are identified. APPENDIX: Not appreciated. No secondary findings. PERITONEUM: Unremarkable. No free fluid. No free air. LYMPH NODES: Unremarkable. No enlarged lymph nodes. BLADDER: Nondistended REPRODUCTIVE: Hysterectomy BONES: Severe osteoarthritis of both hips. There is a small joint effusion in both hips with distention of the capsule most prominently medially. OTHER FINDINGS: None. IMPRESSION: No acute abnormality. Severe osteoarthritis of both hips with small bilateral joint effusions. Mild dilatation of common bile duct without associated intrahepatic biliary dilatation. Additional minor findings as above Social Work Assistant: Radiologist - EKG Interpretation EKG Interpretation (Text): 11/07/18 19:44 Sinus Tachycardia @ 103 BPM, no St elevation or depression, no T wave inversion. Interpreted by ED Physician: Yes Type: 12 lead EKG Comparison: Com.w/previous EKG - PA / FIRING PIN GAUGER / Resident Statement MD/DO has reviewed & agrees with the documentation as recorded. Disposition/Present on Arrival - Present on Arrival Any Indicators Present on Arrival: No History of DVT/PE: No History of Uncontrolled Diabetes: No Urinary Catheter: No History of Decub. Ulcer: No History Surgical Site Infection Following: None - Disposition Have Diagnosis and Disposition been Completed?: Yes Diagnosis: Hypokalemia, Hypomagnesemia, Intractable vomiting with nausea, Chronic low back pain Disposition: HOSPITALIZED Disposition Time: 19:28 Patient Plan: Admission, Observation, Telemetry Patient Problems: Current Active Problems Problem Status Onset Chronic lower back pain Acute Hypomagnesemia Acute Hypokalemia Acute Intractable vomiting with nausea Acute Condition: GUARDED
[2018-11-07] MEDS ORDERED: Morphine 4 mg/ml ISec IVP STA (16:43)
[2018-11-07 17:49] LABS: BASO # 0.01 K/mm3 (0.0-2.0); BASO % 0.1 % (0.0-3.0); EOS # 0.1 (0.0-0.7); HEMOGLOBIN 12.2 g/dL (12.0-16.0); LYMPH # 2.7 (1.2-3.4); LYMPH % 34.4 % (22.0-35.0); MEAN CELL VOLUME 87.6 fl (80.0-105.0); MEAN CORPUSCULAR HEMOGLOBIN 27.9 pg (25.0-35.0); MEAN CORPUSCULAR HGB CONC 31.9 g/dl (31.0-37.0); MEAN PLATELET VOLUME 10.9 fl (7.0-11.0); MONO # 0.5 (0.1-0.6); MONO % 6.6 % (1.0-6.0); RBC 4.37 10^6/uL (3.5-6.1); RED CELL DISTRIBUTION WIDTH 15.9 % (11.5-14.5); WHITE BLOOD COUNT 7.8 10^3/uL (4.5-11.0)
[2018-11-07 17:56] LABS: URINE BILIRUBIN NEGATIVE (NEGATIVE); URINE BLOOD NEGATIVE (NEGATIVE); URINE GLUCOSE (UA) 250 mg/dL (NEGATIVE); URINE LEUKOCYTE ESTERASE NEGATIVE Leu/uL (NEGATIVE); URINE PROTEIN TRACE mg/dL (<30 mg/dL)
[2018-11-07 17:59] LABS: ALB/GLOB RATIO 0.9 (1.1-1.8); ALBUMIN 3.4 g/dL (3.0-4.8); ALT/SGPT 32 U/L (7-56); AST/SGOT 39 U/L (14-36); BLOOD UREA NITROGEN 13 mg/dL (7-21); GFR NON-AFRICAN AMERICAN > 60; LIPASE 229 U/L (23-300)
[2018-11-07 18:05] LABS: TROPONIN I < 0.01 ng/mL
[2018-11-07 18:15] LABS: URINE APPEARANCE CLEAR (CLEAR); URINE COLOR YELLOW (YELLOW)
[2018-11-07] MEDS ORDERED: Potassium Chloride 20 mEq ER Tab PO STA (18:17)
[2018-11-07] MEDS ORDERED: Magnesium Sulfate 2 gm/50 ml 2 GM/50 ML BAG IVPB ONE (18:17)
[2018-11-07] MEDS ORDERED: Iohexol 350 MG/100 ML VIAL ONE (18:21)
[2018-11-07 18:24] LABS: URINE CALCIUM OXALATE CRYSTALS TRACE /hpf; URINE RBC 0 - 2 /hpf (0-2)
--- NOTE | 2018-11-07 18:56 | CT ---
Date of service: 11/07/2018 PROCEDURE: CT Abdomen and Pelvis with contrast HISTORY: nausea/vomiting COMPARISON: 07/27/2018 TECHNIQUE: Contrast dose: 100 mL Omnipaque 350 Radiation dose: Total exam DLP = 343.88 mGy-cm. This CT exam was performed using one or more of the following dose reduction techniques: Automated exposure control, adjustment of the mA and/or kV according to patient size, and/or use of iterative reconstruction technique. FINDINGS: LOWER THORAX: Unremarkable. LIVER: Normal size, contour and attenuation. No mass. No biliary ductal dilatation. GALLBLADDER AND BILE DUCTS: No calcified stones. No mural thickening or pericholecystic fluid mild dilatation of the common bile duct to a diameter of approximately 8 mm. In the absence of associated intrahepatic biliary ductal dilatation, this is unlikely to represent biliary obstruction PANCREAS: Unremarkable. No gross lesion or ductal dilatation. SPLEEN: Unremarkable. ADRENALS: Unremarkable. No mass. KIDNEYS AND URETERS: 7 mm low-density left lower pole renal mass. Not appreciable on prior noncontrast CT. Too small to characterize. No calculus or hydronephrosis peer. VASCULATURE: Unremarkable. No aortic aneurysm. There is atherosclerotic calcification of the abdominal aorta. BOWEL: No bowel obstruction. No abnormal bowel loops are identified. APPENDIX: Not appreciated. No secondary findings. PERITONEUM: Unremarkable. No free fluid. No free air. LYMPH NODES: Unremarkable. No enlarged lymph nodes. BLADDER: Nondistended REPRODUCTIVE: Hysterectomy BONES: Severe osteoarthritis of both hips. There is a small joint effusion in both hips with distention of the capsule most prominently medially. OTHER FINDINGS: None. IMPRESSION: No acute abnormality. Severe osteoarthritis of both hips with small bilateral joint effusions. Mild dilatation of common bile duct without associated intrahepatic biliary dilatation. Additional minor findings as above
[2018-11-07] MEDS: Sodium Chloride 0.9% 1,000 ML IV SCH (21:08)
[2018-11-08] MEDS: Albuterol-Ipratrop 3 mg / 0.5 (3 ml) UD IH SCH ×4 (01:28→20:00)
--- NOTE | 2018-11-08 08:22 | RAD ---
Date of service: 11/07/2018 HISTORY: nausea/vomiting COMPARISON: 10/21/2018 TECHNIQUE: 1 view obtained. FINDINGS: LUNGS: No active pulmonary disease. PLEURA: No significant pleural effusion identified, no pneumothorax apparent. CARDIOVASCULAR: Aortic calcification Normal cardiac size. No pulmonary vascular congestion. OSSEOUS STRUCTURES: No significant abnormalities. VISUALIZED UPPER ABDOMEN: Normal. OTHER FINDINGS: None. IMPRESSION: No active disease.
[2018-11-08] MEDS: Tiotropium 18 mcg Cap For Inhalation IH SCH (09:10)
[2018-11-08] MEDS: Insulin Reg-LOW-Coverage SC SCH ×4 (09:10→22:16)
[2018-11-08] MEDS: Sodium Chloride 0.9% 1,000 ML IV SCH ×3 (09:13→17:45)
--- NOTE | 2018-11-08 18:15 | CON ---
DATE OF CONSULTATION: 11/08/2018 REFERRING PHYSICIAN: Denice Montanez MD REASON FOR CONSULTATION: Chronic lung disease, admitted with nausea, vomiting, abdominal discomfort. HISTORY OF PRESENT ILLNESS: This is a 68-year-old female known to our service from the last admission. She is active smoker with COPD, heart failure, compression fracture of T12 and also L3, avascular necrosis of bilateral hips, chronic low back pain, comes in with nausea and vomiting for the last 3 days. No hemoptysis, no hematemesis, no hematuria, no diarrhea. Denies any constipation. PAST MEDICAL HISTORY: Chronic obstructive lung disease and failure, degenerative joint disease, history of avascular hip necrosis, hypertension, diabetes, history of hepatitis C, history of substance abuse in the past. FAMILY HISTORY: No significant cardiopulmonary disease reported. SOCIAL HISTORY: Still active smoker. Denies any alcohol use. History of substance abuse in the past. MEDICATIONS: Receiving DuoNeb every 6 hours, metformin 500 mg twice a day, insulin coverage, gabapentin 300 mg three times a day, Norvasc 10 mg daily, Pepcid 40 mg daily, IV fluid normal saline 100 mL/hour, Spiriva 1 capsule inhaled daily, Tylenol p.r.n. basis. REVIEW OF SYSTEMS: No headache. No real diarrhea. She does have a cough and shortness of breath. No chest pain. Has some abdominal pain. No constipation. No leg pain or leg swelling. PHYSICAL EXAMINATION: GENERAL: No acute distress. VITAL SIGNS: Temperature is 98, heart rate 85, respiratory rate is 20, blood pressure 120/78, pulse ox 98% room air. HEENT: Moist mucous membranes. Crowded airway. NECK: Supple. No JVD. LUNGS: Have a few rhonchi and wheezing. HEART: S1 and S2. ABDOMEN: Positive bowel sounds. Soft. No significant tenderness. BACK: Has low back tenderness. EXTREMITIES: There is no edema. NEUROLOGIC: Awake and alert. Follows simple commands. LABORATORY DATA: Hemoglobin 12.2, hematocrit 38.3, WBC 7.8, platelets 184,000. Sodium 141, potassium 3.5, chloride 109, bicarbonate 25, BUN 13, creatinine 0.5, glucose 179, calcium 9.0, magnesium 1.5. Total bili 0.2, AST 39, ALT 32, alk phos is 0.10. Troponin is less than 0.01. Albumin 3.4. Urinalysis shows RBC 0-2, WBC none, has some glucose in the urine, trace proteins. Has a CT of the abdomen and pelvis done in ER, which shows no acute abnormality, severe osteoarthritis involving the both hips with a small bilateral joint effusion, mildly dilated bile duct without associated intrahepatic biliary dilatation. Chest x-ray shows no infiltrate or effusion. IMPRESSION AND PLAN: Chronic obstructive lung disease, hypertension, lumbar radiculopathy, diabetes, degenerative joint disease, history of iron-deficiency anemia, could the pain be from metformin? We will DC it anyway. We will place on Prandin 2 mg with the meals. Continue inhaled bronchodilator. We will send stool for guaiac. Amylase and lipase will be ordered. GI consult. The patient has to stop smoking. Thank you and we will follow with you. Renato Epperson MD
--- NOTE | 2018-11-08 19:04 | CARD ---
APPROVED REPORT Date of service: 11/07/2018 EKG Measurement Heart [id number] <Conclusion> Sinus tachycardia Possible Left atrial enlargement Nonspecific T wave abnormality Abnormal ECG
[2018-11-09] MEDS: Albuterol-Ipratrop 3 mg / 0.5 (3 ml) UD IH SCH ×4 (02:16→19:28)
[2018-11-09] MEDS: Sodium Chloride 0.9% 1,000 ML IV SCH ×3 (02:22→17:59)
--- NOTE | 2018-11-09 03:04 | HP ---
DATE OF EXAM: 11/08/2018 The patient is a 68-year-old female. The patient was seen and examined at the bedside on 11/08/2018 CHIEF COMPLAINT: Nausea, vomiting, abdominal pain, and back pain. HISTORY OF PRESENT ILLNESS: Ms. Jesusita Pascual is a 68-year-old female with past medical history of hypertension, diabetes mellitus, COPD, congestive heart failure, compression fracture of T12 and L3, avascular necrosis of bilateral hip, who came in to [facility] for abdominal pain, nausea, vomiting, back pain, coughing, and shortness of breath. She did have treatment as an outpatient, but was not helping that is why she came to the emergency room. PAST MEDICAL HISTORY: Hypertension, COPD, diabetes mellitus type 2, hepatitis C, arthritis, former heroin abuse, finished methadone treatment, and tonsillectomy. FAMILY HISTORY: Father and mother, noncontributory. HABITS: Smoking less than 10 cigarettes per day. Alcohol; 2 mini shots daily. SUBSTANCE ABUSE: Former heroin, finished methadone treatment. ALLERGIES: THE PATIENT IS NOT ALLERGIC WITH ANY MEDICATIONS. HOME MEDICATIONS: Amlodipine and albuterol. REVIEW OF SYSTEMS: The patient was seen and examined at the bedside in the telemetry, looking comfortable. No fever. No chills. No hematuria. No hematochezia. No headache. No dizziness. No chest pain. No palpitations. Still having abdominal pain, nausea, vomiting, and sometimes coughing. PHYSICAL EXAMINATION: VITAL SIGNS: Temperature 98.5, pulse 88, blood pressure 120/78, and respiratory rate 20. HEENT: Head is normocephalic and atraumatic. Eyes; PERRLA. Extraocular muscles intact. Conjunctivae clear. Nose patent. Mucous membranes moist. NECK: Supple. No carotid bruits. No JVD. No thyromegaly. CHEST: Bilaterally symmetrical. HEART: S1 and S2 positive. LUNGS: Clear to auscultation. ABDOMEN: Soft. Nontender. No organomegaly. EXTREMITIES: No edema. No cyanosis. NEUROLOGIC: The patient is awake and alert. Moving all four extremities. No focal deficits. LABORATORY DATA: White blood cells 7.8, hemoglobin 12.2, hematocrit 38.3, and platelets 184,000. Sodium 141, potassium 3.5, BUN 13, creatinine 0.5, glucose 157, random glucose 179, magnesium 1.5, and AST 39. ASSESSMENT AND PLAN: Ms. Jesusita Pascual is a 68-year-old lady with hypokalemia, hyperchloremia, uncontrolled diabetes mellitus, hypomagnesemia, abnormal liver function test, proteinuria, glucosuria, and ketonuria. CAT scan of abdomen and pelvis done. History of chronic obstructive lung disease, degenerative joint disease, history of avascular necrosis of the hips bilaterally, hypertension, diabetes mellitus, hepatitis C positive, history of substance abuse in the past. She came with abdominal pain, nausea, and vomiting. Dr. Epperson discontinued metformin, started Prandin. Continue inhaled bronchodilators. Dr. Epperson sent stool for stool guaiac. Amylase and lipase will be ordered. GI consult called. Gastrointestinal and deep vein thrombosis prophylaxis. Repeat labs. We will follow up. Denice Montanez MD MTDKam
[2018-11-09 06:35] LABS: MEAN CELL VOLUME 88.7 fl (80.0-105.0); MEAN CORPUSCULAR HEMOGLOBIN 28.8 pg (25.0-35.0); MEAN CORPUSCULAR HGB CONC 32.4 g/dl (31.0-37.0); MEAN PLATELET VOLUME 11.4 fl (7.0-11.0); RBC 4.17 10^6/uL (3.5-6.1); WHITE BLOOD COUNT 6.6 10^3/uL (4.5-11.0)
[2018-11-09 07:07] LABS: IRON 57 ug/dL (45-180)
[2018-11-09 07:14] LABS: LDL CHOLESTEROL 65 mg/dL (0-129)
[2018-11-09 07:17] LABS: % IRON SATURATION 20 % (20-55); TOTAL IRON BINDING CAPACITY 290 ug/dL (265-497)
[2018-11-09 08:03] LABS: AMYLASE 78 U/L (35-125); BLOOD UREA NITROGEN 9 mg/dL (7-21); CALCIUM 8.5 mg/dL (8.4-10.5); GFR NON-AFRICAN AMERICAN > 60; HDL CHOLESTEROL 94 mg/dL (29-60); LIPASE 143 U/L (23-300)
[2018-11-09] MEDS: Tiotropium 18 mcg Cap For Inhalation IH SCH (11:09)
[2018-11-09] MEDS: Insulin Reg-LOW-Coverage SC SCH ×4 (11:09→21:39)
[2018-11-09 14:32] LABS: FOLATE 8.5 ng/mL
--- NOTE | 2018-11-09 19:48 | CON ---
DATE: 11/09/2018 ORTHOPEDIC CONSULTATION HISTORY OF PRESENT ILLNESS: I was asked to see the patient by Dr. Montanez for low back pain, bilateral hip pain, and right knee pain. She has a difficult time walking. She can walk a short distance with a walker and most of her pain of all those areas is the back. She complains of low back pain with radiating pain to the right lower extremity. She is a smoker, but she does have good pulses of her lower extremities and dorsalis pedis. The knees have functional range of motion. The hips have a bilateral avascular necrosis with osteoarthritis, but she is not troubled by the hips so much, it is mostly the back where she complains of low back pain. X-ray show spinal stenosis of the lumbar spine with chronic compression fractures of T12 and L3 along with osteoarthritis. The main complaint that she would like to improve is low back pain with radiculitis, so I would suggest having her see her neurologist and possible injections with epidural to help her spinal stenosis that will make her walk better. I asked her about the hip pain, she says she is not interested in surgery because she would need a hip replacement on both hips because of the extensive osteoarthritis, but like I said she does not have that much complaint with the hips and the right knee, if it hurt worse, I could inject with Depo-Medrol, but she is not a surgical candidate. So right now, we will try to improve her back pain with getting an epidural if we could or a neurology person to see her to see the extent of the stenosis. FINAL DIAGNOSES: Lumbar spinal stenosis and radiculitis and the osteoarthritis and avascular necrosis of both hips and the right knee osteoarthritis. I will treat mainly the low back pain with trying to get an epidural and a neurology consult. Adarsh Garg DO
--- NOTE | 2018-11-09 20:46 | PN ---
DATE: 11/09/2018 PULMONARY PROGRESS NOTE REFERRING PHYSICIAN: . SUBJECTIVE: The patient was lying in the bed, feels better. There is no more nausea or vomiting, has abdominal wall tenderness, also still has low back pain. No leg pain or swelling. OBJECTIVE: GENERAL: In no acute distress. VITAL SIGNS: Temperature is 98, heart rate is 90, respiratory rate is 20, blood pressure 127/86, and pulse oximetry 99% on room air. HEENT: Moist mucous membranes, crowded airway. NECK: Supple. No JVD. LUNGS: Have a few scattered rhonchi. HEART: S1 and S2. ABDOMEN: Soft, nontender, and nondistended. EXTREMITIES: There is no edema. NEUROLOGIC: Awake and alert, follows simple commands. MEDICATIONS: She is on DuoNeb every 6 hours, insulin coverage, Neurontin 300 mg three times a day, Norvasc 10 mg daily, Pepcid 40 mg daily, Prandin 2 mg a.c., IV fluid normal saline at 100 mL per hour, Spiriva 18 mcg inhaled daily, and Tylenol on p.r.n. basis. LABORATORY DATA: Shows hemoglobin 12.7, hematocrit 37, WBC 6.6, and platelet is 143. Sodium is 141, potassium 3.9, chloride 111, bicarbonate 24, BUN 9, creatinine 0.5, glucose 206, hemoglobin A1c is 8.7, calcium 8.5, iron is 57, TIBC 290, percent saturation is 20, triglyceride is is 178, and TSH 1.25. Microbiology, no lab is available. IMPRESSION AND PLAN: Chronic obstructive lung disease, hypertension, lumbar radiculopathy, diabetes, degenerative joint disease, and iron deficiency anemia. Pulmonary point of view, doing better. No more nausea or vomiting, had abdominal wall tenderness, also low back pain. Continue bronchodilators, urged her to stop smoking, seen by Orthopedics, out of bed to chair, physical therapy. Thank you and we will follow with you. Renato Epperson MD
--- NOTE | 2018-11-10 01:11 | CON ---
DATE: 11/09/2018 REASON FOR THE CONSULTATION: Abdominal pain. HISTORY OF PRESENT ILLNESS: This 68-year-old patient with past medical history of diabetes mellitus, hypertension, COPD, congestive heart failure, chronic back pain and compression fracture was admitted to the hospital with complaints of abdominal pain, nausea, and vomiting. The patient also complains of some back pain. The patient denies having had hematemesis. No fever. The patient never had an endoscopy done in the past. PAST MEDICAL HISTORY: Significant as above; history of hepatitis C, history of IVDA, history of heroin abuse in the past. SOCIAL HISTORY: Positive for smoking, alcohol. Ex-heroin abuse, completed methadone program. ALLERGIES: NO KNOWN DRUG ALLERGIES. REVIEW OF SYSTEMS: Positive as above. Other systems reviewed. PHYSICAL EXAMINATION GENERAL: The patient lying on the bed, not in acute distress. VITAL SIGNS: Pulse 93, blood pressure 130/84, afebrile. HEENT: Atraumatic, anicteric. NECK: Supple. HEART: S1, S2 heard. LUNGS: Bilateral air entry present. ABDOMEN: Soft. There is some tenderness present in the epigastric area. EXTREMITIES: No cyanosis. No clubbing. NEUROLOGIC: Alert, oriented. Moves all the extremities. LABORATORY DATA: Hemoglobin 12, hematocrit 37, WBC 6.6, platelets 143. Chemistry; trans saturation 20%. LFT essentially unremarkable except AST is 39. CT scan of the abdomen and pelvis done with p.o. and IV contrast was reviewed, it showed mildly dilated CBD of 8 mm, no gallstones otherwise. Also found to have a low-density left renal mass. IMPRESSION: This 68-year-old patient admitted with nausea, vomiting, and abdominal pain, history of chronic back pain. Complains of epigastric pain. History of nonsteroidal anti-inflammatory drugs used. The patient has history of ex-heroin use. The patient does have mildly dilated common bile duct. The differential diagnosis for the epigastric pain should include a peptic ulcer disease, the patient has been taking nonsteroidal anti-inflammatory drugs. The patient does have mildly dilated duct of 8 mm, the duct size of 8 mm may be mildly dilated duct of 8 mm in this 68-year-old patient is borderline. RECOMMENDATIONS: Would recommend; 1. High dose PPI. 2. MRI of the abdomen as MRCP with an IV and p.o. contrast, with and without contrast to further evaluate. 3. The patient may benefit from an endoscopic evaluation also. We will continue to closely follow up our care and suggest further management based on the clinical course. Carolina Urbano MD
[2018-11-10] MEDS: Albuterol-Ipratrop 3 mg / 0.5 (3 ml) UD IH SCH ×4 (01:24→20:03)
[2018-11-10 07:33] LABS: HEMOGLOBIN 11.9 g/dL (12.0-16.0); MEAN CELL VOLUME 88.8 fl (80.0-105.0); MEAN CORPUSCULAR HEMOGLOBIN 28.5 pg (25.0-35.0); MEAN CORPUSCULAR HGB CONC 32.1 g/dl (31.0-37.0); MEAN PLATELET VOLUME 11.1 fl (7.0-11.0); RBC 4.18 10^6/uL (3.5-6.1); WHITE BLOOD COUNT 6.5 10^3/uL (4.5-11.0)
[2018-11-10] MEDS: Insulin Reg-LOW-Coverage SC SCH ×4 (08:08→22:14)
[2018-11-10 08:13] LABS: BLOOD UREA NITROGEN 7 mg/dL (7-21); GFR NON-AFRICAN AMERICAN > 60
[2018-11-10] MEDS: Pantoprazole 40 mg EC Tab PO SCH (08:23)
--- NOTE | 2018-11-10 09:05 | PN ---
DATE: 11/09/2018 SUBJECTIVE: The patient is a 68-year-old female. The patient seen and examined at bedside on 11/09/2018, looking comfortable. According to patient, she is having abdominal pain, back pain, and sometime nauseous. No fever. No chills. No hematuria. No hematochezia. No headache. No dizziness. No chest pain. No palpitation. PHYSICAL EXAMINATION: VITAL SIGNS: Temperature 98, heart rate is 90, respiratory rate 20, blood pressure 127/86. HEENT: Head: Normocephalic and atraumatic. Eyes: PERRLA. Extraocular movements are intact. Conjunctivae clear. Nose: Patent. Mucous membranes moist. NECK: Supple. No carotid bruits. No JVD or thyromegaly. CHEST: Bilaterally symmetrical. HEART: S1 and S2 positive. LUNGS: Clear to auscultation. ABDOMEN: Soft. Bowel sounds present. No hepatosplenomegaly. EXTREMITIES: No edema. No cyanosis. NEUROLOGIC: The patient is awake, alert. Moving all four extremities. No focal deficit. MEDICATIONS: DuoNeb, Neurontin, Norvasc, Pepcid, Prandin, IV fluid, Spiriva, Tylenol. LABORATORY DATA: Hemoglobin 12.7, hematocrit 37, white blood cells 6.6, platelets 143. Sodium 141, potassium 3.8, BUN 9, creatinine 0.5, glucose 206, hemoglobin A1c is 8.7. TSH 1.625. ASSESSMENT: The patient is a 68-year-old lady with multiple medical problems, degenerative joint disease, chronic obstructive lung disease, hypertension, lumbosacral radiculopathy, diabetes mellitus, iron deficiency, and insomnia. PLAN: Continue bronchodilators. GI and DVT prophylaxis. I had a length of time discussion done with the patient. she will continue to have abdominal pain, I will change her food to clear liquid diet. We will observe overnight, out of bed, physical therapy. We will follow. Denice Montanez MD [facility]
[2018-11-10] MEDS: Tiotropium 18 mcg Cap For Inhalation IH SCH (09:27)
--- NOTE | 2018-11-10 12:04 | CP.PCM.PN ---
<Ronnell Vázquez - Last Filed: 11/10/18 13:43> Subjective - Date & Time of Evaluation Date of Evaluation: 11/10/18 Time of Evaluation: 08:43 - Subjective Subjective: Ronnell Vázquez PGY2 GI Progress Note for Dr. Urbano Patient was seen and examined at bedside. She states that she still has the pain in her back, and abdomen. She is tolerating her diet. No fevers or other acute overnight events. Objective - Vital Signs/Intake and Output Vital Signs (last 24 hours): Temp Pulse Resp BP Pulse Ox 98 F 88 18 118/77 97 11/10/18 05:48 11/10/18 09:27 11/10/18 05:48 11/10/18 09:27 11/10/18 09:27 Intake and Output: 11/10/18 11/10/18 06:59 18:59 Intake Total 2160 Output Total 5150 Balance -2990 - Medications Medications: Current Medications Acetaminophen (Tylenol 325mg Tab) 650 mg PO Q4H PRN PRN Reason: pain fever Last Admin: 11/10/18 06:38 Dose: 650 mg Albuterol/Ipratropium (Duoneb 3 Mg/0.5 Mg (3 Ml) Ud) 3 ml IH [id number] [facility]ANCIS Last Admin: 11/10/18 08:14 Dose: 3 ml Amlodipine Besylate (Norvasc) 10 mg PO DAILY [facility] Last Admin: 11/10/18 09:27 Dose: 10 mg Famotidine (Pepcid) 40 mg PO HS [facility] Last Admin: 11/09/18 21:38 Dose: 40 mg Gabapentin (Neurontin) 300 mg PO TID [facility]; Protocol Last Admin: 11/10/18 09:27 Dose: 300 mg Insulin Human Regular (Humulin R Low) 0 units SC ACHS [facility]; Protocol Last Admin: 11/10/18 08:08 Dose: Not Given Pantoprazole Sodium (Protonix Ec Tab) 40 mg PO ACB [facility] Last Admin: 11/10/18 08:23 Dose: 40 mg Repaglinide (Prandin) 2 mg PO AC [facility] Last Admin: 11/10/18 08:23 Dose: 2 mg Tiotropium [place] (Spiriva) 18 mcg IH DAILY [facility] Last Admin: 11/10/18 09:27 Dose: 18 mcg Tramadol HCl (Ultram) 50 mg PO BID PRN PRN Reason: Pain, moderate (4-7) Last Admin: 11/09/18 21:38 Dose: 50 mg - Labs Labs: 11/10/18 06:30 11/10/18 06:30 - Constitutional Appears: Well, Non-toxic, No Acute Distress - Head Exam Head Exam: ATRAUMATIC, NORMAL INSPECTION, NORMOCEPHALIC - Eye Exam Eye Exam: EOMI, Normal appearance, PERRL Pupil Exam: NORMAL ACCOMODATION, PERRL - ENT Exam ENT Exam: Mucous Membranes Moist, Normal Exam - Neck Exam Neck Exam: Full ROM, Normal Inspection. absent: Lymphadenopathy - Respiratory Exam Respiratory Exam: Clear to Ausculation Bilateral, NORMAL BREATHING PATTERN. absent: Respiratory Distress - Cardiovascular Exam Cardiovascular Exam: REGULAR RHYTHM, +S1, +S2 - GI/Abdominal Exam GI & Abdominal Exam: Soft, Normal Bowel Sounds. absent: Distended, Tenderness - Extremities Exam Extremities Exam: Full ROM, Normal Capillary Refill, Normal Inspection. absent: Joint Swelling, Pedal Edema - Back Exam Back Exam: NORMAL INSPECTION. 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 GI consulted for vomiting. Patient's vomiting has improved, and she remains afebrile. Labs were noted. Patient has no hx of endoscopies. Plan: - MRCP ordered - PPI for GI ppx - patient would benefit from endoscopic evaluation and screening - monitor H/H and VS - diet as tolerated - lipase and amylase wnl - further recs per Dr. Urbano Case was reviewed and discussed with Dr. Urbano <Carolina Urbano V - Last Filed: 11/10/18 22:47> Objective - Vital Signs/Intake and Output Vital Signs (last 24 hours): Temp Pulse Resp BP Pulse Ox 98.8 F 80 18 113/76 100 11/10/18 14:55 11/10/18 14:55 11/10/18 14:55 11/10/18 14:55 11/10/18 14:55 Intake and Output: 11/10/18 11/11/18 18:59 06:59 Intake Total 240 Balance 240 - Medications Medications: Current Medications Acetaminophen (Tylenol 325mg Tab) 650 mg PO Q4H PRN PRN Reason: pain fever Last Admin: 11/10/18 06:38 Dose: 650 mg Albuterol/Ipratropium (Duoneb 3 Mg/0.5 Mg (3 Ml) Ud) 3 ml IH [id number] [facility] Last Admin: 11/10/18 20:03 Dose: 3 ml Amlodipine Besylate (Norvasc) 10 mg PO DAILY [facility] Last Admin: 11/10/18 09:27 Dose: 10 mg Enoxaparin Sodium (Lovenox) 40 mg SC DAILY [facility]; Protocol Famotidine (Pepcid) 40 mg PO HS [facility] Last Admin: 11/10/18 22:15 Dose: 40 mg Gabapentin (Neurontin) 300 mg PO TID [facility]; Protocol Last Admin: 11/10/18 18:43 Dose: 300 mg Insulin Human Regular (Humulin R Low) 0 units SC ACHS [facility]; Protocol Last Admin: 11/10/18 22:14 Dose: Not Given Lidocaine (Lidoderm) 1 ea TD DAILY [facility] Last Admin: 11/10/18 14:25 Dose: 1 ea Pantoprazole Sodium (Protonix Ec Tab) 40 mg PO ACB [facility] Last Admin: 11/10/18 08:23 Dose: 40 mg Repaglinide (Prandin) 2 mg PO AC [facility] Last Admin: 11/10/18 18:45 Dose: Not Given Tiotropium [place] (Spiriva) 18 mcg IH DAILY [facility] Last Admin: 11/10/18 09:27 Dose: 18 mcg Tramadol HCl (Ultram) 50 mg PO BID PRN PRN Reason: Pain, moderate (4-7) Last Admin: 11/10/18 18:00 Dose: 50 mg - Labs Labs: 11/10/18 06:30 11/10/18 06:30 Attending/Attestation - Attestation I have personally seen and examined this patient.: Yes I have fully participated in the care of the patient.: Yes I have reviewed all pertinent clinical information, including history, physical exam and plan: Yes Notes (Text): This 68-year-old patient admitted with the epigastric pain nausea vomiting history of NSAID use. CT showed a mildly dilated CBD of 8 mm history of drug use in the past status post methadone program treatment. Echo Recommend 1 to hold nonsteroidal anti-inflammatory drugs 2. Continue PPI 3. MRI with MRCP to further evaluate 4. Would benefit from upper GI endoscopy will consider after the above work-up and review of the clinical course 11/10/18 22:45
--- NOTE | 2018-11-10 14:10 | PN ---
DATE: 11/10/2018 REFERRING PHYSICIAN: Denice Montanez MD SUBJECTIVE: The patient is seen lying in bed, in no acute distress. No overnight events reported. Reports feeling better. Still reports having some lower back pain. No headache, rhinitis, cough, shortness of breath, chest pain, abdominal pain, nausea, vomiting, diarrhea, leg pain or leg swelling reported. OBJECTIVE: VITAL SIGNS: Blood pressure 115/78, pulse 83, temperature 98.2, oxygen saturation 97% on room air. GENERAL: In no acute distress. HEENT: Moist mucous membranes. Crowded airway. NECK: Supple. No JVD. LUNGS: Scattered rhonchi throughout. CARDIOVASCULAR: S1 and S2. ABDOMEN: Soft and nontender. No distention. No organomegaly. EXTREMITIES: No bilateral lower extremity edema. NEUROLOGIC: Awake, alert and verbal. Following commands. MEDICATIONS: Reviewed. Tylenol 650 every 4 hours p.r.n. fever and pain, DuoNeb 3 mL inhalation every 6 hours, Norvasc 10 mg daily, Pepcid 40 mg at bedtime, Neurontin 300 mg 3 times a day, Humulin R sliding scale before meals and at bedtime, Protonix 40 mg in the morning, Prandin 2 mg before meals, Spiriva 80 mcg inhalation daily, Ultram 50 mg twice a day p.r.n. LABORATORY DATA: Reviewed. WBC 6.5, RBC 4.18, hemoglobin 11.9, hematocrit 37.1, platelets 134. Sodium 138, potassium 3.6, chloride 106, carbon dioxide 30, anion gap 6, BUN 7, creatinine 0.5, GFR greater than 60, POC glucose 150, random glucose 140, calcium 9. IMPRESSION AND PLAN: Chronic obstructive pulmonary disease, hypertension, lumbar radiculopathy, diabetes, degenerative joint disease, iron deficiency anemia. Continue Orthopedic followup. Gastrointestinal followup. Continue inhaled bronchodilator. Workup is currently in place for the patient's complaints of pain. We will add Lovenox for deep venous thrombosis prophylaxis. Smoking cessation, physical therapy, out of bed to chair, fall precaution. We recommend the patient have full pulmonary function test to evaluate chronic lung disease and sleep study to rule out sleep apnea. This patient was seen and examined with Dr. Epperson. Discussed assessment and plan as described above. This patient was seen and examined with Zach Weathers, nurse practitioner. Discussed assessment and plan as described above. Thank you for this consult. We will follow with you. Zach Weathers APN Renato Epperson MD
[2018-11-10] MEDS: Lidocaine 5% Patch TD SCH (14:25)
--- NOTE | 2018-11-10 15:43 | CON ---
DATE: 11/10/2018 NEUROLOGY CONSULTATION CHIEF COMPLAINT: Back pain. 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 She continues to have low back pain. She is undergoing GI workup in regards to nausea and vomiting and possibly get an endoscopy evaluation. She is on gabapentin 300 mg p.o. three times a day for neuropathic relief and also on tramadol or add Lidoderm patch and we will also get a CAT scan of her lumbosacral spine. She had evidence of neuropathy on neuro examination as well. PAST MEDICAL HISTORY: As above. SOCIAL HISTORY: No illicit drug use, smoking or EtOH abuse. REVIEW OF SYSTEMS: A 14-point review of systems is negative except per the HPI. FAMILY HISTORY: Noncontributory. MEDICATIONS: Reviewed by nurse's reconciliation sheet. ALLERGIES: NO KNOWN DRUG ALLERGIES. LABORATORY DATA: Sodium 138, potassium 3.6, chloride 106, carbon dioxide 30, BUN of 7, creatinine 1.5, and random glucose 140. PHYSICAL EXAMINATION GENERAL: The patient seen up in bed, no acute distress. VITAL SIGNS: Text. HEENT: Atraumatic and normocephalic. PERRLA. Extraocular muscles intact. NECK: Supple. No JVD. No adenopathy noted. LUNGS: Clear to auscultation. No adventitious sounds. HEART: S1 and S2. Normal rate and rhythm. No murmurs, rubs, or gallops. ABDOMEN: Soft and nontender. Nondistended. Bowel sounds are present. EXTREMITIES: No clubbing. No cyanosis. Peripheral pulses 2+ bilaterally. NEUROLOGIC: The patient is alert and oriented to person, place and not much to month, and year. Speech is fluent without any errors. Cranial nerves II through XII are intact. Motor exam; moves all extremities equally. Toes are downgoing bilaterally. Sensory exam; light touch pinprick proprioception up to the calves bilaterally. Decreased vibrations at the toes. DTRs are 2+ and 1 at both knees and ankles. Coordination; [id number] intact. No dysmetria noted. Musculoskeletal exam; there is lumbosacral tightness present. Gait is deferred for now. IMPRESSION: Low back pain is secondary to lumbosacral neuronitis with possible radiculopathy component superimposed on component. RECOMMENDATIONS: At this time; 1. Lidoderm patch to lumbosacral area. 2. Continue gabapentin 300 mg p.o. three times a day for neuropathic relief. 3. Continue with Ultram 50 mg p.o. two times a day as needed for acute onset pain. 4. PT/OT for lumbosacral stretch, myofascial pain relief techniques. 5. CAT scan of lumbosacral spine for structural abnormalities causing pain. At this time, continue with current present medical management. Thank your for this consult. John Ness MD
--- NOTE | 2018-11-10 16:36 | CT ---
Date of service: 11/10/2018 PROCEDURE: CT Lumbar Spine without contrast HISTORY: low backpain COMPARISON: None available. TECHNIQUE: Axial computed tomography images were obtained of the lumbar spine without the use of intravenous contrast. Coronal and sagittal reformatted images were created and reviewed. Radiation dose: Total exam DLP = 472.01 mGy-cm. This CT exam was performed using one or more of the following dose reduction techniques: Automated exposure control, adjustment of the mA and/or kV according to patient size, and/or use of iterative reconstruction technique. FINDINGS: VERTEBRAE: Chronic appearing compression fractures of T12 and L3 DISCS/SPINAL CANAL/NEURAL FORAMINA: L1-2: Mild disc bulge L2-3: Severe facet arthropathy left greater than right. Disc bulge. Moderate central stenosis. Moderate bilateral foraminal stenosis L3-4: Severe facet arthropathy. Mild disc bulge. Chronic compression fracture of L3 L4-5: There is a large disc bulge and osteophyte formation with severe foraminal stenosis bilaterally L5-S1: There is a large central disc herniation at L5-S1 PARASPINAL SOFT TISSUES: Unremarkable. OTHER FINDINGS: None. IMPRESSION: L1-2: Mild disc bulge L2-3: Severe facet arthropathy left greater than right. Disc bulge. Moderate central stenosis. Moderate bilateral foraminal stenosis L3-4: Severe facet arthropathy. Mild disc bulge. Chronic compression fracture of L3 L4-5: There is a large disc bulge and osteophyte formation with severe foraminal stenosis bilaterally L5-S1: There is a large central disc herniation at L5-S1
--- NOTE | 2018-11-10 20:20 | PN ---
DATE: 11/10/2018 SUBJECTIVE: The patient is a 68-year-old female. The patient is seen and examined at the bedside on 11/10/2018. Looking comfortable. Still having back pain and lower abdominal pain. No fever. No chills. No hematuria. No hematochezia. No headache. No dizziness. No chest pain. No palpitation. PHYSICAL EXAMINATION: VITAL SIGNS: Temperature 98.8, pulse 80, blood pressure 113/76, and respiratory rate 18. HEENT: Head; normocephalic and atraumatic. Eyes; PERRLA. Extraocular muscles are intact. Conjunctivae clear. Nose patent. Mucous membranes moist. NECK: Supple. No carotid bruit, JVD, or thyromegaly. CHEST: Bilaterally symmetrical. HEART: S1 and S2 positive. LUNGS: Clear to auscultation. ABDOMEN: Soft. Bowel sounds present. No organomegaly. EXTREMITIES: No edema. No cyanosis. NEUROLOGIC: The patient is awake and alert. Moving all 4 extremities. No focal deficits. LABORATORY DATA: White blood cells 6.8, hemoglobin 11.9, hematocrit is 37.1, and platelets 134. Sodium 138, potassium 3.6, BUN 7, creatinine 0.5, and glucose 197. MEDICATIONS: Albuterol, insulin, Lidoderm, Lovenox, Neurontin, amlodipine, Pepcid, Prandin, Protonix, Spiriva, and tramadol. ASSESSMENT AND PLAN: Ms. Jesusita Pascual is a 68-year-old lady with anemia, hyperglycemia, proteinuria, glucosuria, ketonuria, and degenerative joint disease. Lumbar spine CT done, results are pending, and seen by Dr. John Ness, neurologist. Looks like low back pain is secondary to lumbosacral neuritis with possible radiculopathy component. Lidoderm patch given. Continue gabapentin. Continue tramadol, PT and OT for lumbosacral stretching, GI and DVT prophylaxes, D/C telemetry, repeat labs, and we will follow up. Denice Montanez MD
[2018-11-11] MEDS: Albuterol-Ipratrop 3 mg / 0.5 (3 ml) UD IH SCH ×4 (02:49→19:24)
--- NOTE | 2018-11-11 07:37 | CP.PCM.PN ---
<Ronnell Vázquez - Last Filed: 11/11/18 17:24> Subjective - Date & Time of Evaluation Date of Evaluation: 11/11/18 Time of Evaluation: 07:37 - Subjective Subjective: Ronnell Vázquez PGY2 GI Progress Note for Dr. Urbano Patient was seen and examined at bedside. The patient continues to have pain in her hip R>L, but denies any abdominal pain, n/v/d. she also denies any fevers/chills. Objective - Vital Signs/Intake and Output Vital Signs (last 24 hours): Temp Pulse Resp BP Pulse Ox 98.2 F 92 H 16 125/82 100 11/10/18 23:33 11/10/18 23:33 11/10/18 23:33 11/10/18 23:33 11/10/18 23:33 Intake and Output: 11/11/18 11/11/18 06:59 18:59 Intake Total 480 Balance 480 - Medications Medications: Current Medications Acetaminophen (Tylenol 325mg Tab) 650 mg PO Q4H PRN PRN Reason: pain fever Last Admin: 11/10/18 06:38 Dose: 650 mg Albuterol/Ipratropium (Duoneb 3 Mg/0.5 Mg (3 Ml) Ud) 3 ml IH [id number] FRANCIS Last Admin: 11/11/18 02:49 Dose: 3 ml Amlodipine Besylate (Norvasc) 10 mg PO DAILY FRANCIS Last Admin: 11/10/18 09:27 Dose: 10 mg Enoxaparin Sodium (Lovenox) 40 mg SC DAILY FRANCIS; Protocol Famotidine (Pepcid) 40 mg PO HS FRANCIS Last Admin: 11/10/18 22:15 Dose: 40 mg Gabapentin (Neurontin) 300 mg PO TID FRANCIS; Protocol Last Admin: 11/10/18 18:43 Dose: 300 mg Insulin Human Regular (Humulin R Low) 0 units SC ACHS FRANCIS; Protocol Last Admin: 11/10/18 22:14 Dose: Not Given Lidocaine (Lidoderm) 1 ea TD DAILY FRANCIS Last Admin: 11/10/18 14:25 Dose: 1 ea Pantoprazole Sodium (Protonix Ec Tab) 40 mg PO ACB FRANCIS Last Admin: 11/10/18 08:23 Dose: 40 mg Repaglinide (Prandin) 2 mg PO AC FRANCIS Last Admin: 11/10/18 18:45 Dose: Not Given Tiotropium [place] (Spiriva) 18 mcg IH DAILY [facility] Last Admin: 11/10/18 09:27 Dose: 18 mcg Tramadol HCl (Ultram) 50 mg PO BID PRN PRN Reason: Pain, moderate (4-7) Last Admin: 11/10/18 18:00 Dose: 50 mg - Labs Labs: 11/10/18 06:30 11/10/18 06:30 - Constitutional Appears: Well, Non-toxic, No Acute Distress - Head Exam Head Exam: ATRAUMATIC, NORMAL INSPECTION, NORMOCEPHALIC - Eye Exam Eye Exam: EOMI, Normal appearance, PERRL Pupil Exam: NORMAL ACCOMODATION, PERRL - ENT Exam ENT Exam: Mucous Membranes Moist, Normal Exam - Neck Exam Neck Exam: Full ROM, Normal Inspection. absent: Lymphadenopathy - Respiratory Exam Respiratory Exam: Clear to Ausculation Bilateral, NORMAL BREATHING PATTERN. absent: Respiratory Distress - Cardiovascular Exam Cardiovascular Exam: REGULAR RHYTHM, +S1, +S2 - GI/Abdominal Exam GI & Abdominal Exam: Soft, Normal Bowel Sounds. absent: Distended, Tenderness - Extremities Exam Extremities Exam: Full ROM, Normal Capillary Refill, Normal Inspection. absent: Joint Swelling, Pedal Edema - Back Exam Back Exam: NORMAL INSPECTION. 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 GI consulted for vomiting. Patient's symptoms have improved and she is no longer vomiting but d Plan: - MRCP pending - PPI for GI ppx - patient would benefit from endoscopic evaluation and screening; will plan for EGD tomorrow - CLD for dinner, NPO past midnight - monitor H/H and VS - diet as tolerated - lipase and amylase wnl - further recs per Dr. Urbano Case was reviewed and discussed with Dr. Urbano <Carolina Urbano V - Last Filed: 11/11/18 23:47> Objective - Vital Signs/Intake and Output Vital Signs (last 24 hours): Temp Pulse Resp BP Pulse Ox 98.2 F 83 18 90/60 L 99 11/11/18 21:11 11/11/18 21:11 11/11/18 21:11 11/11/18 21:11 11/11/18 21:11 Intake and Output: 11/11/18 11/12/18 18:59 06:59 Intake Total 780 Balance 780 - Medications Medications: Current Medications Acetaminophen (Tylenol 325mg Tab) 650 mg PO Q4H PRN PRN Reason: pain fever Last Admin: 11/10/18 06:38 Dose: 650 mg Albuterol/Ipratropium (Duoneb 3 Mg/0.5 Mg (3 Ml) Ud) 3 ml IH [id number] FRANCIS Last Admin: 11/11/18 19:24 Dose: 3 ml Amlodipine Besylate (Norvasc) 10 mg PO DAILY FRANCIS Last Admin: 11/11/18 10:31 Dose: 10 mg Enoxaparin Sodium (Lovenox) 40 mg SC DAILY FRANCIS; Protocol Last Admin: 11/11/18 10:25 Dose: 40 mg Famotidine (Pepcid) 40 mg PO HS FRANCIS Last Admin: 11/11/18 21:38 Dose: 40 mg Gabapentin (Neurontin) 300 mg PO TID FRANCIS; Protocol Last Admin: 11/11/18 18:53 Dose: 300 mg Insulin Human Regular (Humulin R Low) 0 units SC ACHS FRANCIS; Protocol Last Admin: 11/11/18 23:31 Dose: Not Given Lidocaine (Lidoderm) 1 ea TD DAILY FRANCIS Last Admin: 11/11/18 10:25 Dose: 1 ea Pantoprazole Sodium (Protonix Ec Tab) 40 mg PO ACB FRANCIS Last Admin: 11/11/18 10:25 Dose: 40 mg Repaglinide (Prandin) 2 mg PO AC FRANCIS Last Admin: 11/11/18 18:52 Dose: 2 mg Tiotropium [place] (Spiriva) 18 mcg IH DAILY FRANCIS Last Admin: 11/11/18 10:27 Dose: 18 mcg Tramadol HCl (Ultram) 50 mg PO BID PRN PRN Reason: Pain, moderate (4-7) Last Admin: 11/10/18 18:00 Dose: 50 mg - Labs Labs: 11/10/18 06:30 11/10/18 06:30 PT 11.8 SECONDS (9.4-12.5) 11/11/18 18:15 INR 1.06 11/11/18 18:15 Attending/Attestation - Attestation I have personally seen and examined this patient.: Yes I have fully participated in the care of the patient.: Yes I have reviewed all pertinent clinical information, including history, physical exam and plan: Yes Notes (Text): This patient was seen and evaluated along with the medical insurance coding specialist here earlier. This is an addendum to the GI progress report dictated by the resident. Patient still complains of epigastric pain. History of nonsteroidal anti-inflammatory drugs use before. Chronic back pain. Mildly dilated CBD. MRCP with MRI of the pancreas with and without contrast done was reviewed. No pancreatic lesion. CBD normal. Patient would benefit from upper GI endoscopy rule out any peptic ulcer disease in view of the NSAID use. Continue PPI. Scheduled for EGD tomorrow 11/11/18 23:46
[2018-11-11] MEDS ORDERED: Gadodiamide 287 MG/ML VIAL (20ML) IV ONE (08:51)
[2018-11-11] MEDS: Enoxaparin 40 mg Syringe SC SCH (10:25)
[2018-11-11] MEDS: Lidocaine 5% Patch TD SCH (10:25)
[2018-11-11] MEDS: Pantoprazole 40 mg EC Tab PO SCH (10:25)
--- NOTE | 2018-11-11 10:26 | MRI ---
Date of service: 11/11/2018 PROCEDURE: Magnetic Resonance Cholangiopancreatography HISTORY: Dilated CBD COMPARISON: None available. TECHNIQUE: Multiplanar, multisequence MR images of the abdomen were obtained, including heavily T2 weighted MRCP images of the biliary system. Rotating maximum intensity projection images of the biliary system were generated. 20 cc of Omniscan FINDINGS: MRCP: The common bile duct is of a normal caliber. No evidence of choledocholithiasis. No intrahepatic biliary ductal dilatation. LIVER: Unremarkable. GALLBLADDER: Unremarkable. SPLEEN: Unremarkable. PANCREAS: Unremarkable. ADRENALS: Unremarkable. KIDNEYS: Unremarkable. AORTA: No aneurysm. ASCITES: None. OTHER FINDINGS: None. IMPRESSION: No evidence of common duct stone. No acute findings
[2018-11-11] MEDS: Tiotropium 18 mcg Cap For Inhalation IH SCH (10:27)
[2018-11-11] MEDS: Insulin Reg-LOW-Coverage SC SCH ×4 (10:27→23:31)
--- NOTE | 2018-11-11 12:20 | PN ---
DATE: 11/11/2018 PULMONARY PROGRESS NOTE REFERRING PHYSICIAN: Dr. Denice Montanez. SUBJECTIVE: The patient is seen lying in bed. No acute distress. No overnight events reported. Continues to report that she has some lower back pain. No headache, rhinitis, cough, shortness of breath, chest pain, abdominal pain, nausea, vomiting, diarrhea, leg pain, or leg swelling reported. OBJECTIVE: GENERAL: No acute distress. VITAL SIGNS: Blood pressure 125/82, pulse 92, temperature 98.2, and oxygen saturation 100% on room air. HEENT: Moist mucous membranes. Crowded airway. NECK: Supple. No JVD. LUNGS: Few scattered rhonchi. CARDIOVASCULAR: S1 and S2. ABDOMEN: Soft and nontender. No distention. No organomegaly. EXTREMITIES: No bilateral lower extremity edema. NEUROLOGIC: Awake, alert, and verbal. Follows commands. MEDICATIONS: Reviewed. Tylenol 650 every 4 hours p.r.n. for pain and fever, DuoNeb 3 mL inhalation every 6 hours, Norvasc 10 mg daily, Lovenox 40 mg subcutaneous daily, Pepcid 40 mg at bedtime, Neurontin 300 mg three times a day, Humulin R sliding scale a.c. and at bedtime, Lidoderm patch transdermal daily to affected area, Protonix 40 mg a.c., Prandin 2 mg p.o. a.c., Spiriva 18 mcg inhalation daily, and Ultram 50 mg twice a day p.r.n. LABORATORY DATA: Reviewed. POC glucose 167. Lumbar spine CT shows L1-L2 mild disc bulge; L2-L3 severe facet arthropathy, left greater than right disc bulge; moderate central stenosis; moderate bilateral foraminal stenosis; L3-L4 mild disc bulge; chronic compression fracture of L3; L4-L5 large disc bulge; osteophyte formation with severe foraminal stenosis bilaterally L5-S1 and large central disc herniation at L5-S1. MRCP shows no evidence of common duct stone; no acute finding. IMPRESSION AND PLAN: Chronic obstructive pulmonary disease, hypertension, lumbar radiculopathy, diabetes, degenerative joint disease, and iron deficiency anemia. Continue Gastroenterology followup and Neurology followup. Continue inhaled bronchodilators, deep venous thrombosis prophylaxis, and gastric prophylaxis. Continue to encourage smoking cessation. The patient may need pain management as outpatient. We recommend physical therapy, out of bed to chair and fall precautions. We recommend this patient have full pulmonary function test to evaluate chronic lung disease and sleep study as outpatient to rule out sleep apnea syndrome. This patient was seen and examined with Dr. Epperson. Discussed assessment and plan as described above. This patient was seen and examined with Zach Weathers, nurse practitioner. Discussed assessment and plan as described above. Thank you for this consult. We will follow with you. Zach Weathers APN Renato Epperson MD
--- NOTE | 2018-11-11 15:44 | PN ---
PROCEDURE DATE: 11/11/2018 NEUROLOGY FOLLOWUP CHIEF COMPLAINT: Followup for back pain. SUBJECTIVE: The patient still has lower lumbosacral pain, will need outpatient physical therapy as well as outpatient pain management. She had a CAT scan of the lumbosacral spine, which showed severe facet arthropathy, left greater than right; and [id number] bilateral foraminal stenosis from L2-L4. She has a chronic compression fracture at L3 and then there is evidence of a large central disk herniation at L5-S1 and severe spinal stenosis at L4-L5. Neurosurgery consult and evaluation has been placed to see if there is any neurosurgical intervention need to be done or just physical therapy. PAST MEDICAL HISTORY: History of type 2 diabetes mellitus, hypertension, COPD, CHF, avascular necrosis of the hip, and hepatitis C secondary to IV drug abuse. REVIEW OF SYSTEMS: A 14-point review of systems is negative except in the HPI. FAMILY HISTORY: Noncontributory. MEDICATIONS: Reviewed by nurse's reconciliation sheet. ALLERGIES: NO KNOWN DRUG ALLERGIES. LABORATORY DATA: Today's blood sugar is 202. PHYSICAL EXAMINATION: VITAL SIGNS: Temperature 97.9, pulse rate of 84, blood pressure 102/70, respiratory rate 20, and oxygen saturation on room air. GENERAL: The patient is sitting up in bed, in no acute distress. HEENT: Atraumatic and normocephalic. PERRLA. Extraocular muscles intact. NECK: Supple. No JVD. No adenopathy noted. LUNGS: Clear to auscultation. No adventitious sounds. HEART: S1 and S2, normal rate and rhythm. No murmurs, rubs or gallops. ABDOMEN: Soft, nontender, and nondistended. Bowel sounds present. EXTREMITIES: No clubbing. No cyanosis. Peripheral pulses 2+ bilaterally. NEUROLOGIC: The patient is alert and oriented to person, place, and year. Recall time is 0/3. Poor attention span. Slow thought process. Cranial nerves II through XII intact. Motor: Moves all extremities equally. No pronator drift seen. Toes are downgoing bilaterally. Sensory: Light touch pinprick, proprioception is slightly decreased up to the calves, and decreased vibration of the toes. DTRs are 2+ throughout and 1 at both knees and ankles. Coordination: [id number]-sw-[id number] intact. No dysmetria noted. MUSCULOSKELETAL: Lumbosacral tenderness is present. Gait is deferred for now. IMPRESSION: Low back pain secondary to lumbosacral neuritis with possible radiculopathy and musculoskeletal component given that the patient on the CAT scan of the lumbosacral spine shows a large central disk herniation at L5-S1 and superior foraminal stenosis bilaterally at L4-L5 with chronic compression fracture at L3. PLAN: At this time, we recommend: 1. Lidoderm patch at the lumbosacral area. 2. Continue with gabapentin 300 mg p.o. t.i.d. for neuropathic relief. 3. Continue with Ultram 50 mg p.o. b.i.d. as needed for acute onset of pain. 4. PT/OT for low back pain, which consists of lumbosacral stretching, TENS unit, ultrasound therapy, myofascial pain release technique, and therapeutic exercises. 5. Neurosurgical evaluation for large central disk herniation at L5-S1 and if cleared by them, can follow up as an outpatient. Thank you for this followup. John Ness MD
[2018-11-11 18:40] LABS: INR 1.06; PROTHROMBIN TIME 11.8 SECONDS (9.4-12.5)
--- NOTE | 2018-11-11 21:18 | PN ---
DATE: 11/11/2018 SUBJECTIVE: The patient is a 68-year-old female. The patient is comfortable. No fever, no chills, no nausea, no hematochezia, no headache, no dizziness, no chest pain, and no palpitation. PHYSICAL EXAMINATION: VITAL SIGNS: Temperature 97.2, pulse 92, respiratory rate 16, blood pressure 130/62, and pulse oximetry 100%. HEENT: Head is normocephalic and atraumatic. Eyes, PERRLA. Extraocular muscles are intact. Conjunctiva are clear. Nose is patent. Mucous membranes are moist. NECK: Supple. No carotid bruit, no JVD or thyromegaly. CHEST: Bilaterally symmetrical. HEART: S1, S2 positive. LUNGS: Clear. EXTREMITIES: No edema, no cyanosis. NEUROLOGIC: The patient is awake and alert, follows simple commands. MEDICATIONS: Tylenol, DuoNeb, Norvasc, Lovenox, Pepcid, Neurontin, insulin, lidocaine, Protonix, Prandin, Spiriva, and tramadol. LABORATORY DATA: White blood cells 6.5, hemoglobin 11.9, hematocrit 37.1, platelets 134, sodium 134, potassium 3.9, BUN 7, creatinine 0.5, and glucose 104. ASSESSMENT AND PLAN: Ms. Jesusita Pascual is a 68-year-old lady with anemia, hyperglycemia, history of diabetes mellitus, hypertension, chronic obstructive pulmonary disease, congestive heart failure, avascular necrosis of the hip, hepatitis C, history of intravenous drug use a long time ago, came with abdominal pain, nausea and vomiting. GI is on the case. The patient went for MRCP, results reviewed by me. Seen by irrigator gravity flow and GI. Planned for lumbar spine CT. Neurology is on the case also. Had mild disk bulging, degenerative joint disease, chronic compression fracture at L3. Physical therapy, out of bed. We will follow up. Denice Montanez MD
[2018-11-12] MEDS: Albuterol-Ipratrop 3 mg / 0.5 (3 ml) UD IH SCH ×4 (01:26→20:47)
[2018-11-12 07:39] LABS: BASO # 0.02 K/mm3 (0.0-2.0); BASO % 0.4 % (0.0-3.0); EOS # 0.1 (0.0-0.7); LYMPH % 40.3 % (22.0-35.0); MEAN CELL VOLUME 89.6 fl (80.0-105.0); MEAN CORPUSCULAR HEMOGLOBIN 28.2 pg (25.0-35.0); MEAN CORPUSCULAR HGB CONC 31.5 g/dl (31.0-37.0); MEAN PLATELET VOLUME 11.5 fl (7.0-11.0); MONO # 0.3 (0.1-0.6); MONO % 5.9 % (1.0-6.0); RBC 4.61 10^6/uL (3.5-6.1); RED CELL DISTRIBUTION WIDTH 16.3 % (11.5-14.5); WHITE BLOOD COUNT 4.9 10^3/uL (4.5-11.0)
[2018-11-12 07:48] LABS: ALB/GLOB RATIO 0.9 (1.1-1.8); ALBUMIN 3.8 g/dL (3.0-4.8); ALT/SGPT 30 U/L (7-56); AST/SGOT 39 U/L (14-36); BLOOD UREA NITROGEN 10 mg/dL (7-21); CALCIUM 9.4 mg/dL (8.4-10.5); GFR NON-AFRICAN AMERICAN > 60
[2018-11-12] MEDS: Tiotropium 18 mcg Cap For Inhalation IH SCH ×2 (08:12→17:21)
[2018-11-12] MEDS: Pantoprazole 40 mg EC Tab PO SCH (08:12)
[2018-11-12] MEDS: Insulin Reg-LOW-Coverage SC SCH ×3 (08:13→17:19)
[2018-11-12] MEDS ORDERED: Magnesium Oxide 400 mg Tab UD PO ONE (08:42)
[2018-11-12] MEDS: Enoxaparin 40 mg Syringe SC SCH (10:00)
--- NOTE | 2018-11-12 11:10 | MRI ---
Date of service: 11/12/2018 PROCEDURE: MR LUMBAR SPINE WITHOUT CONTRAST HISTORY: pain COMPARISON: CT lumbar spine from 11/10/2018 and MRI lumbar spine without contrast from 09/30/2018 TECHNIQUE: Multiecho multiplanar sequences were performed through the lumbar spine without the use of intravenous contrast. FINDINGS: There is degenerative 4 mm anterior listhesis of L2 on L3. There is normal lumbar lordosis. There is no acute fracture. There are old superior endplate compression fractures in the T12 and L3 vertebral bodies. There are advanced degenerative endplate marrow changes at L4-5. Otherwise bone marrow signal is heterogeneous however within normal limits. The conus medullaris terminates at a normal level and the nerve roots of cauda equina are normal. The paraspinous soft tissues are normal. T12-L1: No disc herniation, spinal canal stenosis or neural foraminal narrowing. L1-2: Mild posterior disc bulge without spinal canal stenosis or neural foraminal narrowing. L2-3: Diffuse posterior disc bulge indents the ventral thecal sac with mild central spinal canal stenosis. Moderate bilateral facet arthropathy contribute to Smart right and severe left neural foraminal narrowing. L3-4: Posterior disc bulge without central spinal canal stenosis. Moderate bilateral facet arthropathy contribute to mild right and moderate left neural foraminal narrowing. L4-5: Diffuse posterior disc bulge and superimposed right posterolateral annular tear and disc protrusion indent the ventral thecal sac without central spinal canal stenosis. Moderate bilateral facet arthropathy contribute to severe right and moderate left neural foraminal narrowing. L5-S1: Broad-based central disc protrusion indents the ventral thecal sac with mild spinal canal stenosis. No neural foraminal narrowing. OTHER FINDINGS: None. IMPRESSION: 1. No acute fracture. 2. Chronic superior endplate compression fracture deformities in the T12 and L3 vertebral bodies. 3. Multilevel degenerative disc disease, worse at L5-S1 with a broad-based central disc protrusion and mild spinal canal stenosis. No significant interval change since the prior examination.
--- NOTE | 2018-11-12 13:29 | PN ---
DATE: 11/12/2018 PULMONARY PROGRESS NOTE REFERRING PHYSICIAN: Dr. Denice Montanez. SUBJECTIVE: The patient is seen lying in bed. No acute distress. No overnight events reported. The patient reports that she still has some lower back pain. No headache, rhinitis, cough, shortness of breath, chest pain, abdominal pain, nausea, vomiting, diarrhea, leg pain or leg swelling reported. OBJECTIVE: GENERAL: No acute distress. VITAL SIGNS: Blood pressure 110/77, pulse 88, temperature 97.8 and oxygen saturation 99% on room air. HEENT: Moist mucous membranes. Crowded airway. NECK: Supple. No JVD. LUNGS: Few scattered rhonchi. CARDIOVASCULAR: S1 and S2. ABDOMEN: Soft and nontender. No distention. No organomegaly. EXTREMITIES: No bilateral lower extremity edema. NEUROLOGIC: Awake, alert, and verbal. Following commands. MEDICATIONS: Reviewed. Tylenol 650 every 4 hours p.r.n. for fever and pain, DuoNeb 3 mL inhalation every 6 hours, Norvasc 10 mg daily, Lovenox 40 mg subcutaneous daily, Pepcid 40 mg at bedtime, Neurontin 300 mg three times a day, Humulin R sliding scale a.c. and at bedtime, Lidoderm patch transdermal daily, Protonix 40 mg in the morning, Prandin 2 mg a.c., Spiriva 18 mcg inhalation daily and tramadol 50 mg twice a day p.r.n. LABORATORY DATA: Reviewed. WBC 4.9, RBC 4.61, hemoglobin 13, hematocrit 41.3 and platelets 141. Sodium 140, potassium 4.1, chloride 102, carbon dioxide 32, anion gap 10, BUN 10, creatinine 0.7, GFR is greater than 60, random glucose 150, calcium 9.4, magnesium 1.6, total bilirubin 0.5, AST 39, ALT 30, alkaline phosphatase 89, total protein 7.9, albumin 3.8, globulin 4.0 and albumin-globulin ratio 0.9. Lumbar spine MRI shows no acute fracture chronic superior endplate compression fracture deformities in T12 and L3. Multilevel degenerative disc disease worse at L5-S1 with a broad based central disc protrusion and mild spinal canal stenosis. IMPRESSION AND PLAN: Chronic obstructive pulmonary disease, hypertension, lumbar radiculopathy, diabetes, compression fractures, degenerative joint disease, and iron deficiency anemia. Continue Neurology followup, Gastroenterology followup. Continue inhaled bronchodilators, deep venous thrombosis prophylaxis, and gastric prophylaxis. Continue to encourage smoking cessation. We will recommend physical therapy out of bed to chair. Fall precautions. We recommend this patient have full pulmonary function test to evaluate chronic lung disease and sleep study as outpatient to rule out sleep apnea syndrome. This patient was seen and examined with Dr. Epperson. Discussed assessment and plan as described above. This patient was seen and examined with Zach Weathers, nurse practitioner. Discussed assessment and plan as described above. Thank you for this consult. We will follow with you. Zach Weathers APN Renato Epperson MD JENNIFER
[2018-11-12] MEDS ORDERED: Sodium Chloride 0.9% 1,000 ML IV SCH (16:00)
[2018-11-12] MEDS ORDERED: Propofol 10 mg/ml Inj (20 ML) ONE ×2 (16:03→16:14)
--- NOTE | 2018-11-12 19:48 | CON ---
DATE OF CONSULTATION: 11/12/2018 REASON FOR CONSULTATION: Low back pain. HISTORY OF PRESENT ILLNESS: The patient is a 68, young woman, who states she has had longstanding issues with her back. She was admitted on this occasion last week with nausea and vomiting. Consultations were requested with Neurology and Orthopedics to evaluate her complaints of back pain. She is noted to have bilateral avascular necrosis of the hips. When questioning her today, she states that the left side of her lower back bothers her some, but she complains of pain in the groin area, particularly on the right side as well as over the "right hip" where it is "swollen." She states she has been seen by Physical Therapy and is walking much better with a rolling walker. She is still being worked up for her GI issues. No loss of bowel or bladder control. PAST MEDICAL HISTORY: Significant for epp-[id number]-pzkcoaisq diabetes, hypertension, COPD, congestive heart failure, hepatitis C, status post IV drug abuse in the past. MEDICATIONS: As listed on the chart. ALLERGIES: SHE STATES SHE IS NOT ALLERGIC TO ANY MEDICATIONS. PAST SURGICAL HISTORY: She has a history of tonsillectomy. SOCIAL HISTORY: She states she smokes less than half a pack a day. She takes perhaps a couple of shots of alcohol daily. In terms of the IV drug abuse, again that was years ago, and she finished methadone treatment. No significant tenderness to palpitations of the lumbar spine. Again, she points to the groin area as her major complaint of pain. Straight-leg raising gives no radicular complaints, but aggravates the pain along the groin. She is very tender to palpation over the right trochanteric region. She does complain of pain radiating down the lateral right thigh, but it did not go below the knee and, upon close questioning, she states it really starts at the trochanteric region and does not wrap around from her back down the leg. Her neurologic exam was intact with sensory to light touch as well as motor strength. Reflexes are symmetrical. No clonus is present. Babinski showed toes downgoing. Distal pulses are fair. She had an MRI done, which shows significant Modic endplate changes at L4-5. She has an annular tear there as well. She has a large central herniated disc central to the right side at 5-1. She has an old compression fracture at superior endplate of L3. CT scan of the abdomen and pelvis showed severe degenerative changes in both hip joints. While this young lady does present with a herniated disc and some stenosis, she seems to be suffering more from the hip arthritis in terms of her complaints of groin pain as well as trochanteric bursitis on the right side with her pain radiating from the trochanter down the tensor fascia kai and ending right at the knee. She is complaining of pain more in the left side of her lower back, but the herniated disc at 5-1 is more central and right-sided. She states her walking is better, so I would agree with the plan to continue outpatient PT at this time. I think that the back pain became severe and she is having trouble walking or certainly developed more the way of lumbar radicular symptoms, one might consider doing a disc excision at 5-1 and opening things up with a decompressive laminectomy at 4-5, but at this point, again, I think it is more the degenerative hip changes as well as a trochanteric bursitis on the right side that is bothering her. I recommend physical therapy to treat the trochanteric region and continue to mobilize as tolerated while she undergoes her workup. Therefore, no surgical intervention is planned at this time. Thank you for allowing us to participate in the care of your patient. Kwasi Hi MD JENNIFER
--- NOTE | 2018-11-13 00:29 | PN ---
DATE: 11/12/2018 SUBJECTIVE: The patient is a 68-year-old female. The patient is seen and examined at the bedside on 11/12/2018, still complaining about abdominal pain and back pain. No fever, no chills. No hematuria, no hematochezia. No headache, no dizziness. No chest pain, no palpitation. PHYSICAL EXAMINATION: VITAL SIGNS: Blood pressure 110/77, pulse 88, temperature 97.8, oxygen saturation 99% on room air. HEENT: Head is normocephalic and atraumatic. Eyes; PERRLA, extraocular muscles intact, conjunctiva clear. Nose is patent. Mucous membranes are moist. NECK: Supple. No carotid bruit. No JVD or thyromegaly. CHEST: Bilaterally symmetrical. HEART: S1 and S2 positive. LUNGS: Clear to auscultation. ABDOMEN: Soft. Bowel sounds present. No organomegaly. EXTREMITIES: No edema, no cyanosis. NEUROLOGIC: The patient is awake and alert, moving all 4 extremities. No focal deficits. MEDICATIONS: Tylenol, DuoNeb, Norvasc, Lovenox, Pepcid, Neurontin, insulin, Lidoderm patch, Protonix, Prandin, Spiriva, tramadol. LABORATORY DATA: White blood cells 4.9, hemoglobin 13, hematocrit 41.3, platelets 141. Sodium 140, potassium 4.1, BUN 10, creatinine 0.7, glucose 150. AST of 39, ALT of 30. ASSESSMENT AND PLAN: Ms. Jesusita Pascual is a 68-year-old lady with multiple medical problems, chronic obstructive pulmonary disease, hypertension, chronic back pain and lumbosacral radiculopathy, herniated disc, degenerative joint disease, diabetes mellitus, compression fracture, iron deficiency. Neurology is on the case. Gastroenterology is on the case. Pulmonology is on the case also. The patient underwent for esophagogastroduodenoscopy by Dr. Urbano. Postoperative diagnoses are rule out celiac disease, gastritis, gastric erosions, duodenal bulb erosions, rule out carcinoid, hiatal hernia. I reviewed lumbar spine CT and lumbar spine MRI. MRI shows no acute fracture, chronic superior endplate compression fracture and deformities in the T12 and L3 vertebral bodies, multilevel degenerative disc disease worse at L5-S1 with broad-based central disc protrusion and mild spinal carcinosis. There are no significant interval changes since the prior examination. The patient is getting pain management and physical therapy. We will try to Transitional Care Unit. We will repeat labs. We will follow up. Denice Montanez MD
[2018-11-13] MEDS: Albuterol-Ipratrop 3 mg / 0.5 (3 ml) UD IH SCH ×4 (04:17→20:55)
--- NOTE | 2018-11-13 07:21 | CP.PCM.PN ---
<Ronnell Vázquez - Last Filed: 11/13/18 21:55> Subjective - Date & Time of Evaluation Date of Evaluation: 11/13/18 Time of Evaluation: 06:04 - Subjective Subjective: Ronnell Vázquez PGY2 GI Progress Note for Dr. Urbano Patient was seen and examined at bedside. The patient's abdominal pain has improved, and she has no complaints today. She is tolerating her diet. She denies any nausea/vomiting. She denies any fevers/chills. Objective - Vital Signs/Intake and Output Vital Signs (last 24 hours): Temp Pulse Resp BP Pulse Ox 97.5 F L 81 18 108/61 99 11/12/18 17:05 11/12/18 17:05 11/12/18 22:00 11/12/18 17:05 11/12/18 22:00 Intake and Output: 11/13/18 11/13/18 06:59 18:59 Intake Total 1560 Output Total 400 Balance 1160 - Medications Medications: Current Medications Acetaminophen (Tylenol 325mg Tab) 650 mg PO Q4H PRN PRN Reason: pain fever Last Admin: 11/10/18 06:38 Dose: 650 mg Albuterol/Ipratropium (Duoneb 3 Mg/0.5 Mg (3 Ml) Ud) 3 ml IH [id number] [facility]ANCIS Last Admin: 11/13/18 04:17 Dose: 3 ml Amlodipine Besylate (Norvasc) 10 mg PO DAILY [facility]IS Last Admin: 11/12/18 11:03 Dose: Not Given Enoxaparin Sodium (Lovenox) 40 mg SC DAILY FRANCIS; Protocol Last Admin: 11/12/18 10:00 Dose: Not Given Famotidine (Pepcid) 40 mg PO HS [facility]ANCIS Last Admin: 11/12/18 21:23 Dose: 40 mg Gabapentin (Neurontin) 300 mg PO TID FRANCIS; Protocol Last Admin: 11/12/18 14:00 Dose: Not Given Insulin Human Regular (Humulin R Low) 0 units SC ACHS FRANCIS; Protocol Last Admin: 11/12/18 17:19 Dose: Not Given Lidocaine (Lidoderm) 1 ea TD DAILY [facility] Last Admin: 11/11/18 10:25 Dose: 1 ea Pantoprazole Sodium (Protonix Ec Tab) 40 mg PO ACB [facility] Last Admin: 11/12/18 08:12 Dose: 40 mg Repaglinide (Prandin) 2 mg PO AC [facility] [place] Last Admin: 11/12/18 17:21 Dose: Not Given Tiotropium [place] (Spiriva) 18 mcg IH DAILY [facility] [place] Last Admin: 11/12/18 17:21 Dose: Not Given Tramadol HCl (Ultram) 50 mg PO BID PRN PRN Reason: Pain, moderate (4-7) Last Admin: 11/12/18 21:23 Dose: 50 mg - Labs Labs: 11/12/18 06:30 11/12/18 06:30 PT 11.8 SECONDS (9.4-12.5) 11/11/18 18:15 INR 1.06 11/11/18 18:15 - Constitutional Appears: Well, Non-toxic, No Acute Distress - Head Exam Head Exam: ATRAUMATIC, NORMAL INSPECTION, NORMOCEPHALIC - Eye Exam Eye Exam: EOMI, Normal appearance, PERRL Pupil Exam: NORMAL ACCOMODATION, PERRL - ENT Exam ENT Exam: Mucous Membranes Moist, Normal Exam - Neck Exam Neck Exam: Full ROM, Normal Inspection. absent: Lymphadenopathy - Respiratory Exam Respiratory Exam: Clear to Ausculation Bilateral, NORMAL BREATHING PATTERN. absent: Respiratory Distress - Cardiovascular Exam Cardiovascular Exam: REGULAR RHYTHM, +S1, +S2 - GI/Abdominal Exam GI & Abdominal Exam: Soft, Normal Bowel Sounds. absent: Distended, Tenderness - Extremities Exam Extremities Exam: Full ROM, Normal Capillary Refill, Normal Inspection. absent: Joint Swelling, Pedal Edema - Back Exam Back Exam: NORMAL INSPECTION. 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 GI consulted for vomiting. Patient's symptoms have resolved and she is tolerating her diet. She had EGD done on 11/12 which revealed a duodenal polyp (biopsied), erosive gastropathy and gastritis. Plan: - MRCP reviewed, was unremarkable - chromogrannin A ordered - cont PPI - cont regular diet as tolerated - monitor H/H and VS - patient should follow up as outpatient with Dr. Urbano for pathology results of polyp - further recs per Dr. Urbano Case was reviewed and discussed with Dr. Urbano <Carolina Urbano V - Last Filed: 11/14/18 00:30> Objective - Vital Signs/Intake and Output Vital Signs (last 24 hours): Temp Pulse Resp BP Pulse Ox 98.9 F 94 H 20 103/60 100 11/13/18 14:00 11/13/18 14:00 11/13/18 14:00 11/13/18 14:00 11/13/18 14:00 Intake and Output: 11/13/18 11/14/18 18:59 06:59 Intake Total 1020 180 Balance 1020 180 - Medications Medications: Current Medications Acetaminophen (Tylenol 325mg Tab) 650 mg PO Q4H PRN PRN Reason: pain fever Last Admin: 11/13/18 16:47 Dose: 650 mg Albuterol/Ipratropium (Duoneb 3 Mg/0.5 Mg (3 Ml) Ud) 3 ml IH [id number] FRANCIS Last Admin: 11/13/18 20:55 Dose: Not Given Amlodipine Besylate (Norvasc) 10 mg PO DAILY [facility] Last Admin: 11/13/18 10:36 Dose: 10 mg Enoxaparin Sodium (Lovenox) 40 mg SC DAILY [facility]; Protocol Last Admin: 11/13/18 10:35 Dose: 40 mg Famotidine (Pepcid) 40 mg PO HS [facility]ANCIS Last Admin: 11/13/18 21:38 Dose: 40 mg Gabapentin (Neurontin) 300 mg PO TID [facility]ANCIS; Protocol Last Admin: 11/13/18 17:55 Dose: 300 mg Insulin Human Regular (Humulin R Low) 0 units SC ACHS FRANCIS; Protocol Last Admin: 11/13/18 19:43 Dose: Not Given Lidocaine (Lidoderm) 1 ea TD DAILY [facility] Last Admin: 11/13/18 10:37 Dose: 1 ea Pantoprazole Sodium (Protonix Ec Tab) 40 mg PO ACB [facility] Last Admin: 11/13/18 10:37 Dose: 40 mg Repaglinide (Prandin) 2 mg PO AC [facility] [place] Last Admin: 11/13/18 16:49 Dose: 2 mg Tiotropium [place] (Spiriva) 18 mcg IH DAILY [facility] [place] Last Admin: 11/13/18 10:37 Dose: 18 mcg Tramadol HCl (Ultram) 50 mg PO BID PRN PRN Reason: Pain, moderate (4-7) Last Admin: 11/12/18 21:23 Dose: 50 mg - Labs Labs: 11/12/18 06:30 11/12/18 06:30 PT 11.8 SECONDS (9.4-12.5) 11/11/18 18:15 INR 1.06 11/11/18 18:15 Attending/Attestation - Attestation I have personally seen and examined this patient.: Yes I have fully participated in the care of the patient.: Yes I have reviewed all pertinent clinical information, including history, physical exam and plan: Yes Notes (Text): This is an addendum to the GI progress report dictated by the resident. This patient was seen in examined along with resident earlier today CT scan findings reviewed with the patient and also discussed with the PCP. Complicated duodenal polypoid lesion biopsies taken to rule out carcinoid. Patient is advised to avoid a nonsteroidal anti-inflammatory drugs, Patient will need a repeat endoscopy with possible EUS and EMR after review of the biopsy report. 11/14/18 00:28
[2018-11-13] MEDS: Insulin Reg-LOW-Coverage SC SCH ×4 (08:00→19:43)
[2018-11-13] MEDS: Enoxaparin 40 mg Syringe SC SCH (10:35)
[2018-11-13] MEDS: Lidocaine 5% Patch TD SCH (10:37)
[2018-11-13] MEDS: Tiotropium 18 mcg Cap For Inhalation IH SCH (10:37)
[2018-11-13] MEDS: Pantoprazole 40 mg EC Tab PO SCH (10:37)
--- NOTE | 2018-11-13 10:57 | PN ---
DATE: 11/13/2018 PULMONARY PROGRESS NOTE REFERRING PHYSICIAN: Dr. Denice Montanez. SUBJECTIVE: The patient is seen lying in bed. No acute distress. No overnight events reported. The patient is status post esophagogastroduodenoscopy with biopsy. Reports feeling well today. States that lower back pain has improved some today. No headache, rhinitis, cough, shortness of breath, chest pain, abdominal pain, nausea, vomiting, diarrhea, leg pain or leg swelling reported. OBJECTIVE: GENERAL: No acute distress. VITAL SIGNS: Blood pressure 120/81, pulse 88, temperature 97 and oxygen saturation 99% on room air. HEENT: Moist mucous membranes. Crowded airway. NECK: Supple. No JVD. LUNGS: Few scattered rhonchi. CARDIOVASCULAR: S1 and S2. ABDOMEN: Soft and nontender. No distention. No organomegaly. EXTREMITIES: No bilateral lower extremity edema. NEUROLOGIC: Awake, alert, and verbal. Following commands. MEDICATIONS: Reviewed. Tylenol 650 every 4 hours p.r.n. for pain and fever, DuoNeb 3 mL inhalation every 6 hours, Norvasc 10 mg daily, Lovenox 40 mg daily, Pepcid 40 mg at bedtime, Neurontin 300 mg three times a day, Humulin R sliding scale a.c. and at bedtime, Lidoderm patch transdermal daily, Protonix 40 mg in the morning, Prandin 2 mg in the morning or before meals, Spiriva 18 mcg inhalation daily and Ultram 50 mg twice a day p.r.n. LABORATORY DATA: Reviewed. No new labs. IMPRESSION AND PLAN: Chronic obstructive pulmonary disease, hypertension, lumbar radiculopathy, diabetes, compression fractures, degenerative joint disease, disc herniation, spinal stenosis and iron deficiency anemia. Pulmonary point of view, continue inhaled bronchodilators, gastric prophylaxis and deep venous thrombosis prophylaxis. Continue to encourage smoking cessation and pain management. Recommend physical therapy and fall precautions. We recommend this patient have full pulmonary function test as outpatient to evaluate chronic lung disease. Recommend this patient have sleep study as outpatient to rule out sleep apnea. This patient was seen and examined with Dr. Epperson. Discussed assessment and plan as described above. This patient was seen and examined with Zach Weathers, nurse practitioner. Discussed assessment and plan as described above. Thank you for this consult. We will follow with you. Zach Weathers APN Renato Epperson MD [facility] # [id number]
[2018-11-14] MEDS: Albuterol-Ipratrop 3 mg / 0.5 (3 ml) UD IH SCH ×3 (02:39→13:17)
--- NOTE | 2018-11-14 06:46 | CP.PCM.PN ---
<Ronnell Vázquez - Last Filed: 11/14/18 11:26> Subjective - Date & Time of Evaluation Date of Evaluation: 11/14/18 Time of Evaluation: 07:25 - Subjective Subjective: Ronnell Vázquez PGY2 GI Progress Note for Dr. Urbano Patient was seen and examined at bedside. the patient has no abdominal pain today, and is tolerating her diet well. she is having bowel movements w/o any nausea/vomiting. Objective - Vital Signs/Intake and Output Vital Signs (last 24 hours): Temp Pulse Resp BP Pulse Ox 98.9 F 94 H 20 103/60 100 11/13/18 14:00 11/13/18 14:00 11/13/18 22:00 11/13/18 14:00 11/13/18 22:00 Intake and Output: 11/13/18 11/14/18 18:59 06:59 Intake Total 1020 360 Balance 1020 360 - Medications Medications: Current Medications Acetaminophen (Tylenol 325mg Tab) 650 mg PO Q4H PRN PRN Reason: pain fever Last Admin: 11/13/18 16:47 Dose: 650 mg Albuterol/Ipratropium (Duoneb 3 Mg/0.5 Mg (3 Ml) Ud) 3 ml IH [id number] FARNCIS Last Admin: 11/14/18 02:39 Dose: Not Given Amlodipine Besylate (Norvasc) 10 mg PO DAILY [facility]ANCIS Last Admin: 11/13/18 10:36 Dose: 10 mg Enoxaparin Sodium (Lovenox) 40 mg SC DAILY [facility]ANCIS; Protocol Last Admin: 11/13/18 10:35 Dose: 40 mg Famotidine (Pepcid) 40 mg PO HS [facility]ANCIS Last Admin: 11/13/18 21:38 Dose: 40 mg Gabapentin (Neurontin) 300 mg PO TID [facility]ANCIS; Protocol Last Admin: 11/13/18 17:55 Dose: 300 mg Insulin Human Regular (Humulin R Low) 0 units SC ACHS FRANCIS; Protocol Last Admin: 11/13/18 19:43 Dose: Not Given Lidocaine (Lidoderm) 1 ea TD DAILY [facility] Last Admin: 11/13/18 10:37 Dose: 1 ea Pantoprazole Sodium (Protonix Ec Tab) 40 mg PO ACB [facility] Last Admin: 11/13/18 10:37 Dose: 40 mg Repaglinide (Prandin) 2 mg PO AC [facility] Last Admin: 11/13/18 16:49 Dose: 2 mg Tiotropium [place] (Spiriva) 18 mcg IH DAILY [facility] Last Admin: 11/13/18 10:37 Dose: 18 mcg Tramadol HCl (Ultram) 50 mg PO BID PRN PRN Reason: Pain, moderate (4-7) Last Admin: 11/14/18 04:20 Dose: 50 mg - Labs Labs: 11/12/18 06:30 11/12/18 06:30 PT 11.8 SECONDS (9.4-12.5) 11/11/18 18:15 INR 1.06 11/11/18 18:15 - Constitutional Appears: Well, Non-toxic, No Acute Distress - Head Exam Head Exam: ATRAUMATIC, NORMAL INSPECTION, NORMOCEPHALIC - Eye Exam Eye Exam: EOMI, Normal appearance, PERRL Pupil Exam: NORMAL ACCOMODATION, PERRL - ENT Exam ENT Exam: Mucous Membranes Moist, Normal Exam - Neck Exam Neck Exam: Full ROM, Normal Inspection. absent: Lymphadenopathy - Respiratory Exam Respiratory Exam: Clear to Ausculation Bilateral, NORMAL BREATHING PATTERN. absent: Respiratory Distress - Cardiovascular Exam Cardiovascular Exam: REGULAR RHYTHM, +S1, +S2 - GI/Abdominal Exam GI & Abdominal Exam: Soft, Normal Bowel Sounds. absent: Distended, Tenderness - Extremities Exam Extremities Exam: Full ROM, Normal Capillary Refill, Normal Inspection. absent: Joint Swelling, Pedal Edema - Back Exam Back Exam: NORMAL INSPECTION. 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 GI consulted for vomiting. Patient's symptoms have resolved and she is tolerating her diet. She had EGD done on 11/12 which revealed a duodenal polyp (biopsied), erosive gastropathy and gastritis. Plan: - awaiting pathology results - MRCP reviewed, was unremarkable - chromogrannin A ordered - avoid NSAIDS - cont PPI - cont regular diet as tolerated - monitor H/H and VS - patient should follow up as outpatient with Dr. Urbano for pathology results of polyp; she might need further workup and evaluation depending on pathology results - further recs per Dr. Urbano Case was reviewed and discussed with Dr. Urbano <Carolina Urbano V - Last Filed: 11/14/18 22:08> Objective - Vital Signs/Intake and Output Vital Signs (last 24 hours): Temp Pulse Resp BP Pulse Ox 98.8 F 95 H 18 109/78 98 11/14/18 14:00 11/14/18 14:00 11/14/18 14:00 11/14/18 14:00 11/14/18 14:00 Intake and Output: 11/14/18 11/15/18 18:59 06:59 Intake Total 600 Balance 600 - Labs Labs: 11/12/18 06:30 11/12/18 06:30 PT 11.8 SECONDS (9.4-12.5) 11/11/18 18:15 INR 1.06 11/11/18 18:15 Attending/Attestation - Attestation I have personally seen and examined this patient.: Yes I have fully participated in the care of the patient.: Yes I have reviewed all pertinent clinical information, including history, physical exam and plan: Yes Notes (Text): This is an addendum to the GI progress report dictated by the medical stenographer. The patient was seen and evaluated here earlier. Findings of the endoscopy were again discussed with the patient need for follow-up in the office was explained. The patient may need a EMR and endoscopy ultrasound evaluation after review of the prior polyp. Continue PPI. 11/14/18 22:07
--- NOTE | 2018-11-14 08:22 | PN ---
DATE: 11/13/2018 SUBJECTIVE: The patient is a 68-year-old female. The patient was seen and examined on the bedside on 11/13/2018. Looking comfortable. No fever. No chills. No hematuria. No hematochezia. No headache. No dizziness. No chest pain. No palpitation. Still having back pain and abdominal pain. Once in a while, feeling nauseous. PHYSICAL EXAMINATION: VITAL SIGNS: Blood pressure 120/81, pulse 88, temperature 97.6, oxygen saturation 99% on room air. HEENT: Head: Normocephalic and atraumatic. Eyes: PERRLA. Extraocular muscles are intact. Conjunctivae clear. Nose patent. Mucus membrane moist. NECK: Supple. No carotid bruits. No JVD or thyromegaly. CHEST: Bilaterally symmetrical. HEART: S1 and S2 positive. LUNGS: Clear to auscultation. ABDOMEN: Soft. Bowel sounds present. No organomegaly. EXTREMITIES: No edema. No cyanosis. NEUROLOGICAL: The patient is awake and alert, follows simple commands. MEDICATIONS: Tylenol, DuoNeb, Norvasc, Lovenox, Pepcid, Neurontin, insulin sliding scale, Lidoderm, Protonix, Prandin, Spiriva, tramadol. LABORATORY DATA: We do not have recent labs today, but I reviewed old labs. ASSESSMENT AND PLAN: The patient is a 68-year-old female with multiple medical problems, came with abdominal pain, has chronic obstructive lung disease, hypertension, lumbosacral radiculopathy, diabetes mellitus, compression fracture, degenerative joint disease, disk herniation, spinal stenosis, iron-deficiency anemia. Went for endoscopy by Dr. Urbano. As per Pulmonary, continue bronchodilators. Physical therapy. Urge to quit smoking. Time to get CCU. Gastrointestinal and deep venous thrombosis prophylaxis. Esophagogastroduodenoscopy with biopsy was done, showed celiac disease, gastritis, gastric erosion, duodenal bulb lesion, rule out carcinoid, hiatal hernia. We will repeat labs. We will follow up. Denice Montanez MD
[2018-11-14] MEDS: Insulin Reg-LOW-Coverage SC SCH ×3 (09:20→16:39)
[2018-11-14] MEDS: Enoxaparin 40 mg Syringe SC SCH (09:53)
[2018-11-14] MEDS: Lidocaine 5% Patch TD SCH ×2 (09:54→10:03)
[2018-11-14] MEDS: Pantoprazole 40 mg EC Tab PO SCH (09:54)
--- NOTE | 2018-11-14 11:37 | PN ---
DATE: 11/14/2018 PULMONARY PROGRESS NOTE REFERRING PHYSICIAN: Denice Montanez MD SUBJECTIVE: The patient is seen lying in bed. No acute distress. No overnight events reported. Reports no shortness of breath, states she has some coughing with clear sputum production at times. No headache, rhinitis, chest pain, abdominal pain, nausea, vomiting, diarrhea, leg pain or leg swelling reported at this time. OBJECTIVE: GENERAL: No acute distress. VITAL SIGNS: Blood pressure 121/86, pulse 61, temperature 98.6 and oxygen saturation 97% on room air. HEENT: Moist mucous membranes. Crowded airway. NECK: Supple. No JVD. LUNGS: Few scattered rhonchi. CARDIOVASCULAR: S1 and S2. ABDOMEN: Soft and nontender. No distention. No organomegaly. EXTREMITIES: No bilateral lower extremity edema. NEUROLOGIC: Awake, alert, and verbal. Following commands. MEDICATIONS: Reviewed. Tylenol 650 mg every 4 hours p.r.n. for pain and fever, DuoNeb 3 mL inhalation every 6 hours, Norvasc 10 mg daily, Lovenox 40 mg subcutaneously daily, Pepcid 40 mg at bedtime, Neurontin 300 mg 3 times a day, Humulin R sliding scale a.c. and at bedtime, Lidoderm patch transdermal daily, Protonix 40 mg in the morning, Prandin 2 mg before meals, Spiriva 18 mcg inhalation daily and Ultram 50 mg twice a day p.r.n. LABORATORY DATA: Reviewed. POC glucose 140. Endoscopy report reviewed shows normal esophagus, gastritis which is biopsied, nonbleeding erosive gastropathy which is biopsied, duodenal polyps biopsied, erythematous duodenopathy which is biopsied. Pathology pending. IMPRESSION AND PLAN: Chronic obstructive pulmonary disease, hypertension, lumbar radiculopathy, diabetes, compression fractures, degenerative joint disease, disc herniation, spinal stenosis and iron deficiency anemia and gastritis. Pulmonary point of view, continue inhaled bronchodilators, gastric prophylaxis and deep venous thrombosis prophylaxis. Continue to encourage smoking cessation and pain management. Continue Gastroenterology followup. Fall precautions. We do recommend physical therapy in this patient. Recommend the patient have full pulmonary function test as outpatient to evaluate chronic lung disease extent. Recommend sleep study as outpatient to rule out sleep apnea. This patient was seen and examined with Dr. Epperson. Discussed assessment and plan as described above. This patient was seen and examined with Zach Prudence, nurse practitioner. Discussed assessment and plan as described above. Thank you for this consult and we will follow with you. Zach Weathers APN Renato Epperson MD
[2018-11-14] MEDS: Tiotropium 18 mcg Cap For Inhalation IH SCH (12:16)
[2018-11-14 15:36] VITALS: BP 109/78; PULSE 95; RESP 18; TEMP 98.8; O2SAT 98
--- NOTE | 2018-11-17 09:13 | DS ---
The patient was seen and examined at the bedside on 11/14/2018. CHIEF COMPLAINTS: Nausea, vomiting, abdominal pain and back pain. HISTORY OF PRESENT ILLNESS: a 58-year-old female with past medical history of multiple medical problems including congestive heart failure, COPD, back pain, compression fracture of thoracic and lumbar vertebrae [facility] for nausea, vomiting, abdominal pain and back pain. We admitted the patient and did a CAT scan of the abdomen and pelvis, lumbar spine CT done, MRCP done and lumbar spine MRI done. Seen by Dr. Epperson [facility], Dr. Urbano GI, Dr. Ness is the neurologist. Plan was to take the patient to TCU for rehab, but due to social issues they could not do that. The patient went for endoscopy by Dr. Urbano, found a polyp, removed, waiting for the pathology. Discharge home with followup as outpatient for pathology results. PAST MEDICAL HISTORY: Hypertension, COPD, diabetes mellitus type 2, hepatitis C, arthritis, former heroin abuse treated with methadone treatment program and tonsillectomy. FAMILY HISTORY: Father and mother, noncontributory. HABITS: Smoking less than 10 cigarettes per day. Alcohol; 2 mini shots daily. Substance abuse, refusing now. ALLERGIES: THE PATIENT IS NOT ALLERGIC WITH ANY MEDICATION. HOME MEDICATIONS: Reviewed by me. REVIEW OF SYSTEMS: The patient was seen and examined at the bedside. Looking comfortable. No fever. No chills. No hematuria. No hematochezia. No swelling of the legs. No headache. No dizziness. Did good physical therapy. Tolerated the food. PHYSICAL EXAMINATION: VITAL SIGNS: Blood pressure 120/86, pulse 61, temperature 98.6 and oxygen saturation 97% on room air. HEENT: Head is normocephalic and atraumatic. Eyes; PERRLA. Extraocular muscles intact. Conjunctivae clear. Nose patent. Mucous membrane moist. NECK: Supple. No carotid bruits. No JVD. No thyromegaly. CHEST: Bilateral symmetrical. HEART: S1 and S2 positive. LUNGS: Clear to auscultation. ABDOMEN: Soft. Bowel sounds present. No organomegaly. EXTREMITIES: No edema. No cyanosis. NEUROLOGIC: The patient awake and alert. Moving all four extremities. No focal deficits. MEDICATIONS: Tylenol, DuoNeb, Norvasc, Lovenox, Pepcid, Neurontin, insulin, Lidoderm patch, Protonix, Prandin, Spiriva and tramadol. LABORATORY DATA: White blood cells 4.9, hemoglobin 13, hematocrit 41.3 and platelets 141. Glucose 136. Sodium 140, potassium 4.1, BUN 10, creatinine 0.7, magnesium 1.6 and AST 39. ASSESSMENT AND PLAN: a 58-year-old lady with uncontrolled diabetes mellitus, hypomagnesemia replaced, abnormal liver function test and history of anemia, went for upper endoscopy, shows normal esophagus, but has gastritis, which is biopsied nonbleeding erosive gastropexy, which is a biopsied duodenal polyp, biopsied erythematous duodenopathy which is biopsied. Pathology result is pending. The patient has history chronic obstructive pulmonary disease, hypertension, lumbar radiculopathy, compression fracture, degenerative joint disease, disc herniation and spinal stenosis, iron deficiency. The patient had got physical therapy, tolerated food very well, tried to do Transitional Care Unit, but could not, discharged home by nurse practitioner . Medications provided on the bedside. Followup in my office on Saturday so we can discuss with her pathology of the biopsies. We will followup. Denice Montanez MD MTDKam
== END 2018-11-14 18:33 | disposition home health service (06) | DRG 552 ==
LOC: ED 15:51 → ERH 19:30 → 2RSO 23:19 → OBSVTOIN 11-09 21:16 → 5RNO 11-10 13:50
PROVIDERS: ADMIT Internal Medicine; ATTEND Internal Medicine
PROC: 0DB68ZX Excision of Stomach, Via Natural or Artificial Opening Endoscopic, Diagnostic (ICD-10-PCS; 2018-11-12)
PROC: 0DB98ZX Excision of Duodenum, Via Natural or Artificial Opening Endoscopic, Diagnostic (ICD-10-PCS; principal; 2018-11-12 16:00)
DX: M51.16 Intervertebral disc disorders with radiculopathy, lumbar region (principal); M87.852 Other osteonecrosis, left femur; M48.54XA Collapsed vertebra, not elsewhere classified, thoracic region, initial encounter for fracture; K29.70 Gastritis, unspecified, without bleeding; K31.7 Polyp of stomach and duodenum; M70.60 Trochanteric bursitis, unspecified hip; E11.65 Type 2 diabetes mellitus with hyperglycemia; M16.0 Bilateral primary osteoarthritis of hip; K83.8 Other specified diseases of biliary tract; E87.6 Hypokalemia; E83.42 Hypomagnesemia; J44.9 Chronic obstructive pulmonary disease, unspecified; E11.41 Type 2 diabetes mellitus with diabetic mononeuropathy; E87.8 Other disorders of electrolyte and fluid balance, not elsewhere classified; M47.896 Other spondylosis, lumbar region; M48.061 Spinal stenosis, lumbar region without neurogenic claudication; M51.17 Intervertebral disc disorders with radiculopathy, lumbosacral region; I11.0 Hypertensive heart disease with heart failure; I50.9 Heart failure, unspecified; K31.89 Other diseases of stomach and duodenum; D50.9 Iron deficiency anemia, unspecified; G89.29 Other chronic pain; M17.11 Unilateral primary osteoarthritis, right knee; M46.87 Other specified inflammatory spondylopathies, lumbosacral region; F17.210 Nicotine dependence, cigarettes, uncomplicated; F11.11 Opioid abuse, in remission; Z86.19 Personal history of other infectious and parasitic diseases; Z79.4 Long term (current) use of insulin

== ENCOUNTER 2018-11-15 21:42 | Observation (INO) | payer MEDICARE, OTHER ==
[2018-11-15 21:42] VITALS: BMI 21.2
--- NOTE | 2018-11-15 22:19 | ED PDOC ---
Arrival/HPI - General Chief Complaint: GI Problem Time Seen by Provider: 11/15/18 21:52 Historian: Patient - History of Present Illness Narrative History of Present Illness (Text): 11/15/18 22:17 A 68 year old female, whose past medical history includes HTN, diabetes, COPD, vertebral compression fracture, and avascular necrosis of the hips, presents to the ED for further management of recurrent nausea and vomiting. Patient was discharged from the hospital yesterday. Patient had been admitted with similar complaints and undergone Abdomen/Pelvis CT, upper endoscopy, findings consistent with gastritis. Patient states that she told her doctor she was not ready to be discharged yesterday, that she still felt slightly nauseous. Today she presents with recurrent nausea and occasional episodes of vomiting. The patient denies fevers, chills, headache, dizziness, chest pain, shortness of breath, dyspnea on exertion, cough, abdominal pain, diarrhea, back pain, neck pain, urinary/bowel changes, or any other complaint. Time/Duration: Other (Today) Symptom Onset: Sudden Symptom Course: Unchanged Activities at Onset: Rest, Light Context: Home Past Medical History - Provider Review Nursing Documentation Reviewed: Yes - Infectious Disease Hx of Infectious Diseases: None - Cardiac Hx Cardiac Disorders: Yes Hx Congestive Heart Failure: Yes Hx Hypertension: Yes - Pulmonary Hx Chronic Obstructive Pulmonary Disease (COPD): Yes - Neurological Hx Neurological Disorder: No - HEENT Hx HEENT Disorder: No - Renal Hx Renal Disorder: No - Endocrine/Metabolic Hx Diabetes Mellitus Type 2: Yes - Hematological/Oncological Hx Blood Transfusions: No Hx Blood Transfusion Reaction: No - Integumentary Hx Dermatological Disorder: No - Musculoskeletal/Rheumatological Hx Arthritis: Yes - Gastrointestinal Hx Gastrointestinal Disorders: No - Genitourinary/Gynecological Hx Genitourinary Disorders: Yes - Psychiatric Hx Psychophysiologic Disorder: No Hx Substance Use: Yes (former heroin; finished methadone tx) - Surgical History Hx Tonsillectomy: Yes - Anesthesia Hx Anesthesia Reactions: No Hx Malignant Hyperthermia: No Family/Social History - Physician Review Nursing Documentation Reviewed: Yes Family/Social History: No Known Family HX Smoking Status: Light Smoker < 10 Cigarettes Daily Hx Alcohol Use: Yes (2 mini shots daily) Hx Substance Use: Yes (former heroin; finished methadone tx) Substance used: completed methadone program Allergies/Home Meds Allergies/Adverse Reactions: Allergies No Known Allergies Allergy (Verified 11/15/18 21:48) Home Medications: Home Meds Medication Instructions Recorded Confirmed amLODIPine [Norvasc] 10 mg PO DAILY 08/07/18 11/15/18 Albuterol HFA [Ventolin HFA 90 2 puff IH QID PRN 10/22/18 11/15/18 mcg/actuation (8 g)] Review of Systems - Physician Review All systems were reviewed & negative as marked: Yes - Review of Systems Constitutional: absent: Fevers Respiratory: absent: SOB, Cough Cardiovascular: absent: Chest Pain, FONG Gastrointestinal: Nausea, Vomiting. absent: Abdominal Pain, Stool Changes, Diarrhea Genitourinary Female: absent: Urine Output Changes Musculoskeletal: absent: Back Pain, Neck Pain Neurological: absent: Headache, Dizziness Physical Exam Vital Signs Reviewed: Yes Vital Signs Temp Pulse Resp BP Pulse Ox 11/15/18 21:42 97.7 F 117 H 18 108/75 96 Temperature: Afebrile Blood Pressure: Normal Pulse: Tachycardic Respiratory Rate: Normal Appearance: Positive for: Well-Appearing, Non-Toxic, Comfortable Pain Distress: None Mental Status: Positive for: Alert and Oriented X 3 Finger Stick Blood Glucose: 187 - Systems Exam Head: Present: Atraumatic, Normocephalic Pupils: Present: PERRL Extroacular Muscles: Present: EOMI Conjunctiva: Present: Normal Mouth: Present: Moist Mucous Membranes Neck: Present: Normal Range of Motion Respiratory/Chest: Present: Clear to Auscultation, Good Air Exchange. No: Respiratory Distress, Accessory Muscle Use Cardiovascular: Present: Regular Rate and Rhythm, Normal S1, S2. No: Murmurs Abdomen: No: Tenderness, Distention, Peritoneal Signs Back: Present: Normal Inspection Upper Extremity: Present: Normal Inspection, Normal ROM, Neurovascularly Intact. No: Cyanosis, Edema Lower Extremity: Present: Normal Inspection, Normal ROM, Neurovascularly Intact. No: Edema Neurological: Present: GCS=15, CN II-XII Intact, Speech Normal Skin: Present: Warm, Dry, Normal Color. No: Rashes Psychiatric: Present: Alert, Oriented x 3, Normal Insight, Normal Concentration Medical Decision Making ED Course and Treatment: 11/15/18 22:20 Impression: A 68 year old female presents to the ed for further evaluation and management of recurrent vomiting and nausea. Plan: -- Labs -- Pepcid, Zofran, and IV Fluids -- Reassess and disposition Prior Visits: Notes and results from previous visits were reviewed. Progress Notes: 11/16/18 00:52 Patient states she still doesn't feel well enough to leave.States she is still nauseous and unable to keep anything down. 11/16/18 01:00 Case was discussed with Dr. Montanez. Patient will be kept for observation. - Lab Interpretations I have reviewed the lab results: Yes - Medication Orders Current Medication Orders: Famotidine (Pepcid) 20 mg IVP STAT STA Stop: 11/15/18 22:10 Sodium Chloride (Sodium Chloride 0.9%) 1,000 mls @ 100 mls/hr IV .Q10H FRANCIS Ondansetron HCl (Zofran Inj) 4 mg IVP ONCE ONE Stop: 11/15/18 22:10 - Scribe Statement The provider has reviewed the documentation as recorded by the Scribe Madeline Lebron Provider Scribe Attestation: All medical record entries made by the Scribe were at my direction and personally dictated by me. I have reviewed the chart and agree that the record accurately reflects my personal performance of the history, physical exam, medical decision making, and the department course for this patient. I have also personally directed, reviewed, and agree with the discharge instructions and disposition. Disposition/Present on Arrival - Present on Arrival Any Indicators Present on Arrival: No History of DVT/PE: No History of Uncontrolled Diabetes: No Urinary Catheter: No History of Decub. Ulcer: No History Surgical Site Infection Following: None - Disposition Have Diagnosis and Disposition been Completed?: Yes Diagnosis: Intractable vomiting with nausea Disposition: HOSPITALIZED Disposition Time: 01:17 Condition: STABLE Referrals: Denice Montanez MD [Primary Care Provider] - Follow up with primary Forms: [employer] ([place])
[2018-11-15] MEDS: Sodium Chloride 0.9% 1,000 ML IV SCH (22:20)
[2018-11-15 23:42] LABS: HEMOGLOBIN 13.5 g/dL (12.0-16.0); MEAN CELL VOLUME 86.7 fl (80.0-105.0); MEAN CORPUSCULAR HGB CONC 33.4 g/dl (31.0-37.0); RBC 4.66 10^6/uL (3.5-6.1); RED CELL DISTRIBUTION WIDTH 15.9 % (11.5-14.5); WHITE BLOOD COUNT 7.4 10^3/uL (4.5-11.0)
[2018-11-15 23:43] LABS: MEAN PLATELET VOLUME 10.9 fl (7.0-11.0)
[2018-11-15 23:47] LABS: ALBUMIN 4.2 g/dL (3.0-4.8); ALT/SGPT 30 U/L (7-56); AST/SGOT 50 U/L (14-36); BLOOD UREA NITROGEN 23 mg/dL (7-21); CALCIUM 9.8 mg/dL (8.4-10.5); GFR NON-AFRICAN AMERICAN > 60; LIPASE 112 U/L (23-300)
[2018-11-16] MEDS: Tiotropium 18 mcg Cap For Inhalation IH SCH (10:45)
[2018-11-16] MEDS: Pantoprazole 40 mg EC Tab PO SCH (10:45)
[2018-11-16] MEDS: Insulin Reg-LOW-Coverage SC SCH ×3 (12:14→22:32)
[2018-11-16] MEDS: Sodium Chloride 0.9% 1,000 ML IV SCH (15:08)
[2018-11-16] MEDS: Budesonide 0.5 mg/2 ml Inhal Susp UD IH SCH (19:54)
[2018-11-16] MEDS: Arformoterol 15 mcg/2 ml Inh Sol IH SCH (19:54)
--- NOTE | 2018-11-16 22:46 | CON ---
DATE: 11/16/2018 REASON FOR CONSULTATION: Nausea, vomiting. HISTORY OF PRESENT ILLNESS: This patient was present in the emergency room with episodes of vomiting. She was recently in the hospital for abdominal pain, nausea, and vomiting. The patient had an endoscopy done and she was found to have a gastritis and gastric erosions and also found to have a 9-mm polyp in the duodenum, which appeared to be slightly sessile, so epithelial biopsy was taken to rule out any carcinoid. The patient did have a chromogranin A level done, which she found to have increased level of 372. The patient was admitted with back pain and abdominal pain, nausea, vomiting. The patient was also taking nonsteroidal antiinflammatory drugs. She had an endoscopy, the findings are described as above and also found to have gastric erosions. The patient was placed on PPI and advised to avoid the nonsteroidal antiinflammatory drugs. The patient is due to have followup regarding this duodenal polyp. PAST MEDICAL HISTORY: Other past medical history is significant for history of chronic hepatitis C, history of IVD in the past and heroin use in the past, was on methadone program in the past. SOCIAL HISTORY: Positive as above. The patient did complete the methadone program. ALLERGIES: NO KNOWN DRUG ALLERGY. REVIEW OF SYSTEMS: Positive as above. PHYSICAL EXAMINATION GENERAL: The patient is lying on the bed, not in acute distress. VITAL SIGNS: Stable. Blood pressure is 117/79, afebrile is 98.3, oxygen saturation 98%, normal. Respiration normal, rate 16. HEENT: Atraumatic, anicteric. NECK: Supple. HEART: S1, S2 heard. LUNGS: Bilateral air entry present. CHEST: . ABDOMEN: Soft. There is no mass palpable. There is tenderness present in the epigastric area. No rebound or guarding. EXTREMITIES: No edema, no cyanosis. No clubbing. NEUROLOGIC: Alert, oriented. Moves all the extremities. LABORATORY DATA: Hemoglobin 13.5, hematocrit 40.4, WBC 7.4, platelets 151. Chemistry showed AST 50, ALT 30, BUN 23, creatinine 0.6. The patient's imaging studies are also reviewed, done in the past. The patient did have an MRI to further evaluate in view of this back pain and MRI with MRCP showed normal common bile duct, pancreas normal. RECOMMENDATIONS: 1. Clear liquid diet. 2. Proton-pump inhibitors. 3. Followup for the pathology report. 4. We will slowly advance the diet. Thank you very much for allowing us to participate in the care of the patient. Carolina Urbano MD
--- NOTE | 2018-11-17 00:45 | CON ---
DATE: 11/16/2018 REFERRING PHYSICIAN: Dr. Montanez REASON FOR CONSULT: Chronic lung disease, active smoker. HISTORY OF PRESENT ILLNESS: This is a 68-year-old female, well-known to me, just got discharged the day before, has a history of chronic obstructive lung disease, active smoker, hypertension, diabetes, multiple vertebral compression fractures, degenerative joint disease, history of avascular hip necrosis, comes back because of nausea, vomiting, could not keep anything down. No fever, no chills. No nausea. No leg pain or leg swelling at present time. PAST MEDICAL HISTORY: As per history of present illness. ALLERGIES: NONE KNOWN. SOCIAL HISTORY: She is an active smoker. Does have alcohol use, she takes too many shots on a daily basis. FAMILY HISTORY: No significant cardiopulmonary disease reported. MEDICATIONS: She is on metformin 500 mg twice a day, insulin coverage, Neurontin 300 mg three times a day, Norvasc 10 mg daily, Protonix 40 mg daily, IV fluid 100 mL daily, Spiriva one capsule inhaled daily, Tylenol p.r.n. basis. REVIEW OF SYSTEMS: No headache, no rhinitis. Cough is much better. Had some nausea and vomiting. No abdominal pain. No dysuria, leg pain, or leg swelling. PHYSICAL EXAMINATION: GENERAL: In no acute distress. VITAL SIGNS: Temperature is 98, heart rate is 83, respiratory rate is 20, blood pressure 170/79, pulse ox is 98% on room air. HEENT: Moist mucous membranes, crowded airway. NECK: Supple. No JVD. LUNGS: Have fair air flow, rhonchi. HEART: S1, S2. ABDOMEN: Soft, nontender, nondistended. EXTREMITIES: No edema. NEUROLOGIC: Awake, alert, follows simple commands. LABORATORY DATA: Shows hemoglobin of 13.5, hematocrit 40.4, WBC 7.4, platelet is 151. Sodium 139, potassium 3.8, chloride 105, bicarbonate 23, BUN 23, creatinine 0.6, glucose 144, calcium 9.8, AST 50, ALT 30, alk phos is 88. Albumin is 4.2. Alcohol level yesterday was 22. IMPRESSION AND PLAN: Recurrent nausea and vomiting, could be alcohol related, just was discharged from the hospital. Alcohol level is positive. Also has chronic lung disease, hypertension, lumbar radiculopathy, diabetes, compression fracture, degenerative joint disease, disc herniation, spinal stenosis, iron-deficiency anemia. Pulmonary point of view, continue bronchodilator, keep head at 45 degrees. Educated the patient about smoking and alcohol use and their risk. We will add Prandin with the meals. Discontinue metformin. Thank you and we will follow with you. Renato Epperson MD
[2018-11-17] MEDS: Sodium Chloride 0.9% 1,000 ML IV SCH ×3 (00:56→20:38)
--- NOTE | 2018-11-17 02:49 | HP ---
DATE OF EXAM: 11/16/2018 The patient was seen and examined at the bedside on 11/16/2018 and looking comfortable. CHIEF COMPLAINT: Nausea, vomiting, abdominal pain, and back pain. HISTORY OF PRESENT ILLNESS: Ms. Mc is a 68-year-old female with past medical history of hepatitis C, IVDA, history of heroin abuse, was in methadone program, chronic back pain, and came to the emergency room for episodes of nausea, vomiting, abdominal pain, and back pain. The patient was discharged recently. Dr. Urbano was on the case. He did upper endoscopy, found the patient had gastroesophagitis and polypectomy was done, still waiting for the pathology, but we admitted the patient for intractable vomiting. PAST MEDICAL HISTORY: As above. Hepatitis C, IVDA, heroin abuse, and diabetes mellitus. SOCIAL HISTORY: Positive for smoking. History of ethanol abuse, methadone abuse, and history of alcohol abuse. ALLERGIES: THE PATIENT IS NOT ALLERGIC WITH ANY MEDICATIONS. FAMILY HISTORY: Father and mother noncontributory. REVIEW OF SYSTEMS: The patient was sitting on the bedside, looking comfortable. No more nauseous, started on clear liquid diet. No fever. No chills. No hematuria. No hematochezia. No headache. No dizziness. No chest pain. No palpitations. Discussion done with Dr. Epperson, discontinued the metformin. PHYSICAL EXAMINATION: VITAL SIGNS: Blood pressure 170/79, oxygen saturation 98%, respirations 16, and temperature 98.3. HEENT: Head; normocephalic and atraumatic. Eyes; PERRLA. Extraocular muscles are intact. Conjunctivae clear. Nose patent. Mucous membranes moist. NECK: Supple. No carotid bruits. No JVD or thyromegaly. CHEST: Bilaterally symmetrical. HEART: S1 and S2 positive. LUNGS: Clear to auscultation. ABDOMEN: Soft. Bowel sounds present. No organomegaly. EXTREMITIES: No edema. No cyanosis. NEUROLOGICAL: The patient is awake and alert, moving all 4 extremities. No focal deficits. LABORATORY DATA: White blood cells 7.4, hemoglobin 13.5, hematocrit 40.4, and platelets 151. Sodium 139, potassium 3.8, BUN 23, creatinine 0.6, glucose 156, and AST 50. ASSESSMENT AND PLAN: Ms. Jesusita Pascual is a 68-year-old female with renal insufficiency, diabetes mellitus uncontrolled, abnormal liver function tests, history of hepatitis C positive, and alcohol level high, it means still she is drinking and smoking. Seen by gastrointestinal, Dr. Urbano. History of chronic obstructive pulmonary disease, asthma, and cannot sleep very well, history of chronic hepatitis C and intravenous drug abuse. The patient was discharged recently, status post upper endoscopy. Dr. Urbano found that gastritis and gastric erosions, also found to have 9 mm polyp in the duodenum, which appears to be slightly sessile, so epithelial biopsy was taken to rule out carcinoid. The patient did have chromogranin A level done, which found to have increased level of 372. Now, GI and Pulmonary is on the case. Discussion done with Dr. Epperson. Discontinue methadone. Awaiting for GI input. Repeat labs. We will follow up. Denice Montanez MD MTD[facility]
[2018-11-17] MEDS: Pantoprazole 40 mg EC Tab PO SCH (06:40)
[2018-11-17] MEDS: Budesonide 0.5 mg/2 ml Inhal Susp UD IH SCH ×2 (07:27→20:09)
[2018-11-17] MEDS: Arformoterol 15 mcg/2 ml Inh Sol IH SCH ×2 (07:27→20:09)
[2018-11-17] MEDS: Insulin Reg-LOW-Coverage SC SCH ×4 (09:14→22:10)
[2018-11-17] MEDS: Tiotropium 18 mcg Cap For Inhalation IH SCH (09:14)
--- NOTE | 2018-11-17 11:19 | CP.PCM.PN ---
<Carlee Apodaca - Last Filed: 11/17/18 18:07> Subjective - Date & Time of Evaluation Date of Evaluation: 11/17/18 Time of Evaluation: 11:11 - Subjective Subjective: Carlee Apodaca, PGY2, IM Progress Note for Dr Urbano: Patient seen and examined at bedside. No acute events overnight. Patient reports that she tolerated CLD well. Reports no further vomiting episodes since admission. Reports 4-5 watery diarrheal episodes. Denies recent abx use, abdominal pain. States that she is hungry and would like solid foods. Objective - Vital Signs/Intake and Output Vital Signs (last 24 hours): Temp Pulse Resp BP Pulse Ox 98.2 F 80 20 112/78 100 11/17/18 06:00 11/17/18 06:00 11/17/18 06:00 11/17/18 09:14 11/17/18 06:00 Intake and Output: 11/17/18 11/17/18 06:59 18:59 Intake Total 660 Balance 660 - Medications Medications: Current Medications Acetaminophen (Tylenol 325mg Tab) 650 mg PO Q4H PRN PRN Reason: Pain, moderate (4-7) Amlodipine Besylate (Norvasc) 10 mg PO DAILY [facility] Last Admin: 11/17/18 09:14 Dose: Not Given Arformoterol Tartrate (Brovana) 15 mcg IH [id number] [facility] Last Admin: 11/17/18 07:27 Dose: Not Given Budesonide (Pulmicort Respules) 0.5 mg IH [id number] [facility] Last Admin: 11/17/18 07:27 Dose: Not Given Gabapentin (Neurontin) 300 mg PO TID [facility]; Protocol Last Admin: 11/17/18 09:12 Dose: 300 mg Sodium Chloride (Sodium Chloride 0.9%) 1,000 mls @ 100 mls/hr IV .Q10H [facility] Last Admin: 11/17/18 00:56 Dose: 100 mls/hr Insulin Human Regular (Humulin R Low) 0 units SC ACHS [facility]; Protocol Last Admin: 11/17/18 09:14 Dose: 1 u Pantoprazole Sodium (Protonix Ec Tab) 40 mg PO ACB [facility] Last Admin: 11/17/18 06:40 Dose: 40 mg Repaglinide (Prandin) 2 mg PO AC [facility] Last Admin: 04/08/19 09:13 Dose: 2 mg Thiamine HCl (Vitamin B1 Tab) 100 mg PO DAILY [facility] Last Admin: 11/17/18 09:13 Dose: 100 mg Tiotropium [place] (Spiriva) 18 mcg IH DAILY [facility] Last Admin: 11/17/18 09:14 Dose: 18 mcg - Labs Labs: 11/15/18 23:00 11/15/18 23:00 - Constitutional Appears: Non-toxic, No Acute Distress - Head Exam Head Exam: ATRAUMATIC, NORMOCEPHALIC - Eye Exam Eye Exam: EOMI, PERRL. absent: Conjunctival injection, Nystagmus, Scleral icterus Pupil Exam: NORMAL ACCOMODATION, PERRL. absent: Irregular, Miosis, Unequal - ENT Exam ENT Exam: Mucous Membranes Moist - Neck Exam Neck Exam: Full ROM - Respiratory Exam Respiratory Exam: Clear to Ausculation Bilateral, NORMAL BREATHING PATTERN. absent: Accessory Muscle Use, Rhonchi, Wheezes - Cardiovascular Exam Cardiovascular Exam: RRR, +S1, +S2. absent: Murmur - GI/Abdominal Exam GI & Abdominal Exam: Soft, Tenderness (mild epigastric tenderness on p alpation.), Normal Bowel Sounds. absent: Distended, Firm, Guarding, Rigid, Mass, Organomegaly, Rebound - Extremities Exam Extremities Exam: Normal Inspection. absent: Calf Tenderness, Pedal Edema - Back Exam Back Exam: NORMAL INSPECTION - Neurological Exam Neurological Exam: Alert, Awake, Oriented x3 - Psychiatric Exam Psychiatric exam: Normal Affect - Skin Skin Exam: Dry, Normal Color, Warm Assessment and Plan - Assessment and Plan (Free Text) Assessment: # Nausea, vomiting 2/2 carcinoid vs gastritis vs gastroenteritis # Watery diarrhea, r/o cdiff # Elevated Chromogranin A level 372 # Chronic Hepatitis C # History of IV drug use # Chronic back pain - will advance to altered GI/hepatic diet - EGD done on 11/12 which revealed a duodenal polyp (biopsied), erosive gastropathy and gastritis. Spoke with Dr Asif, reports duodenal polyp as gastric hypertopia. - MRCP done earlier this month was also unremarkable - Patient tolerating PO diet well today. Stable from GI standpoint, can discharge. Patient can follow up outpatient for further workup, including EGD with EUS and Netspot scan. - Further recs per Dr Urbano. Case seen and discussed with Dr Urbano. <Carolina Urbano V - Last Filed: 11/18/18 00:50> Objective - Vital Signs/Intake and Output Vital Signs (last 24 hours): Temp Pulse Resp BP Pulse Ox 97.7 F 77 18 117/82 100 11/17/18 21:57 11/17/18 21:57 11/17/18 21:57 11/17/18 21:57 11/17/18 21:57 Intake and Output: 11/17/18 11/18/18 18:59 06:59 Intake Total 600 660 Output Total 650 Balance 600 10 - Medications Medications: Current Medications Acetaminophen (Tylenol 325mg Tab) 650 mg PO Q4H PRN PRN Reason: Pain, moderate (4-7) Amlodipine Besylate (Norvasc) 10 mg PO DAILY [facility] Last Admin: 11/17/18 09:14 Dose: Not Given Arformoterol Tartrate (Brovana) 15 mcg IH [id number] [facility] Last Admin: 11/17/18 20:09 Dose: 15 mcg Budesonide (Pulmicort Respules) 0.5 mg IH [id number] [facility] Last Admin: 11/17/18 20:09 Dose: 0.5 mg Gabapentin (Neurontin) 300 mg PO TID [facility]; Protocol Last Admin: 11/17/18 17:17 Dose: 300 mg Sodium Chloride (Sodium Chloride 0.9%) 1,000 mls @ 100 mls/hr IV .Q10H [facility] Last Admin: 11/17/18 20:38 Dose: 100 mls/hr Insulin Human Regular (Humulin R Low) 0 units SC ACHS [facility]; Protocol Last Admin: 11/17/18 22:10 Dose: Not Given Pantoprazole Sodium (Protonix Ec Tab) 40 mg PO ACB [facility] Last Admin: 11/17/18 06:40 Dose: 40 mg Repaglinide (Prandin) 2 mg PO AC [facility] Last Admin: 11/17/18 17:15 Dose: Not Given Thiamine HCl (Vitamin B1 Tab) 100 mg PO DAILY [facility] Last Admin: 11/17/18 09:13 Dose: 100 mg Tiotropium [place] (Spiriva) 18 mcg IH DAILY [facility] Last Admin: 11/17/18 09:14 Dose: 18 mcg - Labs Labs: 11/15/18 23:00 11/15/18 23:00 Attending/Attestation - Attestation I have personally seen and examined this patient.: Yes I have fully participated in the care of the patient.: Yes I have reviewed all pertinent clinical information, including history, physical exam and plan: Yes Notes (Text): 11/18/18 00:48 This is an addendum to the GI progress report dictated by the resident. Patient was seen and evaluated here earlier along with the resident. 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 Montanez for allowing us to participate in the care of the patient
--- NOTE | 2018-11-17 12:53 | PN ---
DATE: 11/17/2018 PULMONARY PROGRESS NOTE REFERRING PHYSICIAN: Denice Montanez MD SUBJECTIVE: The patient is seen sitting in arm chair in room. No acute distress. No overnight events reported. The patient's diet was advanced this morning. Reports that she still having some episodes of diarrhea. Stool to be collected for C. diff. No headache, rhinitis, cough, shortness of breath, chest pain, nausea, vomiting, leg pain or leg swelling reported. Does have some abdominal tenderness. OBJECTIVE: GENERAL: No acute distress. VITAL SIGNS: Blood pressure 112/78, pulse 80, temperature 98.2 and oxygen saturation 100% on room air. HEENT: Moist mucous membranes. Crowded airway. NECK: Supple. No JVD. LUNGS: Fair airflow bilaterally. CARDIOVASCULAR: S1 and S2. ABDOMEN: Soft and mild tenderness. No distention. No organomegaly. EXTREMITIES: No bilateral lower extremity edema. NEUROLOGIC: Awake, alert, and verbal. Follows commands. MEDICATIONS: Reviewed. Tylenol 650 mg every 4 hours p.r.n. for moderate pain, Norvasc 10 mg daily, Brovana 15 mcg every 12 hours, Pulmicort 0.5 mg inhalation every 12 hours, Neurontin 300 mg 3 times a day, Humulin R sliding scale a.c. and at bedtime, Protonix 40 mg a.c. Prandin 2 mg a.c., sodium chloride 0.9% at 1000 mL at 100 mL per hour, thiamine 100 mg daily and Spiriva 18 mcg inhalation daily. LABORATORY DATA: Reviewed. POC glucose 69. IMPRESSION AND PLAN: Recurrent nausea, vomiting could be alcohol related. Alcohol level positive on admission. Chronic lung disease, hypertension, lumbar radiculopathy, diabetes, chronic compression, degenerative joint disease, disc herniation, spinal stenosis and iron deficiency anemia. Pulmonary point of view, continue inhaled bronchodilators, head of bed elevated at 45 degrees and smoking cessation. Continue Prandin with meals. Stool to be collected for Clostridium difficile. We recommend the patient have full pulmonary function test and sleep study as outpatient. This patient was seen and examined with Dr. Epperson. Discussed assessment and plan as described above. This patient was seen and examined with Zach Weathers, nurse practitioner. Discussed assessment and plan as described above. Thank you for this consult and we will follow with you. Zach Weathers APN Renato Epperson MD [facility] # [id number]
[2018-11-18] MEDS: Sodium Chloride 0.9% 1,000 ML IV SCH (05:10)
[2018-11-18] MEDS: Budesonide 0.5 mg/2 ml Inhal Susp UD IH SCH ×2 (07:29→21:20)
[2018-11-18] MEDS: Arformoterol 15 mcg/2 ml Inh Sol IH SCH ×2 (07:29→21:20)
[2018-11-18 07:37] VITALS: RESP 20
[2018-11-18] MEDS: Insulin Reg-LOW-Coverage SC SCH ×4 (08:23→22:06)
[2018-11-18] MEDS: Pantoprazole 40 mg EC Tab PO SCH (08:27)
[2018-11-18] MEDS: Tiotropium 18 mcg Cap For Inhalation IH SCH (10:03)
--- NOTE | 2018-11-18 11:37 | PN ---
DATE: 11/18/2018 PULMONARY PROGRESS NOTE REFERRING PHYSICIAN: Denice Montanez MD SUBJECTIVE: The patient is seen lying in bed. No acute distress. No overnight events reported. No headache, rhinitis, cough, shortness of breath, chest pain, abdominal pain, nausea, vomiting, diarrhea, leg pain or leg swelling reported. OBJECTIVE: GENERAL: No acute distress. VITAL SIGNS: Blood pressure 126/83, pulse 85, temperature 97.4, and oxygen saturation 99% on room air. HEENT: Moist mucous membranes. Crowded airway. NECK: Supple. No JVD. LUNGS: Fair airflow bilaterally. CARDIOVASCULAR: S1 and S2. ABDOMEN: Soft and nontender. No distention. No organomegaly. EXTREMITIES: No bilateral lower extremity edema. NEUROLOGIC: Awake, alert, and verbal. Following commands. MEDICATIONS: Reviewed. Tylenol 650 every 4 hours p.r.n. moderate pain, Norvasc 10 mg daily, Brovana 15 mcg every 12 hours, Pulmicort 0.5 mg every 12 hours, Neurontin 300 mg three times a day, Humulin R sliding scale a.c. and h.s., Protonix 40 mg a.c., Prandin 2 mg a.c., sodium chloride 0.9% at 1000 mL at 100 mL per hour, thiamine 100 mg daily, and Spiriva 18 mcg inhalation daily. LABORATORY DATA: Reviewed. POC glucose 127. IMPRESSION AND PLAN: Recurrent nausea and vomiting, could be alcohol related. Alcohol level positive on admission. Chronic lung disease, hypertension, lumbar radiculopathy, chronic compression, degenerative joint disease, disc herniation, spinal stenosis, iron deficiency anemia, and diabetes mellitus. Pulmonary point of view, continue inhaled bronchodilators, smoking cessation, head of bed elevated at 45 degrees. Stools are pending to be collected for Clostridium difficile. Recommend the patient to have full pulmonary function test and sleep study as outpatient. Fall precautions. The patient would benefit from physical therapy. This patient was seen and examined with Dr. Epperson. Discussed assessment and plan as described above. This patient was seen and examined with Zach Weathers, nurse practitioner. Discussed assessment and plan as described above. Thank you for this consult and we will follow with you. Zach Weathers APN Renato Epperson MD [facility] # [id number]
--- NOTE | 2018-11-18 13:11 | PN ---
DATE: 11/17/2018 The patient was seen and examined at the bedside on 11/17/2018, late evening. SUBJECTIVE: Looking comfortable. No fever. No chills. No hematuria. No hematochezia. No headache or dizziness. No chest pain. No palpitation. Tolerated food very well. Stool sent for C. difficile and toxic colitis. PHYSICAL EXAMINATION: VITAL SIGNS: Blood pressure 112/78, pulse 80, temperature 98.2, oxygen saturation 100% on room air. HEENT: Head is normocephalic and atraumatic. Eyes, PERRLA. Extraocular muscles are intact. Conjunctivae clear. Nose patent. Mucous membranes moist. NECK: Supple. No carotid bruits. No JVD or thyromegaly. CHEST: Bilaterally symmetrical. HEART: S1 and S2 positive. LUNGS: Clear to auscultation. ABDOMEN: Soft. Bowel sounds present. No organomegaly. EXTREMITIES: No edema. No cyanosis. NEUROLOGICAL: The patient is awake and alert, moving all 4 extremities. No focal deficits. MEDICATIONS: Tylenol, Norvasc, Pulmicort, Neurontin, insulin, Protonix, Prandin, thiamine and Spiriva. LABORATORY DATA: no resent labs, glucose 69. ASSESSMENT AND PLAN: Ms. Jesusita Pascual is a 68-year-old lady with multiple medical problems, diabetes mellitus, chronic back pain, recurrent nausea and vomiting. The patient has history of ethanol abuse, alcohol level is positive on admission, chronic obstructive pulmonary disease, hypertension, lumbar radiculopathy, chronic compression fractures, degenerative joint disease, disc herniation, spinal stenosis, iron deficiency anemia. Pulmonology and Gastroenterology on the case. Dr. Epperson discontinued metformin, started on Prandin with meals. Repeat labs. Appreciate input from Gastroenterology and Pulmonary will continue to followup. Denice Montanez MD JENNIF[facility]
[2018-11-18] MEDS: Lidocaine 5% Patch TD SCH (13:29)
--- NOTE | 2018-11-18 14:34 | CP.PCM.PN ---
<Carlee Apodaca - Last Filed: 11/18/18 18:30> Subjective - Date & Time of Evaluation Date of Evaluation: 11/18/18 Time of Evaluation: 14:26 - Subjective Subjective: Carlee Apodaca, PGY2, GI Progress Note for Dr Urbano: Patient seen and examined at bedside. No acute events overnight. Patient tolerating altered GI hepatic diet well. Denies nausea, vomiting. Reports mild LUQ and lower abd pain and 1 watery diarrheal BM. Objective - Vital Signs/Intake and Output Vital Signs (last 24 hours): Temp Pulse Resp BP Pulse Ox 97.4 F L 85 20 126/82 99 11/18/18 06:00 11/18/18 06:00 11/18/18 06:00 11/18/18 10:03 11/18/18 06:00 Intake and Output: 11/18/18 11/18/18 06:59 18:59 Intake Total 840 960 Output Total 2050 Balance -1210 960 - Medications Medications: Current Medications Acetaminophen (Tylenol 325mg Tab) 650 mg PO Q4H PRN PRN Reason: Pain, moderate (4-7) Amlodipine Besylate (Norvasc) 10 mg PO DAILY [facility] Last Admin: 11/18/18 10:03 Dose: 10 mg Arformoterol Tartrate (Brovana) 15 mcg IH [id number] [facility] Last Admin: 11/18/18 07:29 Dose: 15 mcg Budesonide (Pulmicort Respules) 0.5 mg IH [id number] [facility] Last Admin: 11/18/18 07:29 Dose: 0.5 mg Gabapentin (Neurontin) 300 mg PO TID [facility]; Protocol Last Admin: 11/18/18 13:32 Dose: 300 mg Sodium Chloride (Sodium Chloride 0.9%) 1,000 mls @ 100 mls/hr IV .Q10H [facility] Last Admin: 11/18/18 05:10 Dose: 100 mls/hr Insulin Human Regular (Humulin R Low) 0 units SC ACHS [facility]; Protocol Last Admin: 11/18/18 11:30 Dose: Not Given Lidocaine (Lidoderm) 1 ea TD DAILY [facility] Last Admin: 11/18/18 13:29 Dose: Not Given Pantoprazole Sodium (Protonix Ec Tab) 40 mg PO ACB [facility] Last Admin: 11/18/18 08:27 Dose: 40 mg Repaglinide (Prandin) 2 mg PO AC [facility] Last Admin: 11/18/18 12:03 Dose: 2 mg Thiamine HCl (Vitamin B1 Tab) 100 mg PO DAILY [facility] Last Admin: 11/18/18 10:03 Dose: 100 mg Tiotropium [place] (Spiriva) 18 mcg IH DAILY [facility] Last Admin: 11/18/18 10:03 Dose: 18 mcg Tramadol HCl (Ultram) 50 mg PO BID PRN PRN Reason: Pain, moderate (4-7) Last Admin: 11/18/18 12:03 Dose: 50 mg - Labs Labs: 11/15/18 23:00 11/15/18 23:00 - Additional Findings Additional findings: - Constitutional Appears: Non-toxic, No Acute Distress - Head Exam Head Exam: ATRAUMATIC, NORMOCEPHALIC - Eye Exam Eye Exam: EOMI, PERRL. absent: Conjunctival injection, Nystagmus, Scleral icterus Pupil Exam: NORMAL ACCOMODATION, PERRL. absent: Irregular, Miosis, Unequal - ENT Exam ENT Exam: Mucous Membranes Moist - Neck Exam Neck Exam: Full ROM - Respiratory Exam Respiratory Exam: Clear to Ausculation Bilateral, NORMAL BREATHING PATTERN. absent: Accessory Muscle Use, Rhonchi, Wheezes - Cardiovascular Exam Cardiovascular Exam: RRR, +S1, +S2. absent: Murmur - GI/Abdominal Exam GI & Abdominal Exam: Soft, Tenderness (mild epigastric tenderness on palpation.), Normal Bowel Sounds. absent: Distended, Firm, Guarding, Rigid, Mass, Organomegaly, Rebound - Extremities Exam Extremities Exam: Normal Inspection. absent: Calf Tenderness, Pedal Edema - Back Exam Back Exam: NORMAL INSPECTION - Neurological Exam Neurological Exam: Alert, Awake, Oriented x3 - Psychiatric Exam Psychiatric exam: Normal Affect - Skin Skin Exam: Dry, Normal Color, Warm Assessment and Plan - Assessment and Plan (Free Text) Assessment: # Nausea, vomiting 2/2 carcinoid vs gastritis vs gastroenteritis # Watery diarrhea, r/o cdiff # Elevated Chromogranin A level 372 # Chronic Hepatitis C # History of IV drug use # Chronic back pain - tolerating altered GI/hepatic diet - EGD done on 11/12 which revealed a duodenal polyp (biopsied), erosive gastropathy and gastritis. Spoke with Dr Asif, reports duodenal polyp as gastric hypertopia. - MRCP done earlier this month was also unremarkable - Patient needs further workup, including EGD with EUS and Netspot scan. - Further recs per Dr Urbano. Case seen and discussed with Dr Urbano. <Carolina Urbano V - Last Filed: 11/19/18 00:38> Objective - Vital Signs/Intake and Output Vital Signs (last 24 hours): Temp Pulse Resp BP Pulse Ox 97.3 F L 85 20 132/79 99 11/18/18 14:00 11/18/18 14:00 11/18/18 14:00 11/18/18 14:00 11/18/18 14:00 Intake and Output: 11/18/18 11/19/18 18:59 06:59 Intake Total 960 Balance 960 - Medications Medications: Current Medications Acetaminophen (Tylenol 325mg Tab) 650 mg PO Q4H PRN PRN Reason: Pain, moderate (4-7) Amlodipine Besylate (Norvasc) 10 mg PO DAILY [facility] Last Admin: 11/18/18 10:03 Dose: 10 mg Arformoterol Tartrate (Brovana) 15 mcg IH [id number] [facility] Last Admin: 11/18/18 21:20 Dose: 15 mcg Budesonide (Pulmicort Respules) 0.5 mg IH [id number] [facility] Last Admin: 11/18/18 21:20 Dose: 0.5 mg Gabapentin (Neurontin) 300 mg PO TID [facility]; Protocol Last Admin: 11/18/18 17:18 Dose: 300 mg Sodium Chloride (Sodium Chloride 0.9%) 1,000 mls @ 100 mls/hr IV .Q10H [facility] Last Admin: 11/18/18 05:10 Dose: 100 mls/hr Insulin Human Regular (Humulin R Low) 0 units SC ACHS [facility]; Protocol Last Admin: 11/18/18 22:06 Dose: Not Given Lidocaine (Lidoderm) 1 ea TD DAILY [facility] Last Admin: 11/18/18 13:29 Dose: Not Given Pantoprazole Sodium (Protonix Ec Tab) 40 mg PO ACB [facility] Last Admin: 11/18/18 08:27 Dose: 40 mg Repaglinide (Prandin) 2 mg PO AC [facility] Last Admin: 11/18/18 17:18 Dose: 2 mg Thiamine HCl (Vitamin B1 Tab) 100 mg PO DAILY [facility]PL[facility] Last Admin: 11/18/18 10:03 Dose: 100 mg Tiotropium [place] (Spiriva) 18 mcg IH DAILY [facility]PL[facility] Last Admin: 11/18/18 10:03 Dose: 18 mcg Tramadol HCl (Ultram) 50 mg PO BID PRN PRN Reason: Pain, moderate (4-7) Last Admin: 11/18/18 23:21 Dose: 50 mg - Labs Labs: 11/15/18 23:00 11/15/18 23:00 Attending/Attestation - Attestation Notes (Text): This patient was seen in ER and evaluated here earlier this is an addendum to the GI progress report dictated by the resident. Patient does have elevated chromogranin level and a duodenal polypoid lesion. We will arrange for the next month scan then probably EUS. Patient was clearly told about the recommendations and the need for follow-up. 11/19/18 00:37
--- NOTE | 2018-11-18 23:08 | PN ---
DATE: 11/18/2018 SUBJECTIVE: The patient is a 68-year-old female. The patient was seen and examined at the bedside on 11/18/2018. Looking comfortable. No fever. No chills. No hematuria. No hematochezia. No headache or dizziness. No chest pain. No palpitation. PHYSICAL EXAMINATION: VITAL SIGNS: Blood pressure 120/83, pulse 85, temperature 97.4, oxygen saturation 99% on room air. HEENT: Head is normocephalic and atraumatic. Eyes, PERRLA. Extraocular muscles are intact. Conjunctivae clear. Nose patent. Mucous membranes moist. NECK: Supple. No carotid bruits. No JVD or thyromegaly. CHEST: Bilaterally symmetrical. HEART: S1 and S2 positive. LUNGS: Clear to auscultation. ABDOMEN: Soft. Bowel sounds present. No organomegaly. EXTREMITIES: No edema. No cyanosis. NEUROLOGICAL: The patient is awake and alert, moving all 4 extremities. No focal deficits. MEDICATIONS: Tylenol, Norvasc, Pulmicort, Neurontin, insulin, Protonix, thiamine, Spiriva. LABORATORY DATA: I do not have recent labs, but I reviewed old labs. Glucose is 127. ASSESSMENT AND PLAN: Ms. Jesusita Pascual is a 68-year-old female with recurrent nausea and vomiting, could be alcohol related. History of drinking alcohol and smoking. Positive history of marijuana abuse and other drug abuse. Alcohol was positive on admission. Chronic obstructive pulmonary disease, lumbosacral radiculopathy, intractable back pain, chronic compression vertebral fracture, degenerative joint disease, disc herniation, spinal stenosis, iron deficiency anemia. The patient's upper endoscopy was done, results are pending for pathology. Gastrointestinal and deep vein thrombosis prophylaxis. Repeat laboratories. Out of bed physical therapy. Tramadol given. We will follow up. Denice Mnotanez MD
[2018-11-19] MEDS: Sodium Chloride 0.9% 1,000 ML IV SCH (02:06)
[2018-11-19 06:41] VITALS: BP 128/60; PULSE 80; TEMP 98.2; O2SAT 100
[2018-11-19] MEDS: Arformoterol 15 mcg/2 ml Inh Sol IH SCH (07:23)
[2018-11-19] MEDS: Budesonide 0.5 mg/2 ml Inhal Susp UD IH SCH (07:24)
--- NOTE | 2018-11-19 07:45 | CP.PCM.PN ---
<Carlee Apodaca - Last Filed: 11/19/18 17:20> Subjective - Date & Time of Evaluation Date of Evaluation: 11/19/18 Time of Evaluation: 07:45 - Subjective Subjective: Carlee Apodaca, PGY2, GI Progress Note for Dr Urbano: Patient seen and examined at bedside. No acute events overnight. Patient tolerating PO diet well, denies nausea, vomiting, abdominal pain, diarrhea. Reports large BM, soft and brown, yesterday. Patient states that she wants to stay in the hospital, since she is afraid she will have symptoms back if she goes home. Discussed with patient regarding outpatient followup for GI tests. Objective - Vital Signs/Intake and Output Vital Signs (last 24 hours): Temp Pulse Resp BP Pulse Ox 98.2 F 80 20 128/60 100 11/19/18 06:00 11/19/18 06:00 11/19/18 06:00 11/19/18 06:00 11/19/18 06:00 Intake and Output: 11/19/18 11/19/18 06:59 18:59 Intake Total 1720 Balance 1720 - Medications Medications: Current Medications Acetaminophen (Tylenol 325mg Tab) 650 mg PO Q4H PRN PRN Reason: Pain, moderate (4-7) Amlodipine Besylate (Norvasc) 10 mg PO DAILY [facility] Last Admin: 11/18/18 10:03 Dose: 10 mg Arformoterol Tartrate (Brovana) 15 mcg IH [id number] [facility]ANCIS Last Admin: 11/19/18 07:23 Dose: 15 mcg Budesonide (Pulmicort Respules) 0.5 mg IH [id number] FRANCIS Last Admin: 11/19/18 07:24 Dose: 0.5 mg Gabapentin (Neurontin) 300 mg PO TID FRANCIS; Protocol Last Admin: 11/18/18 17:18 Dose: 300 mg Sodium Chloride (Sodium Chloride 0.9%) 1,000 mls @ 100 mls/hr IV .Q10H FRANCIS Last Admin: 11/19/18 02:06 Dose: 100 mls/hr Insulin Human Regular (Humulin R Low) 0 units SC ACHS FRANCIS; Protocol Last Admin: 11/18/18 22:06 Dose: Not Given Lidocaine (Lidoderm) 1 ea TD DAILY [facility] Last Admin: 11/18/18 13:29 Dose: Not Given Pantoprazole Sodium (Protonix Ec Tab) 40 mg PO ACB [facility] Last Admin: 11/18/18 08:27 Dose: 40 mg Repaglinide (Prandin) 2 mg PO AC [facility] Last Admin: 11/18/18 17:18 Dose: 2 mg Thiamine HCl (Vitamin B1 Tab) 100 mg PO DAILY [facility] Last Admin: 11/18/18 10:03 Dose: 100 mg Tiotropium Fallon (Spiriva) 18 mcg IH DAILY [facility] Last Admin: 11/18/18 10:03 Dose: 18 mcg Tramadol HCl (Ultram) 50 mg PO BID PRN PRN Reason: Pain, moderate (4-7) Last Admin: 11/18/18 23:21 Dose: 50 mg - Labs Labs: 11/15/18 23:00 11/15/18 23:00 - Additional Findings Additional findings: - Constitutional Appears: Non-toxic, No Acute Distress - Head Exam Head Exam: ATRAUMATIC, NORMOCEPHALIC - Eye Exam Eye Exam: EOMI, PERRL. absent: Conjunctival injection, Nystagmus, Scleral icterus Pupil Exam: NORMAL ACCOMODATION, PERRL. absent: Irregular, Miosis, Unequal - ENT Exam ENT Exam: Mucous Membranes Moist - Neck Exam Neck Exam: Full ROM - Respiratory Exam Respiratory Exam: Clear to Ausculation Bilateral, NORMAL BREATHING PATTERN. absent: Accessory Muscle Use, Rhonchi, Wheezes - Cardiovascular Exam Cardiovascular Exam: RRR, +S1, +S2. absent: Murmur - GI/Abdominal Exam GI & Abdominal Exam: Soft, Normal Bowel Sounds. absent: Tenderness, Distended, Firm, Guarding, Rigid, Mass, Organomegaly, Rebound - Extremities Exam Extremities Exam: Normal Inspection. absent: Calf Tenderness, Pedal Edema - Back Exam Back Exam: NORMAL INSPECTION - Neurological Exam Neurological Exam: Alert, Awake, Oriented x3 - Psychiatric Exam Psychiatric exam: Normal Affect - Skin Skin Exam: Dry, Normal Color, Warm Assessment and Plan - Assessment and Plan (Free Text) Assessment: # Nausea, vomiting, resolved 2/2 carcinoid tumor vs gastritis vs gastroenteritis # Watery diarrhea, resolved # Elevated Chromogranin A level 372 # Chronic Hepatitis C # History of IV drug use # Chronic back pain - tolerating altered GI/hepatic diet - EGD done on 11/12 which revealed a duodenal polyp (biopsied), erosive gastropathy and gastritis. Spoke with Dr Asif, reports duodenal polyp as gastric hypertopia. - MRCP done earlier this month was also unremarkable - will follow up serotonin level and 5-hiaa urine levels - Stable to discharge from GI standpoint - Patient needs further workup outpatient, including EGD with EUS and Netspot scan. - Further recs per Dr Urbano. Case seen and discussed with Dr Urbano. <Carolina Urbano V - Last Filed: 11/19/18 22:01> Objective - Vital Signs/Intake and Output Vital Signs (last 24 hours): Temp Pulse Resp BP Pulse Ox 98.2 F 80 20 128/60 100 11/19/18 06:00 11/19/18 06:00 11/19/18 06:00 11/19/18 09:33 11/19/18 06:00 - Labs Labs: 11/15/18 23:00 11/15/18 23:00 Attending/Attestation - Attestation I have personally seen and examined this patient.: No I have fully participated in the care of the patient.: Yes I have reviewed all pertinent clinical information, including history, physical exam and plan: Yes Notes (Text): This patient was clearly told about the endoscopy findings and elevated chromogranin levels and the possible diagnosis of carcinoid to be ruled out. Again told of the importance of follow-up. And the plan about the next part scan and repeat EUS EGD evaluation. Follow-up the urine 5-HIAA levels patient was strictly advised to avoid alcohol continue PPI 11/19/18 21:59
[2018-11-19] MEDS: Insulin Reg-LOW-Coverage SC SCH ×2 (08:23→13:23)
[2018-11-19] MEDS: Pantoprazole 40 mg EC Tab PO SCH (08:41)
[2018-11-19] MEDS: Lidocaine 5% Patch TD SCH ×2 (09:33→09:35)
[2018-11-19] MEDS: Tiotropium 18 mcg Cap For Inhalation IH SCH (09:34)
[2018-11-21 06:15] LABS: TOTAL VOLUME 4500 mL/24 h
== END 2018-11-19 14:03 | disposition home or self-care (01) ==
LOC: ED 21:42 → ERH 11-16 01:16 → 5RSO 11-16 02:54 → OBSVTOIN 11-18 14:59 → INTOOBSV 11-18 14:59
PROVIDERS: ADMIT Internal Medicine; ATTEND Internal Medicine
DX: R11.2 Nausea with vomiting, unspecified (principal); K29.70 Gastritis, unspecified, without bleeding; K31.7 Polyp of stomach and duodenum; E11.65 Type 2 diabetes mellitus with hyperglycemia; D50.9 Iron deficiency anemia, unspecified; F12.10 Cannabis abuse, uncomplicated; F11.10 Opioid abuse, uncomplicated; F17.200 Nicotine dependence, unspecified, uncomplicated; I11.0 Hypertensive heart disease with heart failure; I50.9 Heart failure, unspecified; J44.9 Chronic obstructive pulmonary disease, unspecified; M48.00 Spinal stenosis, site unspecified; B18.2 Chronic viral hepatitis C; M51.16 Intervertebral disc disorders with radiculopathy, lumbar region; M47.9 Spondylosis, unspecified; F10.10 Alcohol abuse, uncomplicated; Y90.1 Blood alcohol level of 20-39 mg/100 ml; Z79.84 Long term (current) use of oral hypoglycemic drugs
CPT/HCPCS: 80053; 82948; 83497; 83690; 84260; 85027; 94640; 94760; 96361; 96374; 96375; 99285; G0378; G0480; J2405; J7030

== ENCOUNTER 2018-11-21 15:39 | Emergency (ER) | payer MEDICARE, OTHER ==
[2018-11-21 15:40] VITALS: BMI 21.2
[2018-11-21] MEDS ORDERED: Sodium Chloride 0.9% 1,000 ML IV SCH (16:00)
--- NOTE | 2018-11-21 16:05 | ED PDOC ---
Arrival/HPI - General Chief Complaint: Alcohol Ingestion Time Seen by Provider: 11/21/18 15:40 - History of Present Illness Narrative History of Present Illness (Text): A 68 year old female who has a history of chronic hip pain, intractable vomiting, HTN, diabetes, COPD, vertebral compression fracture, and chronic avascular necrosis of the hips, presents to the ED for vomiting after alcohol ingestion. Patient states she drank 2 shots of alcohol today, afterwhich she has started vomiting when trying to eat her food. Patient requests to be admitted immediately for vomiting and requests consult with Dr. Montanez. Patient denies any fevers, chills, night sweats, headache, dizziness, chest pain, shortness of breath, dyspnea on exertion, cough, abdominal pain, diarrhea, back pain, neck pain, urinary/bowel changes, or any other complaints. PMD: Dr. Montanez. Time/Duration: < week (2 days) Symptom Onset: Gradual Symptom Course: Unchanged Activities at Onset: Light Context: Home Past Medical History - Provider Review Nursing Documentation Reviewed: Yes - Infectious Disease Hx of Infectious Diseases: None - Cardiac Hx Cardiac Disorders: Yes Hx Congestive Heart Failure: Yes Hx Hypertension: Yes - Pulmonary Hx Chronic Obstructive Pulmonary Disease (COPD): Yes - Neurological Hx Neurological Disorder: No - HEENT Hx HEENT Disorder: No - Renal Hx Renal Disorder: No - Endocrine/Metabolic Hx Diabetes Mellitus Type 2: Yes - Hematological/Oncological Hx Blood Disorders: Yes Hx Hepatitis C: Yes - Integumentary Hx Dermatological Disorder: No - Musculoskeletal/Rheumatological Hx Falls: Yes - Gastrointestinal Hx Gastrointestinal Disorders: No - Genitourinary/Gynecological Hx Genitourinary Disorders: Yes - Psychiatric Hx Substance Use: No - Surgical History Hx Tonsillectomy: Yes - Anesthesia Hx Anesthesia Reactions: No Hx Malignant Hyperthermia: No Family/Social History - Physician Review Nursing Documentation Reviewed: Yes Family/Social History: Unknown Family HX Smoking Status: Current Some Days Smoker Hx Alcohol Use: Yes Hx Substance Use: No Substance used: completed methadone program Allergies/Home Meds Allergies/Adverse Reactions: Allergies No Known Allergies Allergy (Verified 11/21/18 16:18) Home Medications: Home Meds Medication Instructions Recorded Confirmed amLODIPine [Norvasc] 10 mg PO DAILY 08/07/18 11/15/18 Albuterol HFA [Ventolin HFA 90 2 puff IH QID PRN 10/22/18 11/15/18 mcg/actuation (8 g)] Review of Systems - Review of Systems Constitutional: absent: Fatigue, Fevers Eyes: absent: Vision Changes, Eye Pain ENT: absent: Hearing Changes, Rhinorrhea Respiratory: absent: SOB, Cough Cardiovascular: absent: Chest Pain, Palpitations Gastrointestinal: Vomiting. absent: Abdominal Pain Genitourinary Female: absent: Dysuria, Hematuria Musculoskeletal: absent: Back Pain, Neck Pain Skin: absent: Rash Neurological: absent: Headache, Dizziness Endocrine: absent: Diaphoresis Hemo/Lymphatic: absent: Adenopathy Psychiatric: absent: Anxiety, Depression Physical Exam Vital Signs Reviewed: Yes Temperature: Afebrile Blood Pressure: Normal Pulse: Tachycardic Respiratory Rate: Normal Appearance: Positive for: Well-Appearing, Non-Toxic, Comfortable Pain Distress: None Mental Status: Positive for: Alert and Oriented X 3 - Systems Exam Head: Present: Atraumatic, Normocephalic Pupils: Present: PERRL Extroacular Muscles: Present: EOMI Conjunctiva: Present: Normal Ears: Present: Normal Mouth: Present: Moist Mucous Membranes Pharnyx: Present: Normal. No: ERYTHEMA, EXUDATE Neck: Present: Normal Range of Motion Respiratory/Chest: Present: Clear to Auscultation, Good Air Exchange. No: Respiratory Distress, Accessory Muscle Use Cardiovascular: Present: Regular Rate and Rhythm, Normal S1, S2. No: Murmurs Abdomen: Present: Normal Bowel Sounds. No: Tenderness, Distention, Peritoneal Signs, Rebound, Guarding, McBurney's Point Tender, Rovsing's Sign Present Back: Present: Normal Inspection. No: CVA Tenderness, Midline Tenderness Upper Extremity: Present: Normal Inspection. No: Cyanosis, Edema Lower Extremity: Present: Normal Inspection. No: Edema Neurological: Present: GCS=15, CN II-XII Intact, Speech Normal, Motor Func Grossly Intact, Normal Cerebellar Funct, Gait Normal (w/ walker (pt normally walks with walker)) Skin: Present: Warm, Dry, Normal Color. No: Rashes Psychiatric: Present: Alert, Oriented x 3, Normal Insight, Normal Concentration Medical Decision Making ED Course and Treatment: Impression: A 68 year old female who presents to the ED for vomiting secondary to alcohol ingestion. x1 episode of vomiting, non bilious, non bloody. Non-ttp on exam, no signs of trauma. No headache or chest pain or sob. Likely alcoholic gastritis. Pt seen here multiple times recently for intractable vomiting. Plan: -- Labs -- Pepcid -- Zofran -- IV Fluids -- Reassess and disposition Prior Visits: Notes and results from previous visits were reviewed. Progress Notes: 11/21/18 16:10 EKG: Sinus tachycardia @ 110 bpm. No STEMI. 11/21/18 17:[address] Montanez: no indication for admission/obs labs largely unremarkable, potassium repleted tolerating clears strong steady gait w/ walker (baseline), clinically sober, no pain. No signs of etoh withdrawal clear for d/c home with return indications and f/u - Medication Orders Current Medication Orders: Ondansetron HCl (Zofran Inj) 4 mg IVP STAT STA Stop: 11/21/18 16:01 - Scribe Statement The provider has reviewed the documentation as recorded by the Yolande Bailey Provider Scribe Attestation: All medical record entries made by the Scribe were at my direction and personally dictated by me. I have reviewed the chart and agree that the record accurately reflects my personal performance of the history, physical exam, medical decision making, and the department course for this patient. I have also personally directed, reviewed, and agree with the discharge instructions and disposition. Disposition/Present on Arrival - Present on Arrival Any Indicators Present on Arrival: No History of DVT/PE: No History of Uncontrolled Diabetes: No Urinary Catheter: No History Surgical Site Infection Following: None - Disposition Have Diagnosis and Disposition been Completed?: Yes Diagnosis: Alcoholic gastritis Disposition: HOME/ ROUTINE Disposition Time: 18:05 Condition: STABLE Discharge Instructions (ExitCare): Alcohol Use - When Is Drinking a Problem?, Gastritis (DC) Additional Instructions: TREVON FOSS, thank you for letting us take care of you today. Your provider was Randall Arguello and you were treated for VOMITING. The emergency medical care you received today was directed at your acute symptoms. If you were prescribed any medication, please fill it and take as directed. It may take several days for your symptoms to resolve. Return to the Emergency Department if your symptoms worsen, do not improve, or if you have any other problems. Please contact your doctor or call one of the physicians/clinics you have been referred to that are listed on the Patient Visit Information form that is included in your discharge packet. Bring any paperwork you were given at discharge with you along with any medications you are taking to your follow up visit. Our treatment cannot replace ongoing medical care by a primary care provider outside of the emergency department. Thank you for allowing the [facility] team to be part of your care today. If you had an X-Ray or CT scan: A Radiologist will review the ED reading if any change in treatment is needed we will contact you. If you had a blood, urine, or wound culture: It will take several days for the results, if any change in treatment is needed we will contact you. If you had an STI test: It will take 48 hours for the results. Please call after 1 week if you have not heard back. Referrals: Denice Montanez MD [Staff Provider] - Follow up with primary [facility] [Outside] - Follow up with primary [facility] [Outside] - Follow up with primary [facility] [Outside] - Follow up with primary Carolina Urbano MD [Medical Doctor] - Follow up with primary Forms: [facility] ([place] Korean)
[2018-11-21 17:39] LABS: ALB/GLOB RATIO 1.1 (1.1-1.8); ALBUMIN 4.2 g/dL (3.0-4.8); ALT/SGPT 33 U/L (7-56); AST/SGOT 59 U/L (14-36); BLOOD UREA NITROGEN 22 mg/dL (7-21); CALCIUM 9.6 mg/dL (8.4-10.5); GFR NON-AFRICAN AMERICAN > 60; LIPASE 116 U/L (23-300)
[2018-11-21 17:47] LABS: BASO # 0.04 K/mm3 (0.0-2.0); BASO % 0.5 % (0.0-3.0); EOS # 0.1 (0.0-0.7); EOS % 1.1 % (1.5-5.0); HEMOGLOBIN 13.4 g/dL (12.0-16.0); LYMPH # 3.6 (1.2-3.4); LYMPH % 47.7 % (22.0-35.0); MEAN CELL VOLUME 87.5 fl (80.0-105.0); MEAN CORPUSCULAR HEMOGLOBIN 28.5 pg (25.0-35.0); MEAN CORPUSCULAR HGB CONC 32.5 g/dl (31.0-37.0); MEAN PLATELET VOLUME 11.3 fl (7.0-11.0); MONO # 0.3 (0.1-0.6); MONO % 4.6 % (1.0-6.0); RBC 4.71 10^6/uL (3.5-6.1); RED CELL DISTRIBUTION WIDTH 15.6 % (11.5-14.5); WHITE BLOOD COUNT 7.4 10^3/uL (4.5-11.0)
[2018-11-21 18:05] VITALS: RESP 19; O2SAT 100
[2018-11-21] MEDS ORDERED: Potassium Chloride 20 mEq ER Tab PO STA (18:07)
[2018-11-21 18:48] VITALS: BP 112/62; PULSE 96; TEMP 97.8
--- NOTE | 2018-11-22 07:48 | CARD ---
APPROVED REPORT Date of service: 11/21/2018 EKG Measurement Heart [id number] <Conclusion> Sinus tachycardia Possible Left atrial enlargement Nonspecific ST-T abnormalities Borderline ECG
== END 2018-11-21 18:36 | disposition home or self-care (01) ==
LOC: ED 15:39
DX: K29.20 Alcoholic gastritis without bleeding (principal); I11.0 Hypertensive heart disease with heart failure; I50.9 Heart failure, unspecified; E11.9 Type 2 diabetes mellitus without complications; F17.210 Nicotine dependence, cigarettes, uncomplicated
CPT/HCPCS: 80053; 82948; 83690; 85025; 93005; 96374; 96375; 99284; J2405; J7030

== ENCOUNTER 2018-11-28 17:45 | Emergency (ER) | payer MEDICARE, OTHER ==
[2018-11-28 18:01] VITALS: TEMP 98.4; O2SAT 98; BMI 20.7
--- NOTE | 2018-11-28 18:13 | ED PDOC ---
Arrival/HPI - General Chief Complaint: GI Problem Historian: Patient - History of Present Illness Narrative History of Present Illness (Text): 11/28/18 18:09 68 y/o female, pmh including chronic htn/dm/copd/hep c/vertebral compression fracture/chronic hip pain with avascular necrosis, nkda, c/o nausea/vomiting and diarrhea x 2 days. Pt. stated that she has gastritis, associated with nausea/vomiting/diarrhea for the past 2 days, no fever or chills, no abdominal pain, no night sweat, no rash, no dizziness, no change in vision, no numbness or tingling, no other medical or psychological complaints. Past Medical History - Provider Review Nursing Documentation Reviewed: Yes - Infectious Disease Hx of Infectious Diseases: None - Cardiac Hx Cardiac Disorders: Yes Hx Congestive Heart Failure: Yes Hx Hypertension: Yes - Pulmonary Hx Chronic Obstructive Pulmonary Disease (COPD): Yes - Neurological Hx Neurological Disorder: No - HEENT Hx HEENT Disorder: No - Renal Hx Renal Disorder: No - Endocrine/Metabolic Hx Diabetes Mellitus Type 2: Yes - Hematological/Oncological Hx Blood Disorders: Yes Hx Hepatitis C: Yes - Integumentary Hx Dermatological Disorder: No - Musculoskeletal/Rheumatological Hx Falls: Yes - Gastrointestinal Hx Gastrointestinal Disorders: No - Genitourinary/Gynecological Hx Genitourinary Disorders: Yes - Psychiatric Hx Psychophysiologic Disorder: No Hx Substance Use: No - Surgical History Hx Tonsillectomy: Yes - Anesthesia Hx Anesthesia Reactions: No Hx Malignant Hyperthermia: No Family/Social History - Physician Review Nursing Documentation Reviewed: Yes Family/Social History: Unknown Family HX Smoking Status: Current Some Days Smoker Hx Alcohol Use: Yes Hx Substance Use: No Substance used: completed methadone program Allergies/Home Meds Allergies/Adverse Reactions: Allergies No Known Allergies Allergy (Verified 11/21/18 16:18) Home Medications: Home Meds Medication Instructions Recorded Confirmed amLODIPine [Norvasc] 10 mg PO DAILY 08/07/18 11/15/18 Albuterol HFA [Ventolin HFA 90 2 puff IH QID PRN 10/22/18 11/15/18 mcg/actuation (8 g)] Review of Systems - Review of Systems Constitutional: absent: Fatigue, Fevers Eyes: absent: Vision Changes ENT: absent: Hearing Changes, Sore Throat, Rhinorrhea Respiratory: absent: SOB, Cough Cardiovascular: absent: Chest Pain Gastrointestinal: Diarrhea, Nausea, Vomiting. absent: Abdominal Pain Skin: absent: Rash, Pruritis Neurological: absent: Headache, Dizziness Psychiatric: absent: Anxiety, Depression, Suicidal Ideation Physical Exam Vital Signs Reviewed: Yes Vital Signs Temp Pulse Resp BP Pulse Ox 11/28/18 17:54 98.4 F 116 H 18 111/75 98 Temperature: Afebrile Blood Pressure: Normal Pulse: Tachycardic Respiratory Rate: Normal Appearance: Positive for: Well-Appearing, Non-Toxic, Comfortable Pain Distress: None Mental Status: Positive for: Alert and Oriented X 3 - Systems Exam Head: Present: Atraumatic, Normocephalic Pupils: Present: PERRL Extroacular Muscles: Present: EOMI Conjunctiva: Present: Normal Mouth: Present: Moist Mucous Membranes Neck: Present: Normal Range of Motion Respiratory/Chest: Present: Clear to Auscultation, Good Air Exchange. No: Respiratory Distress, Accessory Muscle Use Cardiovascular: Present: Regular Rate and Rhythm, Normal S1, S2. No: Murmurs Abdomen: Present: Normal Bowel Sounds. No: Tenderness, Distention, Peritoneal Signs, Rebound, Guarding Back: Present: Normal Inspection Upper Extremity: Present: Normal Inspection. No: Cyanosis, Edema Lower Extremity: Present: Normal Inspection, NORMAL PULSES, Normal ROM, Neurovascularly Intact, Capillary Refill < 2 s. No: Edema, Tenderness, Swelling, Deformity Neurological: Present: GCS=15, CN II-XII Intact, Speech Normal, Motor Func Grossly Intact, Normal Cerebellar Funct, Memory Normal Skin: Present: Warm, Dry, Normal Color. No: Rashes Psychiatric: Present: Alert, Oriented x 3, Normal Insight, Normal Concentration Medical Decision Making ED Course and Treatment: 11/28/18 18:11 -labs -cxr -IVF/pepcid/zofran -Observe and reassess 11/28/18 19:21 -Chest xray ER wet read: no active disease -Labs are nonsignificant except potassium 3.3 (potassium chloride 20meq po ordered) -Trop is negative -Alcohol 109 -Pt. stated that she feels fatigue from nausea/vomiting, calling Dr. Montanez for observation 11/28/18 20:36 -I spoke to Dr. Montanez about this case, stated that the patient can be discharged home and this is chronic complaints for her. -Pt is eating her dinner with no nausea/vomiting, tolerating po solid and fluid, agreed to be discharged home. -Discharge home with pepcid, zofran, avoid public intoxication, see your own pmd and GI within 2 days, return to the ER for any new or worsening signs or symptoms. - RAD Interpretation Radiology Orders: 11/28/18 18:08 CHEST PORTABLE [RAD] Stat Date of service: 11/28/2018 HISTORY: medical clearance, nausea/vomiting COMPARISON: 11/07/2018 TECHNIQUE: 1 view obtained. FINDINGS: LUNGS: No active pulmonary disease. PLEURA: No significant pleural effusion identified, no pneumothorax apparent. CARDIOVASCULAR: No aortic atherosclerotic calcification present. Normal cardiac size. No pulmonary vascular congestion. OSSEOUS STRUCTURES: No significant abnormalities. VISUALIZED UPPER ABDOMEN: Normal. OTHER FINDINGS: None. IMPRESSION: No active disease. Car Chaser: Radiologist - PA / SENIOR TAX SPECIALIST / Resident Statement / has reviewed & agrees with the documentation as recorded. Disposition/Present on Arrival - Present on Arrival Any Indicators Present on Arrival: No History of DVT/PE: No History of Uncontrolled Diabetes: No Urinary Catheter: No History of Decub. Ulcer: No History Surgical Site Infection Following: None - Disposition Have Diagnosis and Disposition been Completed?: Yes Diagnosis: Alcohol intoxication, Nausea & vomiting, Hypokalemia Disposition: HOME/ ROUTINE Disposition Time: 20:36 Patient Plan: Discharge Condition: IMPROVED Additional Instructions: -Discharge home with pepcid, zofran, avoid public intoxication, see your own pmd and GI within 2 days, return to the ER for any new or worsening signs or symptoms. Prescriptions: Famotidine [Pepcid] 20 mg PO BID #20 tab Ondansetron [Zofran] 4 mg PO Q8H PRN #10 tab PRN Reason: Other Referrals: Denice Montanez MD [Staff Provider] - Follow up with primary Carolina Urbano MD [Medical Doctor] - Follow up with primary Forms: [employer] (I[place]ic), WORK NOTE
[2018-11-28] MEDS ORDERED: Sodium Chloride 0.9% 1,000 ML IV SCH (18:15)
[2018-11-28 18:59] LABS: BASO # 0.02 K/mm3 (0.0-2.0); BASO % 0.3 % (0.0-3.0); EOS % 0.5 % (1.5-5.0); LYMPH # 3.3 (1.2-3.4); LYMPH % 43.1 % (22.0-35.0); MEAN CELL VOLUME 87.2 fl (80.0-105.0); MEAN CORPUSCULAR HEMOGLOBIN 28.6 pg (25.0-35.0); MEAN CORPUSCULAR HGB CONC 32.8 g/dl (31.0-37.0); MEAN PLATELET VOLUME 10.6 fl (7.0-11.0); MONO # 0.4 (0.1-0.6); MONO % 5.2 % (1.0-6.0); RBC 4.54 10^6/uL (3.5-6.1); RED CELL DISTRIBUTION WIDTH 16.1 % (11.5-14.5); WHITE BLOOD COUNT 7.6 10^3/uL (4.5-11.0)
[2018-11-28 19:13] LABS: ALB/GLOB RATIO 1.1 (1.1-1.8); ALBUMIN 4.1 g/dL (3.0-4.8); ALT/SGPT 34 U/L (7-56); AST/SGOT 59 U/L (14-36); BLOOD UREA NITROGEN 14 mg/dL (7-21); CALCIUM 9.2 mg/dL (8.4-10.5); GFR NON-AFRICAN AMERICAN > 60; LIPASE 96 U/L (23-300)
[2018-11-28 19:16] LABS: TROPONIN I < 0.01 ng/mL
[2018-11-28] MEDS ORDERED: Potassium Chloride 20 mEq ER Tab PO STA (19:20)
[2018-11-28 21:14] VITALS: BP 114/78; PULSE 93; RESP 16
--- NOTE | 2018-11-29 10:49 | RAD ---
Date of service: 11/28/2018 HISTORY: medical clearance, nausea/vomiting COMPARISON: 11/07/2018 TECHNIQUE: 1 view obtained. FINDINGS: LUNGS: No active pulmonary disease. PLEURA: No significant pleural effusion identified, no pneumothorax apparent. CARDIOVASCULAR: No aortic atherosclerotic calcification present. Normal cardiac size. No pulmonary vascular congestion. OSSEOUS STRUCTURES: No significant abnormalities. VISUALIZED UPPER ABDOMEN: Normal. OTHER FINDINGS: None. IMPRESSION: No active disease.
== END 2018-11-28 21:08 | disposition home or self-care (01) ==
LOC: ED 17:45
DX: R11.2 Nausea with vomiting, unspecified (principal); F10.129 Alcohol abuse with intoxication, unspecified; E87.6 Hypokalemia
CPT/HCPCS: 71045; 80053; 82948; 83690; 83735; 84484; 85025; 96374; 96375; 99285; G0480; J2405; J7030

== ENCOUNTER 2018-11-30 16:24 | Emergency (ER) | payer MEDICARE, OTHER ==
[2018-11-30 16:24] VITALS: BMI 21.2
[2018-11-30] MEDS ORDERED: Sodium Chloride 0.9% 1,000 ML IV STA (16:47)
--- NOTE | 2018-11-30 16:49 | ED PDOC ---
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 Patient reports she slipped and fell down the stairs, however did not seek immediate medical attention. Instead, patient went shopping for food because she was hungry, and afterwards then called 911. Patient notes also experiencing a fever, however denies any other complaints at this time. Past Medical History - Provider Review Nursing Documentation Reviewed: Yes - Infectious Disease Hx of Infectious Diseases: None - Cardiac Hx Cardiac Disorders: Yes Hx Congestive Heart Failure: Yes Hx Hypertension: Yes - Pulmonary Hx Chronic Obstructive Pulmonary Disease (COPD): Yes - Neurological Hx Neurological Disorder: No - HEENT Hx HEENT Disorder: No - Renal Hx Renal Disorder: No - Endocrine/Metabolic Hx Diabetes Mellitus Type 2: Yes - Hematological/Oncological Hx Blood Disorders: Yes Hx Hepatitis C: Yes - Integumentary Hx Dermatological Disorder: No - Musculoskeletal/Rheumatological Hx Falls: Yes - Gastrointestinal Hx Gastrointestinal Disorders: No - Genitourinary/Gynecological Hx Genitourinary Disorders: Yes - Psychiatric Hx Psychophysiologic Disorder: No Hx Substance Use: No - Surgical History Hx Tonsillectomy: Yes - Anesthesia Hx Anesthesia Reactions: No Hx Malignant Hyperthermia: No Family/Social History - Physician Review Nursing Documentation Reviewed: Yes Family/Social History: No Known Family HX Smoking Status: Current Some Days Smoker Hx Alcohol Use: Yes Hx Substance Use: No Substance used: completed methadone program Allergies/Home Meds Allergies/Adverse Reactions: Allergies No Known Allergies Allergy (Verified 11/21/18 16:18) Home Medications: Home Meds Medication Instructions Recorded Confirmed amLODIPine [Norvasc] 10 mg PO DAILY 08/07/18 11/30/18 Albuterol HFA [Ventolin HFA 90 2 puff IH QID PRN 10/22/18 11/30/18 mcg/actuation (8 g)] Review of Systems - Physician Review All systems were reviewed & negative as marked: Yes - Review of Systems Constitutional: Fevers Musculoskeletal: Other (left leg pain s/p slip and fall) Physical Exam Appearance: Positive for: Well-Appearing, Non-Toxic, Comfortable Pain Distress: None Mental Status: Positive for: Alert and Oriented X 3 - Systems Exam Head: Present: Atraumatic, Normocephalic Pupils: Present: PERRL Extroacular Muscles: Present: EOMI Conjunctiva: Present: Normal Mouth: Present: Moist Mucous Membranes Neck: Present: Normal Range of Motion Respiratory/Chest: Present: Clear to Auscultation, Good Air Exchange. No: Respiratory Distress, Accessory Muscle Use Cardiovascular: Present: Regular Rate and Rhythm, Normal S1, S2. No: Murmurs Abdomen: No: Tenderness, Distention, Peritoneal Signs Back: Present: Normal Inspection Upper Extremity: Present: Normal Inspection. No: Cyanosis, Edema Lower Extremity: Present: Normal Inspection, Tenderness (point tenderness to left hdz). No: Edema Neurological: Present: GCS=15, CN II-XII Intact, Speech Normal Skin: Present: Warm, Dry, Normal Color. No: Rashes Psychiatric: Present: Alert, Oriented x 3, Normal Insight, Normal Concentration Medical Decision Making ED Course and Treatment: 11/30/18 16:51 Impression: 68 year old female with left leg pain s/p slip and fall. Plan: -- Chest X-ray -- Labs -- IV Fluids -- Toradol -- Tibia Fibula Left X-Ray -- Reassess and disposition Prior Visits: Notes and results from previous visits were reviewed. Patient was last seen in the emergency department on 11/28/2018 for nausea, vomiting, and diarrhea. Patient was discharged home. Progress Notes: - Scribe Statement The provider has reviewed the documentation as recorded by the Yolande Bartlett Provider Scribe Attestation: All medical record entries made by the Yolande were at my direction and personally dictated by me. I have reviewed the chart and agree that the record accurately reflects my personal performance of the history, physical exam, medical decision making, and the department course for this patient. I have also personally directed, reviewed, and agree with the discharge instructions and disposition. Disposition/Present on Arrival - Present on Arrival Any Indicators Present on Arrival: No History of DVT/PE: No History of Uncontrolled Diabetes: No Urinary Catheter: No History of Decub. Ulcer: No History Surgical Site Infection Following: None - Disposition Have Diagnosis and Disposition been Completed?: Yes Diagnosis: Leg pain, Fall Disposition: HOME/ ROUTINE Disposition Time: 20:00 Patient Plan: Discharge Condition: IMPROVED Print Language: TANZANIAN Additional Instructions: All medical record entries made by the Scribe were at my direction and personally dictated by me. I have reviewed the chart and agree that the record accurately reflects my personal performance of the history, physical exam, medical decision making, and the department course for this patient. I have also personally directed, reviewed, and agree with the discharge instructions and disposition. Please follow up with Dr. Montanez in 1 week Referrals: Denice Montanez MD [Primary Care Provider] - Follow up with primary Forms: [employer] (Lithuanian)
[2018-11-30 17:34] LABS: BASO # 0.02 K/mm3 (0.0-2.0); BASO % 0.3 % (0.0-3.0); EOS # 0.1 (0.0-0.7); EOS % 0.8 % (1.5-5.0); HEMOGLOBIN 12.2 g/dL (12.0-16.0); LYMPH # 2.7 (1.2-3.4); LYMPH % 37.3 % (22.0-35.0); MEAN CELL VOLUME 88.9 fl (80.0-105.0); MEAN CORPUSCULAR HEMOGLOBIN 28.8 pg (25.0-35.0); MEAN CORPUSCULAR HGB CONC 32.4 g/dl (31.0-37.0); MEAN PLATELET VOLUME 10.8 fl (7.0-11.0); MONO # 0.4 (0.1-0.6); MONO % 4.9 % (1.0-6.0); RBC 4.23 10^6/uL (3.5-6.1); RED CELL DISTRIBUTION WIDTH 16.3 % (11.5-14.5); WHITE BLOOD COUNT 7.3 10^3/uL (4.5-11.0)
[2018-11-30 17:52] LABS: ALB/GLOB RATIO 1.1 (1.1-1.8); ALBUMIN 3.9 g/dL (3.0-4.8); ALT/SGPT 33 U/L (7-56); AST/SGOT 52 U/L (14-36); BLOOD UREA NITROGEN 10 mg/dL (7-21); CALCIUM 8.9 mg/dL (8.4-10.5); GFR NON-AFRICAN AMERICAN > 60; INR 1.05; LIPASE 142 U/L (23-300); PARTIAL THROMBOPLASTIN TIME 32.5 Seconds (26.9-38.3); PROTHROMBIN TIME 11.6 SECONDS (9.4-12.5)
[2018-11-30 18:03] LABS: TROPONIN I < 0.01 ng/mL
[2018-11-30] MEDS ORDERED: Potassium Chloride 40 mEq/30 ml LIQ UD PO STA (18:18)
[2018-11-30 18:48] VITALS: BP 104/50; PULSE 89; RESP 17; TEMP 99.2; O2SAT 96
--- NOTE | 2018-12-01 05:25 | RAD ---
Date of service: 11/30/2018 HISTORY: h/o COPD COMPARISON: Comparison is made with 11/28/2018 TECHNIQUE: 1 view obtained. FINDINGS: LUNGS: No evidence of new infiltrate or consolidation in the lungs. Pleural thickening versus right lung apex scarring and peripheral opacity is again noted. PLEURA: No significant pleural effusion identified, no pneumothorax apparent. CARDIOVASCULAR: No aortic atherosclerotic calcification present. Normal cardiac size. No pulmonary vascular congestion. OSSEOUS STRUCTURES: No significant abnormalities. VISUALIZED UPPER ABDOMEN: Normal. OTHER FINDINGS: None. IMPRESSION: No significant interval changes noted since the prior exam.
== END 2018-11-30 21:45 | disposition home or self-care (01) ==
LOC: ED 16:24
DX: M79.605 Pain in left leg (principal); E11.9 Type 2 diabetes mellitus without complications; J44.9 Chronic obstructive pulmonary disease, unspecified; I10 Essential (primary) hypertension; I50.9 Heart failure, unspecified
CPT/HCPCS: 71045; 80053; 82948; 83690; 84484; 85025; 85610; 85730; 96374; 99284; G0480; J1885; J3480; J7030

== ENCOUNTER 2018-12-05 14:09 | Emergency (ER) | payer MEDICARE, OTHER ==
[2018-12-05 14:09] VITALS: BMI 21.2
[2018-12-05] MEDS ORDERED: Sodium Chloride 0.9% 1,000 ML IV STA (14:49)
--- NOTE | 2018-12-05 14:53 | ED PDOC ---
Arrival/HPI - General Chief Complaint: GI Problem Time Seen by Provider: 12/05/18 14:16 Historian: Patient - History of Present Illness Time/Duration: Other (two days) Symptom Onset: Gradual Symptom Course: Unchanged Severity Level: Mild Activities at Onset: Rest Associated Symptoms (Text): 12/05/18 14:50 Well-known to the emergency department staff. Patient complains of a 2-day history of nausea vomiting and diarrhea. She reports that she was sent to the emergency department by her visiting nurse. There is no abdominal pain. No fever or chills. She has been taking her Metformin. Past Medical History - Infectious Disease Hx of Infectious Diseases: None - Cardiac Hx Congestive Heart Failure: Yes Hx Hypertension: Yes - Pulmonary Hx Chronic Obstructive Pulmonary Disease (COPD): Yes - Neurological Hx Neurological Disorder: No - HEENT Hx HEENT Disorder: No - Renal Hx Renal Disorder: No - Endocrine/Metabolic Hx Endocrine Disorders: Yes Hx Diabetes Mellitus Type 2: Yes - Hematological/Oncological Hx Blood Disorders: Yes Hx Hepatitis C: Yes - Integumentary Hx Dermatological Disorder: No - Musculoskeletal/Rheumatological Hx Arthritis: Yes Hx Fractures: Yes (vertabral compression fracture) - Gastrointestinal Hx Gastrointestinal Disorders: No - Genitourinary/Gynecological Hx Genitourinary Disorders: Yes - Psychiatric Hx Substance Use: No - Surgical History Hx Tonsillectomy: Yes - Anesthesia Hx Anesthesia Reactions: No Hx Malignant Hyperthermia: No Family/Social History - Physician Review Nursing Documentation Reviewed: Yes Family/Social History: Unknown Family HX Smoking Status: Light Smoker < 10 Cigarettes Daily Hx Alcohol Use: Yes Hx Substance Use: No Substance used: completed methadone program Allergies/Home Meds Allergies/Adverse Reactions: Allergies No Known Allergies Allergy (Verified 12/03/18 16:49) Home Medications: Home Meds Medication Instructions Recorded Confirmed Albuterol HFA [Ventolin HFA 90 2 puff IH QID PRN 10/22/18 12/05/18 mcg/actuation (8 g)] Review of Systems - Physician Review All systems were reviewed & negative as marked: Yes - Review of Systems Constitutional: absent: Fatigue, Fevers Respiratory: absent: SOB, Cough, Wheezing Cardiovascular: absent: Chest Pain, Palpitations Gastrointestinal: Diarrhea, Nausea, Vomiting. absent: Abdominal Pain Neurological: absent: Headache, Dizziness, Focal Weakness Physical Exam Mental Status: Positive for: Alert and Oriented X 3 - Systems Exam Head: Present: Atraumatic, Normocephalic Pupils: Present: PERRL Extroacular Muscles: Present: EOMI Conjunctiva: Present: Normal Mouth: Present: Moist Mucous Membranes Pharnyx: No: ERYTHEMA, EXUDATE, TONSILS ENLARGED Neck: Present: Normal Range of Motion Respiratory/Chest: Present: Clear to Auscultation, Good Air Exchange. No: Respiratory Distress, Accessory Muscle Use Cardiovascular: Present: Regular Rate and Rhythm, Normal S1, S2. No: Murmurs Abdomen: No: Tenderness, Distention, Peritoneal Signs, Rebound, Guarding Back: Present: Normal Inspection Upper Extremity: Present: Normal Inspection. No: Cyanosis, Edema Lower Extremity: Present: Normal Inspection. No: Edema Neurological: Present: GCS=15, CN II-XII Intact, Speech Normal, Motor Func Grossly Intact Skin: Present: Warm, Dry, Normal Color. No: Rashes Psychiatric: Present: Alert, Oriented x 3, Normal Insight, Normal Concentration Medical Decision Making ED Course and Treatment: 12/05/18 17:45 Patient is feeling better. We are waiting for her redrawn blood work to be finished. The first specimen was hemolyzed. 12/05/18 18:11 Blood work is unremarkable. There is been no vomiting or diarrhea emergency department. Patient will be discharged home with a prescription for Zofran. Follow-up with PMD. Follow-up in ER as needed. Disposition/Present on Arrival - Present on Arrival Any Indicators Present on Arrival: No History of DVT/PE: No History of Uncontrolled Diabetes: No Urinary Catheter: No History of Decub. Ulcer: No History Surgical Site Infection Following: None - Disposition Have Diagnosis and Disposition been Completed?: Yes Diagnosis: Nausea vomiting and diarrhea Disposition: HOME/ ROUTINE Disposition Time: 18:12 Patient Plan: Discharge Condition: IMPROVED Discharge Instructions (ExitCare): Diarrhea in Adolescents and Adults, Nausea and Vomiting, Adult (DC) Additional Instructions: Clear liquids for 24 hours. Follow-up with PMD. Follow-up in ER as needed. Prescriptions: Ondansetron ODT [Zofran ODT] 4 mg PO Q6 #20 odt Forms: [employer] (Canadian)
[2018-12-05 15:19] VITALS: RESP 18; TEMP 97.4
[2018-12-05 16:52] LABS: BASO # 0.02 K/mm3 (0.0-2.0); BASO % 0.3 % (0.0-3.0); EOS # 0.1 (0.0-0.7); EOS % 0.9 % (1.5-5.0); HEMOGLOBIN 13.4 g/dL (12.0-16.0); LYMPH # 2.6 (1.2-3.4); LYMPH % 38.4 % (22.0-35.0); MEAN CELL VOLUME 89.9 fl (80.0-105.0); MEAN CORPUSCULAR HEMOGLOBIN 29.5 pg (25.0-35.0); MEAN CORPUSCULAR HGB CONC 32.8 g/dl (31.0-37.0); MONO # 0.5 (0.1-0.6); MONO % 7.7 % (1.0-6.0); RBC 4.55 10^6/uL (3.5-6.1); RED CELL DISTRIBUTION WIDTH 16.3 % (11.5-14.5); WHITE BLOOD COUNT 6.7 10^3/uL (4.5-11.0)
[2018-12-05 17:56] LABS: ALBUMIN 3.6 g/dL (3.0-4.8); ALT/SGPT 38 U/L (7-56); AST/SGOT 58 U/L (14-36); BLOOD UREA NITROGEN 8 mg/dL (7-21); CALCIUM 8.8 mg/dL (8.4-10.5); GFR NON-AFRICAN AMERICAN > 60; LIPASE 79 U/L (23-300)
[2018-12-05 20:36] VITALS: BP 135/74; PULSE 80; O2SAT 100
== END 2018-12-05 19:30 | disposition home or self-care (01) ==
LOC: ED 14:09
DX: R11.2 Nausea with vomiting, unspecified (principal); R19.7 Diarrhea, unspecified; I11.0 Hypertensive heart disease with heart failure; I50.9 Heart failure, unspecified; E11.9 Type 2 diabetes mellitus without complications; F17.210 Nicotine dependence, cigarettes, uncomplicated
CPT/HCPCS: 80053; 83690; 83735; 85025; 96361; 96374; 99284; G0480; J2405; J7030

== ENCOUNTER 2018-12-08 20:04 | Emergency (ER) | payer MEDICARE, OTHER ==
[2018-12-08 20:04] VITALS: BMI 21.2
[2018-12-08 20:57] VITALS: RESP 14; TEMP 98.4; O2SAT 100
[2018-12-08] MEDS ORDERED: Sodium Chloride 0.9% 1,000 ML IV ONE ×2 (21:25→21:26)
--- NOTE | 2018-12-08 21:42 | ED PDOC ---
Arrival/HPI - General Chief Complaint: GI Problem Time Seen by Provider: 12/08/18 20:12 Historian: Patient - History of Present Illness Narrative History of Present Illness (Text): Trevon Pascual is a 68 year old female, whose past medical history includes alcohol abuse, UTI, COPD, CHF, diabetes, and hypertension, presents to the emergency department with nausea and vomiting, since 06:00 today. Patient also notes burning epigastric pain. Patient informs pain is consistent with previous gastritis symptoms. Patient states she tried taking her zofran pill but vomited it. Patient informs drinking 1 been prior to onset of symptoms. Patient denies any chest pain, urinary complaints, constipation, diarrhea, vaginal rash or discharge, or any other complaints. Time/Duration: 24 hours Symptom Onset: Gradual Symptom Course: Unchanged Quality: Burning Activities at Onset: Light Context: Home Past Medical History - Provider Review Nursing Documentation Reviewed: Yes - Infectious Disease Hx of Infectious Diseases: None - Cardiac Hx Congestive Heart Failure: Yes Hx Hypertension: Yes - Pulmonary Hx Chronic Obstructive Pulmonary Disease (COPD): Yes - Neurological Hx Neurological Disorder: No - HEENT Hx HEENT Disorder: No - Renal Hx Renal Disorder: No - Endocrine/Metabolic Hx Endocrine Disorders: Yes Hx Diabetes Mellitus Type 2: Yes - Hematological/Oncological Hx Blood Disorders: Yes Hx Hepatitis C: Yes - Integumentary Hx Dermatological Disorder: No - Musculoskeletal/Rheumatological Hx Arthritis: Yes Hx Fractures: Yes (vertabral compression fracture) - Gastrointestinal Hx Gastrointestinal Disorders: No - Genitourinary/Gynecological Hx Genitourinary Disorders: Yes - Psychiatric Hx Psychophysiologic Disorder: No Hx Substance Use: No - Surgical History Hx Tonsillectomy: Yes - Anesthesia Hx Anesthesia Reactions: No Hx Malignant Hyperthermia: No Family/Social History - Physician Review Nursing Documentation Reviewed: Yes Family/Social History: No Known Family HX Smoking Status: Light Smoker < 10 Cigarettes Daily Hx Alcohol Use: Yes Hx Substance Use: No Substance used: completed methadone program Allergies/Home Meds Allergies/Adverse Reactions: Allergies No Known Allergies Allergy (Verified 12/03/18 16:49) Home Medications: Home Meds Medication Instructions Recorded Confirmed Albuterol HFA [Ventolin HFA 90 2 puff IH QID PRN 10/22/18 12/05/18 mcg/actuation (8 g)] Review of Systems - Physician Review All systems were reviewed & negative as marked: Yes - Review of Systems Constitutional: absent: Fatigue, Weight Change, Fevers Eyes: absent: Vision Changes, Photophobia ENT: absent: Hearing Changes, Tinnitus Respiratory: absent: SOB, Cough, Sputum Cardiovascular: absent: Chest Pain Gastrointestinal: Abdominal Pain, Nausea, Vomiting Genitourinary Female: absent: Dysuria, Frequency, Urine Output Changes, Vaginal Bleeding, Vaginal Discharge, Other (no vaginal rash) Musculoskeletal: absent: Arthralgias, Back Pain, Neck Pain, Joint Swelling, Myalgias Skin: absent: Rash, Pruritis, Skin Lesions Neurological: absent: Headache, Dizziness Psychiatric: absent: Anxiety, Depression Physical Exam Vital Signs Reviewed: Yes Vital Signs Temp Pulse Resp BP Pulse Ox 12/08/18 20:55 98.4 F 107 H 14 143/93 H 100 Temperature: Afebrile Blood Pressure: Hypertensive Pulse: Tachycardic Respiratory Rate: Normal Appearance: Positive for: Well-Appearing, Non-Toxic, Comfortable Pain Distress: None Mental Status: Positive for: Alert and Oriented X 3 - Systems Exam Head: Present: Atraumatic, Normocephalic Pupils: Present: PERRL Extroacular Muscles: Present: EOMI Conjunctiva: Present: Normal Mouth: Present: Moist Mucous Membranes Pharnyx: Present: Normal. No: ERYTHEMA, EXUDATE Nose (Internal): Present: Normal Inspection, No Active Bleeding Neck: Present: Normal Range of Motion. No: Meningeal Signs, MIDLINE TENDERNESS Respiratory/Chest: Present: Clear to Auscultation, Good Air Exchange. No: Respiratory Distress, Accessory Muscle Use Cardiovascular: Present: Regular Rate and Rhythm, Normal S1, S2. No: Murmurs Abdomen: Present: Tenderness (epigastric tenderness), Normal Bowel Sounds. No: Distention, Peritoneal Signs, Guarding, McBurney's Point Tender, Rovsing's Sign Present Back: Present: Normal Inspection. No: CVA Tenderness, Midline Tenderness Upper Extremity: Present: Normal Inspection. No: Cyanosis, Edema Lower Extremity: Present: Normal Inspection. No: Edema Neurological: Present: GCS=15, CN II-XII Intact, Speech Normal Skin: Present: Warm, Dry, Normal Color. No: Rashes Psychiatric: Present: Alert, Oriented x 3, Normal Insight, Normal Concentration Medical Decision Making ED Course and Treatment: 12/08/18 21:47 Impression:68 year old female presents with epigastric pain similar to previous gastritis. No fall or trauma, multiple episodes of nbnb vomiting and no diarrhea or dark or bloody stool. No constipation. Well appearing in NAD. No back pain or CVAT. Likely gastritis. Differential Diagnosis included but are not limited to: Gastritis No signs of withdrawal or intoxication Plan: -- CMP, Lipase -- CBC -- Pepcid -- Reglan -- Urinalysis -- Reassess and disposition Prior Visits: Notes and results from previous visits were reviewed. Progress Notes: 12/09/18 00:23 labs, UA unremarkable repeat abd exam non-ttp pt tolerated clears well earlier sleeping comfortably in NAD advised pt to decrease etoh use clear for d/c home with return indications and f/u. Pt is agreeable to plan. - Medication Orders Current Medication Orders: Sodium Chloride (Sodium Chloride 0.9%) 1,000 mls @ 100 mls/hr IV .Q10H ONE Stop: 12/09/18 07:24 Discontinued Medications Famotidine (Pepcid) 20 mg IVP STAT STA Stop: 12/08/18 21:27 Sodium Chloride (Sodium Chloride 0.9%) 1,000 mls @ 250 mls/hr IV .Q4H ONE Stop: 12/09/18 01:24 Metoclopramide HCl (Reglan) 10 mg IVP STAT STA Stop: 12/08/18 21:26 - Scribe Statement The provider has reviewed the documentation as recorded by the Yolande Mari Provider Scribe Attestation: All medical record entries made by the Scribe were at my direction and personally dictated by me. I have reviewed the chart and agree that the record accurately reflects my personal performance of the history, physical exam, medical decision making, and the department course for this patient. I have also personally directed, reviewed, and agree with the discharge instructions and disposition. Disposition/Present on Arrival - Present on Arrival Any Indicators Present on Arrival: No History of DVT/PE: No History of Uncontrolled Diabetes: No Urinary Catheter: No History of Decub. Ulcer: No History Surgical Site Infection Following: None - Disposition Have Diagnosis and Disposition been Completed?: Yes Diagnosis: Gastritis Disposition: HOME/ ROUTINE Disposition Time: 00:22 Patient Problems: Current Active Problems Problem Status Onset Gastritis Acute Condition: STABLE Discharge Instructions (ExitCare): Gastritis (DC) Additional Instructions: TREVON PASCUAL, thank you for letting us take care of you today. Your provider was Randall Arguello and you were treated for VOMITING. The emergency medical care you rece ived today was directed at your acute symptoms. If you were prescribed any medication, please fill it and take as directed. It may take several days for your symptoms to resolve. Return to the Emergency Department if your symptoms worsen, do not improve, or if you have any other problems. Please contact your doctor or call one of the physicians/clinics you have been referred to that are listed on the Patient Visit Information form that is included in your discharge packet. Bring any paperwork you were given at discharge with you along with any medications you are taking to your follow up visit. Our treatment cannot replace ongoing medical care by a primary care provider outside of the emergency department. Thank you for allowing the [facility] team to be part of your care today. If you had an X-Ray or CT scan: A Radiologist will review the ED reading if any change in treatment is needed we will contact you. If you had a blood, urine, or wound culture: It will take several days for the results, if any change in treatment is needed we will contact you. If you had an STI test: It will take 48 hours for the results. Please call after 1 week if you have not heard back. Referrals: David Frazier DO [Staff Provider] - Follow up with primary Denice Montanez MD [Family Provider] - Follow up with primary [email or web address] [Outside] - Follow up with primary [facility] [Outside] - Follow up with primary [facility] [Outside] - Follow up with primary Forms: [email or web address] ([place])
[2018-12-08 23:18] LABS: BASO # 0.02 K/mm3 (0.0-2.0); BASO % 0.3 % (0.0-3.0); EOS # 0.1 (0.0-0.7); EOS % 1.4 % (1.5-5.0); HEMOGLOBIN 12.7 g/dL (12.0-16.0); LYMPH # 3.3 (1.2-3.4); LYMPH % 49.7 % (22.0-35.0); MEAN CELL VOLUME 90.4 fl (80.0-105.0); MEAN CORPUSCULAR HEMOGLOBIN 29.1 pg (25.0-35.0); MEAN CORPUSCULAR HGB CONC 32.2 g/dl (31.0-37.0); MEAN PLATELET VOLUME 10.2 fl (7.0-11.0); MONO # 0.4 (0.1-0.6); MONO % 5.9 % (1.0-6.0); RBC 4.37 10^6/uL (3.5-6.1); RED CELL DISTRIBUTION WIDTH 16.2 % (11.5-14.5); WHITE BLOOD COUNT 6.6 10^3/uL (4.5-11.0)
[2018-12-08 23:38] LABS: ALB/GLOB RATIO 1.1 (1.1-1.8); ALBUMIN 4.1 g/dL (3.0-4.8); ALT/SGPT 41 U/L (7-56); AST/SGOT 66 U/L (14-36); BLOOD UREA NITROGEN 11 mg/dL (7-21); CALCIUM 9.2 mg/dL (8.4-10.5); GFR NON-AFRICAN AMERICAN > 60; LIPASE 120 U/L (23-300)
[2018-12-08] MEDS: Potassium Chloride 20 mEq ER Tab PO STA (23:59)
[2018-12-09 00:03] LABS: PH,URINE 6.5 (4.7-8.0); URINE BILIRUBIN NEGATIVE (NEGATIVE); URINE BLOOD NEGATIVE (NEGATIVE); URINE GLUCOSE (UA) NEGATIVE (NEGATIVE); URINE LEUKOCYTE ESTERASE NEGATIVE Leu/uL (NEGATIVE); URINE PROTEIN NEGATIVE mg/dL (<30 mg/dL); URINE UROBILINOGEN 0.2 E.U./dL (<1 E.U./dL)
[2018-12-09 00:05] LABS: URINE APPEARANCE CLEAR (CLEAR); URINE COLOR YELLOW (YELLOW)
[2018-12-09 00:57] VITALS: BP 118/77; PULSE 105
[2018-12-09] MEDS: Potassium Chloride 20 mEq ER Tab PO STA (03:20)
== END 2018-12-09 03:21 | disposition home or self-care (01) ==
LOC: ED 20:04
DX: K29.70 Gastritis, unspecified, without bleeding (principal); I11.0 Hypertensive heart disease with heart failure; I50.9 Heart failure, unspecified; E11.9 Type 2 diabetes mellitus without complications; F17.210 Nicotine dependence, cigarettes, uncomplicated
CPT/HCPCS: 80053; 81003; 83690; 85025; 96374; 96375; 99284; J2765; J7030

== ENCOUNTER 2018-12-12 21:41 | Emergency (ER) | payer MEDICARE, OTHER ==
[2018-12-12 21:41] VITALS: BMI 21.2
[2018-12-12 21:48] VITALS: TEMP 97.8
--- NOTE | 2018-12-12 22:37 | ED PDOC ---
Arrival/HPI - General Chief Complaint: Finger,Hand,&Wrist Time Seen by Provider: 12/12/18 21:48 Historian: Patient - History of Present Illness Narrative History of Present Illness (Text): 12/12/18 22:34 68 year old female, whose past medical history includes hypertension, diabetes, COPD, Hepatitis C, vertebral compression fracture, and chronic hip pain with avascular necrosis, presents to the emergency department complaining of left wrist pain, for 2 days. Patient states her left wrist has also been swollen. Patient denies any trauma or injury to the wrist. Patient denies any fevers, chills, other joint pain or swelling, numbness, weakness, back pain, neck pain, or any other complaint. PMD Ahktar Time/Duration: < week (2 days) Symptom Onset: Gradual Symptom Course: Unchanged Quality: Aching Activities at Onset: Light Context: Home Past Medical History - Provider Review Nursing Documentation Reviewed: Yes - Infectious Disease Hx of Infectious Diseases: None - Cardiac Hx Congestive Heart Failure: Yes Hx Hypertension: Yes - Pulmonary Hx Chronic Obstructive Pulmonary Disease (COPD): Yes - Neurological Hx Neurological Disorder: No - HEENT Hx HEENT Disorder: No - Renal Hx Renal Disorder: No - Endocrine/Metabolic Hx Endocrine Disorders: Yes Hx Diabetes Mellitus Type 2: Yes - Hematological/Oncological Hx Blood Disorders: Yes Hx Hepatitis C: Yes - Integumentary Hx Dermatological Disorder: No - Musculoskeletal/Rheumatological Hx Arthritis: Yes Hx Fractures: Yes (vertabral compression fracture) - Gastrointestinal Hx Gastrointestinal Disorders: No - Genitourinary/Gynecological Hx Genitourinary Disorders: Yes - Psychiatric Hx Psychophysiologic Disorder: No Hx Substance Use: No - Surgical History Hx Tonsillectomy: Yes - Anesthesia Hx Anesthesia Reactions: No Hx Malignant Hyperthermia: No Family/Social History - Physician Review Nursing Documentation Reviewed: Yes Family/Social History: No Known Family HX Smoking Status: Light Smoker < 10 Cigarettes Daily Hx Alcohol Use: Yes Hx Substance Use: No Substance used: completed methadone program Allergies/Home Meds Allergies/Adverse Reactions: Allergies No Known Allergies Allergy (Verified 12/12/18 21:48) Home Medications: Home Meds Medication Instructions Recorded Confirmed Albuterol HFA [Ventolin HFA 90 2 puff IH QID PRN 10/22/18 12/05/18 mcg/actuation (8 g)] Review of Systems - Physician Review All systems were reviewed & negative as marked: Yes - Review of Systems Constitutional: absent: Fevers, Night Sweats Respiratory: absent: SOB, Cough Cardiovascular: absent: Chest Pain, FONG Gastrointestinal: absent: Abdominal Pain, Constipation, Diarrhea, Nausea Musculoskeletal: absent: Back Pain, Neck Pain Neurological: absent: Headache, Dizziness Physical Exam Vital Signs Reviewed: Yes Vital Signs Temp Pulse Resp BP Pulse Ox 12/12/18 21:46 97.8 F 93 H 18 170/83 H 98 Temperature: Afebrile Blood Pressure: Hypertensive Pulse: Regular Respiratory Rate: Normal Appearance: Positive for: Well-Appearing, Non-Toxic, Comfortable Pain Distress: Mild Mental Status: Positive for: Alert and Oriented X 3 - Systems Exam Upper Extremity: Present: Normal ROM, NORMAL PULSES, Tenderness (+mild TTP to the dorsal L wrist and hand), Swelling (+edema to the dorsal L wrist and hand, +slight warm to touch, no erythema), Neurovascularly Intact, Capillary Refill < 2s, Norm 2-Pt Discrimination. No: Cyanosis, Edema, Erythema, Temperature Abnormalties, Deformity Neurological: Present: GCS=15, CN II-XII Intact, Speech Normal, Motor Func Grossly Intact, Normal Sensory Function Skin: Present: Warm, Dry, Normal Color. No: Rashes Psychiatric: Present: Alert, Oriented x 3, Normal Insight, Normal Concentration Medical Decision Making ED Course and Treatment: 12/12/18 22:38 Impression: 68 year old female presents with left wrist pain. Plan: -- Tylenol -- X-ray left hand -- X-ray left wrist -- Reassess and disposition Prior Visits: Notes and results from previous visits were reviewed. Progress Notes: X-ray left hand : no fracture, no dislocation. X-ray left wrist : no fracture, no dislocation. XR results d/w the patient. Cale wrap applied and sling. Advised to rest, ice and elevate the wrist. Will Rx antibiotic - keflex, for possible early cellulitis as the L wrist and hand is slightly warm to touch, but there is no erythema and patient has FROM of the hand and wrist, therefore not concerned for a septic joint. Advised to follow up with primary care physician or ortho referral provided in 1-2 days without fail. Advised to take medication as prescribed. Return to the emergency room at any time for any new or worsening symptoms. Patient states she fully agrees with and understands discharge instructions. States that she agrees with the plan and disposition. Verbalized and repeated discharge instructions and plan. I have given the patient opportunity to ask any additional questions. - RAD Interpretation Radiology Orders: 12/12/18 22:32 HAND LEFT 3 VIEWS ROUTINE [RAD] Stat WRIST, LEFT 3 VIEWS [RAD] Stat - Medication Orders Current Medication Orders: Discontinued Medications Acetaminophen (Tylenol 325mg Tab) 975 mg PO STAT STA Stop: 12/12/18 22:04 Last Admin: 12/12/18 22:17 Dose: 975 mg - PA / FLIGHT TECHNICIAN / Resident Statement MD/DO has reviewed & agrees with the documentation as recorded. - Scribe Statement The provider has reviewed the documentation as recorded by the Scribe Eulogio Mari Provider Scribe Attestation: All medical record entries made by the Scribe were at my direction and personally dictated by me. I have reviewed the chart and agree that the record accurately reflects my personal performance of the history, physical exam, medical decision making, and the department course for this patient. I have also personally directed, reviewed, and agree with the discharge instructions and disposition. Disposition/Present on Arrival - Present on Arrival Any Indicators Present on Arrival: No History of DVT/PE: No History of Uncontrolled Diabetes: No Urinary Catheter: No History of Decub. Ulcer: No History Surgical Site Infection Following: None - Disposition Have Diagnosis and Disposition been Completed?: Yes Diagnosis: Left wrist pain Disposition: HOME/ ROUTINE Disposition Time: 22:45 Patient Plan: Discharge Patient Problems: Current Active Problems Problem Status Onset Left wrist pain Acute Condition: STABLE Discharge Instructions (ExitCare): Muscle and Bone Pain (DC) Additional Instructions: Thank you for letting us take care of you today. You were treated for L wrist pain. The emergency medical care you received today was directed at your acute symptoms. Take medications as prescribed. Return to the Emergency Department if your symptoms worsen, do not improve, or if you have any other problems. Please contact your doctor or referral provided in 2 days for re-evaluation and follow up. Bring any paperwork you were given at discharge with you along with any medications you are taking to your follow up visit. Our treatment cannot replace ongoing medical care by a primary care provider (PCP) outside of the emergency department. Prescriptions: Cephalexin [Keflex] 500 mg PO Q6 #28 capsule Referrals: Denice Montanez MD [Primary Care Provider] - Follow up with primary Forms: [facility] [employer] [facility] ([place]), WORK NOTE
[2018-12-13 00:24] VITALS: O2SAT 100
[2018-12-13 01:16] VITALS: BP 149/92; PULSE 87; RESP 19
--- NOTE | 2018-12-13 18:06 | RAD ---
Date of service: 12/12/2018 PROCEDURE: Left Wrist Radiographs. HISTORY: pain COMPARISON: None. TECHNIQUE: Three views obtained. FINDINGS: BONES: Normal. No fracture. JOINTS: Normal. No dislocation. SOFT TISSUES: Normal. OTHER FINDINGS: None. IMPRESSION: Normal left wrist radiographs.
--- NOTE | 2018-12-13 18:06 | RAD ---
PROCEDURE: Left Hand Radiographs. HISTORY: pain COMPARISON: None. TECHNIQUE: 3 views obtained. FINDINGS: BONES: Normal. No fracture. JOINTS: Normal. No osteoarthritic changes. SOFT TISSUES: Normal. OTHER FINDINGS: None. IMPRESSION: Normal left hand radiographs.
== END 2018-12-13 01:05 | disposition home or self-care (01) ==
LOC: ED 21:41
DX: M25.532 Pain in left wrist (principal); E11.9 Type 2 diabetes mellitus without complications; I50.9 Heart failure, unspecified; I10 Essential (primary) hypertension; J44.9 Chronic obstructive pulmonary disease, unspecified; F17.210 Nicotine dependence, cigarettes, uncomplicated

== ENCOUNTER 2018-12-17 21:57 | Emergency (ER) | payer MEDICARE, OTHER ==
[2018-12-17 21:57] VITALS: BMI 21.2
[2018-12-17 23:18] VITALS: BP 135/96; PULSE 99; RESP 17; TEMP 98.6; O2SAT 97
--- NOTE | 2018-12-17 23:43 | ED PDOC ---
Arrival/HPI - General Chief Complaint: Lower Extremity Problem/Injury Time Seen by Provider: 12/17/18 23:23 Historian: Patient - History of Present Illness Narrative History of Present Illness (Text): 12/17/18 23:48 A 68 year old female, whose past medical history includes COPD, hypertension, CHF, presents to the emergency department complaining of right leg pain for months, worsening for the past few days. This is her 3rd visit this week for pain. Notes also experiencing headache starting earlier today. Patient reports she takes Tramadol, Tylenol, Neurontin with no relief of symptoms. Patient has tried visiting her PMD however every time she finds Dr. Montanez to be "busy." Patient denies any dizziness, numbness/weakness, or any other complaints at this time. PMD: Dr. Montanez Past Medical History - Provider Review Nursing Documentation Reviewed: Yes - Infectious Disease Hx of Infectious Diseases: None - Cardiac Hx Congestive Heart Failure: Yes Hx Hypertension: Yes - Pulmonary Hx Chronic Obstructive Pulmonary Disease (COPD): Yes - Neurological Hx Neurological Disorder: No - HEENT Hx HEENT Disorder: No - Renal Hx Renal Disorder: No - Endocrine/Metabolic Hx Endocrine Disorders: Yes Hx Diabetes Mellitus Type 2: Yes - Hematological/Oncological Hx Blood Disorders: Yes Hx Hepatitis C: Yes - Integumentary Hx Dermatological Disorder: No - Musculoskeletal/Rheumatological Hx Arthritis: Yes Hx Fractures: Yes (vertabral compression fracture) - Gastrointestinal Hx Gastrointestinal Disorders: No - Genitourinary/Gynecological Hx Genitourinary Disorders: Yes - Psychiatric Hx Psychophysiologic Disorder: No Hx Substance Use: No - Surgical History Hx Tonsillectomy: Yes - Anesthesia Hx Anesthesia Reactions: No Hx Malignant Hyperthermia: No Family/Social History - Physician Review Nursing Documentation Reviewed: Yes Family/Social History: No Known Family HX Smoking Status: Light Smoker < 10 Cigarettes Daily Hx Alcohol Use: Yes Hx Substance Use: No Substance used: completed methadone program Allergies/Home Meds Allergies/Adverse Reactions: Allergies No Known Allergies Allergy (Verified 12/13/18 21:55) Home Medications: Home Meds Medication Instructions Recorded Confirmed Albuterol HFA [Ventolin HFA 90 2 puff IH QID PRN 10/22/18 12/05/18 mcg/actuation (8 g)] Review of Systems - Physician Review All systems were reviewed & negative as marked: Yes - Review of Systems Musculoskeletal: Other (right leg pain) Neurological: Headache. absent: Dizziness, Other (no numbness/weakness) Physical Exam Vital Signs Reviewed: Yes Vital Signs Temp Pulse Resp BP Pulse Ox 12/17/18 23:16 98.6 F 99 H 17 135/96 H 97 Temperature: Afebrile Blood Pressure: Normal Pulse: Regular Respiratory Rate: Normal Appearance: Positive for: Well-Appearing, Non-Toxic, Comfortable Pain Distress: None Mental Status: Positive for: Alert and Oriented X 3 - Systems Exam Head: Present: Atraumatic, Normocephalic Pupils: Present: PERRL Extroacular Muscles: Present: EOMI Conjunctiva: Present: Normal Mouth: Present: Moist Mucous Membranes Neck: Present: Normal Range of Motion Respiratory/Chest: Present: Clear to Auscultation, Good Air Exchange. No: Respiratory Distress, Accessory Muscle Use Cardiovascular: Present: Regular Rate and Rhythm, Normal S1, S2. No: Murmurs Abdomen: No: Tenderness, Distention, Peritoneal Signs Back: Present: Normal Inspection Upper Extremity: Present: Normal Inspection. No: Cyanosis, Edema Lower Extremity: Present: Normal Inspection. No: Edema Neurological: Present: GCS=15, CN II-XII Intact, Speech Normal Skin: Present: Warm, Dry, Normal Color. No: Rashes Psychiatric: Present: Alert, Oriented x 3, Normal Insight, Normal Concentration Medical Decision Making ED Course and Treatment: 12/17/18 23:46 Impression: 68 year old female with right leg pain and headache. Plan: -- Ultram -- Reassess and disposition Progress Notes: Patient given tramadol PO. Pain is chronic, with no new symptoms. No diagnostics clinically indicated at this time. Previous medical records reviewed, patient has had multiple ED visits across multiple facilities, many of them for similar leg pain. Advised outpatient followup. Return to the ED for any new or worsening symptoms. - Medication Orders Current Medication Orders: Discontinued Medications Tramadol HCl (Ultram) 50 mg PO STAT STA Stop: 12/17/18 23:29 - Scribe Statement The provider has reviewed the documentation as recorded by the Yolande Bartlett Provider Scribe Attestation: All medical record entries made by the Scribe were at my direction and personally dictated by me. I have reviewed the chart and agree that the record accurately reflects my personal performance of the history, physical exam, medical decision making, and the department course for this patient. I have also personally directed, reviewed, and agree with the discharge instructions and disposition. Disposition/Present on Arrival - Present on Arrival Any Indicators Present on Arrival: No History of DVT/PE: No History of Uncontrolled Diabetes: No Urinary Catheter: No History of Decub. Ulcer: No History Surgical Site Infection Following: None - Disposition Have Diagnosis and Disposition been Completed?: Yes Diagnosis: Chronic leg pain, Headache Disposition: HOME/ ROUTINE Disposition Time: 00:00 Patient Problems: Current Active Problems Problem Status Onset Chronic leg pain Acute Condition: STABLE Discharge Instructions (ExitCare): Chronic Pain (DC) Additional Instructions: TREVON FOSS, thank you for letting us take care of you today. Your provider was Love Small MD and you were treated for LEG PAIN. The emergency medical care you received today was directed at your acute symptoms. If you were prescribed any medication, please fill it and take as directed. It may take several days for your symptoms to resolve. Return to the Emergency Department if your symptoms worsen, do not improve, or if you have any other problems. Please contact your doctor or call one of the physicians/clinics you have been referred to that are listed on the Patient Visit Information form that is included in your discharge packet. Bring any paperwork you were given at discharge with you along with any medications you are taking to your follow up visit. Our treatment cannot replace ongoing medical care by a primary care provider outside of the emergency department. Thank you for allowing the [facility] team to be part of your care today. If you had an X-Ray or CT scan: A Radiologist will review the ED reading if any change in treatment is needed we will contact you. If you had a blood, urine, or wound culture: It will take several days for the results, if any change in treatment is needed we will contact you. If you had an STI test: It will take 48 hours for the results. Please call after 1 week if you have not heard back. Referrals: Denice Montanez MD [Primary Care Provider] - Follow up with primary Forms: [facility] (Portuguese)
== END 2018-12-18 09:00 | disposition home or self-care (01) ==
LOC: ED 21:57
DX: M79.604 Pain in right leg (principal); G89.29 Other chronic pain; R51 Headache; I11.0 Hypertensive heart disease with heart failure; I50.9 Heart failure, unspecified; F17.210 Nicotine dependence, cigarettes, uncomplicated

== ENCOUNTER 2018-12-30 22:37 | Emergency (ER) | payer MEDICARE, OTHER ==
[2018-12-30 22:38] VITALS: BMI 21.2
[2018-12-30 23:00] VITALS: RESP 18; TEMP 97.6; O2SAT 100
--- NOTE | 2018-12-30 23:37 | ED PDOC ---
Arrival/HPI - General Chief Complaint: Alcohol Ingestion Time Seen by Provider: 12/30/18 23:14 Historian: Patient, EMS - History of Present Illness Narrative History of Present Illness (Text): 12/30/18 23:37 Jesusita Pascual is a 68 year old female, whose past medical history includes hypertension, who presents to the Emergency department brought in by EMS for alcohol intoxication. Patient admits to drinking alcohol this evening and states she feels fine currently. Patient denies any fever, chills, chest pain, shortness of breath, nausea, vomiting, diarrhea, urinary symptoms, back pain, neck pain, headache, dizziness, or any other complaints. Symptom Onset: Gradual Symptom Course: Unchanged Activities at Onset: Light Context: Home Past Medical History - Provider Review Nursing Documentation Reviewed: Yes - Infectious Disease Hx of Infectious Diseases: None - Cardiac Hx Congestive Heart Failure: Yes Hx Hypertension: Yes - Pulmonary Hx Chronic Obstructive Pulmonary Disease (COPD): Yes - Neurological Hx Neurological Disorder: No - HEENT Hx HEENT Disorder: No - Renal Hx Renal Disorder: No - Endocrine/Metabolic Hx Endocrine Disorders: Yes Hx Diabetes Mellitus Type 2: Yes - Hematological/Oncological Hx Blood Disorders: Yes Hx Hepatitis C: Yes - Integumentary Hx Dermatological Disorder: No - Musculoskeletal/Rheumatological Hx Arthritis: Yes Hx Fractures: Yes (vertebral compression fracture) - Gastrointestinal Hx Gastrointestinal Disorders: No - Genitourinary/Gynecological Hx Genitourinary Disorders: Yes - Psychiatric Hx Psychophysiologic Disorder: No Hx Substance Use: No - Surgical History Hx Tonsillectomy: Yes - Anesthesia Hx Anesthesia: Yes Hx Anesthesia Reactions: No Hx Malignant Hyperthermia: No Family/Social History - Physician Review Nursing Documentation Reviewed: Yes Family/Social History: Unknown Family HX Smoking Status: Light Smoker < 10 Cigarettes Daily Hx Alcohol Use: Yes Hx Substance Use: No Substance used: completed methadone program Allergies/Home Meds Allergies/Adverse Reactions: Allergies No Known Allergies Allergy (Verified 12/29/18 21:31) Home Medications: Home Meds Medication Instructions Recorded Confirmed Albuterol HFA [Ventolin HFA 90 2 puff IH QID PRN 10/22/18 12/05/18 mcg/actuation (8 g)] Review of Systems - Physician Review All systems were reviewed & negative as marked: Yes - Review of Systems Constitutional: Normal. absent: Fevers Eyes: Normal ENT: Normal Respiratory: Normal. absent: SOB, Cough Cardiovascular: Normal. absent: Chest Pain, Syncope Gastrointestinal: Normal. absent: Abdominal Pain, Diarrhea, Nausea, Vomiting Genitourinary Female: Normal. absent: Dysuria, Frequency, Hematuria, Urine Output Changes Musculoskeletal: Normal. absent: Back Pain, Neck Pain Skin: Normal. absent: Rash Neurological: Normal. absent: Headache, Dizziness Endocrine: Normal Hemo/Lymphatic: Normal Psychiatric: Normal Physical Exam Vital Signs Reviewed: Yes Vital Signs Temp Pulse Resp BP Pulse Ox 12/30/18 22:59 97.6 F 96 H 18 160/94 H 100 Temperature: Afebrile Blood Pressure: Hypertensive Pulse: Regular Respiratory Rate: Normal Appearance: Positive for: Well-Appearing, Non-Toxic, Comfortable Pain Distress: None Mental Status: Positive for: Alert and Oriented X 3 - Systems Exam Head: Present: Atraumatic, Normocephalic Pupils: Present: PERRL Extroacular Muscles: Present: EOMI Conjunctiva: Present: Normal Mouth: Present: Moist Mucous Membranes Neck: Present: Normal Range of Motion Respiratory/Chest: Present: Clear to Auscultation, Good Air Exchange. No: Respiratory Distress, Accessory Muscle Use Cardiovascular: Present: Regular Rate and Rhythm, Normal S1, S2. No: Murmurs Abdomen: No: Tenderness, Distention, Peritoneal Signs Back: Present: Normal Inspection Upper Extremity: Present: Normal Inspection. No: Cyanosis, Edema Lower Extremity: Present: Normal Inspection. No: Edema Neurological: Present: GCS=15, CN II-XII Intact, Speech Normal Skin: Present: Warm, Dry, Normal Color. No: Rashes Psychiatric: Present: Alert, Oriented x 3, Normal Insight, Normal Concentration Medical Decision Making ED Course and Treatment: 12/30/18 23:37 Impression: 68 year old female brought in by EMS for alcohol intoxication. Plan: -- Reassess and disposition Prior Visits: Notes and results from previous visits were reviewed. Progress Notes: - Scribe Statement The provider has reviewed the documentation as recorded by the Yolande Saldana Provider Scribe Attestation: All medical record entries made by the Scribe were at my direction and personally dictated by me. I have reviewed the chart and agree that the record accurately reflects my personal performance of the history, physical exam, medical decision making, and the department course for this patient. I have also personally directed, reviewed, and agree with the discharge instructions and disposition. Disposition/Present on Arrival - Present on Arrival Any Indicators Present on Arrival: No History of DVT/PE: No History of Uncontrolled Diabetes: No Urinary Catheter: No History of Decub. Ulcer: No History Surgical Site Infection Following: None - Disposition Have Diagnosis and Disposition been Completed?: Yes Diagnosis: Alcohol abuse, Diabetes mellitus Disposition: HOME/ ROUTINE Disposition Time: 06:30 Condition: FAIR Discharge Instructions (ExitCare): Type 2 Diabetes, Alcohol Use - When Is Drinking a Problem?, Diabetes Diet Referrals: Denice Montanez MD [Primary Care Provider] - Follow up with primary Forms: [facility] ([place])
[2018-12-31 00:48] LABS: BASO # 0.02 K/mm3 (0.0-2.0); BASO % 0.3 % (0.0-3.0); EOS # 0.1 (0.0-0.7); EOS % 1.7 % (1.5-5.0); HEMOGLOBIN 13.9 g/dL (12.0-16.0); LYMPH # 3.3 (1.2-3.4); LYMPH % 51.2 % (22.0-35.0); MEAN CELL VOLUME 90.7 fl (80.0-105.0); MEAN CORPUSCULAR HEMOGLOBIN 30.2 pg (25.0-35.0); MEAN CORPUSCULAR HGB CONC 33.3 g/dl (31.0-37.0); MEAN PLATELET VOLUME 10.5 fl (7.0-11.0); MONO # 0.3 (0.1-0.6); MONO % 4.5 % (1.0-6.0); RBC 4.61 10^6/uL (3.5-6.1); RED CELL DISTRIBUTION WIDTH 16.2 % (11.5-14.5); WHITE BLOOD COUNT 6.5 10^3/uL (4.5-11.0)
[2018-12-31 01:14] LABS: ALBUMIN 4.1 g/dL (3.0-4.8); ALT/SGPT 64 U/L (7-56); AST/SGOT 117 U/L (14-36); BLOOD UREA NITROGEN 15 mg/dL (7-21); CALCIUM 8.6 mg/dL (8.4-10.5); GFR NON-AFRICAN AMERICAN > 60
[2018-12-31 06:14] VITALS: BP 138/67; PULSE 70
== END 2018-12-31 06:22 | disposition home or self-care (01) ==
LOC: ED 22:37
DX: F10.129 Alcohol abuse with intoxication, unspecified (principal); E11.9 Type 2 diabetes mellitus without complications; I50.9 Heart failure, unspecified; I10 Essential (primary) hypertension; F17.210 Nicotine dependence, cigarettes, uncomplicated; J44.9 Chronic obstructive pulmonary disease, unspecified

== ENCOUNTER 2019-01-02 20:40 | Inpatient (IN) | payer MEDICARE, OTHER ==
[2019-01-02 20:41] VITALS: BMI 21.2
--- NOTE | 2019-01-02 21:37 | ED PDOC ---
Arrival/HPI - General Chief Complaint: Alcohol Ingestion Time Seen by Provider: 01/02/19 20:41 Historian: Patient - History of Present Illness Narrative History of Present Illness (Text): 01/02/19 21:35 A 68 year old female is brought into the emergency department via EMS for public alcohol intoxication. Patient is resting comfortably in the emergency department and denies fevers, chills, headache, dizziness, chest pain, shortness of breath, dyspnea on exertion, cough, abdominal pain, nausea, vomiting, diarrhea, back pain, neck pain, urinary/bowel changes, or any other somatic complaints. Time/Duration: Prior to Arrival Symptom Onset: Sudden Symptom Course: Unchanged Activities at Onset: Rest, Light Context: Street Past Medical History - Provider Review Nursing Documentation Reviewed: Yes - Infectious Disease Hx of Infectious Diseases: None - Cardiac Hx Congestive Heart Failure: Yes Hx Hypertension: Yes - Pulmonary Hx Chronic Obstructive Pulmonary Disease (COPD): Yes - Neurological Hx Neurological Disorder: No - HEENT Hx HEENT Disorder: No - Renal Hx Renal Disorder: No - Endocrine/Metabolic Hx Endocrine Disorders: Yes Hx Diabetes Mellitus Type 2: Yes - Hematological/Oncological Hx Blood Disorders: Yes Hx Hepatitis C: Yes - Integumentary Hx Dermatological Disorder: No - Musculoskeletal/Rheumatological Hx Arthritis: Yes Hx Fractures: Yes (vertebral compression fracture) - Gastrointestinal Hx Gastrointestinal Disorders: No - Genitourinary/Gynecological Hx Genitourinary Disorders: Yes - Psychiatric Hx Psychophysiologic Disorder: No Hx Substance Use: No - Surgical History Hx Tonsillectomy: Yes - Anesthesia Hx Anesthesia: Yes Hx Anesthesia Reactions: No Hx Malignant Hyperthermia: No Family/Social History - Physician Review Nursing Documentation Reviewed: Yes Family/Social History: No Known Family HX Smoking Status: Light Smoker < 10 Cigarettes Daily Hx Alcohol Use: Yes Hx Substance Use: No Substance used: completed methadone program Allergies/Home Meds Allergies/Adverse Reactions: Allergies No Known Allergies Allergy (Verified 01/02/19 21:25) Home Medications: Home Meds Medication Instructions Recorded Confirmed Albuterol HFA [Ventolin HFA 90 2 puff IH QID PRN 10/22/18 01/02/19 mcg/actuation (8 g)] Review of Systems - Physician Review All systems were reviewed & negative as marked: Yes - Review of Systems Constitutional: absent: Fevers Respiratory: absent: SOB, Cough Cardiovascular: absent: Chest Pain, FONG Gastrointestinal: absent: Abdominal Pain, Stool Changes, Diarrhea, Nausea, Vomiting Genitourinary Female: absent: Urine Output Changes Musculoskeletal: absent: Back Pain, Neck Pain Neurological: absent: Headache, Dizziness Physical Exam Vital Signs Reviewed: Yes Vital Signs Temp Pulse Resp BP Pulse Ox 01/02/19 21:26 98.5 F 81 16 138/95 H 98 Temperature: Afebrile Blood Pressure: Hypertensive Pulse: Regular Respiratory Rate: Normal Appearance: Positive for: Well-Appearing, Non-Toxic, Comfortable Pain Distress: None Mental Status: Positive for: Alert and Oriented X 3 - Systems Exam Head: Present: Atraumatic, Normocephalic Pupils: Present: PERRL Extroacular Muscles: Present: EOMI Conjunctiva: Present: Normal Mouth: Present: Moist Mucous Membranes Neck: Present: Normal Range of Motion Respiratory/Chest: Present: Clear to Auscultation, Good Air Exchange. No: Respiratory Distress, Accessory Muscle Use Cardiovascular: Present: Regular Rate and Rhythm, Normal S1, S2. No: Murmurs Abdomen: No: Tenderness, Distention, Peritoneal Signs Back: Present: Normal Inspection Upper Extremity: Present: Normal Inspection. No: Cyanosis, Edema Lower Extremity: Present: Normal Inspection. No: Edema Neurological: Present: GCS=15, CN II-XII Intact, Speech Normal Skin: Present: Warm, Dry, Normal Color. No: Rashes Psychiatric: Present: Alert, Oriented x 3, Normal Insight, Normal Concentration Medical Decision Making ED Course and Treatment: 01/02/19 21:36 Impression: A 68 year old female is brought into the emergency department via EMS for public alcohol intoxication. Plan: -- EKG -- Chest X-ray -- Labs -- Reassess and disposition Prior Visits: Notes and results from previous visits were reviewed. Progress Notes: 01/03/19 01:44: Patient now awake. Now complaining of chest pain. 01/03/19 02:38: EKG read and interpreted by me shows NSR at 89 BPM. Nonspecific T wave changes, Prolonged QT. 01/03/19 04:19: Case discussed in detail with Dr. Montanez who accepts patient to her service. Requests Dr. Gage on consult. 01/03/19 04:28: Chest X-ray read and interpreted by me shows no acute process. - Scribe Statement The provider has reviewed the documentation as recorded by the Yolande Lebron Provider Antonioibisidra Attestation: All medical record entries made by the Scribe were at my direction and personally dictated by me. I have reviewed the chart and agree that the record accurately reflects my personal performance of the history, physical exam, medical decision making, and the department course for this patient. I have also personally directed, reviewed, and agree with the discharge instructions and disposition. Disposition/Present on Arrival - Present on Arrival Any Indicators Present on Arrival: No History of DVT/PE: No History of Uncontrolled Diabetes: No Urinary Catheter: No History of Decub. Ulcer: No History Surgical Site Infection Following: CABG - Mediastinitis, None - Disposition Have Diagnosis and Disposition been Completed?: Yes Diagnosis: Chest pain Disposition: HOSPITALIZED Disposition Time: 04:21 Patient Problems: Current Active Problems Problem Status Onset Chest pain Acute Condition: STABLE Discharge Instructions (ExitCare): Chest Pain (ED) Forms: [facility] (Irish)
[2019-01-03 03:23] LABS: ALBUMIN 3.9 g/dL (3.0-4.8); ALT/SGPT 62 U/L (7-56); AST/SGOT 91 U/L (14-36); BLOOD UREA NITROGEN 13 mg/dL (7-21); CALCIUM 8.7 mg/dL (8.4-10.5); GFR NON-AFRICAN AMERICAN > 60
[2019-01-03 03:24] LABS: HEMOGLOBIN 13.9 g/dL (12.0-16.0); MEAN CELL VOLUME 91.5 fl (80.0-105.0); MEAN CORPUSCULAR HEMOGLOBIN 30.3 pg (25.0-35.0); MEAN CORPUSCULAR HGB CONC 33.1 g/dl (31.0-37.0); MEAN PLATELET VOLUME 11.3 fl (7.0-11.0); RBC 4.59 10^6/uL (3.5-6.1); WHITE BLOOD COUNT 5.9 10^3/uL (4.5-11.0)
[2019-01-03 03:29] LABS: INR 1.05; PARTIAL THROMBOPLASTIN TIME 27.5 Seconds (26.9-38.3); PROTHROMBIN TIME 11.7 SECONDS (9.4-12.5)
[2019-01-03 03:32] LABS: TROPONIN I < 0.01 ng/mL
[2019-01-03 12:43] LABS: TROPONIN I < 0.01 ng/mL
--- NOTE | 2019-01-03 12:46 | RAD ---
Date of service: 01/03/2019 HISTORY: medical clearance COMPARISON: Chest radiograph dated 11/30/2018. TECHNIQUE: 1 view obtained. FINDINGS: LUNGS: No active pulmonary disease. PLEURA: Right apical pleuroparenchymal scarring. No significant pleural effusion identified, no pneumothorax apparent. CARDIOVASCULAR: Aortic atherosclerotic calcifications. Cardiomediastinal silhouette within normal limits. OSSEOUS STRUCTURES: Unchanged. VISUALIZED UPPER ABDOMEN: Normal. OTHER FINDINGS: None. IMPRESSION: No active disease.
[2019-01-03] MEDS: Insulin Reg-LOW-Coverage SC SCH ×2 (16:30→21:26)
[2019-01-03 17:33] LABS: TROPONIN I < 0.01 ng/mL
--- NOTE | 2019-01-03 17:59 | CON ---
DATE: 01/03/2019 CARDIOLOGY CONSULTATION REASON FOR CONSULTATION: Cardiac evaluation chest pain, admitted after acute alcoholic intoxication. BRIEF CLINICAL HISTORY: This is a 68-year-old female with history of diabetes, hypertension, possible hyperlipidemia, brought to the emergency room by EMS for alcoholic intoxication. The patient sitting here. Denies any history of shortness of breath. Denies any palpitation, she is completely naked in room 263, bed 2, sitting on the chair and no shirt on the top. Though denies any chest pain, shortness of breath, or any palpitation. PAST MEDICAL HISTORY: Significant for diabetes, hypertension, hyperlipidemia. Very poor historian, unable to give any history. Denies any cardiac surgery. Denies any history of documented coronary artery disease. Significant for chronic substance abuse, COPD, hepatitis C, and peripheral neuropathy, as mentioned in the chart. CURRENT MEDICATIONS: As charted in the chart. Taking metformin 500 mg twice a day, amlodipine 10 mg daily, Spiriva 18 mcg daily, Prandin, Zofran, lidocaine, cephalexin, and Brovana. ALLERGIES: NO KNOWN DRUG ALLERGIES. REVIEW OF SYSTEMS: As per HPI. PREVIOUS CARDIAC WORKUP FOLLOWS: The patient had echocardiography done on 09/29/2018 that revealed normal LV size, normal LV function, mild tricuspid regurgitation, ejection fraction 57%. RVSP 33 mmHg, mild tricuspid regurgitation noted. No mitral regurgitation. No mitral stenosis noted by Dr. Zheng. EKG shows normal sinus, heart rate of 88. Left atrial abnormality. No acute ST-T changes noted. PHYSICAL EXAMINATION: GENERAL: Height of the patient 5 feet 8 inch, weight of the patient 141 pounds, and body mass index 22 kg/m2. VITAL SIGNS: Temperature afebrile, heart rate 81, and blood pressure 157/85. PERRLA. Extraocular muscles intact. NECK: Supple. No carotid bruits or thyromegaly. CHEST: Clear to auscultation. HEART: S1 and S2 regular. ABDOMEN: Soft. EXTREMITIES: Clubbing and cyanosis negative. LABORATORY DATA: Blood workup as follows; WBC 5.8, hemoglobin 13.2, hematocrit 42, and platelet count 136. Chemistry shows sodium 141, potassium 3.6, chloride 105, carbon dioxide 13, anion gap of 9, BUN 13, and creatinine 0.6. Troponin 0.01. IMPRESSION: A 68-year-old female with past medical history significant for diabetes, hypertension, hyperlipidemia, peripheral neuropathy, hepatitis C in the past, substance abuse, admitted with acute alcoholic intoxication. Denies any chest pain, shortness of breath, or any palpitation. So no evidence of acute myocardial infarction. The patient's last echo dated 09/2017 preserved left ventricle function. RECOMMENDATIONS: Follow up serial CPK troponin. Consider GI evaluation. Once the patient is sober, consider stress test as outpatient. We will follow with you. So far there is no evidence of acute myocardial infarction. We will resume her antihypertensive medications. We will do the serial CPK second troponin now and the third troponin at 5:00 p.m. and get the lipid profile TSH, hemoglobin A1c in the morning. Consider gastrointestinal evaluation. We will schedule as outpatient her stress test in 2 to 3 weeks. We will also send urine for drug screen and if troponin remains negative at 3, we will discontinue telemetry. Consider workup stress test as outpatient. Thank you Dr. Gallegos for providing us the opportunity in taking care of the patient, Jesusita Pascual. Renato Marroquin MD
[2019-01-03 20:06] LABS: BARBITURATES, UR POSITIVE (NEGATIVE); BENZODIAZEPINES, UR NEGATIVE (NEGATIVE); OPIATES, UR NEGATIVE (NEGATIVE); PHENCYCLIDINE, UR NEGATIVE (NEGATIVE)
[2019-01-04 07:32] LABS: LDL CHOLESTEROL 47 mg/dL (0-129)
[2019-01-04 07:41] LABS: BASO # 0.01 K/mm3 (0.0-2.0); BASO % 0.2 % (0.0-3.0); EOS # 0.1 (0.0-0.7); EOS % 0.9 % (1.5-5.0); HEMOGLOBIN 12.4 g/dL (12.0-16.0); LYMPH # 2.3 (1.2-3.4); LYMPH % 39.5 % (22.0-35.0); MEAN CELL VOLUME 91.2 fl (80.0-105.0); MEAN CORPUSCULAR HEMOGLOBIN 29.5 pg (25.0-35.0); MEAN CORPUSCULAR HGB CONC 32.3 g/dl (31.0-37.0); MEAN PLATELET VOLUME 10.6 fl (7.0-11.0); MONO # 0.4 (0.1-0.6); MONO % 6.6 % (1.0-6.0); RBC 4.21 10^6/uL (3.5-6.1); RED CELL DISTRIBUTION WIDTH 15.7 % (11.5-14.5); WHITE BLOOD COUNT 5.7 10^3/uL (4.5-11.0)
[2019-01-04 07:44] LABS: ALBUMIN 3.3 g/dL (3.0-4.8); ALT/SGPT 49 U/L (7-56); AST/SGOT 57 U/L (14-36); BLOOD UREA NITROGEN 13 mg/dL (7-21); CALCIUM 8.8 mg/dL (8.4-10.5); GFR NON-AFRICAN AMERICAN > 60; HDL CHOLESTEROL 109 mg/dL (29-60)
[2019-01-04] MEDS: Insulin Reg-LOW-Coverage SC SCH ×3 (08:35→17:35)
--- NOTE | 2019-01-04 09:31 | CP.PCM.PN ---
Subjective - Date & Time of Evaluation Date of Evaluation: 01/04/19 Time of Evaluation: 06:25 - Subjective Subjective: Awake,alert, no distress Reason for consultation and follow up:Cardiac evaluation of chest pain, admitted for alcoholic intoxication Seen nad examined by me and Dr. Marroquin Objective - Vital Signs/Intake and Output Vital Signs (last 24 hours): Temp Pulse Resp BP Pulse Ox 97.7 F 83 20 120/75 99 01/04/19 05:26 01/04/19 05:26 01/04/19 05:26 01/04/19 09:12 01/04/19 05:26 Intake and Output: 01/04/19 01/04/19 06:59 18:59 Intake Total 350 Output Total 0 Balance 350 - Medications Medications: Current Medications Amlodipine Besylate (Norvasc) 10 mg PO DAILY [facility] Last Admin: 01/04/19 09:12 Dose: 10 mg Aspirin (Ecotrin) 81 mg PO DAILY [facility] Last Admin: 01/04/19 09:12 Dose: 81 mg Hydralazine HCl (Apresoline) 10 mg PO QID PRN PRN Reason: For SBP>160 Last Admin: 01/03/19 17:03 Dose: 10 mg Insulin Human Regular (Humulin R Low) 0 units SC ACHS [facility]; Protocol Last Admin: 01/04/19 08:35 Dose: 1 unit Lorazepam (Ativan) 0.5 mg IVP Q4 PRN; Protocol PRN Reason: Anxiety Last Admin: 01/03/19 21:21 Dose: 0.5 mg Metformin HCl (Glucophage) 500 mg PO BID [facility] Last Admin: 01/04/19 09:12 Dose: 500 mg - Labs Labs: 01/04/19 06:30 01/04/19 06:30 PT 11.7 SECONDS (9.4-12.5) 01/03/19 02:55 INR 1.05 01/03/19 02:55 APTT 27.5 Seconds (26.9-38.3) 01/03/19 02:55 - Constitutional Appears: Non-toxic, No Acute Distress - Head Exam Head Exam: NORMAL INSPECTION, NORMOCEPHALIC - Eye Exam Eye Exam: Normal appearance Pupil Exam: NORMAL ACCOMODATION - ENT Exam ENT Exam: Mucous Membranes Moist, Normal Exam - Neck Exam Neck Exam: Full ROM, Normal Inspection - Respiratory Exam Respiratory Exam: Decreased Breath Sounds, Clear to Ausculation Bilateral, NORMAL BREATHING PATTERN - Cardiovascular Exam Cardiovascular Exam: REGULAR RHYTHM, +S1, +S2 - GI/Abdominal Exam GI & Abdominal Exam: Soft, Normal Bowel Sounds - Extremities Exam Extremities Exam: Full ROM, Normal Capillary Refill - Neurological Exam Neurological Exam: Alert, Awake, Oriented x3 - Psychiatric Exam Psychiatric exam: Normal Affect, Normal Mood - Skin Skin Exam: Dry, Normal Color, Warm Assessment and Plan - Assessment and Plan (Free Text) Assessment: A 68 year old female who came in to the ER due to alcohol/ substance intoxication. History of CHF, hypertension, Hepatitis C, diabetes,COPD, diabetes, arthritis, chronic substance abuse, completed methadone program,peripheral neuropathy, current smoker, current alcohol abuse. Poor historian. Chart reviewed. Echo done on 09/29/18 showed LVEF 57%,,mild TR RVSP 33mmHg,no MR. EKG-NSR no ischemia.Serial troponin normal. Urine positive for al cohol and barbiturates. So far no evidence of myocardial ischemia. Rule out acute coronary syndrome. Cardiac status stable. Once sober, will schedule out patient stress test. Will discontinue telemetry. May discharge from cardiac standpoint. Plan: No distress Heart rate and blood pressure stable Discontinue telemetry On Norvasc 10 mg daily, ASA 81 mg daily Continue current medications Continue current treatment May discharge from cardiac standpoint Out patient stress test Discharge planning Complete cessation of illicit drugs,smoking and alcohol Nicoderm patch daily Replenish potassium Will follow up Plan and treatment discussed with Dr. Marroquin
[2019-01-04] MEDS ORDERED: Potassium Chloride 20 mEq ER Tab PO ONE ×2 (10:55→14:00)
--- NOTE | 2019-01-04 17:03 | RAD ---
PROCEDURE: Radiographs of the pelvis and bilateral hips HISTORY: hip pain COMPARISON: Correlations made to CT scan of the abdomen pelvis dated 11/07/2018 TECHNIQUE: 2 views obtained. FINDINGS: BONES: Pelvis: Unremarkable. Right hip:Unremarkable. Left hip:Unremarkable. JOINTS: Right hip: Severe arthritic change with [id number] articulation, remodeling of the femoral head, subchondral sclerosis, cystic change and osteophytosis Left hip: Severe arthritic change with [id number] articulation, remodeling of the femoral head with flattening, subchondral sclerosis, cystic change and osteophytosis Sacroiliac Joints: Unremarkable. Pubic symphysis: Unremarkable. SOFT TISSUES: Normal. OTHER FINDINGS: None. IMPRESSION: No acute fracture. Advanced severe bilateral hip arthritic changes.
[2019-01-04 19:38] LABS: IRON 79 ug/dL (45-180)
[2019-01-04 19:47] LABS: % IRON SATURATION 27 % (20-55); TOTAL IRON BINDING CAPACITY 290 ug/dL (265-497)
--- NOTE | 2019-01-04 20:04 | CP.PCM.PN ---
Subjective - Date & Time of Evaluation Date of Evaluation: 01/04/19 Time of Evaluation: 20:02 - Subjective Subjective: S: Patient complaining of sharp stabbing shooting bilateral lower extremity pain O: RRR, CTA bilaterally, NT/ND abdomen, pain on palpation of bilateral lower extremities A and P: Will give patient neurontin at this time for possible neuropathic pain and if it does not subside, will consider tylenol. Objective - Vital Signs/Intake and Output Vital Signs (last 24 hours): Temp Pulse Resp BP Pulse Ox 97.4 F L 94 H 20 144/88 99 01/04/19 18:00 01/04/19 18:00 01/04/19 18:00 01/04/19 18:00 01/04/19 18:00 Intake and Output: 01/04/19 01/05/19 18:59 06:59 Intake Total 1080 Balance 1080 - Medications Medications: Current Medications Amlodipine Besylate (Norvasc) 10 mg PO DAILY [facility] Last Admin: 01/04/19 09:12 Dose: 10 mg Aspirin (Ecotrin) 81 mg PO DAILY [facility] Last Admin: 01/04/19 09:12 Dose: 81 mg Gabapentin (Neurontin) 300 mg PO TID [facility]; Protocol Last Admin: 01/04/19 17:35 Dose: 300 mg Gabapentin (Neurontin) 100 mg PO ONCE ONE; Protocol Stop: 01/05/19 19:57 Hydralazine HCl (Apresoline) 10 mg PO QID PRN PRN Reason: For SBP>160 Last Admin: 01/03/19 17:03 Dose: 10 mg Insulin Human Regular (Humulin R Low) 0 units SC ACHS [facility]; Protocol Last Admin: 01/04/19 17:35 Dose: 1 unit Lorazepam (Ativan) 0.5 mg IVP Q4 PRN; Protocol PRN Reason: Anxiety Last Admin: 01/03/19 21:21 Dose: 0.5 mg Metformin HCl (Glucophage) 500 mg PO BID [facility] Last Admin: 01/04/19 17:35 Dose: 500 mg Nicotine (Nicoderm Cq) 1 patch TD DAILY [facility] Last Admin: 01/04/19 10:09 Dose: 1 patch Thiamine HCl (Vitamin B1 Tab) 100 mg PO DAILY [facility] - Labs Labs: 01/04/19 06:30 01/04/19 06:30 PT 11.7 SECONDS (9.4-12.5) 01/03/19 02:55 INR 1.05 01/03/19 02:55 APTT 27.5 Seconds (26.9-38.3) 01/03/19 02:55
--- NOTE | 2019-01-04 23:02 | PN ---
This case was discussed with Dr. Montanez she is inagreement with treatment plan. DATE: 01/04/2019 SUBJECTIVE: A 68-year-old patient, came in with atypical chest pain, alcohol abuse. She has past medical history of ETOH, nicotine dependence, hypertension, history of falls, COPD, type 2 diabetes. I saw patient today at the bedside. She was alert, coherent, sober. Denied chest pain, shortness of breath, abdominal pain, hematuria, or hematochezia. Complained of bilateral hip pain, more so on the right side. No radiation. A stabbing pain with movement of legs. She had full range of motion. PHYSICAL EXAMINATION VITAL SIGNS: Temperature 97.4, pulse rate 94, blood pressure 144/88, respiratory rate 20, and 99% on room air. GENERAL: Chronically ill. No acute distress. HEENT: Normocephalic and atraumatic. PERRLA. Mucous membranes are moist. NECK: Supple. No thyromegaly. RESPIRATORY: Clear to auscultation. No wheeze. No rhonchi. CARDIOVASCULAR: S1, S2. No JVD. ABDOMEN: Soft and distended. No guarding, no organomegaly. EXTREMITIES: Moving all extremities. Some tenderness to both hips, especially the right hip. SKIN: Intact. No edema. NEUROLOGIC: Alert and oriented x3. LABORATORY DATA: White blood cells 5.7, hemoglobin 12.4, hematocrit 38.4, and platelet count 125. Chemistries; sodium 138, potassium 3.2, BUN 13, creatinine 0.7, random glucose 160, A1c 6.8, AST is 57, GFR over 60, hemoglobin A1c is 6.1. BNP x7 days; triglycerides 80, cholesterol 117. Negative troponin x1. MEDICATIONS: The patient continued on Norvasc 10 mg daily, aspirin 81 mg, Neurontin 300 mg t.i.d., hydralazine 10 mg with parameters, Accu-Chek a.c. and at bedtime for insulin coverage, Ativan, metformin 500 mg b.i.d., Nicoderm patch, thiamine 100 mg daily. ASSESSMENT AND PLAN: This is a 68-year-old female who came with alcohol intoxication, atypical chest pain, diabetes mellitus, alcohol abuse, nicotine dependence, and hypertension. She continues on thiamine 100 mg daily, Nicoderm patch, Glucophage, insulin coverage, hydralazine, and Norvasc. The patient complains of bilateral hip pain, especially the right side with movement. She has full range of motion and continues on Neurontin t.i.d. for her diabetic neuropathy. X-ray is ordered of bilateral and revealing results of no indication of fracture and has severe bilateral hip arthritic changes. Recommended to patient alcohol cessation, smoking cessation, possibly inpatient treatment of withdrawal. The patient identified alcohol abuse is a problem. The patient's vital signs are stable. Denying any chest pain now or shortness of breath AT THIS MOMENT . We will follow up. ALL ABOVE NOTED , AGREED WITH DISPATCH MANAGER TREATMENT PLAN , LABS ,MEDS AND CHART NOTED , EDUCATION DONE Trevor Morales APN Denice Montanez MD JENNIFER
[2019-01-05] MEDS: Insulin Reg-LOW-Coverage SC SCH ×5 (04:13→21:31)
[2019-01-05 07:09] LABS: HEMOGLOBIN 12.4 g/dL (12.0-16.0); MEAN CELL VOLUME 91.3 fl (80.0-105.0); MEAN CORPUSCULAR HEMOGLOBIN 29.3 pg (25.0-35.0); MEAN CORPUSCULAR HGB CONC 32.1 g/dl (31.0-37.0); MEAN PLATELET VOLUME 11.4 fl (7.0-11.0); RBC 4.23 10^6/uL (3.5-6.1); RED CELL DISTRIBUTION WIDTH 15.5 % (11.5-14.5); WHITE BLOOD COUNT 5.8 10^3/uL (4.5-11.0)
--- NOTE | 2019-01-05 07:27 | CP.PCM.PN ---
Subjective - Date & Time of Evaluation Date of Evaluation: 01/05/19 Time of Evaluation: 06:40 - Subjective Subjective: Lying in bed, Awake,alert, no distress, "everything hurts" Reason for consultation and follow up:Cardiac evaluation of chest pain, admitted for alcoholic intoxication Seen nad examined by me and Dr. Marroquin Objective - Vital Signs/Intake and Output Vital Signs (last 24 hours): Temp Pulse Resp BP Pulse Ox 98.3 F 92 H 20 141/91 H 100 01/04/19 21:58 01/04/19 21:58 01/04/19 21:58 01/04/19 21:58 01/04/19 21:58 Intake and Output: 01/05/19 01/05/19 06:59 18:59 Intake Total 720 Balance 720 - Medications Medications: Current Medications Amlodipine Besylate (Norvasc) 10 mg PO DAILY [facility] Last Admin: 01/04/19 09:12 Dose: 10 mg Aspirin (Ecotrin) 81 mg PO DAILY [facility] Last Admin: 01/04/19 09:12 Dose: 81 mg Gabapentin (Neurontin) 300 mg PO TID [facility]; Protocol Last Admin: 01/04/19 17:35 Dose: 300 mg Gabapentin (Neurontin) 100 mg PO ONCE ONE; Protocol Stop: 01/05/19 19:57 Last Admin: 01/04/19 20:41 Dose: 100 mg Hydralazine HCl (Apresoline) 10 mg PO QID PRN PRN Reason: For SBP>160 Last Admin: 01/03/19 17:03 Dose: 10 mg Insulin Human Regular (Humulin R Low) 0 units SC ACHS [facility]; Protocol Last Admin: 01/05/19 04:13 Dose: Not Given Lorazepam (Ativan) 0.5 mg IVP Q4 PRN; Protocol PRN Reason: Anxiety Last Admin: 01/03/19 21:21 Dose: 0.5 mg Metformin HCl (Glucophage) 500 mg PO BID [facility] Last Admin: 01/04/19 17:35 Dose: 500 mg Nicotine (Nicoderm Cq) 1 patch TD DAILY [facility] Last Admin: 01/04/19 10:09 Dose: 1 patch Thiamine HCl (Vitamin B1 Tab) 100 mg PO DAILY [facility] - Labs Labs: 01/05/19 06:00 01/04/19 06:30 PT 11.7 SECONDS (9.4-12.5) 01/03/19 02:55 INR 1.05 01/03/19 02:55 APTT 27.5 Seconds (26.9-38.3) 01/03/19 02:55 - Constitutional Appears: Non-toxic, No Acute Distress - Head Exam Head Exam: NORMAL INSPECTION, NORMOCEPHALIC - Eye Exam Eye Exam: Normal appearance Pupil Exam: NORMAL ACCOMODATION - ENT Exam ENT Exam: Mucous Membranes Moist, Normal Exam - Respiratory Exam Respiratory Exam: Decreased Breath Sounds, Clear to Ausculation Bilateral, NORMAL BREATHING PATTERN - Cardiovascular Exam Cardiovascular Exam: +S1, +S2 - GI/Abdominal Exam GI & Abdominal Exam: Soft, Normal Bowel Sounds - Extremities Exam Extremities Exam: Full ROM, Normal Capillary Refill - Neurological Exam Neurological Exam: Alert, Awake, Oriented x3 - Psychiatric Exam Psychiatric exam: Normal Affect, Normal Mood - Skin Skin Exam: Dry, Normal Color, Warm Assessment and Plan - Assessment and Plan (Free Text) Assessment: A 68 year old female who came in to the ER due to alcohol/ substance into xication. History of CHF, hypertension, Hepatitis C, diabetes,COPD, diabetes, arthritis, chronic substance abuse, completed methadone program,peripheral neuropathy, current smoker, current alcohol abuse. Poor historian. Chart reviewed. Echo done on 09/29/18 showed LVEF 57%,,mild TR RVSP 33mmHg,no MR. EKG- NSR no ischemia.Serial troponin normal. Urine positive for alcohol and barbiturates. So far no evidence of myocardial ischemia. Rule out acute coronary syndrome. Cardiac status stable. Once sober, will schedule out patient stress test. May discharge from cardiac standpoint.Complaints of hip pain yesterday, X ray of hip and pelvis done and showed advanced severe bilateral arthritic changes. Continue Gabapentin. Discharge planning. Plan: No distress but complaining "everything hurts" Restarted Gabapentin yesterday X ray of pelvis and hip done, no fracture Heart rate and blood pressure stable On Norvasc 10 mg daily, ASA 81 mg daily,Nicoderm patch daily Continue current medications Continue current treatment May discharge from cardiac standpoint Out patient stress test Discharge planning Complete cessation of illicit drugs,smoking and alcohol Follow up in office 2-3 weeks Will follow up Plan and treatment discussed with Dr. Marroquin
--- NOTE | 2019-01-05 09:46 | CON ---
DATE: 01/04/2019 PULMONARY CONSULT NOTE REFERRING PHYSICIAN: Dr. Montanez. REASON FOR CONSULT: Shortness of breath, chronic lung disease. HISTORY OF PRESENT ILLNESS: This is a 68-year-old female well known to us from previous admissions with history of chronic obstructive lung disease, active smoker, hypertension, diabetes mellitus, multiple vertebral compression fractures, degenerative joint disease, history of avascular hip necrosis, history of ETOH abuse, falls, who came into the emergency room via EMS for public alcohol intoxication. This morning, the patient is seen lying in bed. Reports that she was feeling some shortness of breath when she was admitted to the hospital, but it is better now. Denies any cough. He is complaining of bilateral lower extremity leg pain. PAST MEDICAL HISTORY: As per history of present illness. ALLERGIES: NO KNOWN ALLERGIES. SOCIAL HISTORY: Active smoker. Positive ETOH abuse. Denies illicit drug use. FAMILY HISTORY: No significant cardiopulmonary disease reported. MEDICATIONS: Reviewed. Norvasc 10 mg daily, aspirin 81 mg daily, Neurontin 300 mg three times a day, Neurontin 100 mg one time dose today, hydralazine 10 mg four times a day p.r.n. for systolic blood pressure greater than 160, Humulin R sliding scale before meals and at bedtime, Ativan 0.5 mg IV push every 4 hours p.r.n., metformin 500 mg twice a day, nicotine patch transdermal daily, thiamine 100 mg daily. REVIEW OF SYSTEMS: No headache, rhinitis, chest pain, abdominal pain, cough, shortness of breath, nausea, vomiting, diarrhea, or leg swelling reported. The patient does reports having some bilateral lower extremity leg pain. PHYSICAL EXAMINATION: NEUROLOGIC: Awake, alert, verbal. Following commands. LABORATORY DATA: Reviewed. WBC of 5.8, RBC of 4.23, hemoglobin 12.4, hematocrit 38.6, platelets 140. POC glucose today 162. Labs from 01/04/2019 showed sodium 138, chloride 106, potassium 3.2, carbon dioxide 28, anion gap 7, BUN of 13, creatinine 0.7, GFR greater than 60, random glucose 160, hemoglobin A1c 6.8, calcium 8.8, phosphorus 3.6, magnesium 1.7, total bilirubin 0.5, AST of 57, ALT of 49, alkaline phosphatase 93, lactate dehydrogenase 632, total creatine kinase 92, troponin less than 0.01, pro-BNP 223, total protein 6.5, albumin 3.3, globulin 3.3, albumin-globulin ratio 1.0, triglycerides 87, cholesterol 171, LDL cholesterol 47, HDL cholesterol 109, TSH 1.19. Toxicology was positive for barbiturates, and alcohol was 19. Chest x-ray showed no active disease. Hip and pelvis x-ray shows no acute fracture, advanced severe bilateral hip arthritic changes. EKG pending report. IMPRESSION AND PLAN: Chronic lung disease, alcohol intoxication, ethanol abuse, diabetes mellitus, nicotine dependence, hypertension, lumbar radiculopathy, diabetes, history of compression fractures, degenerative joint disease, disk herniation history, history of spinal stenosis, history of iron deficiency anemia. Pulmonary point of encourage smoking cessation. Encourage cessation of alcohol use. We will place the patient on inhaled bronchodilators. We will place her on Brovana and Pulmicort nebulizer treatments. Place her on Protonix for gastric prophylaxis and Lovenox for deep venous thrombosis prophylaxis. Fall precautions. Recommend the patient to have full pulmonary function test as outpatient to evaluate extent of chronic lung disease. The patient was seen and examined with Dr. Epperson. Discussed assessment and plan as described above. The patient was seen and examined by Zach Weathers, nurse practitioner. Discussed assessment and plan as described above. Thank you for this consult, and we will follow with you. Sarahy Serrano APN Renato Epperson MD
[2019-01-05] MEDS: Enoxaparin 40 mg Syringe SC SCH (10:43)
[2019-01-05 13:25] LABS: FOLATE 8.1 ng/mL
[2019-01-05] MEDS: Budesonide 0.5 mg/2 ml Inhal Susp UD IH SCH (20:12)
[2019-01-05] MEDS: Arformoterol 15 mcg/2 ml Inh Sol IH SCH (20:12)
[2019-01-05] MEDS: Pantoprazole 40 mg EC Tab PO SCH (21:18)
--- NOTE | 2019-01-05 23:44 | PN ---
This case is discussed with Dr. Montanez she is inagreement with treatment plan. DATE: 01/05/2019 SUBJECTIVE: The patient was examined by me on 01/05/2019. This is a 68-year-old female, came in on 01/04/2019 with chest pain, alcohol abuse. She has a history of alcohol abuse, nicotine dependence, hypertension, arthritis, COPD, history of falls. I saw the patient today at the bedside. The patient is looking comfortable, alert and oriented. Denies shortness of breath, abdominal pain, hematuria, hematochezia, fevers, or chills. Reports intermittent chest pain at rest with no radiation. PHYSICAL EXAMINATION: VITAL SIGNS: Temperature 98.1, pulse rate 92, blood pressure 136/93, respiratory rate 18, and sating 100% on room air. GENERAL: The patient appeared in no acute distress, chronically ill. HEENT: Normocephalic, atraumatic. PERRLA. Mucous membranes moist. NECK: Supple. No thyromegaly. RESPIRATORY: Clear to auscultation. No wheeze. No rhonchi. CARDIOVASCULAR: S1, S2. No JVD. ABDOMEN: Soft, nondistended. No organomegaly. EXTREMITIES: The patient is moving all extremities. SKIN: Intact. No edema. NEUROLOGIC: The patient is alert and oriented x3. MEDICATIONS: The patient continues on Norvasc 10 mg daily, Brovana, Ecotrin 81 mg daily, Pulmicort, Lovenox 40 mg subcu, gabapentin 300 mg p.o. t.i.d., hydralazine 10 mg p.o. four times a day with parameters, Accu-Chek before meals and at bedtime insulin coverage, Ativan 0.5 every 4 hours, metformin 500 mg p.o. b.i.d., Nicoderm patch, Protonix 40 mg p.o. at bedtime, thiamine (vitamin B1) 100 mg p.o. daily. LABORATORY DATA: White blood cells 5.8, hemoglobin 12.4, hematocrit 38.6, platelet count 140. Sodium 138, potassium 3.2, BUN 13, creatinine 0.7. Hemoglobin A1c is 6.8. AST elevated at 57, high. Cholesterol 109. TSH 1.9. ASSESSMENT AND PLAN: This patient is a 68-year-old female, came in with chest pain after alcohol consumption, hypertension, type 2 diabetes. She is on aspirin, Norvasc, Pulmicort, gastric and deep venous thrombosis prophylactics. The patient continues Neurontin three times a day, hydralazine with parameters, metformin twice a day, thiamine (vitamin B1) daily. Labs were reviewed. Reviewed cardiac notes. Pulmonology is on the case. cleaning and maintenance worker is on the case. I discussed with the patient alcohol cessation and nicotine cessation. The patient is cleared by Cardiology. We will follow up with discharge planning for tomorrow on 01/06/2019. We will follow up. Trevor Morales APN Denice Montanez MD [facility]
[2019-01-06 06:58] LABS: BASO # 0.02 K/mm3 (0.0-2.0); BASO % 0.4 % (0.0-3.0); EOS # 0.1 (0.0-0.7); EOS % 1.7 % (1.5-5.0); HEMOGLOBIN 13.9 g/dL (12.0-16.0); LYMPH # 2.1 (1.2-3.4); LYMPH % 40.3 % (22.0-35.0); MEAN CELL VOLUME 91.6 fl (80.0-105.0); MEAN CORPUSCULAR HEMOGLOBIN 29.8 pg (25.0-35.0); MEAN CORPUSCULAR HGB CONC 32.6 g/dl (31.0-37.0); MEAN PLATELET VOLUME 10.6 fl (7.0-11.0); MONO # 0.4 (0.1-0.6); MONO % 7.2 % (1.0-6.0); RBC 4.66 10^6/uL (3.5-6.1); RED CELL DISTRIBUTION WIDTH 15.6 % (11.5-14.5); WHITE BLOOD COUNT 5.3 10^3/uL (4.5-11.0)
[2019-01-06] MEDS: Budesonide 0.5 mg/2 ml Inhal Susp UD IH SCH ×2 (07:22→19:52)
[2019-01-06] MEDS: Arformoterol 15 mcg/2 ml Inh Sol IH SCH ×2 (07:22→19:52)
[2019-01-06] MEDS: Insulin Reg-LOW-Coverage SC SCH ×4 (07:31→23:44)
[2019-01-06 07:33] LABS: BLOOD UREA NITROGEN 15 mg/dL (7-21); CALCIUM 9.6 mg/dL (8.4-10.5); GFR NON-AFRICAN AMERICAN > 60
--- NOTE | 2019-01-06 09:01 | HP ---
DATE OF EXAM: 01/03/2019 The patient was seen and examined at the bedside on 01/03/2019. CHIEF COMPLAINT: Alcohol ingestion, shortness of breath. HISTORY OF PRESENT ILLNESS: Ms. Jesusita Pascual is a 68-year-old female, brought to the emergency department by EMS for alcohol intoxication. The patient is resting comfortably. Denies fever or chills. No hematuria or hematochezia. Sometimes complaining of shortness of breath and coughing. No headache or dizziness. PAST MEDICAL HISTORY: Hypertension, congestive heart failure, COPD, diabetes mellitus, hepatitis C positive, vertebral compression fracture, history of tonsillectomy. FAMILY HISTORY: Father and mother noncontributory. HABITS: Light smoker, less than 10 cigarettes per day. Alcohol, yes. Substance abuse, no right now as per patient, completed methadone program. ALLERGIES: THE PATIENT IS NOT ALLERGIC WITH ANY MEDICATION. HOME MEDICATION: Ventolin. REVIEW OF SYSTEMS: The patient was seen and examined at the bedside, looking comfortable. No fever, no chills. No hematuria or hematochezia. No headache, no dizziness. No chest pain, no palpitations. PHYSICAL EXAMINATION: LABORATORY DATA: White blood cells 5.9, hemoglobin 13.9, hematocrit 42 and platelets 136. Sodium 138, potassium 3.2, BUN 13, creatinine 0.7, glucose 160. AST 57. ASSESSMENT AND PLAN: Ms. Jesusita Pascual is a 68-year-old lady with hypokalemia, replaced; hyperglycemia, uncontrolled diabetes mellitus, hemoglobin A1c 6.8; abnormal liver function test; history of hepatitis C positive. Came in with alcohol intoxication. Barbiturates screen is positive, alcohol quantitative is 19. History of chronic obstructive pulmonary disease and asthma. X-ray of the hip and pelvis done, showed no acute fracture, advanced severe bilateral hip arthritic changes. Seen by the junior estimator Dr. aMrroquin. History of hypertension and hypercholesterolemia. Very poor historian. Peripheral neuropathy. Came with alcohol intoxication. History of substance abuse, completed methadone program. No evidence of acute myocardial infarction as per Cardiology. The patient's last echocardiography done on 10/01/2017, has preserved left ventricular function. We will follow up serial CPK and troponin. Starting the patient on hydralazine, aspirin, Ativan, metformin. Put on a sliding scale. Potassium replaced. Neurontin given. Nicotine patch given. We will start thiamine. We will repeat labs. We will follow up in the [facility]. Denice Montanez MD
[2019-01-06] MEDS: Enoxaparin 40 mg Syringe SC SCH (10:33)
--- NOTE | 2019-01-06 12:14 | PN ---
DATE: 01/06/2019 REFERRING PHYSICIAN: Dr. Montanez. SUBJECTIVE: The patient seen lying in bed, no acute distress. No overnight events reported. Reports she is having generalized body pains. States that this morning she had some shortness of breath, but was given nebulizer treatments which helped and improved symptoms at this time. No headaches, rhinitis, shortness of breath, chest pain, abdominal pain, nausea, vomiting, diarrhea or leg swelling reported. PHYSICAL EXAMINATION: GENERAL: No acute distress. VITAL SIGNS: Blood pressure 101/73, pulse 77, temperature 98.4, oxygen saturation 95% on room air. HEENT: Moist mucous membranes. NECK: Supple. No JVD. RESPIRATORY: Few scattered rhonchi. CARDIOVASCULAR: S1, S2. ABDOMEN: Soft, nontender. No distention. No organomegaly. EXTREMITIES: No bilateral lower extremity edema. NEUROLOGIC: Awake, alert, verbal. Following commands. MEDICATIONS: Reviewed. Norvasc 10 mg daily, Brovana 15 mcg inhalation every 12 hours, aspirin 81 mg daily, Pulmicort 0.5 mg inhalation every 12 hours, Lovenox 40 mg subcu daily, Neurontin 300 mg three times a day, hydralazine 10 mg four times a day p.r.n. for systolic blood pressure greater than 160, Motrin 400 mg every 6 hours, Humulin R sliding scale before meals and at bedtime, Ativan 0.5 mg IV push every 4 hours p.r.n., metformin 500 mg twice a day, nicotine patch transdermal daily, Protonix 40 mg at bedtime, vitamin B 100 mg daily. LABORATORY DATA: Reviewed. WBC 5.3, RBC 4.66, hemoglobin 13.9, hematocrit 42.7, platelets 141. Sodium 138, potassium 4.1, chloride 102, carbon dioxide 30, anion gap 11, BUN 15, creatinine 0.7, GFR greater than 60, POC glucose 145, random glucose 136, calcium 9.6, phosphorus 5, magnesium 1.7. IMPRESSION AND PLAN: Chronic lung disease, alcohol abuse, diabetes mellitus, nicotine dependence, hypertension, lumbar radiculopathy, history of compression fractures, degenerative joint disease, disk herniation history, spinal stenosis, history of iron deficiency anemia. Pulmonary point of view, continue inhaled bronchodilators, gastric prophylaxis, deep venous thrombosis prophylaxis. Continue smoking cessation, fall precautions. The patient currently on medication for pain management. Recommend the patient have full pulmonary function test as outpatient to evaluate extent of chronic lung disease. The patient was seen and examined with Dr. Epperson. Discussed assessment and plan as described above. The patient was seen and examined by Zach Weathers, nurse practitioner. Discussed assessment and plan as described above. Thank you for this consult. We will follow with you. Sarahy Serrano APN Renato Epperson MD
--- NOTE | 2019-01-06 13:29 | PN ---
DATE: 01/06/2019 REASON FOR CONSULTATION: Cardiac evaluation, chest pain, admitted after alcoholic intoxication. SUBJECTIVE: The patient complains of chest pain and chest is very tender. OBJECTIVE: GENERAL: Not in apparent distress. VITAL SIGNS: Temperature afebrile. Heart rate 77, and blood pressure 101/73. HEENT: PERRLA. Extraocular muscles intact. NECK: Supple. No carotid bruits or thyromegaly. CHEST: Clear to auscultation. There is tenderness on touching. HEART: S1 and S2 regular. ABDOMEN: Soft. EXTREMITIES: Clubbing and cyanosis, negative. LABORATORY DATA: WBC 7, hemoglobin 13.1, hematocrit 42.7, and platelet count 141. Chemistry shows sodium 130, potassium 4.0, chloride 102, carbon dioxide 13, anion gap of 11, BUN 15, and creatinine 0.5. IMPRESSION: A 68-year-old female came to the emergency room with alcoholic intoxication, hypertension, hepatitis C, chronic obstructive pulmonary disease, diabetes, arthritis, history of diabetes, history of arthritis, history of chronic substance abuse, on methadone program, peripheral neuropathy, currently active tobacco abuse, active alcohol abuse. Echo dated 09/29/2018 shows ejection fraction 57%, mild tricuspid regurgitation, right ventricular systolic pressure 33. No mitral regurgitation. EKG, normal sinus. No evidence of acute myocardial infarction. Because of the multiple comorbidities and risk factor, the patient is scheduled for stress test as outpatient. Chest pain is atypical. RECOMMENDATION: Continue NSAID. The patient has been scheduled for stress test as outpatient. I explained to the patient. No evidence of . We will sign off and would like to follow up p.r.n. Renato Marroquin MD [facility]
[2019-01-06] MEDS: Pantoprazole 40 mg EC Tab PO SCH (21:06)
--- NOTE | 2019-01-07 03:14 | PN ---
DATE: 01/06/2019 SUBJECTIVE: The patient was seen and examined at bedside on 01/06/2019, looking comfortable. Does not look like in distress. No change in the status. According to the patient, she has generalized body pain and sometimes getting shortness of breath and chest pain. The patient got nebulizer treatment which helped to improve the breathing. No fever. No chills. No hematuria. No hematochezia. PHYSICAL EXAMINATION: VITAL SIGNS: Blood pressure 100/70, pulse 80, temperature 98.6, and oxygen saturation 96%. HEENT: Head: Normocephalic, atraumatic. Eyes: PERRLA. Extraocular muscles intact. Conjunctivae clear. Nose patent. Mucous membranes moist. NECK: Supple. No carotid bruits. No JVD or thyromegaly. CHEST: Bilaterally symmetrical. HEART: S1 and S2 positive. LUNGS: Clear to auscultation. ABDOMEN: Soft. Bowel sounds present. No organomegaly. EXTREMITIES: No edema. No cyanosis. CENTRAL NERVOUS SYSTEM: The patient is awake, alert, moving all four extremities. No focal deficits. MEDICATIONS: Norvasc, Brovana, Pulmicort, Neurontin, hydralazine, Motrin, insulin, metformin, and Protonix. LABORATORY DATA: White blood cells 5.3, hemoglobin 13.9, hematocrit 42.7, and platelets 141. Sodium 138, potassium 4.1, BUN 16, creatinine 0.7, and glucose 148. ASSESSMENT AND PLAN: Mrs. Jesusita Pascual is a 68-year-old lady with multiple medical problems, history of drug abuse, history of alcohol abuse, chronic lung disease, diabetes mellitus, nicotine dependency, hypertension, back pain and lumbosacral radiculopathy, history of compression fracture, degenerative joint disease, disc herniation, spinal stenosis with iron-deficiency anemia, came with chest pain. Cardiology and Pulmonary are on the case. Urged to quit smoking. We will try to do transitional care unit. Repeat labs. Gastrointestinal and deep venous thrombosis prophylaxis. The patient is very noncompliant as outpatient. We will follow up. Denice Montanez MD [facility] # [id number]
[2019-01-07] MEDS: Arformoterol 15 mcg/2 ml Inh Sol IH SCH ×2 (07:12→19:07)
[2019-01-07] MEDS: Budesonide 0.5 mg/2 ml Inhal Susp UD IH SCH ×2 (07:12→19:07)
[2019-01-07] MEDS: Insulin Reg-LOW-Coverage SC SCH ×3 (08:03→16:36)
[2019-01-07] MEDS: Enoxaparin 40 mg Syringe SC SCH (10:29)
--- NOTE | 2019-01-07 13:26 | CARD ---
APPROVED REPORT Date of service: 01/03/2019 EKG Measurement Heart [id number] <Conclusion> Normal sinus rhythm Possible Left atrial enlargement Nonspecific T wave abnormality Prolonged QT Abnormal ECG
[2019-01-07] MEDS: Alum-Mag Hydrox-Simethicone Susp (30 mL) PO SCH ×2 (14:17→17:35)
--- NOTE | 2019-01-07 14:38 | PN ---
DATE: 01/07/2019 PULMONARY PROGRESS NOTE REFERRING PHYSICIAN: Dr. Montanez. SUBJECTIVE: The patient is out of bed to wheelchair. Night was unremarkable. Cough is better. No shortness of breath. No epigastric discomfort. No issues in leg pain or leg swelling. OBJECTIVE: GENERAL: In no acute distress. VITAL SIGNS: Temperature 98, heart rate is 89, respiratory rate 18, blood pressure 120/83, pulse oxygen 97% on room air. HEENT: Moist mucous membranes. No ulcer or thrush. NECK: Supple. No JVD. LUNGS: Few scattered rhonchi. HEART: S1 and S2. ABDOMEN: Mild epigastric tenderness. EXTREMITIES: No edema. NEUROLOGIC: Awake and alert. Follow simple commands. MEDICATIONS: She is on hydralazine 10 mg q.i.d. p.r.n., lorazepam 7.5 mg every 4 hour p.r.n., Brovana inhaled twice a day, Ecotrin 81 mg daily, metformin 500 mg twice a day, insulin coverage, Lovenox 40 mg subcutaneous daily, gabapentin 300 mg three times a day, Nicoderm patch daily, Protonix 40 mg daily, Pulmicort inhaled twice a day and vitamin B 100 mg daily. LABORATORY DATA: Reviewed. Blood sugar this morning is 134. IMPRESSION AND PLAN: Chronic obstructive lung disease, history of excess of alcohol use, diabetes, nicotine dependence, hypertension, lumbar radiculopathy, history of compression fracture, degenerative joint disease, disk herniation in the past, spinal stenosis, iron deficiency anemia and may have gastritis. From a pulmonary point of view, doing okay. Continue bronchodilators. Keep head of bed at 45 degrees. Gastric prophylaxis and deep venous thrombosis prophylaxis, p.r.n. benzodiazepine. We will add MiraLax p.r.n. basis. Fall precautions. Thank you and we will follow with you. Renato Epperson MD
[2019-01-07] MEDS: Pantoprazole 40 mg EC Tab PO SCH (21:26)
--- NOTE | 2019-01-07 23:33 | PN ---
This case has been discussed with Dr. Montanez she is inagreement with treatment plan. DATE: 01/07/2019 SUBJECTIVE: Patient came in with chest pain, hypertension. Chest pain was brought on by alcohol consumption. I saw patient today at bedside. She was alert and oriented, looking comfortable, sitting on the bed. Denies shortness of breath. Denies abdominal pain, hematuria, hematochezia, fevers or chills. She reports intermittent chest pain with no radiation. Patient states it has happened sometime. PHYSICAL EXAMINATION: GENERAL: Patient appears in no acute distress. VITAL SIGNS: Temperature 98.8, pulse rate 101, blood pressure 109/78, respiratory rate 19, and O2 sat 96 on room air. HEENT: Normocephalic and atraumatic. PERRLA. Mucous membranes moist. NECK: Supple. No thyromegaly. Normal inspection. RESPIRATORY: Clear to auscultation. No wheeze. No rhonchi. CARDIOVASCULAR: S1 and S2. No JVD. ABDOMEN: Soft and nontender. No organomegaly. EXTREMITIES: The patient is moving all extremities. No edema. No cyanosis. SKIN: Intact. NEUROLOGIC: Patient is alert and oriented x3. MEDICATIONS: Maalox, Norvasc 10 mg, Brovana, Ecotrin 81 mg daily, budesonide, Lovenox 40 mg subcutaneously, gabapentin 300 p.o. t.i.d., hydralazine 10 mg with parameters, Accu-Chek a.c. and at bedtime with insulin coverage, Ativan 0.5 p.r.n., metformin 500 mg b.i.d., Nicoderm patch daily, Protonix 40 mg, thiamine B1 100 mg p.o. daily and Ultram 60 mg t.i.d. LABORATORY DATA: Hematology from 01/06/2019; white blood cells 5.3, hemoglobin 13.9, hematocrit 42.7, and platelet count 141. Chemistries from 01/06/2019; sodium 138, potassium 4.1, BUN 15, creatinine 0.7 and random glucose 136. Reviewed toxicology. ASSESSMENT AND PLAN: Ms. Pascual is 68-year-old female with alcohol abuse, ETOH, hypertension, diabetes mellitus, chronic obstructive pulmonary disease, and osteoarthritis. Patient is complaining of pain still in bilateral hips. X-ray was done showed no fracture. Reviewed patient's home medications; the patient was taking tramadol. Added tramadol 50 mg t.i.d. p.r.n. The patient continues on gastric and deep venous prophylaxis, thiamine 100 mg daily, bronchodilator, metformin 500 t.i.d., hydralazine with parameters and amlodipine. The patient is seen by Cardiology and cleared. Pulmonology is on the case. The patient was evaluated by TCU today; however, she does not meet the criteria for admission. So, we will put in order for discharge for tomorrow 01/08/2019. We will follow up patient as an outpatient. ALL ABOVE NOTED , AGREED WITH PERL SOFTWARE ENGINEER TREATMENT PLAN , EDUCATION DONE , WILL CONT. SAME TREATMENT , WILL F/U Trevor Morales APN Denice Montanez MD [facility]
[2019-01-08] MEDS: Budesonide 0.5 mg/2 ml Inhal Susp UD IH SCH (07:06)
[2019-01-08] MEDS: Arformoterol 15 mcg/2 ml Inh Sol IH SCH (07:06)
[2019-01-08 07:10] LABS: HEMOGLOBIN 13.1 g/dL (12.0-16.0); MEAN CELL VOLUME 91.4 fl (80.0-105.0); MEAN CORPUSCULAR HEMOGLOBIN 29.6 pg (25.0-35.0); MEAN CORPUSCULAR HGB CONC 32.3 g/dl (31.0-37.0); MEAN PLATELET VOLUME 11.2 fl (7.0-11.0); RBC 4.43 10^6/uL (3.5-6.1); RED CELL DISTRIBUTION WIDTH 15.2 % (11.5-14.5); WHITE BLOOD COUNT 5.6 10^3/uL (4.5-11.0)
[2019-01-08 07:26] LABS: ALBUMIN 3.8 g/dL (3.0-4.8); ALT/SGPT 47 U/L (7-56); AST/SGOT 60 U/L (14-36); BLOOD UREA NITROGEN 22 mg/dL (7-21); CALCIUM 9.3 mg/dL (8.4-10.5); GFR NON-AFRICAN AMERICAN > 60
[2019-01-08 07:54] VITALS: RESP 18
[2019-01-08] MEDS: Insulin Reg-LOW-Coverage SC SCH (08:00)
[2019-01-08] MEDS: Enoxaparin 40 mg Syringe SC SCH (10:14)
[2019-01-08 10:15] VITALS: BP 120/78
--- NOTE | 2019-01-08 11:44 | PN ---
DATE: 01/08/2019 PULMONARY PROGRESS NOTE REFERRING PHYSICIAN: Dr. Montanez. SUBJECTIVE: The patient is seen lying in bed. No acute distress. No overnight events reported. States that she feels well this morning. No headache, rhinitis, cough, shortness of breath, chest pain, abdominal pain, nausea, vomiting, diarrhea, leg pain, or leg swelling reported. OBJECTIVE: GENERAL: No acute distress. VITAL SIGNS: Blood pressure 120/78, pulse 84, temperature 98.3 and oxygen saturation 99% on room air. HEENT: Moist mucous membranes. NECK: Supple. No JVD. LUNGS: Few scattered rhonchi. CARDIOVASCULAR: S1 and S2. ABDOMEN: Soft and nontender. No distention. No organomegaly. EXTREMITIES: No bilateral lower extremity edema. NEUROLOGIC: Awake, alert and verbal. Following commands. MEDICATIONS: Reviewed. Maalox 30 mL every 6 hours, Norvasc 10 mg daily, Brovana 15 mcg inhalation every 12 hours, aspirin 81 mg daily, Pulmicort 0.5 mg inhalation every 12 hours, Lovenox 40 mg subcutaneous daily, Neurontin 300 mg three times a day, hydralazine 10 mg four times a day p.r.n., systolic blood pressure greater than 160, Humulin R sliding scale a.c and at bedtime, Ativan 0.5 mg IV push every 4 hours p.r.n., metformin 500 mg twice a day, nicotine patch transdermal daily, Protonix 40 mg at bedtime, vitamin B1 100 mg daily and tramadol 50 mg three times a day p.r.n. LABORATORY DATA: Reviewed. WBC 5.6, RBC 4.13, hemoglobin 13.1, hematocrit 40.5 and platelets 158. Sodium 133, potassium 4.2, chloride 99, carbon dioxide 30, anion gap of 9, BUN 22, creatinine 0.8, GFR is greater than 60, POC glucose 125, random glucose 126, calcium 9.3, total bilirubin 0.5, AST 60, ALT 47, alkaline phosphatase 93, total protein 7.5, albumin 3.8, globulin 3.7 and albumin-globulin ratio 1.0. IMPRESSION AND PLAN: Chronic obstructive lung disease, alcohol use, diabetes mellitus, nicotine dependence, hypertension, lumbar radiculopathy, history of compression fracture, degenerative joint disease, disk herniation in the past, spinal stenosis, iron deficiency anemia and may have gastritis. Pulmonary point of view, the patient is stable, pulmonary murphy continue bronchodilators. Head of bed elevated at 45 degrees. Gastric prophylaxis and deep venous thrombosis prophylaxis. We will add MiraLax p.r.n. basis. Fall precautions. The patient was seen and examined with Dr. Epperson. Discussed assessment and plan as described above. The patient was seen and examined by Zach Weathers, nurse practitioner. Discussed assessment and plan as described above. Thank you for this consult. We will follow with you. Sarahy Serrano APN Renato Epperson MD
[2019-01-08] MEDS: Alum-Mag Hydrox-Simethicone Susp (30 mL) PO SCH (13:00)
[2019-01-08 13:31] VITALS: PULSE 94; TEMP 98.2; O2SAT 98
--- NOTE | 2019-01-09 00:40 | DS ---
The patient was seen and examined at the bedside on 01/08/2019. CHIEF COMPLAINT: Alcohol ingestion. HISTORY OF PRESENT ILLNESS: Ms. Jesusita Pascual is a 68-year-old female with past medical history of alcohol abuse, smoking, and COPD. She has multiple ER visits, but is very noncompliant as outpatient, came with alcohol intoxication. We admitted the patient, did chest x-rays of pelvis and hip. Seen by research chemical engineer Dr. Epperson and smog technician. Psych consult called. Everybody cleared the patient for discharge, discharging the patient, and followup as outpatient. PAST MEDICAL HISTORY: Hypertension, COPD, diabetes mellitus, hepatitis C, arthritis, and tonsillectomy. FAMILY HISTORY: Father and mother noncontributory. HABITS: Smoking, yes. Alcohol, yes. Substance abuse history, completed methadone program. ALLERGIES: THE PATIENT IS NOT ALLERGIC WITH ANY MEDICATIONS. HOME MEDICATIONS: Reviewed by me. REVIEW OF SYSTEMS: The patient was seen and examined at the bedside earlier in the morning. Looking comfortable. No fever. No chills. No hematuria. No hematochezia. No headache or dizziness. No chest pain. No palpitation at this moment. No swelling of the leg. PHYSICAL EXAMINATION: VITAL SIGNS: Blood pressure 120/78, pulse 84, temperature 98.3, and oxygen saturation 99%. HEENT: Head; normocephalic and atraumatic. Eyes; PERRLA. Extraocular muscles intact. Conjunctivae clear. Nose patent. Mucous membranes moist. NECK: Supple. No carotid bruits, JVD, or thyromegaly. CHEST: Bilaterally symmetrical. HEART: S1 and S2 positive. LUNGS: Clear to auscultation. ABDOMEN: Soft. Bowel sounds present. No organomegaly. EXTREMITIES: No edema. No cyanosis. NEUROLOGIC: The patient is awake and alert. Moving all four extremities. No focal deficit. MEDICATIONS: Brovana, Pulmicort, Lovenox, Neurontin, hydralazine, Ativan, metformin, and nicotine. LABORATORY DATA: White blood cell 5.6, hemoglobin 13.1, hematocrit 40.5, and platelets 158. Sodium 133, potassium 4.2, BUN 22, and creatinine 0.8. ASSESSMENT AND PLAN: Ms. Jesusita Pascual is a 68-year-old lady with multiple medical problems chronic obstructive pulmonary disease, alcohol use, diabetes mellitus, nicotine dependence, hypertension, lumbar radiculopathy, compression fracture, degenerative joint disease, disk herniation in the past, spinal stenosis, and iron deficiency anemia. Continue present treatment, had elevation, and gastric prophylaxis and deep venous thrombosis prophylaxes. Repeat labs. Sent home. Medications provided on the bedside. Follow up as outpatient. Urged to quit smoking, quit alcohol, be compliant as outpatient, she understands, she is oriented x3 , Denice Montanez MD MTDKam
== END 2019-01-08 15:57 | disposition home or self-care (01) | DRG 897 ==
LOC: ED 20:40 → ERH 01-03 04:19 → 2RNO 01-03 05:41 → OBSVTOIN 01-04 17:22 → 5RNO 01-04 19:09
PROVIDERS: ADMIT Internal Medicine; ATTEND Internal Medicine
DX: F10.129 Alcohol abuse with intoxication, unspecified (principal); R07.89 Other chest pain; E87.6 Hypokalemia; E11.65 Type 2 diabetes mellitus with hyperglycemia; B19.20 Unspecified viral hepatitis C without hepatic coma; I11.0 Hypertensive heart disease with heart failure; I50.9 Heart failure, unspecified; D50.9 Iron deficiency anemia, unspecified; E11.42 Type 2 diabetes mellitus with diabetic polyneuropathy; E78.00 Pure hypercholesterolemia, unspecified; F17.210 Nicotine dependence, cigarettes, uncomplicated; J44.9 Chronic obstructive pulmonary disease, unspecified; M19.90 Unspecified osteoarthritis, unspecified site; M51.16 Intervertebral disc disorders with radiculopathy, lumbar region; M48.00 Spinal stenosis, site unspecified; I07.1 Rheumatic tricuspid insufficiency; E78.5 Hyperlipidemia, unspecified; Y90.0 Blood alcohol level of less than 20 mg/100 ml; Z91.19 Patient's noncompliance with other medical treatment and regimen; Z79.82 Long term (current) use of aspirin; Z79.84 Long term (current) use of oral hypoglycemic drugs

== ENCOUNTER 2019-01-11 21:53 | Emergency (ER) | payer MEDICARE, OTHER ==
[2019-01-11 21:54] VITALS: BMI 21.2
[2019-01-11 22:15] VITALS: RESP 18
--- NOTE | 2019-01-11 22:38 | ED PDOC ---
Arrival/HPI - General Chief Complaint: Headache Time Seen by Provider: 01/11/19 22:04 Historian: Patient - History of Present Illness Narrative History of Present Illness (Text): 01/11/19 22:38 Jesuista Pascual is a 68 year old female, whose past medical history includes hypertension, who presents to the Emergency department complaining of intermittent headache for the past 2 days. Patient denies any fever, chills, chest pain, shortness of breath, nausea, vomiting, diarrhea, urinary symptoms, back pain, neck pain, vision changes, focal neurological deficits, dizziness, or any other complaints. Symptom Onset: Gradual Symptom Course: Unchanged Activities at Onset: Light Context: Home Past Medical History - Provider Review Nursing Documentation Reviewed: Yes - Infectious Disease Hx of Infectious Diseases: None - Cardiac Hx Congestive Heart Failure: Yes Hx Hypertension: Yes - Pulmonary Hx Chronic Obstructive Pulmonary Disease (COPD): Yes - Neurological Hx Neurological Disorder: No - HEENT Hx HEENT Disorder: No - Renal Hx Renal Disorder: No - Endocrine/Metabolic Hx Endocrine Disorders: Yes Hx Diabetes Mellitus Type 2: Yes - Hematological/Oncological Hx Blood Disorders: Yes Hx Hepatitis C: Yes - Integumentary Hx Dermatological Disorder: No - Musculoskeletal/Rheumatological Hx Arthritis: Yes Hx Falls: Yes Hx Fractures: Yes (vertebral compression fracture) - Gastrointestinal Hx Gastrointestinal Disorders: No - Genitourinary/Gynecological Hx Genitourinary Disorders: Yes - Psychiatric Hx Psychophysiologic Disorder: No Hx Substance Use: No - Surgical History Hx Tonsillectomy: Yes - Anesthesia Hx Anesthesia: Yes Hx Anesthesia Reactions: No Hx Malignant Hyperthermia: No Family/Social History - Physician Review Nursing Documentation Reviewed: Yes Family/Social History: Unknown Family HX Smoking Status: Light Smoker < 10 Cigarettes Daily Hx Alcohol Use: Yes Hx Substance Use: No Substance used: completed methadone program Allergies/Home Meds Allergies/Adverse Reactions: Allergies No Known Allergies Allergy (Verified 01/02/19 21:25) Home Medications: Home Meds Medication Instructions Recorded Confirmed Albuterol HFA [Ventolin HFA 90 2 puff IH QID PRN 10/22/18 01/02/19 mcg/actuation (8 g)] Review of Systems - Physician Review All systems were reviewed & negative as marked: Yes - Review of Systems Constitutional: Normal. absent: Fevers Eyes: Normal ENT: Normal Respiratory: Normal. absent: SOB, Cough Cardiovascular: Normal. absent: Chest Pain Gastrointestinal: Normal. absent: Abdominal Pain, Diarrhea, Nausea, Vomiting Genitourinary Female: Normal. absent: Dysuria, Frequency, Hematuria, Urine Output Changes Musculoskeletal: Normal. absent: Back Pain, Neck Pain Skin: Normal. absent: Rash Neurological: Headache. absent: Dizziness Endocrine: Normal Hemo/Lymphatic: Normal Psychiatric: Normal Physical Exam Vital Signs Reviewed: Yes Vital Signs Temp Pulse Resp BP Pulse Ox 01/11/19 22:15 98.2 F 112 H 18 116/79 98 Temperature: Afebrile Blood Pressure: Normal Pulse: Regular Respiratory Rate: Normal Appearance: Positive for: Well-Appearing, Non-Toxic, Comfortable Pain Distress: None Mental Status: Positive for: Alert and Oriented X 3 - Systems Exam Head: Present: Atraumatic, Normocephalic Pupils: Present: PERRL Extroacular Muscles: Present: EOMI Conjunctiva: Present: Normal Mouth: Present: Moist Mucous Membranes Neck: Present: Normal Range of Motion. No: Meningeal Signs Respiratory/Chest: Present: Clear to Auscultation, Good Air Exchange. No: Respiratory Distress, Accessory Muscle Use Cardiovascular: Present: Regular Rate and Rhythm, Normal S1, S2. No: Murmurs Abdomen: No: Tenderness, Distention, Peritoneal Signs Back: Present: Normal Inspection Upper Extremity: Present: Normal Inspection. No: Cyanosis, Edema Lower Extremity: Present: Normal Inspection. No: Edema Neurological: Present: GCS=15, CN II-XII Intact, Speech Normal, Motor Func Grossly Intact, Normal Sensory Function Skin: Present: Warm, Dry, Normal Color. No: Rashes Psychiatric: Present: Alert, Oriented x 3, Normal Insight, Normal Concentration Medical Decision Making ED Course and Treatment: 01/11/19 22:38 Impression: 68 year old female complaining of headache tonight. Plan: -- Tylenol -- Reassess and disposition Prior Visits: Notes and results from previous visits were reviewed. Progress Notes: - Scribe Statement The provider has reviewed the documentation as recorded by the Yolande Saldana Provider Scribe Attestation: All medical record entries made by the Scribe were at my direction and personally dictated by me. I have reviewed the chart and agree that the record accurately reflects my personal performance of the history, physical exam, medical decision making, and the department course for this patient. I have also personally directed, reviewed, and agree with the discharge instructions and disposition. Disposition/Present on Arrival - Present on Arrival Any Indicators Present on Arrival: No History of DVT/PE: No History of Uncontrolled Diabetes: No Urinary Catheter: No History of Decub. Ulcer: No History Surgical Site Infection Following: None - Disposition Have Diagnosis and Disposition been Completed?: Yes Diagnosis: Tension headache Disposition: HOME/ ROUTINE Disposition Time: 01:39 Patient Plan: Discharge Patient Problems: Current Active Problems Problem Status Onset Tension headache Acute Condition: GOOD Discharge Instructions (ExitCare): Tension Headache (DC) Additional Instructions: Take Tylenol as directed/follow up with your doctor this week Referrals: PCP,NO [Primary Care Provider] - Follow up with primary Forms: [facility] (Romansh)
[2019-01-12 04:12] VITALS: BP 112/72; PULSE 92; TEMP 97.8; O2SAT 96
== END 2019-01-12 02:09 | disposition home or self-care (01) ==
LOC: ED 21:53
DX: G44.209 Tension-type headache, unspecified, not intractable (principal); E11.9 Type 2 diabetes mellitus without complications; F17.210 Nicotine dependence, cigarettes, uncomplicated; I50.9 Heart failure, unspecified; J44.9 Chronic obstructive pulmonary disease, unspecified; I10 Essential (primary) hypertension